=== PATIENT | female | born 1940 | race Caucasian/White ===

== ENCOUNTER 2020-02-20 08:35 | Outpatient (REF) | payer MEDICARE, SELFPAY ==
[2020-02-20 10:07] LABS: MANUAL DIFF FLAG NO
[2020-02-20 10:17] LABS: Basophils Absolute Auto 0.1 X10*3/uL (0.0-0.2); Basophils Percent Auto 0.7 % (0-2); Eosinophils Absolute Auto 0.1 X10*3/uL (0.0-0.4); Eosinophils Percent Auto 1.1 % (0-4); Hematocrit 40.5 % (37-47); Hemoglobin 13.1 g/dl (12.0-16.0); Imm Gran Abs Auto 0.02 X10*3/uL (0.00-0.03); Imm Gran Pct Auto 0.3 % (0.0-0.4); Mean Corpuscular HGB Conc 32.3 g/dl (31.0-35.0); Mean Corpuscular Hemoglobin 30.5 pg (27.0-33.0); Mean Corpuscular Volume 94.2 fL (80-98); Monocytes Absolute Auto 0.5 X10*3/uL (0.1-1.2); Monocytes Percent Auto 7.3 % (2-11); Neutrophils Absolute Auto 4.6 X10*3/uL (2.0-8.3); Neutrophils Percent Auto 63.6 % (45-73); Platelet Count 241 X10*3/uL (160-400); Red Cell Distribution Width 13.2 % (11.0-16.0); White Blood Count 7.2 X10*3/uL (4.8-10.8)
[2020-02-20 10:52] LABS: Alanine Aminotransferase 12 U/L (0-31); Alkaline Phosphatase 77 U/L (39-117); Anion Gap 13 (12-20); Aspartate Amino Transferase 17 U/L (5-31); Bilirubin Total 0.7 mg/dL (0.0-1.0); Blood Urea Nitrogen 19 mg/dL (9-16); Calcium 8.9 mg/dL (8.4-10.2); Carbon Dioxide 24 mmol/L (22-29); Chloride 112 mmol/L (96-108); Cholesterol 163 mg/dL; Estimated Glomerular Filt Rate 46; Glucose Fasting 81 mg/dL (60-99); HDL Cholesterol 33 mg/dL; LDL Cholesterol Calculated 104 mg/dl; Potassium 4.5 mmol/l (3.3-5.1); Sodium 144 mmol/L (135-145); Total Protein 6.4 g/dL (6.5-8.0); Triglycerides 130 mg/dL
[2020-02-20 11:01] LABS: Free T4 (Free Thyroxine) 1.26 ng/dL (0.71-1.85); Thyroid Stimulating Hormone 1.64 mIU/mL (0.32-4.0)
[2020-02-20 11:34] LABS: Vitamin B12 173 pg/mL (200-900)
== END 2020-02-20 08:36 | disposition home or self-care (01) ==
LOC: HO.LAB 08:35
PROVIDERS: PCP Internal Medicine; Visit Provider Internal Medicine
DX: E03.9 Hypothyroidism, unspecified (principal); E55.9 Vitamin D deficiency, unspecified; I12.9 Hypertensive chronic kidney disease with stage 1 through stage 4 chronic kidney disease, or unspecified chronic kidney disease; N18.9 Chronic kidney disease, unspecified; E53.8 Deficiency of other specified B group vitamins
CPT/HCPCS: 36415; 80053; 80061; 82306; 82607; 84439; 84443; 85025

== ENCOUNTER 2020-04-14 09:22 | Outpatient (REF) | payer MEDICARE, SELFPAY ==
[2020-04-14 10:57] LABS: Anion Gap 14 (12-20); Blood Urea Nitrogen 27 mg/dL (9-16); Calcium 8.7 mg/dL (8.4-10.2); Carbon Dioxide 20 mmol/L (22-29); Chloride 110 mmol/L (96-108); Estimated Glomerular Filt Rate 44; Sodium 140 mmol/L (135-145)
[2020-04-14 12:42] LABS: Renal w Reflex Lab Use Only Order verified
== END 2020-04-14 09:23 | disposition home or self-care (01) ==
LOC: HO.10HDL 09:22
PROVIDERS: PCP Internal Medicine; Visit Provider Internal Medicine Nephrology
DX: I12.9 Hypertensive chronic kidney disease with stage 1 through stage 4 chronic kidney disease, or unspecified chronic kidney disease (principal); N18.30 Chronic kidney disease, stage 3 unspecified
CPT/HCPCS: 80051; 82310; 82565; 84520

== ENCOUNTER → 2020-05-20 11:10 | Outpatient (BNVA) | payer MEDICARE, SELFPAY | PROVIDERS: PCP Internal Medicine; Visit Provider Internal Medicine | DX: R09.89 Other specified symptoms and signs involving the circulatory and respiratory systems (principal); R55 Syncope and collapse; I35.0 Nonrheumatic aortic (valve) stenosis; E78.5 Hyperlipidemia, unspecified; I65.23 Occlusion and stenosis of bilateral carotid arteries; I10 Essential (primary) hypertension | CPT/HCPCS: 93005; 99212 ==

== ENCOUNTER 2020-06-05 09:33 | Outpatient (REF) | payer MEDICARE, SELFPAY ==
[2020-06-05 10:09] LABS: MANUAL DIFF FLAG NO
[2020-06-05 10:13] LABS: Basophils Absolute Auto 0.1 X10*3/uL (0.0-0.2); Basophils Percent Auto 0.7 % (0-2); Eosinophils Absolute Auto 0.2 X10*3/uL (0.0-0.4); Eosinophils Percent Auto 2.3 % (0-4); Hematocrit 39.9 % (37-47); Hemoglobin 12.9 g/dl (12.0-16.0); Imm Gran Abs Auto 0.02 X10*3/uL (0.00-0.03); Imm Gran Pct Auto 0.3 % (0.0-0.4); Lymphocytes Absolute Auto 1.7 X10*3/uL (1.2-4.9); Lymphocytes Percent Auto 23.3 % (20-40); Mean Corpuscular HGB Conc 32.3 g/dl (31.0-35.0); Mean Corpuscular Hemoglobin 30.4 pg (27.0-33.0); Mean Corpuscular Volume 94.1 fL (80-98); Mean Platelet Volume 9.7 fL (9.4-12.3); Monocytes Absolute Auto 0.5 X10*3/uL (0.1-1.2); Monocytes Percent Auto 7.3 % (2-11); Neutrophils Absolute Auto 4.7 X10*3/uL (2.0-8.3); Neutrophils Percent Auto 66.1 % (45-73); Platelet Count 244 X10*3/uL (160-400); Red Blood Count 4.24 X10*6/uL (4.20-5.50); Red Cell Distribution Width 12.9 % (11.0-16.0); White Blood Count 7.1 X10*3/uL (4.8-10.8)
[2020-06-05 10:57] LABS: Alanine Aminotransferase 12 U/L (0-31); Alkaline Phosphatase 77 U/L (39-117); Anion Gap 13 (12-20); Aspartate Amino Transferase 18 U/L (5-31); Bilirubin Total 0.7 mg/dL (0.0-1.0); Blood Urea Nitrogen 22 mg/dL (9-16); Calcium 8.8 mg/dL (8.4-10.2); Carbon Dioxide 22 mmol/L (22-29); Chloride 112 mmol/L (96-108); Cholesterol 162 mg/dL; Estimated Glomerular Filt Rate 42; Glucose Fasting 83 mg/dL (60-99); HDL Cholesterol 29 mg/dL; LDL Cholesterol Calculated 106 mg/dl; Potassium 4.5 mmol/l (3.3-5.1); Sodium 142 mmol/L (135-145); Total Protein 6.3 g/dL (6.5-8.0); Triglycerides 139 mg/dL
[2020-06-05 11:04] LABS: Free T4 (Free Thyroxine) 1.15 ng/dL (0.71-1.85); Thyroid Stimulating Hormone 1.43 uIU/mL (0.32-4.0)
== END 2020-06-05 09:34 | disposition home or self-care (01) ==
LOC: HO.10HDL 09:33
PROVIDERS: Visit Provider Internal Medicine
DX: I12.9 Hypertensive chronic kidney disease with stage 1 through stage 4 chronic kidney disease, or unspecified chronic kidney disease (principal); N18.9 Chronic kidney disease, unspecified; E03.9 Hypothyroidism, unspecified
CPT/HCPCS: 36415; 80053; 80061; 84439; 84443; 85025

== ENCOUNTER 2020-07-23 09:54 | Outpatient (REF) | payer MEDICARE, SELFPAY ==
[2020-07-23 11:05] LABS: Anion Gap 12 (12-20); Blood Urea Nitrogen 25 mg/dL (9-16); Calcium 9.1 mg/dL (8.4-10.2); Carbon Dioxide 23 mmol/L (22-29); Chloride 110 mmol/L (96-108); Estimated Glomerular Filt Rate 43; Potassium 4.5 mmol/L (3.3-5.1); Sodium 140 mmol/L (135-145)
[2020-07-23 13:19] LABS: Phosphorus 3.8 mg/dL (2.7-4.5)
[2020-07-23 13:37] LABS: Renal w Reflex Lab Use Only Order verified
== END 2020-07-23 09:55 | disposition home or self-care (01) ==
LOC: HO.10HDL 09:54
PROVIDERS: Visit Provider Internal Medicine Nephrology
DX: I12.9 Hypertensive chronic kidney disease with stage 1 through stage 4 chronic kidney disease, or unspecified chronic kidney disease (principal); N18.30 Chronic kidney disease, stage 3 unspecified
CPT/HCPCS: 36415; 80051; 82310; 82565; 84100; 84520

== ENCOUNTER 2020-09-23 08:58 | Outpatient (REF) | payer MEDICARE, SELFPAY ==
[2020-09-23 10:44] LABS: Alanine Aminotransferase 12 U/L (0-31); Alkaline Phosphatase 77 U/L (39-117); Anion Gap 13 (12-20); Aspartate Amino Transferase 17 U/L (5-31); Bilirubin Total 0.6 mg/dL (0.0-1.0); Blood Urea Nitrogen 25 mg/dL (9-16); Carbon Dioxide 23 mmol/L (22-29); Chloride 112 mmol/L (96-108); Estimated Glomerular Filt Rate 42; Glucose Random 87 mg/dL (60-115); Potassium 4.9 mmol/L (3.3-5.1); Sodium 143 mmol/L (135-145); Total Protein 6.3 g/dL (6.5-8.0)
[2020-09-23 11:06] LABS: Free T4 (Free Thyroxine) 0.93 ng/dL (0.71-1.85); Thyroid Stimulating Hormone 3.55 uIU/mL (0.32-4.0)
== END 2020-09-23 08:59 | disposition home or self-care (01) ==
LOC: HO.10HDL 08:58
PROVIDERS: Visit Provider Internal Medicine
DX: I12.9 Hypertensive chronic kidney disease with stage 1 through stage 4 chronic kidney disease, or unspecified chronic kidney disease (principal); N18.9 Chronic kidney disease, unspecified; E03.9 Hypothyroidism, unspecified
CPT/HCPCS: 36415; 80053; 84439; 84443

== ENCOUNTER 2020-10-20 14:38 | Outpatient (REF) | payer MEDICARE, SELFPAY ==
--- NOTE | ~2020-10-20 | US_ITS ---
EXAMINATION: US VENOUS ULTRASOUND WITH DOPPLER LOWER EXTREMITY, RIGHT CLINICAL INFORMATION: Status post right hip fracture. Right leg edema. COMPARISON: None TECHNIQUE: Ultrasound of the deep veins is performed from the hip to the calf with compression sonography and color and pulse Doppler assessment. Spectral analysis with color-flow imaging is performed. FINDINGS: There is normal venous compression and respiratory variation and augmented flow. The visualized common femoral vein, superficial femoral vein, profunda femoral vein, popliteal vein, and the trifurcation region shows no evidence of deep venous thrombosis. The peroneal veins in the calf are not visualized due to edema. Vascular flow is demonstrated in the posterior tibial vein. There is no significant popliteal fossa cyst. If the patient's symptoms persist, followup ultrasound in 5 days 7 days might be of value to exclude proximal propagation from a non-visualized calf vein. US/US venous duplex LE RT IMPRESSION: No DVT demonstrated in the right lower extremity.
== END 2020-10-20 14:39 | disposition home or self-care (01) ==
LOC: HO.US 14:38
PROVIDERS: PCP Internal Medicine; Visit Provider Internal Medicine
DX: R60.0 Localized edema (principal)
CPT/HCPCS: 93971

== ENCOUNTER 2020-11-03 08:59 | Outpatient (REF) | payer MEDICARE, SELFPAY ==
--- NOTE | ~2020-11-03 | US_ITS ---
EXAMINATION: US ABDOMEN COMPLETE CLINICAL INFORMATION: Abdominal pain. COMPARISON: CT abdomen pelvis 09/25/2018. Ultrasound abdomen 11/05/2015. TECHNIQUE: Real-time imaging of the abdominal viscera. FINDINGS: PANCREAS: Not well visualized due to bowel gas ABDOMINAL AORTA: The proximal, mid, and distal segments are normal in caliber. INFERIOR VENA CAVA: Visualized portions are normal. LIVER: Normal. The liver is normal in size. The liver contour is normal. Parenchymal echogenicity is normal. No focal hepatic lesion. There is no intrahepatic biliary duct dilatation seen. GALLBLADDER: The gallbladder is physiologically distended. Multiple mobile gallstones are present. No evidence of gallbladder wall thickening or pericholecystic fluid. COMMON BILE DUCT: Normal in caliber measuring 0.4 cm in diameter. RIGHT KIDNEY: There is a 3 x 4 mm echogenic density with twinkle artifact in the upper pole questionable for a stone. No hydronephrosis or focal parenchymal lesions. The kidney measures 9.0 cm in maximum dimension. LEFT KIDNEY: There is fullness of the left renal pelvis versus peripelvic cyst. No hydronephrosis. No renal calculi or focal parenchymal lesions. The kidney measures 9.7 cm in maximum dimension. SPLEEN: Normal. The spleen measures 10.1 cm in maximum dimension. FREE FLUID: None. US/US abdomen complete IMPRESSION: Gallstones. Question small right renal stone and fullness of the left renal pelvis versus peripelvic cyst. Limited visualization of the pancreas.
== END 2020-11-03 09:00 | disposition home or self-care (01) ==
LOC: HO.US 08:59
PROVIDERS: PCP Internal Medicine; Visit Provider Internal Medicine
DX: R10.9 Unspecified abdominal pain (principal)
CPT/HCPCS: 76700

== ENCOUNTER → 2020-11-19 10:42 | Outpatient (BNVA) | payer MEDICARE, SELFPAY | PROVIDERS: PCP Internal Medicine; Referring Provider Internal Medicine; Visit Provider Internal Medicine | DX: Z01.810 Encounter for preprocedural cardiovascular examination (principal); I35.0 Nonrheumatic aortic (valve) stenosis; I65.23 Occlusion and stenosis of bilateral carotid arteries; R09.89 Other specified symptoms and signs involving the circulatory and respiratory systems; E78.5 Hyperlipidemia, unspecified; Z78.9 Other specified health status | CPT/HCPCS: 93005; 99212 ==

== ENCOUNTER 2020-12-16 08:19 | Outpatient (REF) | payer MEDICARE, SELFPAY ==
[2020-12-16 10:46] LABS: Anion Gap 11 (12-20); Blood Urea Nitrogen 33 mg/dL (9-16); Calcium 9.2 mg/dL (8.4-10.2); Carbon Dioxide 21 mmol/L (22-29); Chloride 114 mmol/L (96-108); Estimated Glomerular Filt Rate 46; Potassium 4.9 mmol/L (3.3-5.1); Sodium 141 mmol/L (135-145)
== END 2020-12-16 08:20 | disposition home or self-care (01) ==
LOC: HO.10HDL 08:19
PROVIDERS: Visit Provider Internal Medicine Nephrology
DX: N18.31 Chronic kidney disease, stage 3a (principal)
CPT/HCPCS: 36415; 80051; 82310; 82565; 84520

== ENCOUNTER 2021-01-07 11:39 | Outpatient (REF) | payer MEDICARE, SELFPAY ==
[2021-01-07 14:06] LABS: MANUAL DIFF FLAG NO
[2021-01-07 14:11] LABS: Basophils Absolute Auto 0.1 X10*3/uL (0.0-0.2); Basophils Percent Auto 0.7 % (0-2); Eosinophils Absolute Auto 0.1 X10*3/uL (0.0-0.4); Eosinophils Percent Auto 1.5 % (0-4); Hematocrit 36.3 % (37-47); Hemoglobin 11.4 g/dl (12.0-16.0); Imm Gran Abs Auto 0.02 X10*3/uL (0.00-0.03); Imm Gran Pct Auto 0.2 % (0.0-0.4); Lymphocytes Absolute Auto 1.7 X10*3/uL (1.2-4.9); Lymphocytes Percent Auto 20.4 % (20-40); Mean Corpuscular HGB Conc 31.4 g/dl (31.0-35.0); Mean Corpuscular Hemoglobin 29.4 pg (27.0-33.0); Mean Corpuscular Volume 93.6 fL (80-98); Mean Platelet Volume 10.3 fL (9.4-12.3); Monocytes Absolute Auto 0.6 X10*3/uL (0.1-1.2); Monocytes Percent Auto 7.3 % (2-11); Neutrophils Absolute Auto 5.8 X10*3/uL (2.0-8.3); Neutrophils Percent Auto 69.9 % (45-73); Platelet Count 265 X10*3/uL (160-400); Red Blood Count 3.88 X10*6/uL (4.20-5.50); Red Cell Distribution Width 12.8 % (11.0-16.0); White Blood Count 8.3 X10*3/uL (4.8-10.8)
[2021-01-07 14:19] LABS: Anion Gap 12 (12-20); Blood Urea Nitrogen 28 mg/dL (9-16); Calcium 9.2 mg/dL (8.4-10.2); Carbon Dioxide 20 mmol/L (22-29); Chloride 114 mmol/L (96-108); Estimated Glomerular Filt Rate 51; Glucose Random 65 mg/dL (60-115); Potassium 4.5 mmol/L (3.3-5.1); Sodium 141 mmol/L (135-145)
== END 2021-01-07 11:40 | disposition home or self-care (01) ==
LOC: HO.10HDL 11:39
PROVIDERS: Visit Provider Internal Medicine
DX: I12.9 Hypertensive chronic kidney disease with stage 1 through stage 4 chronic kidney disease, or unspecified chronic kidney disease (principal); I25.10 Atherosclerotic heart disease of native coronary artery without angina pectoris; N18.9 Chronic kidney disease, unspecified
CPT/HCPCS: 36415; 80048; 85025

== ENCOUNTER 2021-01-15 11:20 | Outpatient (REF) | payer MEDICARE, SELFPAY ==
--- NOTE | ~2021-01-15 | US_ITS ---
EXAMINATION: US EXTRACRANIAL CAROTID DUPLEX, BILATERAL CLINICAL INFORMATION: This is a 80-year-old female with coronary artery disease. History of carotid endarterectomy. COMPARISON: Comparison is made to a previous study dated 12/31/2019 which demonstrated bilateral 50-79% internal carotid artery stenoses. TECHNIQUE: Real-time ultrasound and Doppler techniques (integrating B-mode 2-D vascular images, Doppler spectral analysis and color-flow Doppler imaging) were utilized to interrogate the extracranial carotid arteries, the vertebral arteries and proximal subclavian arteries bilaterally. The degree of stenosis is determined by criteria similar to NASCET. FINDINGS: Right Side: 1. There is moderate atherosclerotic plaque seen in the bifurcation/proximal ICA region. 2. The common carotid artery PSV proximally is 96 cm/s and distally 88 cm/s. 3. The proximal internal carotid artery velocities are 203 cm/s systolic and 37 cm/s diastolic. 4. The proximal external carotid artery PSV is 141 cm/s. 5. The vertebral artery shows antegrade flow. 6. The subclavian artery waveforms are normal. Left Side: 1. There is moderate atherosclerotic plaque seen in the bifurcation/proximal ICA region. 2. The common carotid artery PSV proximally is 113 cm/s and distally 112 cm/s. 3. The proximal internal carotid artery velocities are 299 cm/s systolic and 62 cm/s diastolic. 4. The proximal external carotid artery PSV is 120 cm/s. 5. The vertebral artery shows antegrade flow. 6. The subclavian artery waveforms are normal. US/US carotid duplex BI IMPRESSION: 1. RIGHT: Moderate, hemodynamically significant stenosis of the proximal right internal carotid artery corresponding to a 50-79% stenosis by velocity criteria. 2. LEFT: Moderate, hemodynamically significant stenosis of the proximal left internal carotid artery corresponding to a 50-79% stenosis by velocity criteria. 3. There is no change in the category severity of disease when compared to the previous study dated 12/31/2019.
== END 2021-01-15 11:21 | disposition home or self-care (01) ==
LOC: HO.US 11:20
PROVIDERS: Visit Provider Surgery Vascular Surgery
DX: I63.233 Cerebral infarction due to unspecified occlusion or stenosis of bilateral carotid arteries (principal)
CPT/HCPCS: 93880

== ENCOUNTER → 2021-02-19 13:03 | Outpatient (BNVA) | payer MEDICARE, SELFPAY | PROVIDERS: PCP Internal Medicine; Visit Provider Surgery Vascular Surgery | DX: I65.23 Occlusion and stenosis of bilateral carotid arteries (principal); I10 Essential (primary) hypertension; I35.0 Nonrheumatic aortic (valve) stenosis; E78.5 Hyperlipidemia, unspecified; K81.9 Cholecystitis, unspecified; Z88.2 Allergy status to sulfonamides; Z88.8 Allergy status to other drugs, medicaments and biological substances | CPT/HCPCS: 99212 ==

== ENCOUNTER 2021-04-23 10:57 | Outpatient (REF) | payer MEDICARE, SELFPAY ==
[2021-04-23 13:51] LABS: MANUAL DIFF FLAG NO
[2021-04-23 14:00] LABS: Basophils Absolute Auto 0.1 X10*3/uL (0.0-0.2); Eosinophils Absolute Auto 0.2 X10*3/uL (0.0-0.4); Eosinophils Percent Auto 2.6 % (0-4); Hematocrit 37.6 % (37.0-47.0); Hemoglobin 11.9 g/dl (12.0-16.0); Imm Gran Abs Auto 0.02 X10*3/uL (0.00-0.03); Imm Gran Pct Auto 0.3 % (0.0-0.4); Lymphocytes Absolute Auto 1.5 X10*3/uL (1.2-4.9); Lymphocytes Percent Auto 24.4 % (20-40); Mean Corpuscular HGB Conc 31.6 g/dl (31.0-35.0); Mean Corpuscular Hemoglobin 30.1 pg (27.0-33.0); Mean Corpuscular Volume 94.9 fL (80.0-98.0); Mean Platelet Volume 10.7 fL (9.4-12.3); Monocytes Absolute Auto 0.3 X10*3/uL (0.1-1.2); Monocytes Percent Auto 5.4 % (2-11); Neutrophils Absolute Auto 4.1 x10*3/uL (2.0-8.3); Neutrophils Percent Auto 66.3 % (45-73); Platelet Count 226 X10*3/uL (160-400); Red Blood Count 3.96 X10*6/uL (4.20-5.50); Red Cell Distribution Width 13.6 % (11.0-16.0); White Blood Count 6.2 X10*3/uL (4.8-10.8)
[2021-04-23 14:13] LABS: Anion Gap 14 (12-20); Blood Urea Nitrogen 26 mg/dL (9-16); Calcium 9.3 mg/dL (8.4-10.2); Carbon Dioxide 20 mmol/L (22-29); Chloride 114 mmol/L (96-108); Estimated Glomerular Filt Rate 46; Potassium 4.5 mmol/L (3.3-5.1); Sodium 143 mmol/L (135-145)
[2021-04-24 16:31] LABS: Calcium (PTHI) 9.6 mg/dL (8.6-10.4); PTHI 50 pg/mL (14-64)
== END 2021-04-23 10:58 | disposition home or self-care (01) ==
LOC: HO.10HDL 10:57
PROVIDERS: Visit Provider Internal Medicine Nephrology
DX: I12.9 Hypertensive chronic kidney disease with stage 1 through stage 4 chronic kidney disease, or unspecified chronic kidney disease (principal); N18.31 Chronic kidney disease, stage 3a
CPT/HCPCS: 36415; 80051; 82040; 82310; 82565; 83970; 84520; 85025

== ENCOUNTER 2021-05-06 09:42 | Outpatient (REF) | payer MEDICARE, SELFPAY | END 2021-05-06 09:43 | disposition home or self-care (01) | LOC: HO.LNP 09:42 | PROVIDERS: Visit Provider Internal Medicine | DX: R19.7 Diarrhea, unspecified (principal) | CPT/HCPCS: 87045; 87046 ==

== ENCOUNTER 2021-05-21 10:14 | Outpatient (REF) | payer MEDICARE, SELFPAY ==
[2021-05-21 14:16] LABS: MANUAL DIFF FLAG NO
[2021-05-21 14:21] LABS: Basophils Absolute Auto 0.1 X10*3/uL (0.0-0.2); Basophils Percent Auto 0.8 % (0-2); Eosinophils Absolute Auto 0.1 X10*3/uL (0.0-0.4); Hematocrit 39.3 % (37.0-47.0); Hemoglobin 12.4 g/dl (12.0-16.0); Imm Gran Abs Auto 0.03 X10*3/uL (0.00-0.03); Imm Gran Pct Auto 0.5 % (0.0-0.4); Lymphocytes Absolute Auto 1.8 X10*3/uL (1.2-4.9); Lymphocytes Percent Auto 26.4 % (20-40); Mean Corpuscular HGB Conc 31.6 g/dl (31.0-35.0); Mean Corpuscular Volume 95.2 fL (80.0-98.0); Mean Platelet Volume 10.5 fL (9.4-12.3); Monocytes Absolute Auto 0.4 X10*3/uL (0.1-1.2); Neutrophils Absolute Auto 4.3 x10*3/uL (2.0-8.3); Neutrophils Percent Auto 64.3 % (45-73); Platelet Count 242 X10*3/uL (160-400); Red Blood Count 4.13 X10*6/uL (4.20-5.50); Red Cell Distribution Width 13.6 % (11.0-16.0); White Blood Count 6.6 X10*3/uL (4.8-10.8)
[2021-05-21 14:55] LABS: Alanine Aminotransferase 15 U/L (0-31); Albumin Level 3.9 g/dL (3.5-5.0); Alkaline Phosphatase 84 U/L (39-117); Anion Gap 11 (12-20); Aspartate Amino Transferase 18 U/L (5-31); Bilirubin Total 0.4 mg/dL (0.0-1.0); Blood Urea Nitrogen 28 mg/dL (9-16); Calcium 9.2 mg/dL (8.4-10.2); Carbon Dioxide 21 mmol/L (22-29); Chloride 114 mmol/L (96-108); Estimated Glomerular Filt Rate 45; Glucose Random 107 mg/dL (60-115); Potassium 4.8 mmol/L (3.3-5.1); Sodium 141 mmol/L (135-145); Total Protein 6.4 g/dL (6.5-8.0)
== END 2021-05-21 10:15 | disposition home or self-care (01) ==
LOC: HO.10HDL 10:14
PROVIDERS: Visit Provider Internal Medicine
DX: I12.9 Hypertensive chronic kidney disease with stage 1 through stage 4 chronic kidney disease, or unspecified chronic kidney disease (principal); N18.9 Chronic kidney disease, unspecified; D64.9 Anemia, unspecified
CPT/HCPCS: 36415; 80053; 85025

== ENCOUNTER → 2021-05-27 10:25 | Outpatient (BNVA) | payer MEDICARE, SELFPAY | PROVIDERS: PCP Internal Medicine; Referring Provider Internal Medicine; Visit Provider Internal Medicine | DX: R09.89 Other specified symptoms and signs involving the circulatory and respiratory systems (principal); I35.0 Nonrheumatic aortic (valve) stenosis; E78.5 Hyperlipidemia, unspecified; I65.23 Occlusion and stenosis of bilateral carotid arteries; Z78.9 Other specified health status | CPT/HCPCS: 99212 ==

== ENCOUNTER 2021-06-18 07:28 | Outpatient (REF) | payer MEDICARE, SELFPAY ==
[2021-06-18 10:48] LABS: Cholesterol 198 mg/dL; HDL Cholesterol 30 mg/dL; LDL Cholesterol Calculated 145 mg/dl; Triglycerides 118 mg/dL
== END 2021-06-18 07:29 | disposition home or self-care (01) ==
LOC: HO.10HDL 07:28
PROVIDERS: Visit Provider Internal Medicine
DX: I65.23 Occlusion and stenosis of bilateral carotid arteries (principal); E78.5 Hyperlipidemia, unspecified
CPT/HCPCS: 36415; 80061

== ENCOUNTER → 2021-06-26 09:58 | Outpatient (BNVA) | payer MEDICARE, SELFPAY | PROVIDERS: PCP Internal Medicine; Referring Provider Internal Medicine; Visit Provider Internal Medicine | DX: Z13.89 Encounter for screening for other disorder (principal) ==

== ENCOUNTER 2021-07-13 09:46 | Outpatient (REF) | payer MEDICARE, SELFPAY ==
[2021-07-13 10:54] LABS: Anion Gap 11 (12-20); Blood Urea Nitrogen 35 mg/dL (9-16); Calcium 9.3 mg/dL (8.4-10.2); Carbon Dioxide 22 mmol/L (22-29); Chloride 112 mmol/L (96-108); Estimated Glomerular Filt Rate 38; Potassium 4.7 mmol/L (3.3-5.1); Sodium 140 mmol/L (135-145)
== END 2021-07-13 09:47 | disposition home or self-care (01) ==
LOC: HO.10HDL 09:46
PROVIDERS: Visit Provider Internal Medicine Nephrology
DX: I12.9 Hypertensive chronic kidney disease with stage 1 through stage 4 chronic kidney disease, or unspecified chronic kidney disease (principal); N18.31 Chronic kidney disease, stage 3a; R42 Dizziness and giddiness
CPT/HCPCS: 36415; 80051; 82310; 82565; 84520

== ENCOUNTER 2021-08-18 14:56 | Outpatient (REF) | payer MEDICARE, SELFPAY ==
[2021-08-18 15:18] LABS: MANUAL DIFF FLAG NO
[2021-08-18 15:26] LABS: Basophils Absolute Auto 0.1 X10*3/uL (0.0-0.2); Basophils Percent Auto 0.6 % (0-2); Eosinophils Absolute Auto 0.1 X10*3/uL (0.0-0.4); Hematocrit 39.3 % (37.0-47.0); Hemoglobin 12.9 g/dl (12.0-16.0); Imm Gran Abs Auto 0.03 X10*3/uL (0.00-0.03); Imm Gran Pct Auto 0.3 % (0.0-0.4); Lymphocytes Absolute Auto 2.3 X10*3/uL (1.2-4.9); Lymphocytes Percent Auto 25.9 % (20-40); Mean Corpuscular HGB Conc 32.8 g/dl (31.0-35.0); Mean Corpuscular Hemoglobin 30.7 pg (27.0-33.0); Mean Corpuscular Volume 93.6 fL (80.0-98.0); Mean Platelet Volume 9.5 fL (9.4-12.3); Monocytes Absolute Auto 0.6 X10*3/uL (0.1-1.2); Neutrophils Absolute Auto 5.8 x10*3/uL (2.0-8.3); Neutrophils Percent Auto 65.2 % (45-73); Platelet Count 254 X10*3/uL (160-400); Red Cell Distribution Width 13.1 % (11.0-16.0); White Blood Count 8.8 X10*3/uL (4.8-10.8)
[2021-08-18 15:47] LABS: Alanine Aminotransferase 11 U/L (0-31); Alkaline Phosphatase 84 U/L (39-117); Anion Gap 15 (12-20); Aspartate Amino Transferase 18 U/L (5-31); Bilirubin Total 0.3 mg/dL (0.0-1.0); Blood Urea Nitrogen 29 mg/dL (9-16); Calcium 9.2 mg/dL (8.4-10.2); Carbon Dioxide 19 mmol/L (22-29); Chloride 111 mmol/L (96-108); Estimated Glomerular Filt Rate 31; Glucose Random 101 mg/dL (60-115); Potassium 4.6 mmol/L (3.3-5.1); Sodium 140 mmol/L (135-145); Total Protein 6.6 g/dL (6.5-8.0)
[2021-08-18 16:11] LABS: Vitamin B12 153 pg/mL (200-900)
== END 2021-08-18 14:57 | disposition home or self-care (01) ==
LOC: HO.LAB 14:56
PROVIDERS: PCP Internal Medicine; Visit Provider Internal Medicine
DX: I12.9 Hypertensive chronic kidney disease with stage 1 through stage 4 chronic kidney disease, or unspecified chronic kidney disease (principal); E53.8 Deficiency of other specified B group vitamins
CPT/HCPCS: 36415; 80053; 82607; 85025

== ENCOUNTER 2021-08-24 09:28 | Outpatient (REF) | payer MEDICARE, SELFPAY ==
[2021-08-24 10:41] LABS: Cholesterol 109 mg/dL; HDL Cholesterol 37 mg/dL; LDL Cholesterol Calculated 56 mg/dl; Triglycerides 80 mg/dL
== END 2021-08-24 09:29 | disposition home or self-care (01) ==
LOC: HO.LAB 09:28
PROVIDERS: PCP Internal Medicine; Referring Provider Internal Medicine; Visit Provider Nurse Practitioner Family
DX: E78.5 Hyperlipidemia, unspecified (principal)
CPT/HCPCS: 36415; 80061

== ENCOUNTER 2021-10-26 09:41 | Outpatient (REF) | payer MEDICARE, SELFPAY ==
[2021-10-26 11:03] LABS: Anion Gap 13 (12-20); Blood Urea Nitrogen 32 mg/dL (9-16); Carbon Dioxide 20 mmol/L (22-29); Chloride 114 mmol/L (96-108); Estimated Glomerular Filt Rate 35; Potassium 4.6 mmol/L (3.3-5.1); Sodium 142 mmol/L (135-145)
== END 2021-10-26 09:42 | disposition home or self-care (01) ==
LOC: HO.10HDL 09:41
PROVIDERS: Visit Provider Internal Medicine Nephrology
DX: I12.9 Hypertensive chronic kidney disease with stage 1 through stage 4 chronic kidney disease, or unspecified chronic kidney disease (principal); N18.31 Chronic kidney disease, stage 3a
CPT/HCPCS: 36415; 80051; 82310; 82565; 84520

== ENCOUNTER 2021-11-25 09:10 | Outpatient (REF) | payer MEDICARE, SELFPAY ==
[2021-11-25 11:12] LABS: T4 Thyroxine 6.8 ug/dL (4.5-12.0); Thyroid Stimulating Hormone 2.84 uIU/mL (0.32-4.0)
[2021-11-25 11:53] LABS: Vitamin B12 161 pg/mL (200-900)
== END 2021-11-25 09:11 | disposition home or self-care (01) ==
LOC: HO.10HDL 09:10
PROVIDERS: Visit Provider Internal Medicine
DX: I12.9 Hypertensive chronic kidney disease with stage 1 through stage 4 chronic kidney disease, or unspecified chronic kidney disease (principal); N18.9 Chronic kidney disease, unspecified; E03.9 Hypothyroidism, unspecified
CPT/HCPCS: 36415; 82607; 84436; 84443

== ENCOUNTER → 2021-11-30 12:25 | Outpatient (BNVA) | payer MEDICARE, SELFPAY | PROVIDERS: PCP Internal Medicine; Referring Provider Internal Medicine; Visit Provider Internal Medicine | DX: I35.0 Nonrheumatic aortic (valve) stenosis (principal); R09.89 Other specified symptoms and signs involving the circulatory and respiratory systems; E78.5 Hyperlipidemia, unspecified; I65.23 Occlusion and stenosis of bilateral carotid arteries; Z79.82 Long term (current) use of aspirin; Z79.899 Other long term (current) drug therapy; Z78.9 Other specified health status | CPT/HCPCS: 93005; 99212 ==

== ENCOUNTER 2022-01-25 12:13 | Outpatient (REF) | payer MEDICARE, SELFPAY ==
[2022-01-25 14:09] LABS: Anion Gap 16 (12-20); Blood Urea Nitrogen 25 mg/dL (9-16); Calcium 9.5 mg/dL (8.4-10.2); Carbon Dioxide 20 mmol/L (22-29); Chloride 110 mmol/L (96-108); Estimated Glomerular Filt Rate 42; Sodium 141 mmol/L (135-145)
== END 2022-01-25 12:14 | disposition home or self-care (01) ==
LOC: HO.10HDL 12:13
PROVIDERS: Visit Provider Internal Medicine Nephrology
DX: I12.9 Hypertensive chronic kidney disease with stage 1 through stage 4 chronic kidney disease, or unspecified chronic kidney disease (principal); N18.31 Chronic kidney disease, stage 3a
CPT/HCPCS: 36415; 80051; 82310; 82565; 84520

== ENCOUNTER 2022-02-16 12:40 | Outpatient (REF) | payer MEDICARE, SELFPAY ==
[2022-02-16 13:49] LABS: MANUAL DIFF FLAG NO
[2022-02-16 13:56] LABS: Basophils Absolute Auto 0.1 X10*3/uL (0.0-0.2); Basophils Percent Auto 0.8 % (0-2); Eosinophils Absolute Auto 0.1 X10*3/uL (0.0-0.4); Eosinophils Percent Auto 1.1 % (0-4); Hematocrit 38.5 % (37.0-47.0); Hemoglobin 12.3 g/dl (12.0-16.0); Imm Gran Abs Auto 0.02 X10*3/uL (0.00-0.03); Imm Gran Pct Auto 0.2 % (0.0-0.4); Lymphocytes Absolute Auto 2.2 X10*3/uL (1.2-4.9); Lymphocytes Percent Auto 25.6 % (20-40); Mean Corpuscular HGB Conc 31.9 g/dl (31.0-35.0); Mean Corpuscular Hemoglobin 30.1 pg (27.0-33.0); Mean Corpuscular Volume 94.4 fL (80.0-98.0); Monocytes Absolute Auto 0.6 X10*3/uL (0.1-1.2); Monocytes Percent Auto 6.7 % (2-11); Neutrophils Absolute Auto 5.6 x10*3/uL (2.0-8.3); Neutrophils Percent Auto 65.6 % (45-73); Platelet Count 255 X10*3/uL (160-400); Red Blood Count 4.08 X10*6/uL (4.20-5.50); Red Cell Distribution Width 12.9 % (11.0-16.0); White Blood Count 8.5 X10*3/uL (4.8-10.8)
[2022-02-16 14:25] LABS: Alanine Aminotransferase 15 U/L (0-31); Albumin Level 4.1 g/dL (3.5-5.0); Alkaline Phosphatase 76 U/L (39-117); Anion Gap 16 (12-20); Aspartate Amino Transferase 22 U/L (5-31); Bilirubin Total 0.5 mg/dL (0.0-1.0); Blood Urea Nitrogen 32 mg/dL (9-16); Calcium 9.6 mg/dL (8.4-10.2); Carbon Dioxide 20 mmol/L (22-29); Chloride 111 mmol/L (96-108); Estimated Glomerular Filt Rate 40; Glucose Random 69 mg/dL (60-115); Potassium 4.9 mmol/L (3.3-5.1); Sodium 142 mmol/L (135-145); Total Protein 6.4 g/dL (6.5-8.0)
[2022-02-16 14:56] LABS: Free T4 (Free Thyroxine) 1.07 ng/dL (0.71-1.85)
== END 2022-02-16 12:41 | disposition home or self-care (01) ==
LOC: HO.10HDL 12:40
PROVIDERS: Visit Provider Internal Medicine
DX: I12.9 Hypertensive chronic kidney disease with stage 1 through stage 4 chronic kidney disease, or unspecified chronic kidney disease (principal); N18.9 Chronic kidney disease, unspecified; K21.9 Gastro-esophageal reflux disease without esophagitis; E03.9 Hypothyroidism, unspecified
CPT/HCPCS: 36415; 80053; 84439; 85025

== ENCOUNTER 2022-03-01 14:10 | Outpatient (REF) | payer MEDICARE, SELFPAY ==
--- NOTE | ~2022-03-01 | US_ITS ---
EXAMINATION: US EXTRACRANIAL CAROTID DUPLEX, BILATERAL CLINICAL INFORMATION: Carotid stenosis COMPARISON: Carotid duplex on 01/15/2021 TECHNIQUE: Real-time ultrasound and Doppler techniques (integrating B-mode 2-D vascular images, Doppler spectral analysis and color-flow Doppler imaging) were utilized to interrogate the extracranial carotid arteries, the vertebral arteries and proximal subclavian arteries bilaterally. The degree of stenosis is determined by criteria similar to NASCET. FINDINGS: Right Side: 1. There is moderate atherosclerotic plaque seen in the bifurcation/proximal ICA region. 2. The common carotid artery PSV proximally is 83 cm/s and distally 71 cm/s. 3. The proximal internal carotid artery velocities are 178 cm/s systolic and 47 cm/s diastolic. 4. The proximal external carotid artery PSV is 94 cm/s. 5. The vertebral artery shows antegrade flow. 6. The subclavian artery waveforms are normal. Left Side: 1. There is moderate atherosclerotic plaque seen in the bifurcation/proximal ICA region. 2. The common carotid artery PSV proximally is 85 cm/s and distally 87 cm/s. 3. The proximal internal carotid artery velocities are 160 cm/s systolic and 20 cm/s diastolic. 4. The proximal external carotid artery PSV is 139 cm/s. 5. The vertebral artery shows antegrade flow. 6. The subclavian artery waveforms are normal. US/US carotid duplex BI IMPRESSION: 1. RIGHT: Moderate, hemodynamically significant stenosis of the proximal right internal carotid artery corresponding to a 50-79% stenosis by velocity criteria. 2. LEFT: Moderate, hemodynamically significant stenosis of the proximal left internal carotid artery corresponding to a 50-79% stenosis by velocity criteria. 3. There is no change in the category severity of disease when compared to the previous study dated 01/15/2021.
== END 2022-03-01 14:11 | disposition home or self-care (01) ==
LOC: HO.US 14:10
PROVIDERS: Visit Provider Surgery Vascular Surgery
DX: I65.23 Occlusion and stenosis of bilateral carotid arteries (principal)
CPT/HCPCS: 93880

== ENCOUNTER → 2022-04-13 12:54 | Outpatient (BNVA) | payer MEDICARE, SELFPAY | PROVIDERS: PCP Internal Medicine; Visit Provider Surgery Vascular Surgery | DX: I65.23 Occlusion and stenosis of bilateral carotid arteries (principal) | CPT/HCPCS: 99212 ==

== ENCOUNTER → 2022-05-11 10:22 | Outpatient (REF) | payer MEDICARE, SELFPAY ==
--- NOTE | 2022-05-11 10:24 | CA_ITS ---
Transthoracic Echocardiogram Patient (Last, First, Middle): Yuni Delatorre, Gender: Female Date of : 1940 Age: 82 Procedure Date: 05/11/2022 Procedure Type: Transthoracic Echocardiogram Location: OP Height: 157.48 cm Weight: 58.97 kg BSA: 1.59 m2 Heart Rate: bpm BP: 140 / 80 mmHg Geography Head: TO Referring MD: Kalen Muñoz MD Symptoms: I35.0 - Nonrheumatic aortic (valve) stenosis Study Quality: Fair Conclusions: - The left ventricular systolic function is normal. The calculated ejection fraction is 58% by biplane method. - There is mild aortic valve stenosis. - There is mild mitral annular calcification. Findings Left Ventricle Normal left ventricular cavity size. The left ventricular systolic function is normal. The calculated ejection fraction is 58% by biplane method. There is no evidence of regional wall motion abnormalities. Evidence suggests grade I (mild) diastolic dysfunction. There is mild septal asymmetric hypertrophy. Right Ventricle Normal right ventricular cavity size and systolic function. Atria Both atria are normal in size. Aortic Valve There is moderate calcification of the aortic valve. There is mild aortic valve stenosis. The mean gradient is 7 mmHg. The aortic valve area is 1.75 cm2. There is no aortic valve regurgitation. Mitral Valve There is mild mitral annular calcification. There is trace mitral valve regurgitation. There is no mitral valve stenosis. Pulmonic Valve The pulmonic valve is likely normal. Tricuspid Valve Normal tricuspid valve structure. There is trace tricuspid valve regurgitation. There is no evidence of pulmonary hypertension. Great Vessels The asc aorta is normal in size. Venous The inferior vena cava is normal in size and collapses greater than 50% with inspiration. Pericardium/Pleural There is no evidence of pericardial effusion. Prior Study Comparison No significant change compared to prior study dated: 11/06/2019. Measurements 2D Linear Measurements IVSd: 1.18 0.6-0.9/0.6-1.0 cm LVIDd: 4.79 3.9-5.3/4.2-5.9 cm LVIDd Index: 3.01 2.4-3.2/2.2-3.1 cm/m2 LVIDs: 2.48 2.0-3.6 cm LVPWd: 0.93 0.7-1.1 cm LA Diam: 3.60 2.7-3.8/3.0-4.0 cm LAIDs Index: 2.26 1.5-2.3 cm/m2 LV Mass: 226.91 67-162/88-224 g LV Mass Index: 142.71 43-95/49-115 g/m2 LVOT Diam: 2.00 3.0+(-)1.3 cm 2D Systolic Function EF 4C: 55.40 >55% EF 2C: 60.60 >55% EF BiP: 57.60 >55% Mitral Valve MV Pk E: 0.86 MV PK A: 0.96 MV Decel Time: 267.00 E/A: 0.90 E'Lateral: 7.18 E'Medial: 5.77 E/E' Med: 14.90 E/E' Lat: 11.90 PHT: 78.00 MVA PHT: 2.82 Decel Dunn: 3.21 Aortic Valve AoV Pk Erik: 1.89 AoV Mn Erik: 1.28 AoV VTI: 0.49 AoV Pk Grad: 14.00 Aov Mn Grad: 7.00 JOSE Cont.VTI: 1.75 LVOT LVOT Pk Erik: 1.00 LVOT Mn Erik: 0.68 LVOT VTI: 0.27 LVOT Pk Grad: 4.00 LVOT Mn Grad: 2.00 LVOT Diam: 2.00 LVOT Area: 3.14 Diastolic Function MV Pk E: 0.86 MV Pk A: 0.96 E/A: 0.90 E'Medial: 5.77 E/E' Med: 14.90 E' Laterial: 7.18 E/E' Lat: 11.90 Right Ventricle TAPSE (mm): 25.20 TVS' Erik: 10.30 Tricuspid Valve TR Pk Erik: 2.16 TR Pk Grad: 19.00 RA Press: 3.00 RVSP: 22.00 Great Vessels Aorta Sinus of Valsalva: 3.03 2.0-3.[address] Ridge: 2.09 1.7-3.4 cm Ao Asc: 2.90 2.1-3.4 cm Updated in Other Vendor System with Status of Final Kalen Muñoz MD electronically signed on 05/12/2022 12:34:25 PM with status of Final
== END ==
LOC: HO.CARD 10:22
PROVIDERS: Visit Provider Internal Medicine
DX: I35.0 Nonrheumatic aortic (valve) stenosis (principal)
CPT/HCPCS: 93306

== ENCOUNTER 2022-05-27 11:56 | Outpatient (REF) | payer MEDICARE, SELFPAY ==
[2022-05-27 13:57] LABS: MANUAL DIFF FLAG NO
[2022-05-27 14:00] LABS: Basophils Absolute Auto 0.1 X10*3/uL (0.0-0.2); Basophils Percent Auto 0.9 % (0-2); Eosinophils Absolute Auto 0.1 X10*3/uL (0.0-0.4); Eosinophils Percent Auto 1.1 % (0-4); Hematocrit 37.8 % (37.0-47.0); Hemoglobin 12.1 g/dl (12.0-16.0); Imm Gran Abs Auto 0.03 X10*3/uL (0.00-0.03); Imm Gran Pct Auto 0.3 % (0.0-0.4); Lymphocytes Absolute Auto 1.9 X10*3/uL (1.2-4.9); Lymphocytes Percent Auto 21.2 % (20-40); Mean Corpuscular Hemoglobin 30.4 pg (27.0-33.0); Mean Platelet Volume 10.1 fL (9.4-12.3); Monocytes Absolute Auto 0.5 X10*3/uL (0.1-1.2); Monocytes Percent Auto 5.8 % (2-11); Neutrophils Absolute Auto 6.3 x10*3/uL (2.0-8.3); Neutrophils Percent Auto 70.7 % (45-73); Platelet Count 288 X10*3/uL (160-400); Red Blood Count 3.98 X10*6/uL (4.20-5.50); Red Cell Distribution Width 13.2 % (11.0-16.0); White Blood Count 8.9 X10*3/uL (4.8-10.8)
[2022-05-27 14:31] LABS: Alanine Aminotransferase 13 U/L (0-31); Albumin Level 3.8 g/dL (3.5-5.0); Alkaline Phosphatase 84 U/L (39-117); Anion Gap 13 (12-20); Aspartate Amino Transferase 21 U/L (5-31); Bilirubin Total 0.5 mg/dL (0.0-1.0); Blood Urea Nitrogen 32 mg/dL (9-16); Calcium 8.9 mg/dL (8.4-10.2); Carbon Dioxide 19 mmol/L (22-29); Chloride 114 mmol/L (96-108); Estimated Glomerular Filt Rate 40; Glucose Random 76 mg/dL (60-115); Potassium 5.1 mmol/L (3.3-5.1); Sodium 141 mmol/L (135-145); Total Protein 6.1 g/dL (6.5-8.0)
[2022-05-27 14:45] LABS: Free T4 (Free Thyroxine) 1.07 ng/dL (0.71-1.85); Thyroid Stimulating Hormone 2.83 uIU/mL (0.32-4.0)
== END 2022-05-27 11:57 | disposition home or self-care (01) ==
LOC: HO.10HDL 11:56
PROVIDERS: Visit Provider Internal Medicine
DX: I12.9 Hypertensive chronic kidney disease with stage 1 through stage 4 chronic kidney disease, or unspecified chronic kidney disease (principal); N18.9 Chronic kidney disease, unspecified; E03.9 Hypothyroidism, unspecified
CPT/HCPCS: 36415; 80053; 84439; 84443; 85025

== ENCOUNTER → 2022-06-02 14:07 | Outpatient (BNVA) | payer MEDICARE, SELFPAY | PROVIDERS: PCP Internal Medicine; Referring Provider Internal Medicine; Visit Provider Internal Medicine | DX: I35.0 Nonrheumatic aortic (valve) stenosis (principal); R09.89 Other specified symptoms and signs involving the circulatory and respiratory systems; I65.23 Occlusion and stenosis of bilateral carotid arteries; E78.5 Hyperlipidemia, unspecified; Z78.9 Other specified health status | CPT/HCPCS: 99212 ==

== ENCOUNTER 2022-07-07 09:29 | Emergency (ER) | payer MEDICARE, SELFPAY ==
--- NOTE | ~2022-07-07 | XR_ITS ---
EXAMINATION: XR SHOULDER, RIGHT CLINICAL INFORMATION: Right shoulder pain status post fall. COMPARISON: None TECHNIQUE: AP external rotation, Grashey, scapular Y, and axillary views of the right shoulder. FINDINGS: There is an acute, mildly displaced comminuted fracture of the right humeral surgical neck and head. Widening and mild malalignment of the right glenohumeral joint is seen. The right acromioclavicular joint is intact. The visualized right ribs are intact. There is mild soft tissue swelling. XR/XR shoulder RT min 2V IMPRESSION: Acute, mildly displaced comminuted fracture of the right humeral head and surgical neck with mild malalignment of the glenohumeral joint consistent with laxity/injury.
[2022-07-07 09:38] VITALS: BP 142/76; PULSE 80; O2SAT 98
[2022-07-07 09:44] VITALS: BP 140/65; PULSE 63; RESP 18; TEMP 36.3; O2SAT 99; BMI 24.5
[2022-07-07] MEDS: Acetaminophen 325 MG TABLET 650 MG PO (09:54)
--- NOTE | 2022-07-07 12:29 | PC.NURSE ---
pt a&o x4 sts that she had fallen while taking out her trash this am. re-evaluated pt pain after APAP 650 pt sts 4/10 with movement, otherwise no pain at rest. call moore within reach, pt awaiting imaging results at this time
--- NOTE | 2022-07-07 12:44 | ED.EXTPRO ---
HPI - Extremity Problem General Chief complaint: Extremity Injury, Upper Stated complaint: Fall on ice, R shoulder pain per EMS Time Seen by Provider: 07/07/22 10:58 Source: patient Mode of arrival: ambulatory Limitations: no limitations History of Present Illness HPI Narrative: 82-year-old female [id number] who presents to the ER with right shoulder pain after a slip and fall which occurred while taking out her trash today. no head strike or loss of consciousness. No anticoagulation use. No weakness, numbness, tingling of the extremity Related Data Home Medications Medication Instructions Recorded Confirmed amlodipine 5 mg tablet 5 mg PO BID 05/20/20 06/02/22 aspirin 81 mg tablet,delayed 81 mg PO DAILY 05/20/20 06/02/22 release brimonidine 0.2 %-timolol 0.5 % 1 drp ophthalmic (eye) BID 05/20/20 06/02/22 eye drops levothyroxine 100 mcg tablet 100 mcg PO DAILY 05/20/20 06/02/22 nebivolol 20 mg tablet 20 mg PO BID 05/20/20 06/02/22 hydralazine 50 mg tablet See Rx Instructions PO TID 11/19/20 06/02/22 docusate sodium 100 mg capsule 100 mg PO BID PRN constipation 02/19/21 06/02/22 tramadol 50 mg tablet 50 mg PO Q4H PRN pain 02/19/21 06/02/22 losartan 50 mg tablet See Rx Instructions PO BID 05/27/21 06/02/22 fenofibrate 54 mg tablet 54 mg PO DAILY 07/13/21 06/02/22 Previous Rx's Medication Instructions Recorded evolocumab 140 mg/mL subcutaneous 140 mg subcut Q2W #2 mL 06/24/22 pen injector (Anjali Chow) tramadol 50 mg tablet 50 mg PO Q8H PRN pain #15 tabs 07/07/22 Allergies Allergy/AdvReac Type Severity Reaction Status Date / Time cimetidine [From TAGAMET] Allergy Unknown GI UPSET Verified 04/13/22 13:06 ciprofloxacin [From CIPRO] Allergy Unknown GI UPSET Verified 04/13/22 13:06 diltiazem [From CARDIZEM] Allergy Unknown HIVES Verified 04/13/22 13:06 lisinopril [From ZESTRIL] Allergy Unknown LIGHTHESDEDNESS Verified 04/13/22 13:06 GI UPSET Sulfa (Sulfonamide Allergy Unknown HIVES Verified 04/13/22 13:06 Antibiotics) [SULFA (SULFONAMIDE ANTIBIOTICS)] timolol [From ISTALOL] Allergy Unknown STINGING Verified 04/13/22 13:06 does not handle GENERIC meds Allergy Unknown unk Uncoded 04/13/22 13:06 w Review of Systems Review of Systems: Yes all other systems are reviewed and are negative Constitutional: Constitutional: Reports no additional constitutional complaints, Denies body ache(s), Denies chills, Denies fever(s), Denies headache(s) and Denies weakness Eyes: Eyes: Reports no additional eye complaints and Denies change in vision ENT: Reports system reviewed and no additional complaints, except as documented, Denies dizziness, Denies headache(s), Denies nasal congestion, Denies nasal discharge and Denies neck pain Cardiovascular: Cardiovascular: Reports no additional cardiovascular complaints, Denies chest pain, Denies leg edema and Denies dyspnea Respiratory: Respiratory: Reports no additional respiratory complaints, Denies cough and Denies dyspnea Gastrointestinal: Gastrointestinal: Reports no additional gastrointestinal complaints, Denies abdominal pain, Denies diarrhea, Denies nausea and Denies vomiting Genitourinary: Genitourinary: Reports no additional female genitourinary complaints and Denies urinary incontinence Musculoskeletal: Musculoskeletal: Reports no additional musculoskeletal complaints, Denies back pain, Reports arthralgias, Denies joint swelling, Reports limited range of motion, Denies neck pain, Denies numbness and Denies tingling Integumentary/Breasts: Skin/Breast: Reports system reviewed and no additional complaints, except as docu and Denies rash Neurologic: Reports system reviewed and no additional complaints, except as documented, Denies Abnormal speech present, Denies dizziness, Denies headache(s), Denies numbness, Denies tingling and Denies weakness [facility] Past Medical History Attestation statement: The following information was validated with the patient. Source: old records reviewed and nursing notes reviewed Medical History Carotid stenosis, bilateral Labile hypertension Non-rheumatic aortic stenosis Other and unspecified hyperlipidemia Statin intolerance Surgical History History of appendectomy History of cholecystectomy (~01/28/21) Family History Family History Father No problems noted. Mother No problems noted. Social History Social History Patient Tobacco Use Status: Never used Tobacco Physical Exam Vital Signs: Vital Signs: Last Vital Signs Temp 97.4 F 07/07/22 09:44 Pulse 63 07/07/22 09:44 Resp 18 07/07/22 09:44 BP 140/65 H 07/07/22 09:44 Pulse Ox 99 07/07/22 09:44 O2 Del Method 07/07/22 09:44 BMI result Body Mass Index 24.5 Const: General: cooperative, healthy appearing, comfortable and no acute distress Orientation/consciousness: patient oriented x3 Limitations: no limitations HEENT: Head: Yes normal to inspection Ears: hearing grossly normal bilaterally General nose exam: Normal external nose present Face and sinus: Yes normal facial exam Mouth: Normal oral and palatal mucosa present Throat: Yes posterior oropharynx normal Eyes: General: appearance normal, both eyes and all related structures Pupils: Equal, round and reactive pupils present Neck: Neck: Yes normal visual inspection Chest: Chest palpation & inspection: normal inspection of the chest Resp: Effort & Inspection: normal respiratory effort Auscultation: clear to auscultation bilaterally Cardio: Rate: regular rate Rhythm: regular rhythm Peripheral pulses: Peripheral pulses 2+ throughout GI: Inspection: Yes normal to inspection Palpation (GI): Soft to palpation and nontender Auscultation: normal bowel sounds Back/Spine/Pelvis: Thoracic/Lumbar Spine: thoracic and lumbar spine normal to inspection Skin: General skin exam: no rashes or lesions noted Neuro: General: patient oriented x3, no focal motor deficits and normal sensation to monofilament Cranial nerves: Yes Equal, round and reactive pupils present Cognition (Neuro): normal cognition Speech: No Abnormal speech present Gait exam (Neuro): Normal gait present Motor exam (neuro): 5/5 motor strength present throughout Extrem: Other: there is swelling, ecchymosis over the right shoulder with limited range of motion due to pain. Distal radial and ulnar pulses are palpated. No pain on palpation over the elbow, forearm, hand, wrist. Sensation intact distally General: Yes normal to inspection Course Course Course Narrative: patient placed in sling. Reviewed rice. Patient is right-hand dominant lives alone but is here with her daughter who reports that she can care for patient. Patient reports Tylenol should help with her pain. She does have tramadol p.r.n. that she takes at home and is asking for a refill as she is running low. I will give her a brief supply of this. Reviewed worrisome signs and symptoms when to return to the emergency room. Comfortable plan for discharge home. Medications Administered Discontinued Medications Generic Name Dose Route Start Last Admin Trade Name Freq PRN Reason Stop Dose Admin Acetaminophen 650 mg 07/07/22 09:51 07/07/22 09:54 Acetaminophen 325 Mg Tablet PO 07/07/22 09:52 650 mg ONCE ONE Administration Medical Decision Making Medical Decision Making MDM Narrative: 82 year female [id number] here with right shoulder pain after slip and fall landing on the right shoulder. No head strike or loss of conscious. No anticoagulation use. On exam patient with significant swelling, ecchymosis, limited range of motion due to pain. Likely fracture. Will check x-ray. 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 they recommended placing the patient in a sling and having her follow up tomorrow morning in the office Independent Interpretation I performed an independent interpretation of an: Plain X-Ray Interpretation: I independently reviewed the x-ray and agree with radiologist's report Radiology Impression Discussion of test interpretation with radiology: I have reviewed the radiologist's reading. Radiologist Impression: [address] [address] XRay Report Signed Patient: Yuni Delatorre MR#: [id number] : 1940 Acct:[id number] Age/Sex: 82 / F ADM Date: 07/07/22 Loc: HO.ED Attending Dr: Ordering Physician: Generic ED Physician Date of Service: 07/07/22 Procedure(s): XR shoulder RT min 2V Accession Number(s): [id number] cc: Generic ED Physician~ EXAMINATION: XR SHOULDER, RIGHT CLINICAL INFORMATION: Right shoulder pain status post fall.? COMPARISON: None? TECHNIQUE: AP external rotation, Grashey, scapular Y, and axillary views of the right shoulder. FINDINGS: There is an acute, mildly displaced comminuted fracture of the right humeral surgical neck and head. Widening and mild malalignment of the right glenohumeral joint is seen. The right acromioclavicular joint is intact. The visualized right ribs are intact. There is mild soft tissue swelling.? XR/XR shoulder RT min 2V IMPRESSION: Acute, mildly displaced comminuted fracture of the right humeral head and surgical neck with mild malalignment of the glenohumeral joint consistent with laxity/injury. ? Discharge Plan Discharge Clinical Impression: Fracture of humerus Patient Disposition: Home, Self-Care Instructions: Arm Fracture in Adults (ED) Additional Instructions: Use sling for comfort Call Orthopedics for follow-up Continue Tylenol Apply ice to the affected area Prescriptions: New tramadol 50 mg tablet 50 mg PO Q8H PRN (Reason: pain) Qty: 15 0RF No Action Repatha SureClick 140 mg/mL pen injector 140 mg subcut Q2W Qty: 2 5RF fenofibrate 54 mg tablet 54 mg PO DAILY losartan 50 mg tablet See Rx Instructions PO BID Rx Instructions: 1 tablet in the morning, 1/2 tablet in the evening PO 2 times a day; levothyroxine 100 mcg tablet 100 mcg PO DAILY Bystolic 20 mg tablet 20 mg PO BID amlodipine 5 mg tablet 5 mg PO BID Combigan 0.2-0.5 % drops 1 drp ophthalmic (eye) BID aspirin 81 mg tablet,delayed release (DR/EC) 81 mg PO DAILY hydralazine 50 mg tablet See Rx Instructions PO TID Rx Instructions: 1.5 tablets in the morning, 1 tablet at noon, 1.5 tablets at night PO 3 times a day; tramadol 50 mg tablet 50 mg PO Q4H PRN (Reason: pain) docusate sodium 100 mg capsule 100 mg PO BID PRN (Reason: constipation) [place]: [facility] [place] Group] - 3 days Interventions: ED Discharge Assessment Last Done: 07/07/22 13:26 Discharge Date/Time: 07/07/22 13:27
== END 2022-07-07 13:27 | disposition home or self-care (01) ==
PROVIDERS: Emergency Provider Emergency Medicine; PCP Internal Medicine
DX: S42.221A 2-part displaced fracture of surgical neck of right humerus, initial encounter for closed fracture (principal); W00.0XXA Fall on same level due to ice and snow, initial encounter; Z79.82 Long term (current) use of aspirin; Z79.899 Other long term (current) drug therapy; Y93.E9 Activity, other interior property and clothing maintenance; Y92.017 Garden or yard in single-family (private) house as the place of occurrence of the external cause; Y99.9 Unspecified external cause status
CPT/HCPCS: 73030; 99283

== ENCOUNTER → 2022-07-08 11:06 | Outpatient (BNVA) | payer MEDICARE, SELFPAY | PROVIDERS: PCP Internal Medicine; Visit Provider Physician Assistant | DX: S42.201A Unspecified fracture of upper end of right humerus, initial encounter for closed fracture (principal) | CPT/HCPCS: 99202 ==

== ENCOUNTER 2022-08-05 14:34 | Outpatient (REF) | payer MEDICARE, SELFPAY ==
--- NOTE | ~2022-08-05 | XR_ITS ---
EXAMINATION: XR SHOULDER, RIGHT CLINICAL INFORMATION: Fracture COMPARISON: Previous x-ray 07/07/2022 TECHNIQUE: Two views of the right shoulder. FINDINGS: There is increasing displacement and impaction of the right proximal humerus fracture. Fracture line is still seen. There is minimal bony callus formation. The humeral head appears slightly low with respect to the glenoid. This may be due to joint effusion. There is arthritis at the acromioclavicular joint. There is increasing osteopenia. XR/XR shoulder RT min 2V IMPRESSION: Increasing impaction and displacement of the right proximal humerus fracture.
== END 2022-08-05 14:35 | disposition home or self-care (01) ==
LOC: HO.HOSX 14:34
PROVIDERS: Visit Provider Physician Assistant
DX: S42.201A Unspecified fracture of upper end of right humerus, initial encounter for closed fracture (principal)
CPT/HCPCS: 73030; 99212

== ENCOUNTER 2022-08-11 11:04 | Outpatient (REF) | payer MEDICARE, SELFPAY ==
[2022-08-11 13:47] LABS: Anion Gap 11 (12-20); Blood Urea Nitrogen 31 mg/dL (9-16); Carbon Dioxide 21 mmol/L (22-29); Chloride 114 mmol/L (96-108); Estimated Glomerular Filt Rate 48; Potassium 4.4 mmol/L (3.3-5.1); Sodium 142 mmol/L (135-145)
== END 2022-08-11 11:05 | disposition home or self-care (01) ==
LOC: HO.10HDL 11:04
PROVIDERS: Visit Provider Internal Medicine Nephrology
DX: I12.9 Hypertensive chronic kidney disease with stage 1 through stage 4 chronic kidney disease, or unspecified chronic kidney disease (principal); N18.31 Chronic kidney disease, stage 3a
CPT/HCPCS: 36415; 80051; 82310; 82565; 84520

== ENCOUNTER 2022-09-16 09:37 | Outpatient (REF) | payer MEDICARE, SELFPAY ==
--- NOTE | ~2022-09-16 | XR_ITS ---
EXAMINATION: XR SHOULDER, RIGHT CLINICAL INFORMATION: Shoulder pain COMPARISON: 08/05/2022 and 07/07/2022 TECHNIQUE: Three views of the right shoulder. FINDINGS: Again noted is an impacted fracture of the right humeral neck. Position of fracture fragments has not changed since the prior study minimal callus formation is seen. Again seen is a humeral head that is positioned slightly low with respect to the glenoid, unchanged from prior. No new fractures. XR/XR shoulder RT min 2V IMPRESSION: Impacted right humeral neck fracture with minimal callus formation. No change in position of fracture fragments.
== END 2022-09-16 09:38 | disposition home or self-care (01) ==
LOC: HO.HOSX 09:37
PROVIDERS: Visit Provider Physician Assistant
DX: S42.201A Unspecified fracture of upper end of right humerus, initial encounter for closed fracture (principal)
CPT/HCPCS: 73030; 99212

== ENCOUNTER 2022-10-08 14:00 | Outpatient (RCR) | payer MEDICARE, SELFPAY ==
--- NOTE | 2022-08-19 08:19 | MHC.PT.EP ---
[facility] [place] Office [place] Office [place] Office [address] Sina Watkins [address] [phone] F: [phone] F: [phone] F: [phone] F: [phone] Physical Therapy Plan of Care Date of Evaluation: Date of Surgery: N/A Diagnosis: Fracture of proximal end of right humerus (RC) Assessment: pt is a 82 y/o male presenting to physical therapy w/ referring diagnosis of Fracture of proximal end of right humerus. pt presents w/ increasing impaction and dislocation on her most recent xray (08/05/22) compared to original imaging on 07/07/22. Given the severity of the dislocation I do not anticipate she is going to make any significant gains in physical therapy. She seems to be more of a reverse TSA candidate. She tries to push herself and required significant education on working within a certain pain tolerance to avoid progression of dislocation. Impairments include pain, decreased range of motion, decreased strength, impaired functional mobility, impaired postural awareness, and altered ambulation mechanics. pt is a good candidate for skilled PT due to age, potential remediation of impairments, typical disease/condition progression and prognosis, comorbidities, and motivation. pt would benefit from skilled PT intervention to provide a tailored strengthening and stretching exercise program, functional training, gait training, postural re-training, neuromuscular re-education, modalities as needed for pain, equipment safety demonstration. Frequency and Duration: The patient will be seen 2x/wk for 10 wks Short Term Goals: pt will be I w/ HEP to promote self-management of condition. pt will improve L shoulder flexion AAROM to 60* to promote ease in reaching for objects on her countertop. pt will recall fracture precautions as assessed by teachback to reduce risk of progression of dislocation and improve bony healing. Half-Way Goals: pt will report a statistically significant improvement in self-reported outcome measure, SPADI, to promote return to PLOF. pt will improve L shoulder strength to at least 4-/5 to promote ease in upper body ADLs. pt will demo proper two handed lifting techniques w/o verbal cueing to promote ease in meal prep. Treatment Plan: Modalities to reduce pain, spasms and effusion. Manual therapy to restore motion and function. Therapeutic exercise to improve strength and flexibility. Neuromuscular re-education for posture and balance. Therapeutic activities to return to functional activities of daily living. Electronically signed by: Donna Lockhart PT, DPT Please sign and return to therapist. Thank you for your referral.
--- NOTE | 2022-08-19 09:51 | MHC.PT.OD ---
[facility] [place] Office [place] Office [place] Office [address] Sina Watkins [address] [phone] F: [phone] F: [phone] F: [phone] F: [phone] Physical Therapy Daily Note Diagnosis: Fracture of proximal end of right humerus (RC) Date of Surgery: N/A Date of Evaluation: 08/18/22 Date of Treatment: 08/18/22 Treatments to Date: 1 Cancellations to Date: 0 No Shows to Date: 0 Authorized Visits: Insurance End Date: Precautions/ Contraindications:moderate-severe dislocated proximal humeral fx - DOI 07/07/22 osteopenia Subjective: Please refer to eval. Pain Score and Location: 5 R shoulder Objective Flowsheet: Tests & Measures Please refer to eval. Exercises supine w/ 3 pillows under head, one folded pillow under elbow (to prevent ext past neutral): -L cane shoulder AAROM ER within 40* -L cane chest press 25%-50% range -seated scapular retractions -flex/ext, hor ABD/ADD pendulums *HEP issued, handout provided Modalities Assessment: *NEEDS TO DO SPADI* pt seems very motivated for physical therapy; however, required extensive education regarding severity of displacement and risk of failure to migrate which could impact range of motion/function. She also tends to over exert herself and push beyond her pain tolerance. pt educated in 2 point pain rule (no exercise should increase pain more than 2 points on 0-10 NPRS). We discussed following a protocol to respect both bony and soft tissue healing time frames. She was encouraged to avoid sleeping on R side (admits she tried a couple times this week), carrying things on the R side (was holding purse in R hand), and forcing excessive ROM. pt was told she could D/C the sling if the pain was well-managed. She should wear it when she is out in the community as well as perhaps still at night to avoid rolling onto R side. pt verbalized understanding. pt is a 82 y/o male presenting to physical therapy w/ referring diagnosis of Fracture of proximal end of right humerus. pt presents w/ increasing impaction and dislocation on her most recent xray (08/05/22) compared to original imaging on 07/07/22. Given the severity of the dislocation I do not anticipate she is going to make any significant gains in physical therapy. She seems to be more of a reverse TSA candidate. She tries to push herself and required significant education on working within a certain pain tolerance to avoid progression of dislocation. Impairments include pain, decreased range of motion, decreased strength, impaired functional mobility, impaired postural awareness, and altered ambulation mechanics. pt is a fair-poo candidate for skilled PT due to age, potential remediation of impairments, typical disease/condition progression and prognosis, comorbidities, and motivation. pt would benefit from skilled PT intervention to provide a tailored strengthening and stretching exercise program, functional training, gait training, postural re-training, neuromuscular re-education, modalities as needed for pain, equipment safety demonstration. PT Plan: Non-operative unstable shoulder dislocation protocol in chart. (unstable exercises on final page) Nonoperative Treatment of Proximal Humerus Fracture by [facility] - German Gonzalez MD Short Term Goals: pt will be I w/ HEP to promote self-management of condition. pt will improve L shoulder flexion AAROM to 60* to promote ease in reaching for objects on her countertop. pt will recall fracture precautions as assessed by teachback to reduce risk of progression of dislocation and improve bony healing. Residential Goals: pt will report a statistically significant improvement in self-reported outcome measure, SPADI, to promote return to PLOF. pt will improve L shoulder strength to at least 4-/5 to promote ease in upper body ADLs. pt will demo proper two handed lifting techniques w/o verbal cueing to promote ease in meal prep. Electronically signed by: Donna Lockhart PT, DPT
--- NOTE | 2022-08-19 10:11 | MHC.PT.OE ---
[facility] [place] Office [place] Office [place] Office [address] Sina Watkins [address] [phone] F: [phone] F: [phone] F: [phone] F: [phone] Physical Therapy Evaluation Evaluation Date: 08/18/22 Current Condition Diagnosis: Fracture of proximal end of right humerus (RC) Onset Date: 07/07/22 Date of Surgery: N/A Chief Complaint/ Current Level of Function: pt stated back on 07/07/22 she slipped and fell on ice and the arm went limp. pt presented to [facility] where imaging was (+) for proimal humeral fracture. pt stated she was told she has hairline fracture the fracture is dislocated but did not understand what that meant. Overall, she has been experiencing moderate pain localized diffusely throughout the glenohumeral joint as well as the axillary region. pt stated at best her pain is 5/10 and worst if 8/10. She describes the pain as smarts. pt did admit to some radiating symptoms down the biceps. She has been trying to keep the shoulder moving as best as she can. She demo'd swinging her arm in flexion/extension and trying to finger ladder to the top of her head. pt was told no driving and no lifting any heavier than a gallon of milk until at least she attends physical therapy. 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 07/07/22: IMPRESSION: Acute, mildly displaced comminuted fracture of the right humeral head and surgical neck with mild malalignment of the glenohumeral joint consistent with laxity/injury. Patient Goals and Expectations: drive, reach back of head Past Medical History: PMHx: Carotid stenosis, bilateral Labile hypertension Non-rheumatic aortic stenosis Other and unspecified hyperlipidemia Statin intolerance PSHx: History of appendectomy History of cholecystectomy (~01/28/21) Medications: tylenol, tramadol, repatha, losartan, levothyroxine, carvedilol, hydralazine, amlodipine, fenofibrate, aspirin, combigan, travatan Precautions/ Contraindications: moderate-severe dislocated proximal humeral fx - DOI 07/07/22 osteopenia Outcome Measure: SPADI Pain Pain Score: 5 Pain Scale Used: Numeric (0 - 10) Pain Location/ Description: diffusely GH joint, axillary region smarts Aggravating Factors: forward and lateral elevation, reaching to top of head (trying to curl hair), lifting, carrying Alleviating Factors: rest, tramadol & tylenol Objective Findings Posture: Forward Head Rounded Shoulders Skin & Soft Tissue/ Palpation: Gait/ Functional Mobility: AROM (PROM) Strength Cervical Spine Flexion: Extension: Lateral Flexion: Rotation: Cervical Comments: Flexion: Extension: Lateral Flexion: Rotation: Other: Shoulder Flexion: L 28 Extension: L 0 Abduction: L 30 ER: L 20 IR: L 50 Apley ER: Apley IR: Comments: pt assessed in supine w/ pillow under arm to prevent extension beyond neutral, PROM only this date Flexion: Extension: Abduction: Adduction: ER: IR: Other: L WFL, R deferred d/t fx precautions Elbow Flexion: B WFL Extension: B WFL Pronation: R limited, L WFL Supination: R limited, L WFL Comments: hx of metal plate in R wrist Flexion: R 4/5, L 4+/5 Extension: R 4/5, L 4+/5 Pronation: B 4+/5 Supination: B 4+/5 Wrist Flexion: Wrist Extension: Other: Lumbar Spine Flexion: Extension: Lateral Flexion: Rotation: Comments: Transverse abdominus: Extensors: Other: Hip Flexion: Extension: Abduction: Adduction: ER: IR: Comment: Flexion: Extension: Abduction: Adduction: ER: IR: Other: Knee Flexion: Extension: Comments: Patella Mobility: Flexion: Extension: Other: Ankle Dorsiflexion: Plantarflexion: Inversion: Eversion: Comments: Dorsiflexion: Plantarflexion: Inversion: Eversion: Comments: [place] Assessment: Sacroiliac Assessment: Muscle Length: Special Tests: Vitals: BP: HR: O2SAT: RR: Other: Balance: Neurological Screen: Biceps DTR: Brachioradialis DTR: Triceps DTR: Patella DTR: Achilles DTR: Other: Dermatomes: Sensation: Myotomes: Patient Education Primary Language Palestinian [employer] Required No Who was Educated Patient Readiness for Learning Accepting Current Knowledge Minimal, needs reinforcement Education Needs ADL's Disease Information Equipment Use Exercise Pain Safety Teaching Method Verbal Demonstration Handouts How did Patient Demonstrate Learning Patient demonstrates Patient verbalizes Needs reinforcement Barriers to Learning None Assessment Assessment: pt is a 82 y/o male presenting to physical therapy w/ referring diagnosis of Fracture of proximal end of right humerus. pt presents w/ increasing impaction and dislocation on her most recent xray (08/05/22) compared to original imaging on 07/07/22. Given the severity of the dislocation I do not anticipate she is going to make any significant gains in physical therapy. She seems to be more of a reverse TSA candidate. She tries to push herself and required significant education on working within a certain pain tolerance to avoid progression of dislocation. Impairments include pain, decreased range of motion, decreased strength, impaired functional mobility, impaired postural awareness, and altered ambulation mechanics. pt is a good candidate for skilled PT due to age, potential remediation of impairments, typical disease/condition progression and prognosis, comorbidities, and motivation. pt would benefit from skilled PT intervention to provide a tailored strengthening and stretching exercise program, functional training, gait training, postural re-training, neuromuscular re-education, modalities as needed for pain, equipment safety demonstration. Rehabilitation Potential: Fair Plan of Care Frequency and Duration 2x/wk for 10 wks Short Term Goals pt will be I w/ HEP to promote self-management of condition. pt will improve L shoulder flexion AAROM to 60* to promote ease in reaching for objects on her countertop. pt will recall fracture precautions as assessed by teachback to reduce risk of progression of dislocation and improve bony healing. 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 pt will improve L shoulder strength to at least 4-/5 to promote ease in upper body ADLs. pt will demo proper two handed lifting techniques w/o verbal cueing to promote ease in meal prep. Treatment Plan Therapeutic Exercise Dynamic Therapeutic Activities Neuromuscular Re-ed Manual Therapies Joint Mobilization Taping Gait Home Exercise Program Patient Education Hot or Cold Pack Reviewed/ Agreed with Student Documentation: Therapist: Electronically signed by: Donna Lockhart PT, DPT Please sign and return to therapist. Thank you for your referral.
== END 2023-04-26 11:19 | disposition home or self-care (01) ==
LOC: HO.PTWFD 14:00
PROVIDERS: Visit Provider Physician Assistant
DX: S42.201D Unspecified fracture of upper end of right humerus, subsequent encounter for fracture with routine healing (principal)
CPT/HCPCS: 97110; 97150; 97162; 97530; 97535

== ENCOUNTER 2022-10-18 12:27 | Emergency (ER) | payer MEDICARE, SELFPAY ==
--- NOTE | 2022-10-18 13:08 | ED_ITS ---
HPI - General Adult General Chief complaint: General Medical Stated complaint: Lightheadedness/Low BP Time Seen by Provider: 10/18/22 14:44 Source: patient Mode of arrival: wheelchair Limitations: no limitations History of Present Illness HPI narrative: Patient is an 82 year old female with a past medical history of bilateral 50% carotid stenosis, HTN, and HLD presenting today with lightheadedness that started this afternoon around 1200. She reports having an aura prior to the episode, lasting for about 2-5 minutes; she reports symptoms such as feeling diaphoretic, pale and experiencing severe headache prior to the syncopal episode. She reports having a similar episode in 2019. She denies nausea, vomiting, SOB or chest pain. She reports no other acute concerns at this time. Onset (ago): hour(s) (this afternoon) Severity: mild Relieving factors: none Exacerbating factors: none Associated symptoms: denies other symptoms Treatments prior to arrival: none Related Data Home Medications Medication Instructions Recorded Confirmed amlodipine 5 mg tablet 5 mg PO BID 05/20/20 06/02/22 aspirin 81 mg tablet,delayed 81 mg PO DAILY 05/20/20 06/02/22 release brimonidine 0.2 %-timolol 0.5 % 1 drp ophthalmic (eye) BID 05/20/20 06/02/22 eye drops levothyroxine 100 mcg tablet 100 mcg PO DAILY 05/20/20 06/02/22 nebivolol 20 mg tablet 20 mg PO BID 05/20/20 06/02/22 hydralazine 50 mg tablet See Rx Instructions PO TID 11/19/20 06/02/22 docusate sodium 100 mg capsule 100 mg PO BID PRN constipation 02/19/21 06/02/22 tramadol 50 mg tablet 50 mg PO Q4H PRN pain 02/19/21 06/02/22 losartan 50 mg tablet See Rx Instructions PO BID 05/27/21 06/02/22 fenofibrate 54 mg tablet 54 mg PO DAILY 07/13/21 06/02/22 Previous Rx's Medication Instructions Recorded evolocumab 140 mg/mL subcutaneous 140 mg subcut Q2W #2 mL 06/24/22 pen injector (Anjali Chow) tramadol 50 mg tablet 50 mg PO Q8H PRN pain #15 tabs 07/07/22 Allergies Allergy/AdvReac Type Severity Reaction Status Date / Time cimetidine [From TAGAMET] Allergy Unknown GI UPSET Verified 10/18/22 13:08 ciprofloxacin [From CIPRO] Allergy Unknown GI UPSET Verified 10/18/22 13:08 diltiazem [From CARDIZEM] Allergy Unknown HIVES Verified 10/18/22 13:08 lisinopril [From ZESTRIL] Allergy Unknown LIGHTHESDEDNESS Verified 10/18/22 13:08 GI UPSET Sulfa (Sulfonamide Allergy Unknown HIVES Verified 10/18/22 13:08 Antibiotics) [SULFA (SULFONAMIDE ANTIBIOTICS)] timolol [From ISTALOL] Allergy Unknown STINGING Verified 10/18/22 13:08 does not handle GENERIC meds Allergy Unknown unk Uncoded 10/18/22 13:08 w Review of Systems Constitutional: Constitutional: Reports no additional constitutional complaints, Denies chills, Denies fever(s) and Denies night sweats Eyes: Eyes: Reports no additional eye complaints ENT: Reports dizziness (now resolved) Cardiovascular: Cardiovascular: Reports no additional cardiovascular complaints, Denies chest pain, Reports lightheadedness, Denies Loss of Consciousness and Denies dyspnea Respiratory: Respiratory: Reports no additional respiratory complaints and Denies dyspnea Gastrointestinal: Gastrointestinal: Reports no additional gastrointestinal complaints and Denies abdominal pain Genitourinary: Genitourinary: Denies hematuria, Denies urinary frequency, Denies dysuria, Denies urinary incontinence, Denies urinary hesitancy and Denies urinary urgency Musculoskeletal: Musculoskeletal: Reports no additional musculoskeletal complaints, Denies numbness and Denies tingling Neurologic: Reports dizziness (now resolved), Denies numbness and Denies tingling Psychiatric: Psychiatric: Reports no additional psychiatric complaints Endocrine: Endocrine: Reports no additional endocrine complaints Hematologic/Lymphatic: Hematologic/Lymphatic: Reports no additional hematologic/lymphatic complaints Allergic/Immunologic: Allergic/Immunologic: Reports no additional allergic/immunologic complaints PMFSH Past Medical History Attestation statement: The following information was validated with the patient. Source: old records reviewed and nursing notes reviewed Medical History Carotid stenosis, bilateral Labile hypertension Non-rheumatic aortic stenosis Other and unspecified hyperlipidemia Statin intolerance Surgical History History of appendectomy History of cholecystectomy (~01/28/21) Family History Family History Father No problems noted. Mother No problems noted. 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 Physical Exam ED Vital Signs: Vital Signs - 24 hr 10/18/22 13:09 10/18/22 14:12 10/18/22 14:13 Temperature 97 F Pulse Rate 60 60 60 Respiratory Rate 19 Blood Pressure 170/70 H 160/68 H 156/70 H Pulse Oximetry 98 Oxygen Delivery Method Room Air 10/18/22 14:13 10/18/22 14:00 Temperature Pulse Rate 59 60 Respiratory Rate 16 Blood Pressure 160/68 H 160/68 H Pulse Oximetry 97 Oxygen Delivery Method Room Air BMI result Body Mass Index 23.8 Const General: cooperative, no acute distress, alert and awake Nutritional Appearance: well nourished Orientation/consciousness: patient oriented x3 Limitations: no limitations HENMT Head: Yes normal to inspection and Yes atraumatic Ears: hearing grossly normal bilaterally and external ears normal General nose exam: Normal external nose present, no nasal discharge noted and no epistaxis Face and sinus: Yes normal facial exam, No abrasion and No laceration Mouth: Normal oral and palatal mucosa present, no drooling and no muffled voice Eyes General: appearance normal, both eyes and all related structures Periorbital: periorbital findings normal Eyelids: Yes eyelids normal Conjunctivae: conjunctivae normal Pupils: Equal, round and reactive pupils present EOM: EOMs intact bilaterally Neck Neck: Yes normal visual inspection, Yes full ROM and Yes no lymphadenopathy Chest Chest palpation & inspection: normal inspection of the chest Resp Effort & Inspection: normal respiratory effort and able to speak in complete sentences Auscultation: clear to auscultation bilaterally Cardio Rate: regular rate Rhythm: regular rhythm Heart sounds: S1 normal heart sound present and S2 normal heart sound present GI Inspection: Yes normal to inspection Palpation (GI): Soft to palpation, not firm, nontender and no guarding Skin General skin exam: no rashes or lesions noted Neuro General: patient oriented x3 and moves all extremities Cranial nerves: Yes Equal, round and reactive pupils present Cognition (Neuro): normal cognition Motor exam (neuro): 5/5 motor strength present throughout Sensory Exam: Normal double simultaneous stimulation for sensation Coordination: [id number] test normal Extrem General: Yes normal to inspection, Yes full ROM and Yes capillary refill normal Psych Appearance: grossly normal Mental Status: mental status grossly normal Affect: normal affect Attitude: cooperative Thought process: Normal thought process present Thought content: Normal thought content present Insight: Good insight present (Psych) Course Course Course Narrative: RME: 82yo F w/PMHx hypertension, HLD, carotid stenosis, c/o lightheadedness while [place] [facility] [place], with pre-syncope, pale and diaphoresis. denies syncope, [place], CP, SOB. Reports mild tinnitus at present. Reports feels improved at present. States this has happened in the past 170/70 BP in triage EKG, labs, UA, orthoststics ordered Full HPI, ROS and PE to be performed by primary ED provider. Medical Decision Making Medical Decision Making [facility] Narrative: Patient is a 82 year old assigned female at with a history of bilateral 50% carotid stenosis, HTN, and HLD presenting to the emergency department today after a brief episode of near syncope. Patient's physical exam was unremarkable. Patient's blood work was unremarkable. Patient's urine showed no acute process. Patient's EKG was unremarkable. I explained my physical exam findings as well as all test results to the patient. I answered all questions asked by the patient. I stressed the importance of the patient taking her medication as prescribed. I stressed the importance of the patient following up with her primary care provider. I stressed the importance of the patient returning to the emergency department immediately if her symptoms were to worsen or if she were to develop any dizziness, shortness of breath, difficulty breathing, chest pain, blurry vision, loss of vision, nausea, vomiting, abdominal pain, fever, chills, back pain, or any other complaints. Patient verbalized agreement and understanding with this treatment plan and discharge. Differential Diagnosis Differential Diagnoses: The differential diagnosis associated with the presentation includes near syncope, vasovagal episode Admission/Observation Consideration of admission/observation: Escalation of care including admission/observation considered Patient would have been admitted to the hospital had her work up had any findings where hospital admission was appropriate. Lab Data [facility] Lab Attestation statement: I reviewed the patient's lab results. My interpretation of these studies and their corresponding values is that they are grossly normal. 10/18/22 14:23 10/18/22 14:23 Labs: Lab Results 10/18/22 10/18/22 10/18/22 Range/Units 14:23 14:23 15:14 WBC 8.5 (4.8-10.8) X10*3/uL RBC 3.76 L (4.20-5.50) X10*6/uL Hgb 11.4 L (12.0-16.0) g/dl Hct 35.9 L (37.0-47.0) % MCV 95.5 (80.0-98.0) fL MCH 30.3 (27.0-33.0) pg MCHC 31.8 (31.0-35.0) g/dl RDW 13.1 (11.0-16.0) % Plt Count 223 (160-400) X10*3/uL MPV 10.0 (9.4-12.3) fL Immature Gran % (Auto) 0.4 (0.0-0.4) % Neut % (Auto) 69.1 (45-73) % Lymph % (Auto) 21.9 (20-40) % [place] % (Auto) 6.8 (2-11) % Eos % (Auto) 1.3 (0-4) % Baso % (Auto) 0.5 (0-2) % Lymph # (Auto) 1.9 (1.2-4.9) X10*3/uL [place] # (Auto) 0.6 (0.1-1.2) X10*3/uL Eos # (Auto) 0.1 (0.0-0.4) X10*3/uL Baso # (Auto) 0.0 (0.0-0.2) X10*3/uL Abs Immat Gran (auto) 0.03 (0.00-0.03) X10*3/uL Absolute Neuts (auto) 5.9 (2.0-8.3) x10*3/uL Absolute Nucleated RBC 0.000 (0.0-0.012) X10*3/uL Nucleated RBC % (auto) 0.0 (0.0-0.2) /100WBC Sodium 141 (135-145) mmol/L Potassium 5.1 (3.3-5.1) mmol/L Chloride 115 H (96-108) mmol/L Carbon Dioxide 18 L (22-29) mmol/L Anion Gap 13 (12-20) BUN 35 H (9-16) mg/dL Creatinine 1.11 (0.5-1.4) mg/dL Estim Creat Clear Calc 31.4 Estimated GFR 47 Random Glucose 104 (60-115) mg/dL Calcium 9.4 (8.4-10.2) mg/dL Magnesium 2.0 (1.6-2.6) mg/dL Total Bilirubin 0.5 (0.0-1.0) mg/dL Direct Bilirubin 0.2 (0.0-0.5) mg/dL AST 19 (5-31) U/L ALT 14 (0-31) U/L Alkaline Phosphatase 90 (39-117) U/L Troponin I High Sens < 2.7 (<3.5-17.0) ng/L Total Protein 6.2 L (6.5-8.0) g/dL Albumin 3.9 (3.5-5.0) g/dL Urine Color Urine Appearance Urine pH (5.0-9.0) Ur Specific [place] (1.005-1.025) Urine Protein (Neg-Trace) mg/dL Urine Glucose (UA) (Negative) mg/dL Urine Ketones (Negative) mg/dL Urine Blood (Negative) Urine Nitrite (Negative) Ur Leukocyte Esterase (Negative) Urine RBC (0-2) /HPF Urine WBC (0-5) /HPF Ur Squamous Epith Cells (0-2) /HPF Urine Bacteria (None Seen) Hyaline Casts (0-2) /LPF 10/18/22 Range/Units 15:58 WBC (4.8-10.8) X10*3/uL RBC (4.20-5.50) X10*6/uL Hgb (12.0-16.0) g/dl Hct (37.0-47.0) % MCV (80.0-98.0) fL MCH (27.0-33.0) pg MCHC (31.0-35.0) g/dl RDW (11.0-16.0) % Plt Count (160-400) X10*3/uL MPV (9.4-12.3) fL Immature Gran % (Auto) (0.0-0.4) % Neut % (Auto) (45-73) % Lymph % (Auto) (20-40) % [place] % (Auto) (2-11) % Eos % (Auto) (0-4) % Baso % (Auto) (0-2) % Lymph # (Auto) (1.2-4.9) X10*3/uL [place] # (Auto) (0.1-1.2) X10*3/uL Eos # (Auto) (0.0-0.4) X10*3/uL Baso # (Auto) (0.0-0.2) X10*3/uL Abs Immat Gran (auto) (0.00-0.03) X10*3/uL Absolute Neuts (auto) (2.0-8.3) x10*3/uL Absolute Nucleated RBC (0.0-0.012) X10*3/uL Nucleated RBC % (auto) (0.0-0.2) /100WBC Sodium (135-145) mmol/L Potassium (3.3-5.1) mmol/L Chloride (96-108) mmol/L Carbon Dioxide (22-29) mmol/L Anion Gap (12-20) BUN (9-16) mg/dL Creatinine (0.5-1.4) mg/dL Estim Creat Clear Calc Estimated GFR Random Glucose (60-115) mg/dL Calcium (8.4-10.2) mg/dL Magnesium (1.6-2.6) mg/dL Total Bilirubin (0.0-1.0) mg/dL Direct Bilirubin (0.0-0.5) mg/dL AST (5-31) U/L ALT (0-31) U/L Alkaline Phosphatase (39-117) U/L Troponin I High Sens (<3.5-17.0) ng/L Total Protein (6.5-8.0) g/dL Albumin (3.5-5.0) g/dL Urine Color Yellow Urine Appearance Cloudy Urine pH 5.5 (5.0-9.0) Ur Specific [place] 1.015 (1.005-1.025) Urine Protein Negative (Neg-Trace) mg/dL Urine Glucose (UA) Negative (Negative) mg/dL Urine Ketones Negative (Negative) mg/dL Urine Blood Negative (Negative) Urine Nitrite Negative (Negative) Ur Leukocyte Esterase Moderate (2+) H (Negative) Urine RBC 0-2 (0-2) /HPF Urine WBC 6-10 H (0-5) /HPF Ur Squamous Epith Cells 0-2 (0-2) /HPF Urine Bacteria 4+ (None Seen) Hyaline Casts 0-2 (0-2) /LPF Independent Interpretation I performed an independent interpretation of an: EKG Interpretation: Vent. Rate: 057 BPM ? ? Atrial Rate: 057 BPM P-R Int: 202 ms? QRS Dur: 086 ms QT Int: 422 ms ? ? ? P-R-T Axes: 047 -28 025 degrees QTc Int: 410 ms ? Sinus bradycardia Possible Anterior infarct (cited on or before 25-SEP-2018) Abnormal ECG When compared with ECG of 22-MAY-2019 12:47, No significant change was found ? Electronically Signed By:MICHELE BHATTI MD Dictated By: Michele Bhatti MD Signed By: Electronically signed by Michele Bhatti MD 10/18/22 [id number] Discharge Plan Discharge Clinical Impression: Vasovagal episode Patient Disposition: Home, Self-Care Instructions: Near Syncope (ED) Additional Instructions: Follow up with your primary care provider. Return to the emergency department immediately if your symptoms worsen or if you develop any dizziness, shortness of breath, difficulty breathing, chest pain, blurry vision, loss of vision, nausea, vomiting, abdominal pain, fever, chills, back pain, or any other complaints. Prescriptions: No Action Repatha SureClick 140 mg/mL pen injector 140 mg subcut Q2W Qty: 2 5RF tramadol 50 mg tablet 50 mg PO Q8H PRN (Reason: pain) Qty: 15 0RF fenofibrate 54 mg tablet 54 mg PO DAILY losartan 50 mg tablet See Rx Instructions PO BID Rx Instructions: 1 tablet in the morning, 1/2 tablet in the evening PO 2 times a day; levothyroxine 100 mcg tablet 100 mcg PO DAILY Bystolic 20 mg tablet 20 mg PO BID amlodipine 5 mg tablet 5 mg PO BID Combigan 0.2-0.5 % drops 1 drp ophthalmic (eye) BID aspirin 81 mg tablet,delayed release (DR/EC) 81 mg PO DAILY hydralazine 50 mg tablet See Rx Instructions PO TID Rx Instructions: 1.5 tablets in the morning, 1 tablet at noon, 1.5 tablets at night PO 3 times a day; tramadol 50 mg tablet 50 mg PO Q4H PRN (Reason: pain) docusate sodium 100 mg capsule 100 mg PO BID PRN (Reason: constipation) Referrals: Manuel Herrera MD [Primary Care Provider] - Interventions: ED Discharge Assessment Last Done: 10/18/22 16:34 Discharge Date/Time: 10/18/22 16:35 Print Language: Yi
[2022-10-18 13:09] VITALS: BP 170/70; PULSE 60; RESP 19; TEMP 36.1; O2SAT 98; BMI 23.8
--- NOTE | 2022-10-18 13:11 | ECG_ITS ---
Test Reason : dizziness Blood Pressure : / mmHG Vent. Rate : 057 BPM Atrial Rate : 057 BPM P-R Int : 202 ms QRS Dur : 086 ms QT Int : 422 ms P-R-T Axes : 047 -28 025 degrees QTc Int : 410 ms Sinus bradycardia Possible Anterior infarct (cited on or before 25-SEP-2018) Abnormal ECG When compared with ECG of 22-MAY-2019 12:47, No significant change was found Referred By: Dora Skelton Electronically Signed By:SONIDO BHATTI MD
--- NOTE | 2022-10-18 13:32 | MHC.EDTECH ---
EKG comleted and signed by
--- NOTE | 2022-10-18 13:32 | MHC.EDTECH ---
Unable to obtain labs. Difficult draw, tried 2x. RN aware
[2022-10-18 14:00] VITALS: BP 160/68; PULSE 60; RESP 16; O2SAT 97
[2022-10-18 14:12] VITALS: BP 160/68; PULSE 60
[2022-10-18 14:13] VITALS: BP 156/70; BP 160/68; PULSE 59; PULSE 60
[2022-10-18 14:29] LABS: MANUAL DIFF FLAG NO
[2022-10-18 14:30] LABS: Basophils Percent Auto 0.5 % (0-2); Eosinophils Absolute Auto 0.1 X10*3/uL (0.0-0.4); Eosinophils Percent Auto 1.3 % (0-4); Hematocrit 35.9 % (37.0-47.0); Hemoglobin 11.4 g/dl (12.0-16.0); Imm Gran Abs Auto 0.03 X10*3/uL (0.00-0.03); Imm Gran Pct Auto 0.4 % (0.0-0.4); Lymphocytes Absolute Auto 1.9 X10*3/uL (1.2-4.9); Lymphocytes Percent Auto 21.9 % (20-40); Mean Corpuscular HGB Conc 31.8 g/dl (31.0-35.0); Mean Corpuscular Hemoglobin 30.3 pg (27.0-33.0); Mean Corpuscular Volume 95.5 fL (80.0-98.0); Monocytes Absolute Auto 0.6 X10*3/uL (0.1-1.2); Monocytes Percent Auto 6.8 % (2-11); Neutrophils Absolute Auto 5.9 x10*3/uL (2.0-8.3); Neutrophils Percent Auto 69.1 % (45-73); Platelet Count 223 X10*3/uL (160-400); Red Blood Count 3.76 X10*6/uL (4.20-5.50); Red Cell Distribution Width 13.1 % (11.0-16.0); White Blood Count 8.5 X10*3/uL (4.8-10.8)
[2022-10-18 14:53] LABS: Troponin-I High Sensitivity < 2.7 ng/L (<3.5-17.0)
[2022-10-18 15:35] LABS: Anion Gap 13 (12-20)
[2022-10-18 15:40] LABS: Alanine Aminotransferase 14 U/L (0-31); Albumin Level 3.9 g/dL (3.5-5.0); Alkaline Phosphatase 90 U/L (39-117); Aspartate Amino Transferase 19 U/L (5-31); Bilirubin Direct 0.2 mg/dL (0.0-0.5); Bilirubin Total 0.5 mg/dL (0.0-1.0); Blood Urea Nitrogen 35 mg/dL (9-16); Calcium 9.4 mg/dL (8.4-10.2); Carbon Dioxide 18 mmol/L (22-29); Chloride 115 mmol/L (96-108); Creatinine Clr Calc Pharmacy 31.4; Estimated Glomerular Filt Rate 47; Glucose Random 104 mg/dL (60-115); Potassium 5.1 mmol/L (3.3-5.1); Sodium 141 mmol/L (135-145); Total Protein 6.2 g/dL (6.5-8.0)
[2022-10-18 16:07] LABS: Appearance Urine Cloudy; Color Urine Yellow; Glucose Urine UA Negative (Negative); Leukocyte Esterase Urine Moderate (2+) (Negative); Nitrite Urine Negative (Negative); PH 5.5 (5.0-9.0); Specific Gravity - Urine 1.015 (1.005-1.025); UMIC TRIGGER UACC YES; Urine Blood Negative (Negative); Urine Ketones Negative (Negative); Urine Protein Negative (Neg-Trace)
[2022-10-18 16:09] LABS: Bacteria Urine 4+ (None Seen); Hyaline Casts Urine 0-2 /LPF (0-2); RBC Urine 0-2 /HPF (0-2); Squamous Epithelial Cell Urine 0-2 /HPF (0-2); UACC Culture Trigger YES
== END 2022-10-18 16:35 | disposition home or self-care (01) ==
PROVIDERS: Physician Assistant; Emergency Provider Emergency Medicine; PCP Internal Medicine
DX: R55 Syncope and collapse (principal); R42 Dizziness and giddiness; I10 Essential (primary) hypertension; E78.5 Hyperlipidemia, unspecified; R61 Generalized hyperhidrosis
CPT/HCPCS: 36415; 80048; 80076; 81001; 83735; 84484; 85025; 87086; 87088; 87186; 93005; 99283; 99284

== ENCOUNTER 2022-12-28 08:59 | Outpatient (REF) | payer MEDICARE, SELFPAY ==
[2022-12-28 10:44] LABS: MANUAL DIFF FLAG NO
[2022-12-28 10:51] LABS: Basophils Absolute Auto 0.1 X10*3/uL (0.0-0.2); Basophils Percent Auto 0.7 % (0-2); Eosinophils Absolute Auto 0.1 X10*3/uL (0.0-0.4); Eosinophils Percent Auto 1.4 % (0-4); Hematocrit 36.5 % (37.0-47.0); Hemoglobin 11.7 g/dl (12.0-16.0); Imm Gran Abs Auto 0.02 X10*3/uL (0.00-0.03); Imm Gran Pct Auto 0.2 % (0.0-0.4); Lymphocytes Absolute Auto 1.7 X10*3/uL (1.2-4.9); Lymphocytes Percent Auto 20.6 % (20-40); Mean Corpuscular HGB Conc 32.1 g/dl (31.0-35.0); Mean Corpuscular Hemoglobin 30.5 pg (27.0-33.0); Mean Corpuscular Volume 95.3 fL (80.0-98.0); Mean Platelet Volume 10.1 fL (9.4-12.3); Monocytes Absolute Auto 0.5 X10*3/uL (0.1-1.2); Monocytes Percent Auto 6.3 % (2-11); Neutrophils Absolute Auto 5.7 x10*3/uL (2.0-8.3); Neutrophils Percent Auto 70.8 % (45-73); Platelet Count 229 X10*3/uL (160-400); Red Blood Count 3.83 X10*6/uL (4.20-5.50); Red Cell Distribution Width 12.9 % (11.0-16.0); White Blood Count 8.1 X10*3/uL (4.8-10.8)
[2022-12-28 11:13] LABS: Alanine Aminotransferase 14 U/L (0-31); Albumin Level 3.7 g/dL (3.5-5.0); Alkaline Phosphatase 72 U/L (39-117); Anion Gap 12 (12-20); Aspartate Amino Transferase 19 U/L (5-31); Bilirubin Total 0.3 mg/dL (0.0-1.0); Blood Urea Nitrogen 28 mg/dL (9-16); Calcium 9.3 mg/dL (8.4-10.2); Carbon Dioxide 18 mmol/L (22-29); Chloride 118 mmol/L (96-108); Cholesterol 77 mg/dL (<200); Estimated Glomerular Filt Rate 53; Glucose Fasting 106 mg/dL (60-99); HDL Cholesterol 27 mg/dL (>40); LDL Cholesterol Calculated 36 mg/dL (<100); Potassium 4.6 mmol/L (3.3-5.1); Sodium 143 mmol/L (135-145); Total Protein 6.3 g/dL (6.5-8.0); Triglycerides 74 mg/dL (<150)
[2022-12-28 11:19] LABS: Free T4 (Free Thyroxine) 1.05 ng/dL (0.71-1.85); Thyroid Stimulating Hormone 1.72 uIU/mL (0.32-4.0)
== END 2022-12-28 09:00 | disposition home or self-care (01) ==
LOC: HO.10HDL 08:59
PROVIDERS: Visit Provider Internal Medicine
DX: I12.9 Hypertensive chronic kidney disease with stage 1 through stage 4 chronic kidney disease, or unspecified chronic kidney disease (principal); N18.9 Chronic kidney disease, unspecified; E78.00 Pure hypercholesterolemia, unspecified; E03.9 Hypothyroidism, unspecified
CPT/HCPCS: 36415; 80053; 80061; 82306; 84439; 84443; 85025

== ENCOUNTER 2023-03-23 08:07 | Outpatient (REF) | payer MEDICARE, SELFPAY ==
[2023-03-23 10:29] LABS: MANUAL DIFF FLAG NO
[2023-03-23 10:38] LABS: Basophils Absolute Auto 0.1 X10*3/uL (0.0-0.2); Eosinophils Absolute Auto 0.1 X10*3/uL (0.0-0.4); Eosinophils Percent Auto 1.4 % (0-4); Hemoglobin 12.1 g/dl (12.0-16.0); Imm Gran Abs Auto 0.02 X10*3/uL (0.00-0.03); Imm Gran Pct Auto 0.3 % (0.0-0.4); Lymphocytes Absolute Auto 1.5 X10*3/uL (1.2-4.9); Lymphocytes Percent Auto 24.2 % (20-40); Mean Corpuscular HGB Conc 31.8 g/dl (31.0-35.0); Mean Corpuscular Hemoglobin 30.5 pg (27.0-33.0); Mean Corpuscular Volume 95.7 fL (80.0-98.0); Mean Platelet Volume 10.2 fL (9.4-12.3); Monocytes Absolute Auto 0.4 X10*3/uL (0.1-1.2); Monocytes Percent Auto 6.1 % (2-11); Neutrophils Absolute Auto 4.2 x10*3/uL (2.0-8.3); Platelet Count 203 X10*3/uL (160-400); Red Blood Count 3.97 X10*6/uL (4.20-5.50); White Blood Count 6.2 X10*3/uL (4.8-10.8)
[2023-03-23 10:54] LABS: Alanine Aminotransferase 11 U/L (0-31); Albumin Level 3.8 g/dL (3.5-5.0); Alkaline Phosphatase 91 U/L (39-117); Anion Gap 8 (12-20); Aspartate Amino Transferase 20 U/L (5-31); Bilirubin Total 0.5 mg/dL (0.0-1.0); Blood Urea Nitrogen 23 mg/dL (9-16); Calcium 9.3 mg/dL (8.4-10.2); Carbon Dioxide 24 mmol/L (22-29); Chloride 114 mmol/L (96-108); Estimated Glomerular Filt Rate 50; Glucose Random 113 mg/dL (60-115); Potassium 4.1 mmol/L (3.3-5.1); Sodium 142 mmol/L (135-145); Total Protein 6.4 g/dL (6.5-8.0)
== END 2023-03-23 08:08 | disposition home or self-care (01) ==
LOC: HO.10HDL 08:07
PROVIDERS: Referring Provider Internal Medicine Nephrology; Visit Provider Internal Medicine
DX: K21.9 Gastro-esophageal reflux disease without esophagitis (principal); E03.9 Hypothyroidism, unspecified; I12.9 Hypertensive chronic kidney disease with stage 1 through stage 4 chronic kidney disease, or unspecified chronic kidney disease; N18.9 Chronic kidney disease, unspecified
CPT/HCPCS: 36415; 80053; 85025

== ENCOUNTER 2023-03-25 11:01 | Outpatient (AMB) | payer MEDICARE, SELFPAY ==
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
[2023-03-25 11:18] VITALS: BP 150/70; PULSE 62; BMI 25.3
== END 2023-03-25 12:15 | disposition home or self-care (01) ==
PROVIDERS: PCP Internal Medicine; Visit Provider Internal Medicine Nephrology
DX: I12.9 Hypertensive chronic kidney disease with stage 1 through stage 4 chronic kidney disease, or unspecified chronic kidney disease (principal); N18.31 Chronic kidney disease, stage 3a
CPT/HCPCS: 99213

== ENCOUNTER → 2023-03-25 11:01 | Outpatient (BNVA) | payer MEDICARE, SELFPAY | PROVIDERS: PCP Internal Medicine; Visit Provider Internal Medicine Nephrology | DX: I11.0 Hypertensive heart disease with heart failure (principal); N18.31 Chronic kidney disease, stage 3a | CPT/HCPCS: 99212 ==

== ENCOUNTER 2023-04-04 14:18 | Emergency (ER) | payer MEDICARE, SELFPAY ==
[2023-04-04 14:22] VITALS: BP 113/74; BP 130/58; PULSE 65; PULSE 68; RESP 18; TEMP 36.5; O2SAT 95; O2SAT 98; BMI 21.0
--- NOTE | 2023-04-04 14:54 | ED.DIZZY ---
HPI - Dizziness General Chief Complaint: Syncope Stated Complaint: DIZZY, LOW BP(90/62) PER EMS Time Seen by Provider: 04/04/23 14:24 Source: patient Mode of arrival: ambulatory Limitations: no limitations History of Present Illness HPI Narrative: Patient comes to the emergency room complaining of lightheadedness. Patient states that earlier today, she was well-appearing in the medical office. Patient had a bowel movement, started walking, shortly after, patient started feeling lightheaded. Patient was able to sit down, patient did not pass out. Blood pressure was checked, it was 130 systolic. Shortly after, patient's blood pressure dropped to 90 systolic. Patient states that she has had multiple episodes of near syncope in the past related to a drop in her blood pressure. Shortly after, patient has recovered. Patient states she never had any chest pain or shortness of breath. At this time, patient states that she feels nearly back to normal, has a slight headache. Patient denies hitting her head Related Data Home Medications Medication Instructions Recorded Confirmed amlodipine 5 mg tablet 5 mg PO BID 05/20/20 06/02/22 aspirin 81 mg tablet,delayed 81 mg PO DAILY 05/20/20 06/02/22 release brimonidine 0.2 %-timolol 0.5 % 1 drp ophthalmic (eye) BID 05/20/20 06/02/22 eye drops levothyroxine 100 mcg tablet 100 mcg PO DAILY 05/20/20 06/02/22 nebivolol 20 mg tablet 20 mg PO BID 05/20/20 06/02/22 hydralazine 50 mg tablet See Rx Instructions PO TID 11/19/20 06/02/22 docusate sodium 100 mg capsule 100 mg PO BID PRN constipation 02/19/21 06/02/22 tramadol 50 mg tablet 50 mg PO Q4H PRN pain 02/19/21 06/02/22 losartan 50 mg tablet See Rx Instructions PO BID 05/27/21 06/02/22 fenofibrate 54 mg tablet 54 mg PO DAILY 07/13/21 06/02/22 Previous Rx's Medication Instructions Recorded tramadol 50 mg tablet 50 mg PO Q8H PRN pain #15 tabs 07/07/22 cephalexin 500 mg capsule 500 mg PO Q6H 7 days #28 caps 10/22/22 cephalexin 500 mg tablet 500 mg PO Q6H 7 days #28 tabs 10/22/22 evolocumab 140 mg/mL subcutaneous 140 mg subcut Q2W #2 mL 11/16/22 pen injector (Anjali Chow) hydralazine 50 mg tablet 50 mg PO TID #120 tabs 03/25/23 Allergies Allergy/AdvReac Type Severity Reaction Status Date / Time cimetidine [From TAGAMET] Allergy Unknown GI UPSET Verified 03/25/23 11:22 ciprofloxacin [From CIPRO] Allergy Unknown GI UPSET Verified 03/25/23 11:22 diltiazem [From CARDIZEM] Allergy Unknown HIVES Verified 03/25/23 11:22 lisinopril [From ZESTRIL] Allergy Unknown LIGHTHESDEDNESS Verified 03/25/23 11:22 GI UPSET Sulfa (Sulfonamide Allergy Unknown HIVES Verified 03/25/23 11:22 Antibiotics) [SULFA (SULFONAMIDE ANTIBIOTICS)] timolol [From ISTALOL] Allergy Unknown STINGING Verified 03/25/23 11:22 does not handle GENERIC meds Allergy Unknown unk Uncoded 10/18/22 13:08 w Review of Systems Review of Systems: Constitutional : No Weight loss, No Fever, No Chills, No Night Sweats, No Fatigue, No Malaise ENT/Mouth : No Hearing loss, No Ear Pain, No Nasal Congestion, No Sinus Pain, No Hoarseness, No sore throat, No Rhinorrhea, No Swallowing Difficulty Eyes: No Eye Pain, No Swelling, No Redness, No Foreign Body, No Discharge, No Vision Changes Cardiovascular : No Chest Pain, No SOB, No Dyspnea on Exertion, No Orthopnea, No Edema, No Palpitations, patient complaining of near-syncope episode after a bowel moved standing up fast Respiratory : No Cough, No Sputum, No Wheezing, No Smoke Exposure, No Dyspnea Gastrointestinal : No Nausea, No Vomiting, No Diarrhea, No Constipation, No abdominal Pain, No Hematochezia, No Melena Genitourinary : no irregular bleeding, No Dysuria, No Urinary Frequency, No Hematuria, No Urinary Incontinence, No Urgency, No Flank Pain, No Urinary Flow Changes, No Hesitancy Musculoskeletal : No joint pain, No Myalgias, No Joint Swelling Skin : No Skin Lesions, No rash Neuro : No Weakness, No Numbness, No Paresthesias, No Loss of Consciousness, No Dizziness, No Headache Psych : No Anxiety/Panic, No Depression, No SI/HI/AH/VH, No Social Issues, Heme/Lymph: No Bruising, No Bleeding,No Lymphadenopathy Endocrine : No Polyuria, No Polydipsia, No Temperature Intolerance [facility] Past Medical History Medical History Carotid stenosis, bilateral Statin intolerance Other and unspecified hyperlipidemia Non-rheumatic aortic stenosis Labile hypertension Surgical History History of cholecystectomy (~01/28/21) History of appendectomy Family History Family History Father No problems noted. Mother No problems noted. 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 Oriented X3. No acute distress. Eyes: Pupils equal, round and reactive to light. ENT: Pharynx normal. Neck: Normal inspection. Neck supple. No lymph nodes noted. No crepitus CVS: Normal heart rate and rhythm. Pulses normal. Normal S1 and S2 Respiratory: No respiratory distress. Breath sounds normal. No Wheezing. No rales Abdomen: Soft and nontender. No rigidity. No distention. Skin: Skin warm and dry. Normal skin color. Normal skin turgor. Extremities: No lower extremity edema. No Lacerations. No Rash Neuro: Oriented X 3. No motor deficit. No sensory deficit. Moving all extremities. No slurred speech. CN 2 through 12 grossly intact Psych: calm, cooperative, normal affect Course Course Course Narrative: - symptoms patient had a near syncopal episode /vasovagal hypotension. - At this time, patient has no lightheadedness, no chest pain or shortness of breath, complaining of a slight headache. - All patient's labs pending Medications Administered Discontinued Medications Generic Name Dose Route Start Last Admin Trade Name Helen PRN Reason Stop Dose Admin Acetaminophen 975 mg 04/04/23 14:56 04/04/23 15:18 Acetaminophen 325 Mg Tablet PO 04/04/23 14:57 975 mg ONCE ONE Administration Medical Decision Making Medical Decision Making [facility] Narrative: - my interpretation of EKG: Normal sinus rhythm, heart rate 71, no ST segment depression or elevations, no T-wave inversions, QTC 458 - my interpretation of labs, white blood cell count 11.3, likely reactive leukocytosis, urinalysis positive for UTI. - I reviewed patient's microbiology reports, patient is sensitive to cephalosporins. Patient was given the 1st dose in the emergency room. - Orthostatic vitals were negative. However, it is still possible the patient may have had a near syncopal episode after having a bowel movement, vasovagal near-syncope - patient ambulated by herself and supervised to the bathroom using her cane, patient was completely asymptomatic and did not need any help. - Patient's vital stable, continues being asymptomatic. Differential Diagnosis Differential Diagnoses: The differential diagnosis associated with the presentation includes ( Near syncope, orthostatic hypotension, vasovagal near-syncope) Admission/Observation Consideration of admission/observation: Escalation of care including admission/observation considered ( given patient's age, presentation and symptoms, admission was considered on arrival.) Lab Data 04/04/23 16:27 04/04/23 16:27 Labs: Lab Results 04/04/23 Range/Units 16:27 WBC 11.3 H (4.8-10.8) X10*3/uL RBC 3.99 L (4.20-5.50) X10*6/uL Hgb 12.1 (12.0-16.0) g/dl Hct 37.9 (37.0-47.0) % MCV 95.0 (80.0-98.0) fL MCH 30.3 (27.0-33.0) pg MCHC 31.9 (31.0-35.0) g/dl RDW 13.2 (11.0-16.0) % Plt Count 229 (160-400) X10*3/uL MPV 9.6 (9.4-12.3) fL Immature Gran % (Auto) 0.5 H (0.0-0.4) % Neut % (Auto) 79.2 H (45-73) % Lymph % (Auto) 15.3 L (20-40) % Placer % (Auto) 4.1 (2-11) % Eos % (Auto) 0.5 (0-4) % Baso % (Auto) 0.4 (0-2) % Lymph # (Auto) 1.7 (1.2-4.9) X10*3/uL Placer # (Auto) 0.5 (0.1-1.2) X10*3/uL Eos # (Auto) 0.1 (0.0-0.4) X10*3/uL Baso # (Auto) 0.1 (0.0-0.2) X10*3/uL Abs Immat Gran (auto) 0.06 H (0.00-0.03) X10*3/uL Absolute Neuts (auto) 9.0 H (2.0-8.3) x10*3/uL Absolute Nucleated RBC 0.000 (0.0-0.012) X10*3/uL Nucleated RBC % (auto) 0.0 (0.0-0.2) /100WBC Sodium 144 (135-145) mmol/L Potassium 4.5 (3.3-5.1) mmol/L Chloride 115 H (96-108) mmol/L Carbon Dioxide 21 L (22-29) mmol/L Anion Gap 13 (12-20) BUN 37 H (9-16) mg/dL Creatinine 1.26 (0.5-1.4) mg/dL Estim Creat Clear Calc 32.0 Estimated GFR 41 Random Glucose 116 H (60-115) mg/dL Calcium 8.9 (8.4-10.2) mg/dL Total Bilirubin 0.4 (0.0-1.0) mg/dL Direct Bilirubin 0.2 (0.0-0.5) mg/dL AST 20 (5-31) U/L ALT 14 (0-31) U/L Alkaline Phosphatase 79 (39-117) U/L Troponin I High Sens < 2.7 (<3.5-17.0) ng/L Total Protein 6.4 L (6.5-8.0) g/dL Albumin 3.7 (3.5-5.0) g/dL Urine Color Yellow Urine Appearance Clear Urine pH 5.0 (5.0-9.0) Ur Specific [place] 1.015 (1.005-1.025) Urine Protein Negative (Neg-Trace) mg/dL Urine Glucose (UA) Negative (Negative) mg/dL Urine Ketones Trace (Negative) mg/dL Urine Blood Negative (Negative) Urine Nitrite Negative (Negative) Ur Leukocyte Esterase Moderate (2+) H (Negative) Urine RBC 0-2 (0-2) /HPF Urine WBC 21-50 H (0-5) /HPF Ur Squamous Epith Cells 3-5 (0-2) /HPF Urine Bacteria 1+ (None Seen) Hyaline Casts 0-2 (0-2) /LPF Independent Interpretation I performed an independent interpretation of an: EKG ( As above) Critical Care Time Critical Care Time Critical Care Time: Yes Total Critical Care Time: 45 Attestation: I have personally provided critical care time. Time includes review of lab data, radiology results, discussion with consultants, and monitoring for potential decompensation. Intervention performed as documented. Discharge Plan Discharge Clinical Impression: Hypotension Patient Disposition: Home, Self-Care Instructions: Hypotension (ED), Near Syncope (ED) Additional Instructions: Please follow-up with your primary care physician tomorrow. If you have any worsening or new symptoms, please return to the emergency room or call 911 Prescriptions: No Action Repatha SureClick 140 mg/mL pen injector 140 mg subcut Q2W Qty: 2 5RF hydralazine 50 mg tablet 50 mg PO TID Qty: 120 5RF Rx Instructions: 1.5 tablets in the morning, 1 tablet at noon, 1.5 tablets at night PO 3 times a day tramadol 50 mg tablet 50 mg PO Q8H PRN (Reason: pain) Qty: 15 0RF cephalexin 500 mg tablet 500 mg PO Q6H 7 Days Qty: 28 0RF cephalexin 500 mg capsule 500 mg PO Q6H 7 Days Qty: 28 0RF fenofibrate 54 mg tablet 54 mg PO DAILY losartan 50 mg tablet See Rx Instructions PO BID Rx Instructions: 1 tablet in the morning, 1/2 tablet in the evening PO 2 times a day; levothyroxine 100 mcg tablet 100 mcg PO DAILY Bystolic 20 mg tablet 20 mg PO BID amlodipine 5 mg tablet 5 mg PO BID Combigan 0.2-0.5 % drops 1 drp ophthalmic (eye) BID aspirin 81 mg tablet,delayed release (DR/EC) 81 mg PO DAILY hydralazine 50 mg tablet See Rx Instructions PO TID Rx Instructions: 1.5 tablets in the morning, 1 tablet at noon, 1.5 tablets at night PO 3 times a day; tramadol 50 mg tablet 50 mg PO Q4H PRN (Reason: pain) docusate sodium 100 mg capsule 100 mg PO BID PRN (Reason: constipation)
[2023-04-04 15:18] VITALS: PULSE 65; RESP 14; O2SAT 98
[2023-04-04] MEDS: Acetaminophen 325 MG TABLET 975 MG PO (15:18)
--- NOTE | 2023-04-04 15:35 | PC.NURSE ---
this RN resumed care of pt at this time. a&ox3, vss and up to date at this time. pt has no complaints aside from 11/15 headache - medicated per provider order. denies blurry vision/lightheadedness/dizziness. no sob/wob noted. respirations even and unlabored. tech bedside obtaining orthostatic vital signs.
[2023-04-04 15:38] VITALS: BP 160/80; PULSE 64
[2023-04-04 15:39] VITALS: BP 155/75; BP 160/74; PULSE 65; PULSE 68
--- NOTE | 2023-04-04 16:06 | ECG_ITS ---
Test Reason : DIZZINESS Blood Pressure : / mmHG Vent. Rate : 071 BPM Atrial Rate : 063 BPM P-R Int : 192 ms QRS Dur : 090 ms QT Int : 422 ms P-R-T Axes : 000 -24 025 degrees QTc Int : 458 ms Sinus rhythm with Premature atrial complexes RSR' or QR pattern in V1 suggests right ventricular conduction delay Abnormal ECG When compared with ECG of 18-OCT-2022 13:13, Premature atrial complexes are now Present Referred By: Paula Mancuso Electronically Signed By:RAPHAEL BALL MD
--- NOTE | 2023-04-04 16:22 | PC.NURSE ---
pt ambulates to bathroom w/ steady gait/with cane used for assistive device. urine obtained/sent to lab. labs obtained/sent to lab as well. tech performed ekg. pt resting comfortably in no apparent distress. respirations remain even and unlabored. family bedside. call moore placed within reach.
[2023-04-04 16:32] LABS: MANUAL DIFF FLAG NO
[2023-04-04 16:34] LABS: Appearance Urine Clear; Color Urine Yellow; Glucose Urine UA Negative (Negative); Leukocyte Esterase Urine Moderate (2+) (Negative); Nitrite Urine Negative (Negative); Specific Gravity - Urine 1.015 (1.005-1.025); UMIC TRIGGER UACC YES; Urine Blood Negative (Negative); Urine Ketones Trace mg/dL (Negative); Urine Protein Negative (Neg-Trace)
[2023-04-04 16:42] LABS: Basophils Absolute Auto 0.1 X10*3/uL (0.0-0.2); Basophils Percent Auto 0.4 % (0-2); Eosinophils Absolute Auto 0.1 X10*3/uL (0.0-0.4); Eosinophils Percent Auto 0.5 % (0-4); Hematocrit 37.9 % (37.0-47.0); Hemoglobin 12.1 g/dl (12.0-16.0); Imm Gran Abs Auto 0.06 X10*3/uL (0.00-0.03); Imm Gran Pct Auto 0.5 % (0.0-0.4); Lymphocytes Absolute Auto 1.7 X10*3/uL (1.2-4.9); Lymphocytes Percent Auto 15.3 % (20-40); Mean Corpuscular HGB Conc 31.9 g/dl (31.0-35.0); Mean Corpuscular Hemoglobin 30.3 pg (27.0-33.0); Mean Platelet Volume 9.6 fL (9.4-12.3); Monocytes Absolute Auto 0.5 X10*3/uL (0.1-1.2); Monocytes Percent Auto 4.1 % (2-11); Neutrophils Percent Auto 79.2 % (45-73); Platelet Count 229 X10*3/uL (160-400); Red Blood Count 3.99 X10*6/uL (4.20-5.50); Red Cell Distribution Width 13.2 % (11.0-16.0); White Blood Count 11.3 X10*3/uL (4.8-10.8)
[2023-04-04 16:50] LABS: Alanine Aminotransferase 14 U/L (0-31); Albumin Level 3.7 g/dL (3.5-5.0); Alkaline Phosphatase 79 U/L (39-117); Anion Gap 13 (12-20); Aspartate Amino Transferase 20 U/L (5-31); Bacteria Urine 1+ (None Seen); Bilirubin Direct 0.2 mg/dL (0.0-0.5); Bilirubin Total 0.4 mg/dL (0.0-1.0); Blood Urea Nitrogen 37 mg/dL (9-16); Calcium 8.9 mg/dL (8.4-10.2); Carbon Dioxide 21 mmol/L (22-29); Chloride 115 mmol/L (96-108); Estimated Glomerular Filt Rate 41; Glucose Random 116 mg/dL (60-115); Hyaline Casts Urine 0-2 /LPF (0-2); Potassium 4.5 mmol/L (3.3-5.1); RBC Urine 0-2 /HPF (0-2); Sodium 144 mmol/L (135-145); Total Protein 6.4 g/dL (6.5-8.0); UACC Culture Trigger YES; WBC Urine 21-50 /HPF (0-5)
[2023-04-04 17:00] LABS: Troponin-I High Sensitivity < 2.7 ng/L (<3.5-17.0)
[2023-04-04] MEDS: cefuroxime axetiL 500 MG TABLET PO (17:37)
== END 2023-04-04 17:54 | disposition home or self-care (01) ==
PROVIDERS: Emergency Provider Emergency Medicine; PCP Internal Medicine
DX: I95.9 Hypotension, unspecified (principal); R42 Dizziness and giddiness; Z79.82 Long term (current) use of aspirin; Z79.899 Other long term (current) drug therapy
CPT/HCPCS: 36415; 80048; 80076; 81001; 84484; 85025; 87086; 93005; 99283; 99285

== ENCOUNTER 2023-04-12 09:51 | Outpatient (REF) | payer MEDICARE, SELFPAY ==
--- NOTE | ~2023-04-12 | US_ITS ---
EXAMINATION: US EXTRACRANIAL CAROTID DUPLEX, BILATERAL CLINICAL INFORMATION: Carotid stenosis. COMPARISON: Carotid ultrasound 03/01/2022 TECHNIQUE: Real-time ultrasound and Doppler techniques (integrating B-mode 2-D vascular images, Doppler spectral analysis and color-flow Doppler imaging) were utilized to interrogate the extracranial carotid arteries, the vertebral arteries and proximal subclavian arteries bilaterally. The degree of stenosis is determined by criteria similar to NASCET. FINDINGS: Right Side: 1. There is moderate atherosclerotic plaque seen in the bifurcation/proximal ICA region. 2. The common carotid artery PSV proximally is 139 cm/s and distally 75 cm/s. 3. The proximal internal carotid artery velocities are 150 cm/s systolic and 40 cm/s diastolic. 4. The proximal external carotid artery PSV is 152 cm/s. 5. The vertebral artery shows antegrade flow. 6. The subclavian artery waveforms are normal. Left Side: 1. There is moderate atherosclerotic plaque seen in the bifurcation/proximal ICA region. 2. The common carotid artery PSV proximally is 104 cm/s and distally 93 cm/s. 3. The proximal internal carotid artery velocities are 151 cm/s systolic and 35 cm/s diastolic. 4. The proximal external carotid artery PSV is 100 cm/s. 5. The vertebral artery shows antegrade flow. 6. The subclavian artery waveforms are normal. US/US carotid duplex BI IMPRESSION: 1. RIGHT: Moderate, hemodynamically significant stenosis of the proximal right internal carotid artery corresponding to a 50-79% stenosis by velocity criteria. 2. LEFT: Moderate, hemodynamically significant stenosis of the proximal left internal carotid artery corresponding to a 50-79% stenosis by velocity criteria. 3. There is no change in the category severity of disease when compared to the previous study dated 03/01/2022.
== END 2023-04-12 09:52 | disposition home or self-care (01) ==
LOC: HO.US 09:51
PROVIDERS: PCP Internal Medicine; Visit Provider Surgery Vascular Surgery
DX: I65.23 Occlusion and stenosis of bilateral carotid arteries (principal)
CPT/HCPCS: 93880

== ENCOUNTER 2023-05-03 09:12 | Outpatient (AMB) | payer MEDICARE, SELFPAY ==
[2023-05-03 09:11] VITALS: BP 148/70; PULSE 68; O2SAT 96; BMI 23.8
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
== END 2023-05-03 09:40 | disposition home or self-care (01) ==
PROVIDERS: PCP Internal Medicine; Visit Provider Surgery Vascular Surgery
DX: I65.23 Occlusion and stenosis of bilateral carotid arteries (principal)
CPT/HCPCS: 99213

== ENCOUNTER → 2023-05-03 09:12 | Outpatient (BNVA) | payer MEDICARE, SELFPAY | PROVIDERS: PCP Internal Medicine; Visit Provider Surgery Vascular Surgery | DX: I65.23 Occlusion and stenosis of bilateral carotid arteries (principal) | CPT/HCPCS: 99212 ==

== ENCOUNTER 2023-06-06 14:13 | Outpatient (AMB) | payer MEDICARE, SELFPAY ==
--- NOTE | 2023-06-06 14:25 | A.OFFVIS_ITS ---
Intake Vital Signs 06/06/23 14:29 Height 5 ft 2 in Weight 138 lb 14.259 oz BMI 25.4 BP 186/60 H Blood Pressure Location Lt brachial Position Sitting Pulse 63 Intake Visit Reasons: 1 year follow-up with ekg Intake Note: 1 year follow up Quality System Manager Required: No Accompanied by: Self / Same As Patient Allergies cimetidine [From TAGAMET] Allergy (Unknown, Verified 06/06/23 14:30) GI UPSET ciprofloxacin [From CIPRO] Allergy (Unknown, Verified 06/06/23 14:30) GI UPSET diltiazem [From CARDIZEM] Allergy (Unknown, Verified 06/06/23 14:30) HIVES lisinopril [From ZESTRIL] Allergy (Unknown, Verified 06/06/23 14:30) LIGHTHESDEDNESS GI UPSET Sulfa (Sulfonamide Antibiotics) [SULFA (SULFONAMIDE ANTIBIOTICS)] Allergy (Unknown, Verified 06/06/23 14:30) HIVES timolol [From ISTALOL] Allergy (Unknown, Verified 06/06/23 14:30) STINGING does not handle GENERIC meds w Allergy (Unknown, Uncoded 06/06/23 14:30) unk Medication List - Last Reconciled 06/06/23 by Kalen Muñoz MD amlodipine 5 mg PO BID carvedilol 25 mg PO BID evolocumab (Repatha SureClick) 140 mg subcut Q2W fenofibrate 54 mg PO DAILY hydralazine 1.5 tablets in the morning, 1 tablet at noon, 1.5 tablets at night PO 3 times a day; hydralazine 25 mg PO BID levothyroxine 100 mcg PO DAILY losartan 25 mg PO QPM losartan 1 tablet in the morning, 1/2 tablet in the evening PO 90 days HPI HPI Comments History of Present Illness Details Yuni returns for follow-up. To recall, she has labile hypertension. In the past, several episodes a high as well as low blood pressures. She also gets syncope during times of low blood pressure. Many medication changes over time. Several blood pressures recently seem to be on the higher side but she states that she still had some low blood pressure episodes leading to ER visits. Otherwise, she feels as though her head is full but she states that is due to sinus issues. [facility] Medical History Carotid stenosis, bilateral Statin intolerance Other and unspecified hyperlipidemia Non-rheumatic aortic stenosis Labile hypertension Surgical History History of cholecystectomy (~01/28/21) History of appendectomy Family History Father No problems noted. Mother No problems noted. 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 Review of Systems Const Denies weakness ENT Denies dizziness Card Denies chest pain, Denies chest pain with activity, Denies syncope, Denies rapid heart rate, Denies pedal edema, Denies edema, Denies leg edema, Denies lightheadedness, Denies palpitations, Denies dyspnea, Denies dyspnea on exertion and Denies orthopnea Resp Denies cough, Denies dyspnea and Denies dyspnea on exertion GI Denies hematochezia and Denies change in stool character Musc Denies abnormal gait, Denies muscle cramps, Denies muscle weakness, Denies numbness, Denies radiating pain into limb and Denies tingling Neuro Denies abnormal gait, Denies dizziness, Denies syncope, Denies numbness, Denies tingling and Denies weakness Endo Denies palpitations Physical Exam Vital Signs: Last Vital Signs Pulse 63 06/06/23 14:29 BP 186/60 H 06/06/23 14:29 BMI result Body Mass Index 25.4 Const General: comfortable and no acute distress Orientation/consciousness: patient oriented x3 HEENT Other: Unremarkable Head: Yes normal to inspection Neck Neck: Yes normal visual inspection Chest Chest palpation & inspection: normal inspection of the chest Resp Auscultation: clear to auscultation bilaterally Cardio Palpation: normal PMI Heart sounds: S1 normal heart sound present, S2 normal heart sound present, no gallops, no murmurs and no rubs GI Palpation (GI): Soft to palpation Back/Spine/Pelvis Other: unremarkable Skin General skin exam: no rashes or lesions noted Neuro General: patient oriented x3 Extrem General: Yes normal to inspection Psych Mental Status: mental status grossly normal Assessment & Plan Assessment & Plan (1) Labile hypertension: Code(s): R09.89 - Other specified symptoms and signs involving the circulatory and respiratory systems Plan: Current regimen includes carvedilol 20 mg b.i.d., amlodipine 5 mg b.i.d., hydralazine 75 mg b.i.d. and another 50 mg in the afternoon; losartan 50 mg a.m. and 25 mg p.m.. As the pressure seems to be fairly high, I suggested that we can go up on the hydralazine to 75 mg t.i.d.. We will also discuss with Nephrology. Of note, whenever blood pressure goes to relatively normal range, she actually feels symptoms of hypoperfusion. Hence we will need to keep her pressures at higher than ideal range. No clear evidence of any renal artery stenosis in previous studies. (2) Non-rheumatic aortic stenosis: Code(s): I35.0 - Nonrheumatic aortic (valve) stenosis Plan: Moderate aortic valve calcification and mild stenosis. Mean gradient is 7 mm Hg with calculated valve area of 1.75 sq cm. No specific management. (3) Other and unspecified hyperlipidemia: Code(s): E78.5 - Hyperlipidemia, unspecified Plan: Intolerant of statins. Currently on Repatha. Well-controlled lipids. (4) Statin intolerance: Code(s): Z78.9 - Other specified health status Plan: As above, on Repatha. (5) Carotid stenosis, bilateral: Code(s): I65.23 - Occlusion and stenosis of bilateral carotid arteries Plan: Most recent carotid ultrasound shows moderate stenosis bilaterally. She is also being concurrently followed by vascular surgery. Coding Level of Care Code Est Pt Level 4 (05519) Diagnoses Labile hypertension R09.89 Non-rheumatic aortic stenosis I35.0 Other and unspecified hyperlipidemia E78.5 Statin intolerance Z78.9 Carotid stenosis, bilateral I65.23
[2023-06-06 14:29] VITALS: BP 186/60; PULSE 63; BMI 25.4
== END 2023-06-06 14:53 | disposition home or self-care (01) ==
PROVIDERS: Visit Provider Internal Medicine
DX: R09.89 Other specified symptoms and signs involving the circulatory and respiratory systems (principal); I35.0 Nonrheumatic aortic (valve) stenosis; E78.5 Hyperlipidemia, unspecified; Z78.9 Other specified health status; I65.23 Occlusion and stenosis of bilateral carotid arteries
CPT/HCPCS: 99214

== ENCOUNTER → 2023-06-06 14:13 | Outpatient (BNVA) | payer MEDICARE, SELFPAY | PROVIDERS: Visit Provider Internal Medicine | DX: I35.0 Nonrheumatic aortic (valve) stenosis (principal); R09.89 Other specified symptoms and signs involving the circulatory and respiratory systems; E78.5 Hyperlipidemia, unspecified; I65.23 Occlusion and stenosis of bilateral carotid arteries; Z78.9 Other specified health status | CPT/HCPCS: 99212 ==

== ENCOUNTER 2023-06-15 09:06 | Outpatient (REF) | payer MEDICARE, SELFPAY ==
[2023-06-15 10:26] LABS: Alanine Aminotransferase 13 U/L (0-31); Albumin Level 3.9 g/dL (3.5-5.0); Alkaline Phosphatase 85 U/L (39-117); Anion Gap 10 (12-20); Aspartate Amino Transferase 18 U/L (5-31); Bilirubin Total 0.5 mg/dL (0.0-1.0); Blood Urea Nitrogen 33 mg/dL (9-16); Calcium 9.1 mg/dL (8.4-10.2); Carbon Dioxide 22 mmol/L (22-29); Chloride 117 mmol/L (96-108); Estimated Glomerular Filt Rate 52; Glucose Random 86 mg/dL (60-115); Potassium 5.2 mmol/L (3.3-5.1); Sodium 144 mmol/L (135-145); Total Protein 6.6 g/dL (6.5-8.0)
[2023-06-15 10:47] LABS: Free T4 (Free Thyroxine) 0.98 ng/dL (0.71-1.85); Thyroid Stimulating Hormone 1.86 uIU/mL (0.32-4.0)
== END 2023-06-15 09:07 | disposition home or self-care (01) ==
LOC: HO.LAB 09:06
PROVIDERS: PCP Internal Medicine; Referring Provider Internal Medicine; Visit Provider Internal Medicine Nephrology
DX: I12.9 Hypertensive chronic kidney disease with stage 1 through stage 4 chronic kidney disease, or unspecified chronic kidney disease (principal); N18.9 Chronic kidney disease, unspecified; K21.9 Gastro-esophageal reflux disease without esophagitis; E03.9 Hypothyroidism, unspecified
CPT/HCPCS: 36415; 80053; 84439; 84443

== ENCOUNTER 2023-06-24 11:57 | Outpatient (AMB) | payer MEDICARE, SELFPAY ==
[2023-06-24 12:00] VITALS: BP 130/70; PULSE 62; O2SAT 98; BMI 25.5
--- NOTE | 2023-06-24 12:00 | HO.NEPHOV_ITS ---
HPI HPI Comments History of Present Illness Details I had the delight of seeing Kera in the office in follow-up of her CKD and hypertension. Her blood pressure has been at goal. She denies any active GI issues. She follows up with Dr. Darby and Dr. Muñoz. She does not have any chest pain, shortness of breath, proximal nocturnal dyspnea, orthopnea, nausea, vomiting, diarrhea, fever, urinary symptoms or pedal edema. She has no orthostatic symptoms. Her serum creatinine remins at baseline [facility] Medical History Carotid stenosis, bilateral Statin intolerance Other and unspecified hyperlipidemia Non-rheumatic aortic stenosis Labile hypertension Surgical History History of cholecystectomy (~01/28/21) History of appendectomy Family History Father No problems noted. Mother No problems noted. 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 Vital Signs 06/24/23 12:00 Height 5 ft 2 in Weight 139 lb 6 oz BMI 25.5 BP 130/70 Blood Pressure Location Rt brachial Position Sitting Pulse 62 Pulse Source Pulse Oximeter Pulse Oximetry (%) 98 Oxygen Delivery Method Room Air Physical Exam Vital Signs: Last Vital Signs Pulse 62 06/24/23 12:00 BP 130/70 06/24/23 12:00 Pulse Ox 98 06/24/23 12:00 Oxygen Delivery Method Room Air 06/24/23 12:00 BMI result Body Mass Index 25.5 Const General: comfortable and no acute distress Orientation/consciousness: patient oriented x3 HEENT Head: Yes normocephalic Mouth: Normal oral and palatal mucosa present Eyes EOM: EOMs intact bilaterally Neck Neck: Yes supple Resp Auscultation: clear to auscultation bilaterally Cardio Jugular venous distension: no JVD Rate: regular rate GI Palpation (GI): Soft to palpation Auscultation: normal bowel sounds General: Yes no CVA tenderness Back/Spine/Pelvis Back: no CVA tenderness Skin General skin exam: no rashes or lesions noted Neuro General: patient oriented x3 and moves all extremities Extrem General: Yes no pedal edema Assessment & Plan Assessment & Plan (1) CKD (chronic kidney disease) stage 3, GFR 30-59 ml/min: Code(s): N18.30 - Chronic kidney disease, stage 3 unspecified Qualifiers: Chronic kidney disease stage 3 subtype: stage 3a (GFR 45-59) Qualified Code(s): N18.31 - Chronic kidney disease, stage 3a (2) Hypertension: Code(s): I10 - Essential (primary) hypertension Qualifiers: Hypertension type: primary hypertension Qualified Code(s): I10 - Essential (primary) hypertension Plan Kera has stage III CKD with hypertension. Her blood pressure is at goal. She has no orthostatic symptoms. She is tolerating her current antihypertensive medication regimen. She has vascular disease & follows Dr. Darby. She tries to keep herself well hydrated and stay away from nonsteroidal anti-inflammatory medications. I did not make any medication changes today. Her blood pressure goes up or serum creatinine rises, I will have a low threshold in doing Doppler of her renal arteries. Follow-up blood work was ordered. Answered all questions. Orders: Orders Urine Culture 1 Week R30.0 - Dysuria Creatinine 3 Months N18.30 - Chronic kidney disease, stage 3 unspecified, I10 - Essential (primary) hypertension Blood Urea Nitrogen 3 Months N18.30 - Chronic kidney disease, stage 3 unspecified, I10 - Essential (primary) hypertension Electrolytes 3 Months N18.30 - Chronic kidney disease, stage 3 unspecified, I10 - Essential (primary) hypertension Coding Level of Care Code Est Pt Level 3 (25307) Diagnoses Stage 3a chronic kidney disease N18.31 Chronic kidney disease stage 3 subtype: stage 3a (GFR 45-59) Primary hypertension I10 Hypertension type: primary hypertension Results Reviewed Nephrology Results: Hgb 12.1 g/dl (12.0-16.0) 04/04/23 WBC 11.3 X10*3/uL (4.8-10.8) H 04/04/23 Plt Count 229 X10*3/uL (160-400) 04/04/23 Sodium 144 mmol/L (135-145) 06/15/23 Potassium 5.2 mmol/L (3.3-5.1) H 06/15/23 Chloride 117 mmol/L (96-108) H 06/15/23 Carbon Dioxide 22 mmol/L (22-29) 06/15/23 BUN 33 mg/dL (9-16) H 06/15/23 Creatinine 1.02 mg/dL (0.5-1.4) 06/15/23 Calcium 9.1 mg/dL (8.4-10.2) 06/15/23 Urine Protein Negative mg/dL (Neg-Trace) 04/04/23
== END 2023-06-24 12:32 | disposition home or self-care (01) ==
PROVIDERS: PCP Internal Medicine; Visit Provider Internal Medicine Nephrology
DX: N18.31 Chronic kidney disease, stage 3a (principal); I10 Essential (primary) hypertension
CPT/HCPCS: 99213

== ENCOUNTER → 2023-06-24 11:57 | Outpatient (BNVA) | payer MEDICARE, SELFPAY | PROVIDERS: PCP Internal Medicine; Visit Provider Internal Medicine Nephrology | DX: I12.9 Hypertensive chronic kidney disease with stage 1 through stage 4 chronic kidney disease, or unspecified chronic kidney disease (principal); N18.31 Chronic kidney disease, stage 3a | CPT/HCPCS: 99212 ==

== ENCOUNTER 2023-07-05 13:51 | Outpatient (REF) | payer MEDICARE, SELFPAY ==
--- NOTE | ~2023-07-05 | CT_ITS ---
EXAMINATION: CT SINUS WITHOUT CONTRAST CLINICAL INFORMATION: Nasal congestion and dizziness. Change in hearing. COMPARISON: None available. TECHNIQUE: Continuous helical imaging obtained through the facial sinuses without IV contrast. Reconstructed images performed in the coronal and sagittal planes. This CT examination was performed using dose optimization techniques as appropriate, variously including the following: *Automated exposure control *Adjustment of mA and/or kV according to patient size (this includes techniques or standardized protocols for targeted exams where dose is matched to indication/reason for exam; i.e. extremities or head) *Use of iterative reconstruction technique DLP: 96 mGy-cm FINDINGS: Right maxillary sinus mucosal disease is seen. Large polypoid density in the left maxillary antrum possibly polyp versus retention cyst. Frontal, ethmoid and sphenoid sinuses are clear. Partial right mastoid opacification. Asymmetry of the temporal bones appears to be positional. Nasal turbinate thickening. Leftward nasal spur. Right temporomandibular calcifications. Carotid and vertebral calcifications. Lens extractions have been performed. Visualized intracranial structures are unremarkable. No pathologic lymphadenopathy. CT/CT sinus wo IV con IMPRESSION: Sinus and right mastoid disease as described. Vascular calcifications. Right temporomandibular calcifications. In the setting of change in hearing, consider dedicated temporal bone CT versus MRI.
== END 2023-07-05 13:52 | disposition home or self-care (01) ==
LOC: HO.CT 13:51
PROVIDERS: PCP Internal Medicine; Visit Provider Internal Medicine
DX: R09.81 Nasal congestion (principal); H91.90 Unspecified hearing loss, unspecified ear; R42 Dizziness and giddiness
CPT/HCPCS: 70486

== ENCOUNTER 2023-08-23 09:07 | Outpatient (REF) | payer MEDICARE, SELFPAY ==
[2023-08-23 11:28] LABS: MANUAL DIFF FLAG NO
[2023-08-23 11:55] LABS: Basophils Absolute Auto 0.1 X10*3/uL (0.0-0.2); Eosinophils Absolute Auto 0.1 X10*3/uL (0.0-0.4); Eosinophils Percent Auto 1.7 % (0-4); Hematocrit 39.7 % (37.0-47.0); Hemoglobin 12.8 g/dl (12.0-16.0); Imm Gran Abs Auto 0.03 X10*3/uL (0.00-0.03); Imm Gran Pct Auto 0.4 % (0.0-0.4); Lymphocytes Absolute Auto 1.9 X10*3/uL (1.2-4.9); Lymphocytes Percent Auto 22.5 % (20-40); Mean Corpuscular HGB Conc 32.2 g/dl (31.0-35.0); Mean Corpuscular Hemoglobin 30.9 pg (27.0-33.0); Mean Corpuscular Volume 95.9 fL (80.0-98.0); Mean Platelet Volume 10.1 fL (9.4-12.3); Monocytes Absolute Auto 0.5 X10*3/uL (0.1-1.2); Monocytes Percent Auto 6.5 % (2-11); Neutrophils Absolute Auto 5.6 x10*3/uL (2.0-8.3); Neutrophils Percent Auto 67.9 % (45-73); Platelet Count 257 X10*3/uL (160-400); Red Blood Count 4.14 X10*6/uL (4.20-5.50); Red Cell Distribution Width 13.3 % (11.0-16.0); White Blood Count 8.3 X10*3/uL (4.8-10.8)
[2023-08-23 13:57] LABS: Anion Gap 12 (12-20); Blood Urea Nitrogen 32 mg/dL (9-16); Calcium 9.1 mg/dL (8.4-10.2); Carbon Dioxide 22 mmol/L (22-29); Chloride 114 mmol/L (96-108); Estimated Glomerular Filt Rate 46; Potassium 4.6 mmol/L (3.3-5.1); Sodium 143 mmol/L (135-145)
== END 2023-08-23 09:08 | disposition home or self-care (01) ==
LOC: HO.WFDLDS 09:07
PROVIDERS: Internal Medicine; Visit Provider Internal Medicine Nephrology
DX: I12.9 Hypertensive chronic kidney disease with stage 1 through stage 4 chronic kidney disease, or unspecified chronic kidney disease (principal); N18.30 Chronic kidney disease, stage 3 unspecified; R30.0 Dysuria; K21.9 Gastro-esophageal reflux disease without esophagitis; E03.9 Hypothyroidism, unspecified
CPT/HCPCS: 36415; 80051; 82310; 82565; 84520; 85025; 87086

== ENCOUNTER 2023-09-21 10:37 | Outpatient (REF) | payer MEDICARE, SELFPAY ==
[2023-09-21 14:46] LABS: Anion Gap 14 (12-20); Blood Urea Nitrogen 36 mg/dL (9-16); Carbon Dioxide 18 mmol/L (22-29); Chloride 116 mmol/L (96-108); Estimated Glomerular Filt Rate 41; Potassium 4.6 mmol/L (3.3-5.1); Sodium 143 mmol/L (135-145)
== END 2023-09-21 10:38 | disposition home or self-care (01) ==
LOC: HO.WFDLDS 10:37
PROVIDERS: Visit Provider Internal Medicine Nephrology
DX: I12.9 Hypertensive chronic kidney disease with stage 1 through stage 4 chronic kidney disease, or unspecified chronic kidney disease (principal); N18.30 Chronic kidney disease, stage 3 unspecified
CPT/HCPCS: 36415; 80051; 82565; 84520

== ENCOUNTER 2023-09-23 10:28 | Outpatient (AMB) | payer MEDICARE, SELFPAY ==
[2023-09-23 10:30] VITALS: BP 128/70; PULSE 65; O2SAT 95; BMI 25.6
--- NOTE | 2023-09-23 10:30 | HO.NEPHOV ---
Vital Signs 09/23/23 10:30 Height 5 ft 2 in Weight 140 lb BMI 25.6 BP 128/70 Blood Pressure Location Rt brachial Position Sitting Pulse 65 Pulse Source Pulse Oximeter Pulse Oximetry (%) 95 Oxygen Delivery Method Room Air Intake Visit Reasons: 3 Months/LVM Snack Steward Required: No Accompanied by: Self / Same As Patient Allergies cimetidine [From TAGAMET] Allergy (Unknown, Verified 09/23/23 10:36) GI UPSET ciprofloxacin [From CIPRO] Allergy (Unknown, Verified 09/23/23 10:36) GI UPSET diltiazem [From CARDIZEM] Allergy (Unknown, Verified 09/23/23 10:36) HIVES lisinopril [From ZESTRIL] Allergy (Unknown, Verified 09/23/23 10:36) LIGHTHESDEDNESS GI UPSET Sulfa (Sulfonamide Antibiotics) [SULFA (SULFONAMIDE ANTIBIOTICS)] Allergy (Unknown, Verified 09/23/23 10:36) HIVES timolol [From ISTALOL] Allergy (Unknown, Verified 09/23/23 10:36) STINGING does not handle GENERIC meds w Allergy (Unknown, Uncoded 06/06/23 14:30) unk HPI Comments Details: I had the delight of seeing Kera in the office in follow-up of her CKD and hypertension. Her blood pressure has been at goal. She denies any active GI issues. She follows up with Dr. Darby and Dr. Muñoz. She does not have any chest pain, shortness of breath, proximal nocturnal dyspnea, orthopnea, nausea, vomiting, diarrhea, fever, urinary symptoms or pedal edema. She has no orthostatic symptoms. Her serum creatinine remins at baseline [facility] Medical History Carotid stenosis, bilateral Statin intolerance Other and unspecified hyperlipidemia Non-rheumatic aortic stenosis Labile hypertension Surgical History History of cholecystectomy (~01/28/21) History of appendectomy Family History Father No problems noted. Mother No problems noted. 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 Physical Exam Vital Signs: Last Vital Signs Pulse 65 09/23/23 10:30 BP 180/58 H 09/23/23 10:30 Pulse Ox 95 09/23/23 10:30 Oxygen Delivery Method Room Air 09/23/23 10:30 BMI result Body Mass Index 25.6 Const General: comfortable and no acute distress Orientation/consciousness: patient oriented x3 HEENT Head: Yes normocephalic Mouth: Normal oral and palatal mucosa present Eyes EOM: EOMs intact bilaterally Neck Neck: Yes supple Resp Auscultation: clear to auscultation bilaterally Cardio Jugular venous distension: no JVD Rate: regular rate GI Palpation (GI): Soft to palpation Auscultation: normal bowel sounds General: Yes no CVA tenderness Back/Spine/Pelvis Back: no CVA tenderness Skin General skin exam: no rashes or lesions noted Neuro General: patient oriented x3 and moves all extremities Extrem General: Yes no pedal edema Results Reviewed Nephrology Results: Hgb 12.8 g/dl (12.0-16.0) 08/23/23 WBC 8.3 X10*3/uL (4.8-10.8) 08/23/23 Plt Count 257 X10*3/uL (160-400) 08/23/23 Sodium 143 mmol/L (135-145) 09/21/23 Potassium 4.6 mmol/L (3.3-5.1) 09/21/23 Chloride 116 mmol/L (96-108) H 09/21/23 Carbon Dioxide 18 mmol/L (22-29) L 09/21/23 BUN 36 mg/dL (9-16) H 09/21/23 Creatinine 1.25 mg/dL (0.5-1.4) 09/21/23 Calcium 9.1 mg/dL (8.4-10.2) 08/23/23 Urine Protein Negative mg/dL (Neg-Trace) 04/04/23 Assessment & Plan Assessment & Plan (1) CKD (chronic kidney disease) stage 3, GFR 30-59 ml/min: Code(s): N18.30 - Chronic kidney disease, stage 3 unspecified Category: Medical Qualifiers: Chronic kidney disease stage 3 subtype: stage 3a (GFR 45-59) Qualified Code(s): N18.31 - Chronic kidney disease, stage 3a (2) Hypertension: Code(s): I10 - Essential (primary) hypertension Category: Medical Qualifiers: Hypertension type: primary hypertension Qualified Code(s): I10 - Essential (primary) hypertension Plan Kera has stage III CKD with hypertension. Her blood pressure is at goal. She has no orthostatic symptoms. She is tolerating her current antihypertensive medication regimen. She has vascular disease & follows Dr. Darby. She tries to keep herself well hydrated and stay away from nonsteroidal anti-inflammatory medications. I did not make any medication changes today. Her blood pressure goes up or serum creatinine rises, I will have a low threshold in doing Doppler of her renal arteries. Follow-up blood work was ordered. Answered all questions Orders: Orders Electrolytes Today I10 - Essential (primary) hypertension, N18.31 - Chronic kidney disease, stage 3a Creatinine Today I10 - Essential (primary) hypertension, N18.31 - Chronic kidney disease, stage 3a Blood Urea Nitrogen Today I10 - Essential (primary) hypertension, N18.31 - Chronic kidney disease, stage 3a Coding Level of Care Code Est Pt Level 4 (73427) Diagnoses Stage 3a chronic kidney disease N18.31 Chronic kidney disease stage 3 subtype: stage 3a (GFR 45-59) Primary hypertension I10 Hypertension type: primary hypertension
== END 2023-09-23 11:10 | disposition home or self-care (01) ==
PROVIDERS: PCP Internal Medicine; Visit Provider Internal Medicine Nephrology
DX: N18.31 Chronic kidney disease, stage 3a (principal); I10 Essential (primary) hypertension
CPT/HCPCS: 99214

== ENCOUNTER → 2023-09-23 10:28 | Outpatient (BNVA) | payer MEDICARE, SELFPAY | PROVIDERS: PCP Internal Medicine; Visit Provider Internal Medicine Nephrology | DX: I12.9 Hypertensive chronic kidney disease with stage 1 through stage 4 chronic kidney disease, or unspecified chronic kidney disease (principal); N18.31 Chronic kidney disease, stage 3a | CPT/HCPCS: 99212 ==

== ENCOUNTER 2023-11-18 09:19 | Outpatient (REF) | payer MEDICARE, SELFPAY ==
[2023-11-18 11:32] LABS: MANUAL DIFF FLAG NO
[2023-11-18 11:39] LABS: Basophils Absolute Auto 0.1 X10*3/uL (0.0-0.2); Basophils Percent Auto 0.6 % (0-2); Eosinophils Absolute Auto 0.1 X10*3/uL (0.0-0.4); Eosinophils Percent Auto 0.9 % (0-4); Hematocrit 35.1 % (37.0-47.0); Hemoglobin 11.4 g/dl (12.0-16.0); Imm Gran Abs Auto 0.02 X10*3/uL (0.00-0.03); Imm Gran Pct Auto 0.3 % (0.0-0.4); Lymphocytes Absolute Auto 1.7 X10*3/uL (1.2-4.9); Mean Corpuscular HGB Conc 32.5 g/dl (31.0-35.0); Mean Corpuscular Hemoglobin 31.3 pg (27.0-33.0); Mean Corpuscular Volume 96.4 fL (80.0-98.0); Monocytes Absolute Auto 0.4 X10*3/uL (0.1-1.2); Monocytes Percent Auto 4.6 % (2-11); Neutrophils Absolute Auto 5.8 x10*3/uL (2.0-8.3); Neutrophils Percent Auto 72.6 % (45-73); Platelet Count 236 X10*3/uL (160-400); Red Blood Count 3.64 X10*6/uL (4.20-5.50); Red Cell Distribution Width 13.2 % (11.0-16.0)
[2023-11-18 12:28] LABS: Alanine Aminotransferase 13 U/L (0-31); Albumin Level 3.7 g/dL (3.5-5.0); Alkaline Phosphatase 75 U/L (39-117); Anion Gap 10 (12-20); Aspartate Amino Transferase 20 U/L (5-31); Bilirubin Total 0.4 mg/dL (0.0-1.0); Blood Urea Nitrogen 29 mg/dL (9-16); Calcium 8.9 mg/dL (8.4-10.2); Carbon Dioxide 19 mmol/L (22-29); Chloride 118 mmol/L (96-108); Estimated Glomerular Filt Rate 50; Glucose Random 96 mg/dL (60-115); Potassium 4.5 mmol/L (3.3-5.1); Sodium 142 mmol/L (135-145)
[2023-11-18 12:45] LABS: Free T4 (Free Thyroxine) 0.94 ng/dL (0.71-1.85); Thyroid Stimulating Hormone 2.85 uIU/mL (0.32-4.0)
== END 2023-11-18 09:20 | disposition home or self-care (01) ==
LOC: HO.WFDLDS 09:19
PROVIDERS: Visit Provider Internal Medicine
DX: I12.9 Hypertensive chronic kidney disease with stage 1 through stage 4 chronic kidney disease, or unspecified chronic kidney disease (principal); N18.9 Chronic kidney disease, unspecified; E03.9 Hypothyroidism, unspecified; K21.9 Gastro-esophageal reflux disease without esophagitis
CPT/HCPCS: 36415; 80053; 82306; 84439; 84443; 85025

== ENCOUNTER 2023-12-06 12:51 | Outpatient (AMB) | payer MEDICARE, SELFPAY ==
[2023-12-06 12:52] VITALS: BP 140/80; PULSE 89; BMI 25.8
--- NOTE | 2023-12-06 12:52 | A.OFFVIS_ITS ---
Vital Signs 12/06/23 12:52 Height 5 ft 2 in Weight 141 lb 1.533 oz BMI 25.8 BP 140/80 H Blood Pressure Location Lt brachial Position Sitting Pulse 89 Pulse Source Pulse Oximeter Intake Visit Reasons: 6 mth f/up Allergies cimetidine [From TAGAMET] Allergy (Unknown, Verified 09/23/23 10:36) GI UPSET ciprofloxacin [From CIPRO] Allergy (Unknown, Verified 09/23/23 10:36) GI UPSET diltiazem [From CARDIZEM] Allergy (Unknown, Verified 09/23/23 10:36) HIVES lisinopril [From ZESTRIL] Allergy (Unknown, Verified 09/23/23 10:36) LIGHTHESDEDNESS GI UPSET Sulfa (Sulfonamide Antibiotics) [SULFA (SULFONAMIDE ANTIBIOTICS)] Allergy (Unknown, Verified 09/23/23 10:36) HIVES timolol [From ISTALOL] Allergy (Unknown, Verified 09/23/23 10:36) STINGING does not handle GENERIC meds w Allergy (Unknown, Uncoded 06/06/23 14:30) unk Medication List - Last Reconciled 12/06/23 by Kalen Muñoz MD amlodipine 5 mg PO BID budesonide 32 mcg/actuation 2 sprays intranasal DAILY carvedilol 25 mg PO BID evolocumab (Anjali Chow) 140 mg subcut Q2W fenofibrate 54 mg PO DAILY hydralazine 50 mg PO TID 90 days hydralazine 25 mg PO TID 90 days levothyroxine 100 mcg PO DAILY losartan 25 mg PO QPM losartan 1 tablet in the morning, 1/2 tablet in the evening PO 90 days HPI Comments Details: Yuni returns for follow-up. To recall, she has labile hypertension. In the past, several episodes a high as well as low blood pressures. She also gets syncope during times of low blood pressure. Many medication changes over time. Most recently, hydralazine dose was increased. She states she has been stable over the last few months. No recent blood pressure issues or other cardiac symptoms. [facility] Medical History Carotid stenosis, bilateral Statin intolerance Other and unspecified hyperlipidemia Non-rheumatic aortic stenosis Labile hypertension Surgical History History of cholecystectomy (~01/28/21) History of appendectomy Family History Father No problems noted. Mother No problems noted. 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 Review of Systems Const Denies weakness ENT Denies dizziness Card Denies chest pain, Denies chest pain with activity, Denies syncope, Denies rapid heart rate, Denies pedal edema, Denies edema, Denies leg edema, Denies lightheadedness, Denies palpitations, Denies dyspnea, Denies dyspnea on exertion and Denies orthopnea Resp Denies cough, Denies dyspnea and Denies dyspnea on exertion GI Denies hematochezia and Denies change in stool character Musc Denies abnormal gait, Denies muscle cramps, Denies muscle weakness, Denies numbness, Denies radiating pain into limb and Denies tingling Neuro Denies abnormal gait, Denies dizziness, Denies syncope, Denies numbness, Denies tingling and Denies weakness Endo Denies palpitations Physical Exam Vital Signs: Last Vital Signs Pulse 89 12/06/23 12:52 BP 140/80 H 12/06/23 12:52 BMI result Body Mass Index 25.8 Const General: comfortable and no acute distress Orientation/consciousness: patient oriented x3 HEENT Other: Unremarkable Head: Yes normal to inspection Neck Neck: Yes normal visual inspection Chest Chest palpation & inspection: normal inspection of the chest Resp Auscultation: clear to auscultation bilaterally Cardio Palpation: normal PMI Heart sounds: S1 normal heart sound present, S2 normal heart sound present, no gallops, Murmur heart sound present systolic II/ and at the right sternal border and no rubs GI Palpation (GI): Soft to palpation Back/Spine/Pelvis Other: unremarkable Skin General skin exam: no rashes or lesions noted Neuro General: patient oriented x3 Extrem General: Yes normal to inspection Psych Mental Status: mental status grossly normal Assessment & Plan Assessment & Plan (1) Labile hypertension: Code(s): R09.89 - Other specified symptoms and signs involving the circulatory and respir atory systems Category: Medical Plan: Currently on a combination of carvedilol, amlodipine, hydralazine, losartan. Seems stable. No further changes at this time. Of note, whenever blood pressure goes to relatively normal range, she actually feels symptoms of hypoperfusion. Hence we will need to keep her pressures at higher than ideal range. No clear evidence of any renal artery stenosis in previous studies. (2) Non-rheumatic aortic stenosis: Code(s): I35.0 - Nonrheumatic aortic (valve) stenosis Category: Medical Plan: Moderate aortic valve calcification and mild stenosis. Mean gradient is 7 mm Hg with calculated valve area of 1.75 sq cm. We can recheck before next appointment. (3) Other and unspecified hyperlipidemia: Code(s): E78.5 - Hyperlipidemia, unspecified Category: Medical Plan: Intolerant of statins. Currently on Repatha. Well-controlled lipids. (4) Statin intolerance: Code(s): Z78.9 - Other specified health status Category: Medical Plan: As above, on Repatha. (5) Carotid stenosis, bilateral: Code(s): I65.23 - Occlusion and stenosis of bilateral carotid arteries Category: Medical Plan: Most recent carotid ultrasound shows moderate stenosis bilaterally. She is also being concurrently followed by vascular surgery. Advised to take baby aspirin. Orders: Orders CA echo transthoracic complete 6 Months I35.0 - Nonrheumatic aortic (valve) stenosis Coding Level of Care Code Est Pt Level 4 (06884) Diagnoses Labile hypertension R09.89 Non-rheumatic aortic stenosis I35.0 Other and unspecified hyperlipidemia E78.5 Statin intolerance Z78.9 Carotid stenosis, bilateral I65.23
== END 2023-12-06 13:10 | disposition home or self-care (01) ==
PROVIDERS: PCP Internal Medicine; Visit Provider Internal Medicine
DX: R09.89 Other specified symptoms and signs involving the circulatory and respiratory systems (principal); I35.0 Nonrheumatic aortic (valve) stenosis; E78.5 Hyperlipidemia, unspecified; Z78.9 Other specified health status; I65.23 Occlusion and stenosis of bilateral carotid arteries
CPT/HCPCS: 99214

== ENCOUNTER → 2023-12-06 12:51 | Outpatient (BNVA) | payer MEDICARE, SELFPAY | PROVIDERS: PCP Internal Medicine; Visit Provider Internal Medicine | DX: I35.0 Nonrheumatic aortic (valve) stenosis (principal); I65.23 Occlusion and stenosis of bilateral carotid arteries; R09.89 Other specified symptoms and signs involving the circulatory and respiratory systems; E78.5 Hyperlipidemia, unspecified; Z78.9 Other specified health status | CPT/HCPCS: 99212 ==

== ENCOUNTER 2024-01-05 09:43 | Outpatient (AMB) | payer MEDICARE, SELFPAY ==
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
[2024-01-05 09:53] VITALS: BMI 25.8
== END 2024-01-05 10:38 | disposition home or self-care (01) ==
PROVIDERS: PCP Internal Medicine; Visit Provider Physical Medicine & Rehabilitation
DX: M53.3 Sacrococcygeal disorders, not elsewhere classified (principal)
CPT/HCPCS: 99204; G2211

== ENCOUNTER → 2024-01-05 09:43 | Outpatient (BNVA) | payer MEDICARE, SELFPAY | PROVIDERS: PCP Internal Medicine; Visit Provider Physical Medicine & Rehabilitation | DX: M53.3 Sacrococcygeal disorders, not elsewhere classified (principal) | CPT/HCPCS: 99202 ==

== ENCOUNTER 2024-02-02 12:01 | Outpatient (REF) | payer MEDICARE, SELFPAY ==
[2024-02-02 14:38] LABS: Anion Gap 11 (12-20); Blood Urea Nitrogen 25 mg/dL (9-16); Carbon Dioxide 21 mmol/L (22-29); Chloride 114 mmol/L (96-108); Estimated Glomerular Filt Rate 48; Potassium 4.6 mmol/L (3.3-5.1); Sodium 141 mmol/L (135-145)
== END 2024-02-02 12:02 | disposition home or self-care (01) ==
LOC: HO.WFDLDS 12:01
PROVIDERS: Visit Provider Internal Medicine Nephrology
DX: N18.31 Chronic kidney disease, stage 3a (principal); I10 Essential (primary) hypertension
CPT/HCPCS: 36415; 80051; 82565; 84520

== ENCOUNTER 2024-02-06 14:08 | Outpatient (AMB) | payer MEDICARE, SELFPAY ==
--- NOTE | 2024-02-06 14:18 | HO.NEPHOV_ITS ---
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: No Accompanied by: Self / Same As Patient Allergies cimetidine [From TAGAMET] Allergy (Unknown, Verified 02/06/24 14:23) GI UPSET ciprofloxacin [From CIPRO] Allergy (Unknown, Verified 02/06/24 14:23) GI UPSET diltiazem [From CARDIZEM] Allergy (Unknown, Verified 02/06/24 14:23) HIVES lisinopril [From ZESTRIL] Allergy (Unknown, Verified 02/06/24 14:23) LIGHTHESDEDNESS GI UPSET Sulfa (Sulfonamide Antibiotics) [SULFA (SULFONAMIDE ANTIBIOTICS)] Allergy (Unknown, Verified 02/06/24 14:23) HIVES timolol [From ISTALOL] Allergy (Unknown, Verified 02/06/24 14:23) STINGING does not handle GENERIC meds w Allergy (Unknown, Uncoded 01/05/24 09:53) unk HPI Comments Details: I had the delight of seeing Kera in the office in follow-up of her CKD and hypertension. Her blood pressure has been at goal at home. She denies any active GI issues. She follows up with Dr. Darby and Dr. Muñoz. She does not have any chest pain, shortness of breath, proximal nocturnal dyspnea, orthopnea, nausea, vomiting, diarrhea, fever, urinary symptoms or pedal edema. She has no orthostatic symptoms. Her serum creatinine remains at baseline [facility] Medical History Carotid stenosis, bilateral Statin intolerance Other and unspecified hyperlipidemia Non-rheumatic aortic stenosis Labile hypertension Surgical History History of cholecystectomy (~01/28/21) History of appendectomy Family History Father No problems noted. Mother No problems noted. 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 Review of Systems Const All systems reviewed & are unremarkable except as noted in HPI and below Physical Exam Vital Signs: Last Vital Signs Pulse 65 02/06/24 14:19 BP 152/60 H 02/06/24 14:19 Pulse Ox 95 02/06/24 14:19 Oxygen Delivery Method Room Air 02/06/24 14:19 BMI result Body Mass Index 25.7 Const General: comfortable and no acute distress Orientation/consciousness: patient oriented x3 HEENT Head: Yes normocephalic Mouth: Normal oral and palatal mucosa present Eyes EOM: EOMs intact bilaterally Neck Neck: Yes supple Resp Auscultation: clear to auscultation bilaterally Cardio Jugular venous distension: no JVD Rate: regular rate GI Palpation (GI): Soft to palpation Auscultation: normal bowel sounds General: Yes no CVA tenderness Back/Spine/Pelvis Back: no CVA tenderness Skin General skin exam: no rashes or lesions noted Neuro General: patient oriented x3 and moves all extremities Extrem General: Yes no pedal edema Results Reviewed Nephrology Results: Hgb 11.4 g/dl (12.0-16.0) L 11/18/23 WBC 8.0 X10*3/uL (4.8-10.8) 11/18/23 Plt Count 236 X10*3/uL (160-400) 11/18/23 Sodium 141 mmol/L (135-145) 02/02/24 Potassium 4.6 mmol/L (3.3-5.1) 02/02/24 Chloride 114 mmol/L (96-108) H 02/02/24 Carbon Dioxide 21 mmol/L (22-29) L 02/02/24 BUN 25 mg/dL (9-16) H 02/02/24 Creatinine 1.10 mg/dL (0.5-1.4) 02/02/24 Calcium 8.9 mg/dL (8.4-10.2) 11/18/23 Assessment & Plan Assessment & Plan (1) CKD (chronic kidney disease) stage 3, GFR 30-59 ml/min: Code(s): N18.30 - Chronic kidney disease, stage 3 unspecified Category: Medical Qualifiers: Chronic kidney disease stage 3 subtype: stage 3a (GFR 45-59) Qualified Code(s): N18.31 - Chronic kidney disease, stage 3a (2) Hypertension: Code(s): I10 - Essential (primary) hypertension Category: Medical Qualifiers: Hypertension type: primary hypertension Qualified Code(s): I10 - Essential (primary) hypertension Noemi Cote has stage III CKD with hypertension. Her blood pressure is at goal. She has no orthostatic symptoms. She is tolerating her current antihypertensive medication regimen. She has vascular disease & follows Dr. Darby. She tries to keep herself well hydrated and stay away from nonsteroidal anti-inflammatory medications. I did not make any medication changes today. Her blood pressure goes up or serum creatinine rises, I will have a low threshold in doing Doppler of her renal arteries. Follow-up blood work was ordered. Answered all questions Orders: Orders Creatinine Today I10 - Essential (primary) hypertension, N18.31 - Chronic kidney disease, stage 3a Blood Urea Nitrogen Today I10 - Essential (primary) hypertension, N18.31 - Chronic kidney disease, stage 3a Electrolytes Today I10 - Essential (primary) hypertension, N18.31 - Chronic kidney disease, stage 3a Calcium Today I10 - Essential (primary) hypertension, N18.31 - Chronic kidney disease, stage 3a Coding Level of Care Code Est Pt Level 4 (94805) Diagnoses Stage 3a chronic kidney disease N18.31 Chronic kidney disease stage 3 subtype: stage 3a (GFR 45-59) Primary hypertension I10 Hypertension type: primary hypertension
[2024-02-06 14:19] VITALS: BP 120/60; PULSE 65; O2SAT 95; BMI 25.7
== END 2024-02-06 14:58 | disposition home or self-care (01) ==
PROVIDERS: PCP Internal Medicine; Visit Provider Internal Medicine Nephrology
DX: I12.9 Hypertensive chronic kidney disease with stage 1 through stage 4 chronic kidney disease, or unspecified chronic kidney disease (principal); N18.31 Chronic kidney disease, stage 3a
CPT/HCPCS: 99214

== ENCOUNTER → 2024-02-06 14:08 | Outpatient (BNVA) | payer MEDICARE, SELFPAY | PROVIDERS: PCP Internal Medicine; Visit Provider Internal Medicine Nephrology | DX: I12.9 Hypertensive chronic kidney disease with stage 1 through stage 4 chronic kidney disease, or unspecified chronic kidney disease (principal); N18.31 Chronic kidney disease, stage 3a | CPT/HCPCS: 99212 ==

== ENCOUNTER 2024-02-28 08:23 | Outpatient (REF) | payer MEDICARE, SELFPAY ==
[2024-02-28 11:19] LABS: MANUAL DIFF FLAG NO
[2024-02-28 11:35] LABS: Basophils Absolute Auto 0.1 X10*3/uL (0.0-0.2); Basophils Percent Auto 0.8 % (0-2); Eosinophils Absolute Auto 0.1 X10*3/uL (0.0-0.4); Eosinophils Percent Auto 1.7 % (0-4); Hematocrit 36.4 % (37.0-47.0); Hemoglobin 11.6 g/dl (12.0-16.0); Imm Gran Abs Auto 0.03 X10*3/uL (0.00-0.03); Imm Gran Pct Auto 0.4 % (0.0-0.4); Lymphocytes Absolute Auto 1.6 X10*3/uL (1.2-4.9); Lymphocytes Percent Auto 21.3 % (20-40); Mean Corpuscular HGB Conc 31.9 g/dl (31.0-35.0); Mean Corpuscular Volume 97.3 fL (80.0-98.0); Mean Platelet Volume 9.9 fL (9.4-12.3); Monocytes Absolute Auto 0.5 X10*3/uL (0.1-1.2); Monocytes Percent Auto 6.3 % (2-11); Neutrophils Absolute Auto 5.3 x10*3/uL (2.0-8.3); Neutrophils Percent Auto 69.5 % (45-73); Platelet Count 219 X10*3/uL (160-400); Red Blood Count 3.74 X10*6/uL (4.20-5.50); Red Cell Distribution Width 13.3 % (11.0-16.0); White Blood Count 7.7 X10*3/uL (4.8-10.8)
[2024-02-28 12:11] LABS: Alanine Aminotransferase 13 U/L (0-31); Albumin Level 3.8 g/dL (3.5-5.0); Alkaline Phosphatase 84 U/L (39-117); Anion Gap 11 (12-20); Aspartate Amino Transferase 25 U/L (5-31); Blood Urea Nitrogen 33 mg/dL (9-16); Calcium 9.1 mg/dL (8.4-10.2); Carbon Dioxide 22 mmol/L (22-29); Chloride 115 mmol/L (96-108); Cholesterol 89 mg/dL (<200); Estimated Glomerular Filt Rate 47; Glucose Fasting 99 mg/dL (60-99); HDL Cholesterol 34 mg/dL (>40); LDL Cholesterol Calculated 40 mg/dL (<100); Potassium 4.7 mmol/L (3.3-5.1); Sodium 143 mmol/L (135-145); Total Protein 6.1 g/dL (6.5-8.0); Triglycerides 78 mg/dL (<150)
[2024-02-28 12:31] LABS: Bilirubin Total 0.4 mg/dL (0.0-1.0)
== END 2024-02-28 08:24 | disposition home or self-care (01) ==
LOC: HO.WFDLDS 08:23
PROVIDERS: Visit Provider Internal Medicine
DX: I12.9 Hypertensive chronic kidney disease with stage 1 through stage 4 chronic kidney disease, or unspecified chronic kidney disease (principal); N18.9 Chronic kidney disease, unspecified; E78.00 Pure hypercholesterolemia, unspecified
CPT/HCPCS: 36415; 80053; 80061; 85025

== ENCOUNTER 2024-03-08 09:59 | Outpatient (AMB) | payer MEDICARE, SELFPAY ==
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
[2024-03-08 10:13] VITALS: BMI 24.7
== END 2024-03-08 10:48 | disposition home or self-care (01) ==
LOC: HO.HOS 10:00
PROVIDERS: PCP Internal Medicine; Visit Provider Physical Medicine & Rehabilitation
DX: M53.3 Sacrococcygeal disorders, not elsewhere classified (principal); M54.50 Low back pain, unspecified; G89.29 Other chronic pain
CPT/HCPCS: 99213

== ENCOUNTER 2024-03-08 09:59 | Outpatient (REF) | payer MEDICARE, SELFPAY ==
--- NOTE | ~2024-03-08 | XR_ITS ---
EXAMINATION: XR LUMBOSACRAL SPINE CLINICAL INFORMATION: M54.9 - Dorsalgia, unspecified. COMPARISON: None available. TECHNIQUE: Three views of the lumbosacral spine. FINDINGS: Dextroscoliosis of the lumbar spine. Diffuse demineralization. Surgical clips right upper quadrant. Advanced multilevel facet arthritis. Atherosclerotic aortic calcifications. Degenerative changes with sclerosis in the bilateral sacroiliac joints. Moderate compression deformity of L1 vertebral body of indeterminate age. Multilevel lumbar spondylosis. Grade 1 anterolisthesis of L4 on L5 with moderate loss of disc space height. XR/XR lumbar spine 2-3V IMPRESSION: 1. Moderate compression deformity of L1 vertebral body of indeterminate age. 2. Multilevel lumbar spondylosis. 3. Advanced multilevel facet arthritis. Electronically signed by: Connie Wilder MD 03/27/2024 09:57 AM ROLANDO NATARAJAN
== END 2024-03-08 10:00 | disposition home or self-care (01) ==
LOC: HO.HOSX 09:59
PROVIDERS: PCP Internal Medicine; Visit Provider Physical Medicine & Rehabilitation
DX: M54.50 Low back pain, unspecified (principal); G89.29 Other chronic pain; M53.3 Sacrococcygeal disorders, not elsewhere classified
CPT/HCPCS: 72100; 99212

== ENCOUNTER 2024-03-20 12:21 | Outpatient (REF) | payer MEDICARE, SELFPAY ==
[2024-03-20 13:35] LABS: MANUAL DIFF FLAG NO
[2024-03-20 13:40] LABS: Basophils Absolute Auto 0.1 X10*3/uL (0.0-0.2); Basophils Percent Auto 0.6 % (0-2); Eosinophils Absolute Auto 0.1 X10*3/uL (0.0-0.4); Eosinophils Percent Auto 1.4 % (0-4); Hematocrit 37.6 % (37.0-47.0); Imm Gran Abs Auto 0.03 X10*3/uL (0.00-0.03); Imm Gran Pct Auto 0.3 % (0.0-0.4); Lymphocytes Absolute Auto 1.6 X10*3/uL (1.2-4.9); Lymphocytes Percent Auto 18.2 % (20-40); Mean Corpuscular HGB Conc 31.9 g/dl (31.0-35.0); Mean Corpuscular Hemoglobin 30.8 pg (27.0-33.0); Mean Corpuscular Volume 96.4 fL (80.0-98.0); Mean Platelet Volume 9.9 fL (9.4-12.3); Monocytes Absolute Auto 0.5 X10*3/uL (0.1-1.2); Monocytes Percent Auto 5.1 % (2-11); Neutrophils Absolute Auto 6.6 x10*3/uL (2.0-8.3); Neutrophils Percent Auto 74.4 % (45-73); Platelet Count 221 X10*3/uL (160-400); Red Cell Distribution Width 13.4 % (11.0-16.0); White Blood Count 8.8 X10*3/uL (4.8-10.8)
[2024-03-20 14:25] LABS: Anion Gap 11 (12-20); Blood Urea Nitrogen 38 mg/dL (9-16); C Reactive Protein < 0.10 mg/dL (< or = 0.50); Calcium 9.6 mg/dL (8.4-10.2); Carbon Dioxide 20 mmol/L (22-29); Chloride 114 mmol/L (96-108); Estimated Glomerular Filt Rate 39; Glucose Random 105 mg/dL (60-115); Potassium 4.7 mmol/L (3.3-5.1); Sodium 140 mmol/L (135-145)
== END 2024-03-20 12:22 | disposition home or self-care (01) ==
LOC: HO.10HDL 12:21
PROVIDERS: Visit Provider Internal Medicine
DX: I12.9 Hypertensive chronic kidney disease with stage 1 through stage 4 chronic kidney disease, or unspecified chronic kidney disease (principal); N18.9 Chronic kidney disease, unspecified; K58.9 Irritable bowel syndrome, unspecified; R55 Syncope and collapse
CPT/HCPCS: 36415; 80048; 85025; 86140

== ENCOUNTER → 2024-03-23 10:00 | Outpatient (BNVA) | payer MEDICARE, SELFPAY | PROVIDERS: PCP Internal Medicine; Visit Provider Physical Medicine & Rehabilitation ==

== ENCOUNTER 2024-03-27 10:05 | Outpatient (RCR) | payer MEDICARE, SELFPAY ==
[2024-02-02 10:59] VITALS: BP 122/70; O2SAT 98
--- NOTE | 2024-02-09 09:22 | MHC.PT.EP ---
[facility] [place] Office [place] Office [place] Office [address] Sina Watkins [address] [phone] F: [phone] F: [phone] F: [phone] F: [phone] Physical Therapy Plan of Care Date of Evaluation: 02/02/24 Date of Surgery: Diagnosis: M53.3. Sacrooccygeal disorders, not elsewhere classified, PLS realign SI joint and strengthen hip flexors patient prefers to go to [place] signed by Beverley Mckeon MD 01/06/24 Assessment: Pt is a RHD 83 y/o female, referred to PT from M53.3. Sacrooccygeal disorders, not elsewhere classified, PLS realign SI joint and strengthen hip flexors patient prefers to go to [place] signed by Beverley Mckeon MD 01/06/24. Pt expressing central lower back pain which is across her beltline/SI region worse in recent months no specific injury. Pt expressing intolerance for walking prolonged distances history of using std cane has an upcoming trip to [facility] in March, states her daughter has proposed use of rollator to improve endurance/distance. Pt expresses history of R ORIF with hardware placement in her R hip. Pt expresses she has been told she has a leg length difference by her chiropractor. Today pt presents with shorter R LE>L LE. Pt may benefit from formal workup to assess length and if true vs apparent may benefit from customized/footwear to account for deficit in leg length on her R LE. We discussed and she was encouraged to obtain a standard light-weight rollator to aide in her upcoming travel trip. Pt will benefit from strengthening of hip abductors R>L, core stabilizers, and hip extensors with education re: HEP. Pt states she is being fitted for hearing aides later today. Pt is very motivated for PT and has high expectations of improving her walking distance. She previously had PT following her R shoulder fracture in this office last year and did very well (was previously given/reviewed exercises to aide in her balance/stability at that time. She has since stopped attending chair yoga but has been encouraged to integrate back into this activity as it provides both physical and social benefits. Frequency and Duration: The patient will be seen 1-x/week x 4 week Short Term Goals: 1. Pt will demonstrate sit<>stand on first attempt with min reliance on UE support, (IR:Increased reliance on UE support ). 2. Pt will demonstrate eccentric control during functional mobility. ( IR: inconsistent sometimes quick to sit down). 3. Strength with hip extension 4+/5 (IR: pain with bridge IR: hip ext 4/5) Usp Goals: 1. I HEP for lumbar/hip stab. 2. Use rollator with good understanding safety/joint protection measures. 3. Strength hip ext 5/5 B. 4. Community ambulation with rollator >500ftw with good dynamic balance. Treatment Plan: Modalities to reduce pain, spasms and effusion. Manual therapy to restore motion and function. Therapeutic exercise to improve strength and flexibility. Neuromuscular re-education for posture and balance. Therapeutic activities to return to functional activities of daily living. Electronically signed by: Oneida Nolasco, PT, DPT Please sign and return to therapist. Thank you for your referral.
== END 2024-06-05 08:26 | disposition home or self-care (01) ==
LOC: HO.PTWFD 10:05
PROVIDERS: PCP Internal Medicine; Visit Provider Physical Medicine & Rehabilitation
DX: M53.3 Sacrococcygeal disorders, not elsewhere classified (principal)
CPT/HCPCS: 95992; 97110; 97112; 97116; 97140; 97162; 97530

== ENCOUNTER 2024-03-29 10:01 | Outpatient (AMB) | payer MEDICARE, SELFPAY ==
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
== END 2024-03-29 10:46 | disposition home or self-care (01) ==
PROVIDERS: PCP Internal Medicine; Visit Provider Physical Medicine & Rehabilitation
DX: M53.3 Sacrococcygeal disorders, not elsewhere classified (principal); M54.50 Low back pain, unspecified; G89.29 Other chronic pain
CPT/HCPCS: 99213

== ENCOUNTER → 2024-03-29 10:01 | Outpatient (BNVA) | payer MEDICARE, SELFPAY | PROVIDERS: PCP Internal Medicine; Visit Provider Physical Medicine & Rehabilitation | DX: M53.3 Sacrococcygeal disorders, not elsewhere classified (principal); M54.50 Low back pain, unspecified; G89.29 Other chronic pain | CPT/HCPCS: 99212 ==

== ENCOUNTER 2024-04-18 10:07 | Outpatient (AMB) | payer MEDICARE, SELFPAY ==
[2024-04-18 10:28] VITALS: BP 120/60; PULSE 78; O2SAT 98; BMI 25.3
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
--- OUTSIDE RECORDS SUMMARY | 2024-04-19 00:08 | XMS_ITS | Clinical Summary ---
Author Organization Unknown Care Team Providers Care Continuous Improvement Manager Name Role Phone LIZZY STEPHENSON, RIKKI Unavailable Unavailable PROSPER PT, BRYCE Unavailable Unavailable CYNTHIA RN, LORENA Unavailable Unavailable Payers Payer Name Policy Type Policy Number Effective Date Expira tion Date MEDICARE.NGS.PDGM [id number] Problems Condition Name Condition Details Condition Category Status Onset Date Resolution Date Last Treatment Date Treating Clinician Comments DISPL INTERTROCH FX R FEMUR, SUBS FOR CLOS FX W ROUTN HEAL Active 09-29 00:00: 00 UNSPECIFIED OSTEOARTHRIT IS, UNSPECIFIED SITE Active 05-09 00:00: 00 HYPERTENSIVE CHRONIC KIDNEY DISEASE W STG 1-4/UNSP CHR KDNY Active 05-09 00:00: 00 CHRONIC KIDNEY DISEASE, UNSPECIFIED Active 09-29 00:00: 00 FALL SAME LEV FROM SLIP/TRIP W/O STRIKE AGAINST OBJECT, SUBS Active 09-28 00:00: 00 Allergies, Adverse Reactions, Alerts Allergy Name Allergy Type Status Severity Reaction(s) Onset Date Inactive Date Treating Clinician Comments CARDIZEM Propensity to adverse reactions Active 10-16 22:13: 00 CIMETIDINE Propensity to adverse reactions Active 10-16 22:13: 28 CIPRO....... ..... Propensity to adverse reactions Active 10-16 22:13: 54 CLINDAMYCIN Propensity to adverse reactions Active 10-16 22:14: 09 DILTIAZEM Propensity to adverse reactions Active 10-16 22:15: 17 LISINOPRIL Propensity to adverse reactions Active 10-16 22:15: 29 OXYCODONE Propensity to adverse reactions Active 10-16 22:15: 43 SULFA SULFONAMIDE Propensity to adverse reactions Active 10-16 22:16: 52 TAGAMET Propensity to adverse reactions Active 10-16 22:17: 04 TIMOLOL Propensity to adverse reactions Active 10-16 22:17: 19 ZESTRIL Propensity to adverse reactions Active 10-16 22:17: 31 Medications Ordered Medication Name Filled Medication Name Start Date Stop Date Current Medication? Ordering Clinician Indication Dosage Frequency Signature (SIG) Comments Components Combigan 0.2 %-0.5 % eye drops 08-27 00:00: 00 Yes [id number] GLAUCOMA 1 drops TWICE A DAY 1 drops TWICE A DAY (route: ophthalmic (eye)) Med Classific ation: Ophthalmi c Agents Bystolic 20 mg tablet 09-26 00:00: 00 Yes [id number] BLOOD PRESSURE 1 tablet 2 TIMES DAILY 1 tablet 2 TIMES DAILY (route: oral) Med Classific ation: Cardiovas cular Therapy Agents hydralazine 25 mg tablet 09-23 00:00: 00 Yes [id number] BLOOD PRESSURE 3 tablet 2 TIMES DAILY 3 tablet 2 TIMES DAILY (route: oral) Med Classific ation: Cardiovas cular Therapy Agents hydralazine 50 mg tablet 08-28 00:00: 00 10-16 00:00 :00 No [id number] Per instruc tions THREE TIMES A DAY Per instructio ns THREE TIMES A DAY (route: oral) Med Classific ation: Cardiovas cular Therapy Agents hydralazine 25 mg tablet 08-19 00:00: 00 Yes [id number] BLOOD PRESSURE 2 tablet DAILY 2 tablet DAILY (route: oral) Med Classific ation: Cardiovas cular Therapy Agents losartan 25 mg tablet 3-25 00:00: 00 12-19 23:59 :00 No [id number] HEART 1 tablet DAILY 1 tablet DAILY (route: oral) Med Classific ation: Cardiovas cular Therapy Agents levothyroxi ne 100 mcg tablet 09-22 00:00: 00 Yes [id number] THYROID 1 tablet ONCE A DAY 1 tablet ONCE A DAY (route: oral) Med Classific ation: Endocrine amlodipine 5 mg tablet 09-26 00:00: 00 Yes [id number] BLOOD PRESSURE 1 tablet 2 TIMES DAILY 1 tablet 2 TIMES DAILY (route: oral) Med Classific ation: Cardiovas cular Therapy Agents fenofibrate 54 mg tablet 5- 00:00: 00 10-16 00:00 :00 No [id number] Per instruc tions Per instructio ns (route: oral) Med Classific ation: Cardiovas cular Therapy Agents Aspirin Childrens 81 mg chewable tablet 10-16 00:00: 00 Yes [id number] ANTICOAGULA NT 1 tablet DAILY 1 tablet DAILY (route: oral) Med Classific ation: Hematolog ical Agents Pepcid 20 mg tablet 10-16 00:00: 00 Yes [id number] ACID REFLUX 1 tablet DAILY 1 tablet DAILY (route: oral) Med Classific ation: Gastroint estinal Therapy Agents Tylenol 325 mg capsule 10-16 00:00: 00 Yes [id number] PAIN 2 capsule EVERY 4 HOURS 2 capsule EVERY 4 HOURS (route: oral) Med Classific ation: Analgesic , Anti-infl ammatory or Antipyret ic losartan 50 mg tablet 8-13 00:00: 00 12-31 23:59 :00 No [id number] HYPERTENSIO N Per instruc tions 2 TIMES DAILY Per instructio ns 2 TIMES DAILY (route: oral) Med Classific ation: Cardiovas cular Therapy Agents losartan 50 mg tablet 12-31 00:00: 00 Yes [id number] HTN 1 tablet 2 TIMES DAILY 1 tablet 2 TIMES DAILY (route: oral) Med Classific ation: Cardiovas cular Therapy Agents tramadol 50 mg tablet 01-28 00:00: 00 Yes [id number] PAIN 1 tablet EVERY 4 HOURS 1 tablet EVERY 4 HOURS (route: oral) Med Classific ation: Analgesic , Anti-infl ammatory or Antipyret ic Immunizations Ordered Immunization Name Filled Immunization Name Date Status Comments Refusal Reason DOSE #2, COVID-19 VACCINE 2020-06-27 00:00:00 DOSE #1, COVID-19 VACCINE 2020-06-04 00:00:00 INFLUENZA, TIV (INACTIVATED) 2020-02-20 00:00:00 PNEUMOCOCCAL (PPV), PPV 2017-02-23 00:00:00 Vital Signs Vital Name Observation Time Observation Value Commen ts Temperature 2021-02-09 12:18:00.000 97.8 [degF] Temperature 2021-02-03 15:44:00.000 98.2 [degF] Temperature 2021-01-29 13:14:00.000 97.6 [degF] Temperature 2021-01-21 16:24:00.000 97.1 [degF] Temperature 2021-01-13 14:25:00.000 97.3 [degF] Temperature 2021-01-09 09:24:00.000 97.6 [degF] Temperature 2020-12-30 11:19:00.000 97.3 [degF] Temperature 2020-12-23 14:54:00.000 97.3 [degF] Temperature 2020-12-16 14:37:00.000 98.2 [degF] Pulse 2021-02-09 12:18:00.000 72 /min Pulse 2021-02-03 15:44:00.000 70 /min Pulse 2021-01-29 13:14:00.000 72 /min Pulse 2021-01-21 16:24:00.000 65 /min Pulse 2021-01-13 14:25:00.000 62 /min Pulse 2021-01-09 09:24:00.000 60 /min Pulse 2020-12-30 11:19:00.000 60 /min Pulse 2020-12-23 14:54:00.000 70 /min Pulse 2020-12-16 14:37:00.000 60 /min O2 Saturation (%) 2021-02-09 12:18:00.000 98 % O2 Saturation (%) 2021-01-29 13:17:00.000 93 % O2 Saturation (%) 2021-01-09 09:24:00.000 98 % O2 Saturation (%) 2020-12-30 11:19:00.000 96 % Respirations 2021-02-09 12:18:00.000 16 /min Respirations 2021-02-03 15:44:00.000 16 /min Respirations 2021-01-29 13:14:00.000 16 /min Respirations 2021-01-21 16:24:00.000 16 /min Respirations 2021-01-13 14:25:00.000 16 /min Respirations 2021-01-09 09:24:00.000 16 /min Respirations 2020-12-30 11:19:00.000 18 /min Respirations 2020-12-23 14:54:00.000 18 /min Respirations 2020-12-16 14:37:00.000 16 /min Systolic Blood Pressure 2021-02-09 12:18:00.000 140 mm [Hg] Systolic Blood Pressure 2021-02-03 15:44:00.000 138 mm [Hg] Systolic Blood Pressure 2021-01-29 13:14:00.000 160 mm [Hg] Systolic Blood Pressure 2021-01-21 16:24:00.000 141 mm [Hg] Systolic Blood Pressure 2021-01-13 14:25:00.000 145 mm [Hg] Systolic Blood Pressure 2021-01-09 09:24:00.000 140 mm [Hg] Systolic Blood Pressure 2020-12-30 11:19:00.000 158 mm [Hg] Systolic Blood Pressure 2020-12-23 14:54:00.000 130 mm [Hg] Systolic Blood Pressure 2020-12-16 14:37:00.000 141 mm [Hg] Diastolic Blood Pressure 2021-02-09 12:18:00.000 80 mm [Hg] Diastolic Blood Pressure 2021-02-03 15:44:00.000 80 mm [Hg] Diastolic Blood Pressure 2021-01-29 13:14:00.000 70 mm [Hg] Diastolic Blood Pressure 2021-01-21 16:24:00.000 70 mm [Hg] Diastolic Blood Pressure 2021-01-13 14:25:00.000 72 mm [Hg] Diastolic Blood Pressure 2021-01-09 09:24:00.000 60 mm [Hg] Diastolic Blood Pressure 2020-12-30 11:19:00.000 80 mm [Hg] Diastolic Blood Pressure 2020-12-23 14:54:00.000 60 mm [Hg] Diastolic Blood Pressure 2020-12-16 14:37:00.000 78 mm [Hg] Plan of Treatment Planned Activity Planned Date Details Comments Future Scheduled Test PHYSICAL T HERAPY TO EVALUATE/ASSESS AND DEVELOP A PHYSICAL THERAPY PLAN OF CARE TO BE SIGNED BY THE PHYSICIAN. [code = PHYSICAL THERAPY TO EVALUATE/ASSESS AND DEVELOP A PHYSICAL THERAPY PLAN OF CARE TO BE SIGNED BY THE PHYSICIAN. ] Future Scheduled Test AGENCY MAY PERFORM A RESUMPTION OF CARE VISIT FOLLOWING ANY HOSPITAL ADMISSION. PHYSICAL THERAPY TO EVALUATE, ASSESS AND MONITOR, PROVIDE SKILLED THERAPEUTIC INTERVENTION, ACTIVITY, EDUCATION, AND TRAINING TO ADDRESS: [code = AGENCY MAY PERFORM A RESUMPTION OF CARE VISIT FOLLOWING ANY HOSPITAL ADMISSION. PHYSICAL THERAPY TO EVALUATE, ASSESS AND MONITOR, PROVIDE SKILLED THERAPEUTIC INTERVENTION, ACTIVITY, EDUCATION, AND TRAINING TO ADDRESS:] Future Scheduled Test GAIT TRAIN ING (PT) [code = GAIT TRAINING (PT)] Future Scheduled Test NEUROMUSCU LAR RE-EDUCATION / BALANCE RETRAINING (PT) [code = NEUROMUSCULAR RE-EDUCATION / BALANCE RETRAINING (PT)] Future Scheduled Test THERAPEUTI C EXERCISES (PT) [code = THERAPEUTIC EXERCISES (PT)] Future Scheduled Test ENERGY CON SERVATION (PT) [code = ENERGY CONSERVATION (PT)] Future Scheduled Test ORTHOPEDIC SURGICAL AFTERCARE (PT) MAY TEACH PATIENT APPLICATION OF CRYOTHERAPY FOR PAIN AND/OR SWELLING UP TO 20 MIN AT A TIME OVER INCISION/JOINT [code = ORTHOPEDIC SURGICAL AFTERCARE (PT) MAY TEACH PATIENT APPLICATION OF CRYOTHERAPY FOR PAIN AND/OR SWELLING UP TO 20 MIN AT A TIME OVER INCISION/JOINT] Future Scheduled Test FEMUR FRAC TURE/ORIF SELF-MANAGEMENT (PT) [code = FEMUR FRACTURE/ORIF SELF-MANAGEMENT (PT)] Future Scheduled Test IDENTIFY F ALL RISK FACTORS AND ESTABLISH HOME EXERCISE PROGRAM TO MINIMIZE FALL RISK (PT) [code = IDENTIFY FALL RISK FACTORS AND ESTABLISH HOME EXERCISE PROGRAM TO MINIMIZE FALL RISK (PT)] Future Scheduled Test PAIN MANAG EMENT (PT) [code = PAIN MANAGEMENT (PT)] Goal 2020-12-11 Patient Goal - D RIVE, STAND LONG ENOUGH TO COOK Goal 2021-02-09 Patient Goal - D RIVE AND WALK WITHOUT ASSISTANCE IN COMMUNITY Goal Provider Goal - A PHYSICAL THERAPY PLAN OF CARE WILL BE ORDERED BY PHYSICIAN AND PROVIDED BY PHYSICAL THERAPY. ALL GOALS TO BE MET BY END OF CURRENTLY APPROVED PLAN OF CARE. Goal Provider Goal - PT STG: PATIENT WILL DEMONSTRATE IMPROVED CAR TRANSFERS FROM. SUPERVISION TO INDEPENDENT WITHIN 5 WEEKS PT LTG: PATIENT WILL DEMONSTRATE IMPROVED AMBULATION FROM SBA TO INDEPENDENT WITH CANE WITHIN 9 WEEKS. PT LTG: PATIENT WILL DEMONSTRATE IMPROVED SAFETY NEGOTIATING STAIRS FROM SUPERVISION TO INDEPENDENT WITHIN 9 WEEKS. PT STG: PATIENT WILL DEMONSTRATE INDEPENDENCE IN HOME EXERCISE PROGRAM OF STRENGTHENING EXERCISES BALANCE EXERCISES AND PROGRESSIVE AMBULATION PROGRAM TO ALLOW PATIENT TO CARRY OVER GAINS MADE DURING SKILLED HOME PHYSICAL THERAPY WITHIN 5 WEEKS. PT LTG: PATIENT WILL DEMONSTRATE INCREASED STRENGTH OF RLE LES FROM 4- /5 TO 4/5 WITHIN 9 WEEKS. IN ORDER TO RETURN TO INDEPENDENT COMMUNITY MOBILITY SKILLS. PT LTG: PATIENT / CAREGIVER WILL DEMONSTRATE UNDERSTANDING OF ENERGY CONSERVATION MEASURES, EVIDENCED BY INCREASED ACTIVITY TOLERANCE INCREASING FROM ASSISTED HOME MOBILITY TO INDEPENDENT COMMUNITY MOBILITY SKILLS WITHIN 9 WEEKS PT LTG: PATIENT WILL DEMONSTRATE REDUCED FALL RISK EVIDENCED BY TUG TEST (CUT SCORE >11 SECONDS INDICATES INCREASED FALL RISK) IMPROVING FROM 13 TO 11 WITHIN 9 WEEKS. Goal Provider Goal - PATIENT WILL DEMONSTRATE NORMAL HEALING FOLLOWING SURGERY WITH NO COMPLICATIONS BY DISCHARGE. Goal Provider Goal - PT GOAL: PATIENT WILL DEMONSTRATE OPTIMAL OUTCOMES INCLUDING INCREASED STRENGTH AND MOBILITY WITH NO COMPLICATIONS FOLLOWING FEMUR FRACTURE/ORIF BY DISCHARGE. Goal Provider Goal - PATIENT/CAREGIVER WILL DEMONSTRATE ADHERENCE TO FALL REDUCTION SELF MANAGEMENT TO MINIMIZE FALL RISK BY DISCHARGE. Goal Provider Goal - PT GOAL: PATIENT/CAREGIVER WILL VERBALIZE UNDERSTANDING OF PAIN MANAGEMENT BY DISCHARGE. Reason for Visit INDEPENDENT IN THE COMMUNITY Encounters Start Date/Time End Date/Time Encounter Type Admission Type Attending [facility] Care Department Encounter ID Discharge Date Discharge Status Discharge Condition Discharge Reason Percent Goals Met 2020-10-16 00:00:00 2021-02-09 00:00:00 Outpatient RECERTBRYCE BUENO [facility] [id number] 2021-02-09 00:00:00 DISCHARGE TO HOME OR SELF CARE INDEPENDEN T IN THE COMMUNITY HH OR PAL- GOALS MET 100.00
== END 2024-04-18 10:56 | disposition home or self-care (01) ==
PROVIDERS: PCP Internal Medicine; Visit Provider Anesthesiology
DX: M47.816 Spondylosis without myelopathy or radiculopathy, lumbar region (principal); M53.3 Sacrococcygeal disorders, not elsewhere classified; M46.1 Sacroiliitis, not elsewhere classified; G89.4 Chronic pain syndrome
CPT/HCPCS: 99203

== ENCOUNTER → 2024-04-18 10:07 | Outpatient (BNVA) | payer MEDICARE, SELFPAY | PROVIDERS: PCP Internal Medicine; Visit Provider Anesthesiology | DX: M47.816 Spondylosis without myelopathy or radiculopathy, lumbar region (principal); M53.3 Sacrococcygeal disorders, not elsewhere classified; M46.1 Sacroiliitis, not elsewhere classified; G89.4 Chronic pain syndrome | CPT/HCPCS: 99202 ==

== ENCOUNTER 2024-04-23 12:34 | Outpatient (REF) | payer MEDICARE, SELFPAY ==
--- NOTE | ~2024-04-23 | US_ITS ---
EXAMINATION: US EXTRACRANIAL CAROTID DUPLEX, BILATERAL CLINICAL INFORMATION: Carotid stenosis COMPARISON: 04/12/2023 TECHNIQUE: Real-time ultrasound and Doppler techniques (integrating B-mode 2-D vascular images, Doppler spectral analysis and color-flow Doppler imaging) were utilized to interrogate the extracranial carotid arteries, the vertebral arteries and proximal subclavian arteries bilaterally. The degree of stenosis is determined by criteria similar to NASCET. FINDINGS: Right Side: 1. There is mild to moderate atherosclerotic plaque seen in the bifurcation/proximal ICA region. 2. The common carotid artery PSV proximally is 186 cm/s and distally 80 cm/s. 3. The proximal internal carotid artery velocities are 155 cm/s systolic and 44 cm/s diastolic. 4. The proximal external carotid artery PSV is 149 cm/s. 5. The vertebral artery shows antegrade flow. 6. The subclavian artery waveforms are normal. Left Side: 1. There is moderate atherosclerotic plaque seen in the bifurcation/proximal ICA region. 2. The common carotid artery PSV proximally is 120 cm/s and distally 94 cm/s. 3. The proximal internal carotid artery velocities are 140 cm/s systolic and 30 cm/s diastolic. 4. The proximal external carotid artery PSV is 151 cm/s. 5. The vertebral artery shows antegrade flow. 6. The subclavian artery waveforms are normal. US/US carotid duplex BI IMPRESSION: 1. RIGHT: Moderate, hemodynamically significant stenosis of the proximal right internal carotid artery corresponding to a 50-79% stenosis by velocity criteria. 2. LEFT: Moderate, hemodynamically significant stenosis of the proximal left internal carotid artery corresponding to a 50-79% stenosis by velocity criteria. 3. There is no change in the category severity of disease when compared to the previous study dated 04/12/2023. Electronically signed by: Pete Roberson MD 04/25/2024 05:06 PM [facility]
--- OUTSIDE RECORDS SUMMARY | 2024-04-23 12:38 | XMS_ITS | Clinical Summary ---
Author Organization Unknown Care Team Providers Care Steel Chipper Name Role Phone LIZZY STEPHENSON, RIKKI Unavailable Unavailable PROSPER PT, BRYCE Unavailable Unavailable CYNTHIA RN, LORENA Unavailable Unavailable Payers Payer Name Policy Type Policy Number Effective Date Expira tion Date MEDICARE.NGS.PDGM [id number] Problems Condition Name Condition Details Condition Category [...] % eye drops 08-27 00:00: 00 Yes [id number] GLAUCOMA 1 drops TWICE A DAY 1 drops TWICE A DAY (route: ophthalmic (eye)) Med Classific ation: Ophthalmi c Agents Bystolic 20 mg tablet 09-26 00:00: 00 Yes [id number] BLOOD PRESSURE 1 tablet 2 TIMES DAILY 1 tablet 2 TIMES DAILY (route: oral) Med Classific ation: Cardiovas cular Therapy Agents hydralazine 25 mg tablet 09-23 00:00: 00 Yes [id number] BLOOD PRESSURE 3 tablet 2 TIMES DAILY 3 tablet 2 TIMES DAILY (route: oral) Med Classific ation: Cardiovas cular Therapy Agents hydralazine 50 mg tablet 08-28 00:00: 00 10-16 00:00 :00 No [id number] Per instruc tions THREE TIMES A DAY Per instructio ns THREE TIMES A DAY (route: oral) Med Classific ation: Cardiovas cular Therapy Agents hydralazine 25 mg tablet 08-19 00:00: 00 Yes [id number] BLOOD PRESSURE 2 tablet DAILY 2 tablet DAILY (route: oral) Med Classific ation: Cardiovas cular Therapy Agents losartan 25 mg tablet 3-25 00:00: 00 12-19 23:59 :00 No [id number] HEART 1 tablet DAILY 1 tablet DAILY (route: oral) Med Classific ation: Cardiovas cular Therapy Agents levothyroxi ne 100 mcg tablet 09-22 00:00: 00 Yes [id number] THYROID 1 tablet ONCE A DAY 1 tablet ONCE A DAY (route: oral) Med Classific ation: Endocrine amlodipine 5 mg tablet 09-26 00:00: 00 Yes [id number] BLOOD PRESSURE 1 tablet 2 TIMES DAILY 1 tablet 2 TIMES DAILY (route: oral) Med Classific ation: Cardiovas cular Therapy Agents fenofibrate 54 mg tablet 5- 00:00: 00 10-16 00:00 :00 No [id number] Per instruc tions Per instructio ns (route: oral) Med Classific ation: Cardiovas cular Therapy Agents Aspirin Childrens 81 mg chewable tablet 10-16 00:00: 00 Yes [id number] ANTICOAGULA NT 1 tablet DAILY 1 tablet DAILY (route: oral) Med Classific ation: Hematolog ical Agents Pepcid 20 mg tablet 10-16 00:00: 00 Yes [id number] ACID REFLUX 1 tablet DAILY 1 tablet DAILY (route: oral) Med Classific ation: Gastroint estinal Therapy Agents Tylenol 325 mg capsule 10-16 00:00: 00 Yes [id number] PAIN 2 capsule EVERY 4 HOURS 2 capsule EVERY 4 HOURS (route: oral) Med Classific ation: Analgesic , Anti-infl ammatory or Antipyret ic losartan 50 mg tablet 8-13 00:00: 00 12-31 23:59 :00 No [id number] HYPERTENSIO N Per instruc tions 2 TIMES DAILY Per instructio ns 2 TIMES DAILY (route: oral) Med Classific ation: Cardiovas cular Therapy Agents losartan 50 mg tablet 12-31 00:00: 00 Yes [id number] HTN 1 tablet 2 TIMES DAILY 1 tablet 2 TIMES DAILY (route: oral) Med Classific ation: Cardiovas cular Therapy Agents tramadol 50 mg tablet 01-28 00:00: 00 Yes [id number] PAIN 1 tablet EVERY 4 HOURS 1 [...] End Date/Time Encounter Type Admission Type Attending [facility] Care Department Encounter ID Discharge Date Discharge Status Discharge Condition Discharge Reason Percent Goals Met 2020-10-16 00:00:00 2021-02-09 00:00:00 Outpatient RECERTBRYCE BUENO [facility] [id number] 2021-02-09 00:00:00 DISCHARGE TO HOME OR SELF CARE INDEPENDEN T IN THE COMMUNITY HH OR PAL- GOALS MET 100.00
== END 2024-04-23 12:35 | disposition home or self-care (01) ==
LOC: HO.US 12:34
PROVIDERS: PCP Internal Medicine; Visit Provider Surgery Vascular Surgery
DX: I65.23 Occlusion and stenosis of bilateral carotid arteries (principal)
CPT/HCPCS: 93880

== ENCOUNTER 2024-05-15 10:01 | Outpatient (AMB) | payer MEDICARE, SELFPAY ==
[2024-05-15 10:06] VITALS: BP 132/68; BMI 25.2
--- NOTE | 2024-05-15 10:06 | MHC.OFFVIS ---
Vital Signs 05/15/24 10:06 05/15/24 10:15 Height 5 ft 2 in Weight 138 lb BMI 25.2 BP 132/68 124/60 Blood Pressure Location Lt brachial Rt brachial Position Sitting Sitting Intake Visit Reasons: 1 yr follow up s/p Carotid US 04/23/24 Intake Note: 1 yr follow up carotid US 04/23/24, pt states no changes Accompanied by: Self / Same As Patient Allergies cimetidine [From TAGAMET] Allergy (Unknown, Verified 05/15/24 10:12) GI UPSET ciprofloxacin [From CIPRO] Allergy (Unknown, Verified 05/15/24 10:12) GI UPSET diltiazem [From CARDIZEM] Allergy (Unknown, Verified 05/15/24 10:12) HIVES lisinopril [From ZESTRIL] Allergy (Unknown, Verified 05/15/24 10:12) LIGHTHESDEDNESS GI UPSET Sulfa (Sulfonamide Antibiotics) [SULFA (SULFONAMIDE ANTIBIOTICS)] Allergy (Unknown, Verified 05/15/24 10:12) HIVES timolol [From ISTALOL] Allergy (Unknown, Verified 05/15/24 10:12) STINGING does not handle GENERIC meds w Allergy (Unknown, Uncoded 03/29/24 10:17) unk HPI HPI 1 yr follow up s/p Carotid US 04/23/24: Details: Very pleasant 84-year-old female presents for routine surveillance regarding her carotids. 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 She reports that she recently went on a trip with her children to [place]. She did have a syncopal episode but relates it more to food and a GI issue that she had during her stay there. Other than that has had no other interval issues she remains quite active. She now presents for routine follow-up. [facility] Medical History Carotid stenosis, bilateral Statin intolerance Other and unspecified hyperlipidemia Non-rheumatic aortic stenosis Labile hypertension Surgical History History of cholecystectomy (~01/28/21) History of appendectomy Family History Father No problems noted. Mother No problems noted. 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 Review of Systems Const All systems reviewed & are unremarkable except as noted in HPI and below Reports no additional complaints ENT Reports Normal hearing present Card Denies chest pain, Denies chest pain at rest, Denies chest pain with activity and Denies pedal edema Resp Denies cough GI Denies abdominal pain Musc Denies abnormal gait, Denies muscle cramps and Denies radiating pain into limb Skin/Breast Denies skin ulcer and Denies wounds Neuro Reports Normal hearing present and Denies abnormal gait Psych Reports no additional complaints Physical Exam Vital Signs: Last Vital Signs BP 124/60 05/15/24 10:15 BMI result Body Mass Index 25.2 Const General: cooperative, healthy appearing and comfortable Orientation/consciousness: oriented to person, oriented to place and oriented to time HEENT Head: Yes normal to inspection Neck Neck: Yes normal visual inspection Carotids: no bruits Chest Chest palpation & inspection: normal inspection of the chest Resp Effort & Inspection: normal respiratory effort and able to speak in complete sentences Auscultation: clear to auscultation bilaterally, no crackles, no rales, no rhonchi and no wheezes Cardio Rate: regular rate Rhythm: regular rhythm Heart sounds: S1 normal heart sound present and S2 normal heart sound present Bruits: no carotid bruits Peripheral pulses: Peripheral pulses 2+ throughout GI Inspection: Yes normal to inspection Skin Wounds: no wounds Hair: normal Neuro General: oriented to person, oriented to place and oriented to time Cranial nerves: Yes CN's II-XII intact bilaterally and Yes Normal hearing present Cognition (Neuro): normal cognition Motor exam (neuro): 5/5 motor strength present throughout Extrem Other: venous exam: No significant superficial varicosities or spider telangiectasias, minimal edema General: No clubbing, No cyanosis and No edema Psych Appearance: grossly normal Mental Status: mental status grossly normal Speech and movement: Normal speech and movement present Results Reviewed Results Reviewed: Noninvasive carotid testing dated 04/23/2024 demonstrates bilateral 50-79% stenosis with a peak systolic of 155 on the right and a peak systolic of 140 on the left Assessment & Plan Assessment & Plan (1) Carotid stenosis, bilateral: Code(s): I65.23 - Occlusion and stenosis of bilateral carotid arteries Category: Medical Plan: In short patient has asymptomatic carotid disease. We have reviewed signs and symptoms of a stroke. We also discussed risk factor modification inclusive a healthy diet low in cholesterol. The patient will follow up with us with surveillance ultrasound of the carotids 1 year. Should there be any changes or signs or symptoms of a stroke we will be happy to see them back sooner. Thank you for allowing us to participate in this patient's care. If there are any questions or concerns please do not hesitate to contact us. Orders: Orders US carotid duplex BI 1 Year I65.23 - Occlusion and stenosis of bilateral carotid arteries Coding Level of Care Code Est Pt Level 4 (15140) Complex EM visit Add On G2211 Diagnoses Carotid stenosis, bilateral I65.23
[2024-05-15 10:15] VITALS: BP 124/60
--- OUTSIDE RECORDS SUMMARY | 2024-05-15 10:27 | XMS_ITS | Clinical Summary ---
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 Name Role Phone LIZZY STEPHENSON, RIKKI Unavailable Unavailable PROSPER PT, BRYCE Unavailable Unavailable CYNTHIA RN, LORENA Unavailable Unavailable Payers Payer Name Policy Type Policy Number Effective Date Expira tion Date MEDICARE.NGS.PDGM [id number] Problems Condition Name Condition Details Condition Category [...] % eye drops 08-27 00:00: 00 Yes [id number] GLAUCOMA 1 drops TWICE A DAY 1 drops TWICE A DAY (route: ophthalmic (eye)) Med Classific ation: Ophthalmi c Agents Bystolic 20 mg tablet 09-26 00:00: 00 Yes [id number] BLOOD PRESSURE 1 tablet 2 TIMES DAILY 1 tablet 2 TIMES DAILY (route: oral) Med Classific ation: Cardiovas cular Therapy Agents hydralazine 25 mg tablet 09-23 00:00: 00 Yes [id number] BLOOD PRESSURE 3 tablet 2 TIMES DAILY 3 tablet 2 TIMES DAILY (route: oral) Med Classific ation: Cardiovas cular Therapy Agents hydralazine 50 mg tablet 08-28 00:00: 00 10-16 00:00 :00 No [id number] Per instruc tions THREE TIMES A DAY Per instructio ns THREE TIMES A DAY (route: oral) Med Classific ation: Cardiovas cular Therapy Agents hydralazine 25 mg tablet 08-19 00:00: 00 Yes [id number] BLOOD PRESSURE 2 tablet DAILY 2 tablet DAILY (route: oral) Med Classific ation: Cardiovas cular Therapy Agents losartan 25 mg tablet 3-25 00:00: 00 12-19 23:59 :00 No [id number] HEART 1 tablet DAILY 1 tablet DAILY (route: oral) Med Classific ation: Cardiovas cular Therapy Agents levothyroxi ne 100 mcg tablet 09-22 00:00: 00 Yes [id number] THYROID 1 tablet ONCE A DAY 1 tablet ONCE A DAY (route: oral) Med Classific ation: Endocrine amlodipine 5 mg tablet 09-26 00:00: 00 Yes [id number] BLOOD PRESSURE 1 tablet 2 TIMES DAILY 1 tablet 2 TIMES DAILY (route: oral) Med Classific ation: Cardiovas cular Therapy Agents fenofibrate 54 mg tablet 5- 00:00: 00 10-16 00:00 :00 No [id number] Per instruc tions Per instructio ns (route: oral) Med Classific ation: Cardiovas cular Therapy Agents Aspirin Childrens 81 mg chewable tablet 10-16 00:00: 00 Yes [id number] ANTICOAGULA NT 1 tablet DAILY 1 tablet DAILY (route: oral) Med Classific ation: Hematolog ical Agents Pepcid 20 mg tablet 10-16 00:00: 00 Yes [id number] ACID REFLUX 1 tablet DAILY 1 tablet DAILY (route: oral) Med Classific ation: Gastroint estinal Therapy Agents Tylenol 325 mg capsule 10-16 00:00: 00 Yes [id number] PAIN 2 capsule EVERY 4 HOURS 2 capsule EVERY 4 HOURS (route: oral) Med Classific ation: Analgesic , Anti-infl ammatory or Antipyret ic losartan 50 mg tablet 8-13 00:00: 00 12-31 23:59 :00 No [id number] HYPERTENSIO N Per instruc tions 2 TIMES DAILY Per instructio ns 2 TIMES DAILY (route: oral) Med Classific ation: Cardiovas cular Therapy Agents losartan 50 mg tablet 12-31 00:00: 00 Yes [id number] HTN 1 tablet 2 TIMES DAILY 1 tablet 2 TIMES DAILY (route: oral) Med Classific ation: Cardiovas cular Therapy Agents tramadol 50 mg tablet 01-28 00:00: 00 Yes [id number] PAIN 1 tablet EVERY 4 HOURS 1 [...] End Date/Time Encounter Type Admission Type Attending [facility] Care Department Encounter ID Discharge Date Discharge Status Discharge Condition Discharge Reason Percent Goals Met 2020-10-16 00:00:00 2021-02-09 00:00:00 Outpatient RECERTBRYCE BUENO [facility] [id number] 2021-02-09 00:00:00 DISCHARGE TO HOME OR SELF CARE INDEPENDEN T IN THE [facility] OR [facility]- GOALS MET 100.00
== END 2024-05-15 10:49 | disposition home or self-care (01) ==
PROVIDERS: PCP Internal Medicine; Visit Provider Surgery Vascular Surgery
DX: I65.23 Occlusion and stenosis of bilateral carotid arteries (principal)
CPT/HCPCS: 99214; G2211

== ENCOUNTER → 2024-05-15 10:01 | Outpatient (BNVA) | payer MEDICARE, SELFPAY | PROVIDERS: PCP Internal Medicine; Visit Provider Surgery Vascular Surgery | DX: I65.23 Occlusion and stenosis of bilateral carotid arteries (principal) | CPT/HCPCS: 99212 ==

== ENCOUNTER → 2024-05-21 13:43 | Outpatient (REF) | payer MEDICARE, SELFPAY ==
--- NOTE | 2024-05-21 13:46 | CA_ITS ---
Transthoracic Echocardiogram Patient (Last, First, Middle): Yuni Delatorre, Gender: Female Date of : 1940 Age: 84 Procedure Date: 05/21/2024 Procedure Type: Transthoracic Echocardiogram Location: OP Height: 157.48 cm Weight: 62.6 kg BSA: 1.63 m2 Heart Rate: 62 bpm BP: 124 / 60 mmHg Vice President And Portfolio Manager: SB Referring MD: Kalen Muñoz MD Symptoms: I35.0 - Nonrheumatic aortic (valve) stenosis Study Quality: Adequate ECG Rhythm: Sinus Conclusions: - The left ventricular systolic function is normal. The calculated ejection fraction is 67% by biplane method. - There is mild aortic valve stenosis. Findings Left Ventricle Normal left ventricular cavity size. There is normal left ventricular wall thickness. The left ventricular systolic function is normal. The calculated ejection fraction is 67% by biplane method. There is no evidence of regional wall motion abnormalities. Possible grade 2 diastolic dysfunction. Right Ventricle Normal right ventricular cavity size and systolic function. Atria Both atria are normal in size. Aortic Valve There is moderate calcification of the aortic valve. There is mild aortic valve stenosis. There is no aortic valve regurgitation. Mitral Valve There is mild mitral annular calcification. There is no mitral valve regurgitation. There is no mitral valve stenosis. Pulmonic Valve The pulmonic valve is likely normal. Tricuspid Valve Normal tricuspid valve structure. There is trace tricuspid valve regurgitation. Great Vessels The asc aorta is normal in size. Venous The inferior vena cava is normal in size and collapses greater than 50% with inspiration. Pericardium/Pleural There is no evidence of pericardial effusion. Prior Study Comparison No significant change compared to prior study dated: 05/11/2022. Measurements 2D Linear Measurements IVSd: 1.00 0.6-0.9/0.6-1.0 cm LVIDd: 5.16 3.9-5.3/4.2-5.9 cm LVIDd Index: 3.17 2.4-3.2/2.2-3.1 cm/m2 LVIDs: 2.84 2.0-3.6 cm LVPWd: 0.59 0.7-1.1 cm LA Diam: 4.00 2.7-3.8/3.0-4.0 cm LAIDs Index: 2.45 1.5-2.3 cm/m2 LV Mass: 176.25 67-162/88-224 g LV Mass Index: 108.13 43-95/49-115 g/m2 LVOT Diam: 2.00 3.0+(-)1.3 cm 2D Systolic Function EF 4C: 72.90 >55% EF 2C: 58.70 >55% EF BiP: 67.20 >55% Mitral Valve MV Pk E: 1.16 MV PK A: 0.89 MV Decel Time: 219.00 E/A: 1.30 E'Lateral: 6.09 E'Medial: 6.42 E/E' Med: 18.10 E/E' Lat: 19.00 PHT: 64.00 MVA PHT: 3.44 Decel Nance: 5.32 Aortic Valve AoV Pk Erik: 2.07 AoV Mn Erik: 1.43 AoV VTI: 0.52 AoV Pk Grad: 17.00 Aov Mn Grad: 9.00 JOSE Cont.VTI: 1.59 LVOT LVOT Pk Erik: 1.08 LVOT Mn Erik: 0.72 LVOT VTI: 0.27 LVOT Pk Grad: 5.00 LVOT Mn Grad: 3.00 LVOT Diam: 2.00 LVOT Area: 3.14 Diastolic Function MV Pk E: 1.16 MV Pk A: 0.89 E/A: 1.30 E'Medial: 6.42 E/E' Med: 18.10 E' Laterial: 6.09 E/E' Lat: 19.00 Right Ventricle TAPSE (mm): 27.70 TVS' Erik: 14.70 Tricuspid Valve RA Press: 3.00 Great Vessels Aorta Sinus of Valsalva: 2.80 2.0-3.5 cm Ao Asc: 2.90 2.1-3.4 cm Pulmonary Valve PV Pk Erik: 1.06 Peak PV Grad: 4.00 Updated in Other Vendor System with Status of Final Kalen Muñoz MD electronically signed on 05/22/2024 9:43:48 AM with status of Final
== END ==
LOC: HO.CARD 13:43
PROVIDERS: PCP Internal Medicine; Visit Provider Internal Medicine
DX: I35.0 Nonrheumatic aortic (valve) stenosis (principal)
CPT/HCPCS: 93306

== ENCOUNTER → 2024-05-21 13:46 | Outpatient (BNV) | payer MEDICARE, SELFPAY | PROVIDERS: PCP Internal Medicine; Visit Provider Internal Medicine | DX: I35.0 Nonrheumatic aortic (valve) stenosis (principal); I35.8 Other nonrheumatic aortic valve disorders; I34.81 Nonrheumatic mitral (valve) annulus calcification | CPT/HCPCS: 93306 ==

== ENCOUNTER 2024-06-06 12:50 | Outpatient (AMB) | payer MEDICARE, SELFPAY ==
--- NOTE | 2024-06-06 12:53 | MHC.OFFVIS ---
Vital Signs 06/06/24 12:54 Height 5 ft 2 in Weight 136 lb 10.986 oz BMI 25.0 BP 128/68 Blood Pressure Location Lt brachial Position Sitting Pulse 64 Pulse Source Monitor Intake Visit Reasons: 6 mth f/up Allergies cimetidine [From TAGAMET] Allergy (Unknown, Verified 05/15/24 10:12) GI UPSET ciprofloxacin [From CIPRO] Allergy (Unknown, Verified 05/15/24 10:12) GI UPSET diltiazem [From CARDIZEM] Allergy (Unknown, Verified 05/15/24 10:12) HIVES lisinopril [From ZESTRIL] Allergy (Unknown, Verified 05/15/24 10:12) LIGHTHESDEDNESS GI UPSET Sulfa (Sulfonamide Antibiotics) [SULFA (SULFONAMIDE ANTIBIOTICS)] Allergy (Unknown, Verified 05/15/24 10:12) HIVES timolol [From ISTALOL] Allergy (Unknown, Verified 05/15/24 10:12) STINGING does not handle GENERIC meds w Allergy (Unknown, Uncoded 03/29/24 10:17) unk Medication List - Last Reconciled 06/06/24 by Kalen Muñoz MD amlodipine 5 mg PO BID brimonidine-timolol 0.2-0.5 % drps ophthalmic (eye) budesonide 32 mcg/actuation 2 sprays intranasal DAILY carvedilol 25 mg PO BID evolocumab (Repathgabbie SureMauick) 140 mg subcut Q2W fenofibrate 54 mg PO DAILY hydralazine 50 mg PO TID 90 days hydralazine 25 mg PO TID 90 days levothyroxine 100 mcg PO DAILY losartan 1 tablet in the morning, 1/2 tablet in the evening PO 90 days tobramycin 0.3% drps ophthalmic (eye) tramadol 50 mg PO BID PRN HPI Comments Details: Yuni returns for follow-up. To recall, she has labile hypertension. In the past, several episodes a high as well as low blood pressures. She also gets syncope during times of low blood pressure. Many medication changes over time. Over the last year or so, she states she is doing good. No new concerns. Blood pressure has been actually quite stable. She does get some shortness of breath with activity. Not clear if it is from deconditioning. However, no angina. [facility] Medical History Carotid stenosis, bilateral Statin intolerance Other and unspecified hyperlipidemia Non-rheumatic aortic stenosis Labile hypertension Surgical History History of cholecystectomy (~01/28/21) History of appendectomy Family History Father No problems noted. Mother No problems noted. 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 Review of Systems Const Denies weakness ENT Denies dizziness Card Denies chest pain, Denies chest pain with activity, Denies syncope, Denies rapid heart rate, Denies pedal edema, Denies edema, Denies leg edema, Denies lightheadedness, Denies palpitations, Denies dyspnea, Denies dyspnea on exertion and Denies orthopnea Resp Denies cough, Denies dyspnea and Denies dyspnea on exertion GI Denies hematochezia and Denies change in stool character Musc Denies abnormal gait, Denies muscle cramps, Denies muscle weakness, Denies numbness, Denies radiating pain into limb and Denies tingling Neuro Denies abnormal gait, Denies dizziness, Denies syncope, Denies numbness, Denies tingling and Denies weakness Endo Denies palpitations Physical Exam Vital Signs: Last Vital Signs Pulse 64 06/06/24 12:54 BP 128/68 06/06/24 12:54 BMI result Body Mass Index 25.0 Const General: comfortable and no acute distress Orientation/consciousness: patient oriented x3 HEENT Other: Unremarkable Head: Yes normal to inspection Neck Neck: Yes normal visual inspection Chest Chest palpation & inspection: normal inspection of the chest Resp Auscultation: clear to auscultation bilaterally Cardio Palpation: normal PMI Heart sounds: S1 normal heart sound present, S2 normal heart sound present, no gallops, no murmurs and no rubs GI Palpation (GI): Soft to palpation Back/Spine/Pelvis Other: unremarkable Skin General skin exam: no rashes or lesions noted Neuro General: patient oriented x3 Extrem General: Yes normal to inspection Psych Mental Status: mental status grossly normal Office Procedures EKG Details: EKG with underlying sinus rhythm at 64/Min; no significant ST-T changes and otherwise unremarkable. [place]. [id number], Complete Assessment & Plan Assessment & Plan (1) Labile hypertension: Code(s): R09.89 - Other specified symptoms and signs involving the circulatory and respiratory systems Category: Medical Plan: On combination regimen including carvedilol, amlodipine, hydralazine, losartan. Of note, whenever blood pressure goes to relatively normal range, she actually feels symptoms of hypoperfusion. Hence we will need to keep her pressures at higher than ideal range. No clear evidence of any renal artery stenosis in previous studies. (2) Non-rheumatic aortic stenosis: Code(s): I35.0 - Nonrheumatic aortic (valve) stenosis Category: Medical Plan: Moderate aortic valve calcification and mild stenosis. We can continue to monitor periodically. (3) Other and unspecified hyperlipidemia: Code(s): E78.5 - Hyperlipidemia, unspecified Category: Medical Plan: Intolerant of statins. Currently on Repatha. Well-controlled lipids. (4) Statin intolerance: Code(s): Z78.9 - Other specified health status Category: Medical Plan: As above, on Repatha. (5) Carotid stenosis, bilateral: Code(s): I65.23 - Occlusion and stenosis of bilateral carotid arteries Category: Medical Plan: In the most recent carotid ultrasound, moderate stenosis 50-79% bilaterally. Concurrently being followed up by vascular surgery. Coding Level of Care Code Est Pt Level 4 (62172) Diagnoses Labile hypertension R09.89 Non-rheumatic aortic stenosis I35.0 Other and unspecified hyperlipidemia E78.5 Statin intolerance Z78.9 Carotid stenosis, bilateral I65.23 CPT Codes EKG - CPT: [id number], Complete ([id number])
[2024-06-06 12:54] VITALS: BP 128/68; PULSE 64; BMI 25.0
--- OUTSIDE RECORDS SUMMARY | 2024-06-06 14:56 | XMS_ITS | Data Portability ---
Author Organization DUSTIN Arriaga s, _[address] Address [address] [place] [address] Care Team Providers Care Motorcycle Sales Associate Name Role Phone [facility] PRO[facility] Primary Care Provider Assessment No assessment recorded. Plan of Treatment Reminders Order Date Submit Date Provider Last Modified By Organization Details Last Modified Time Details Appointments None recorded. Lab urinalysis, dipstick 2022 023 [facility], [address] [place], [address], 17:59:00 Referral None recorded. Procedures None recorded. Surgeries None recorded. Imaging None recorded. Medication Orders lidocaine 5 % topical patch 2022 023 [facility], [address] [place], [address], 3 17:59:01 Flonase Allergy Relief 50 mcg/actuati on nasal spray,suspe nsion 2022 023 [facility], [address] [place], [address], 3 17:58:59 loratadine 10 mg tablet 2022 023 [facility], [address] [place], [address], 17:58:59 Patient TargetsNo targets recorded. Patient Instructions Encounter Date Encounter Id Patient Instructions Last Modified By Organization Details Last Modified Time 01/29/2023 [id number] getting back to normal after low back pain: care instructions Not available 01/29/2023 17:58:57 Acute Sinusitis: Care Instructions Not available 01/29/2023 17:58:57 Sinusitis is an infection of the lining of the sinus cavities in your head. Sinusitis often follows a cold. It causes pain and pressure in your head and face. In most cases, sinusitis gets better on its own in 1 to 2 weeks. But some mild symptoms may last for several weeks. Sometimes antibiotics are needed. if you are having problems. It's also a good idea to know your test results and keep a list of the medicines you take. How can you care for yourself at home? Take an ljsw-ngf-uorsezb pain medicine. Avoid Ibuprofen, Aleve and Aspirin if . If the doctor prescribed antibiotics, take them as directed. Do not stop taking them just because you feel better. You need to take the full course of antibiotics. Be careful when taking izfe-efd-rjrcurm cold or influenza (flu) medicines and Tylenol at the same time. Many of these medicines have acetaminophen, which is Tylenol. Read the labels to make sure that you are not taking more than the recommended dose. Too much acetaminophen (Tylenol) can be harmful. Breathe warm, moist air from a steamy shower, a hot bath, or a sink filled with hot water. Avoid cold, dry air. Using a humidifier in your home may help. Follow the directions for cleaning the machine. Use saline (saltwater) nasal washes. This can help keep your nasal passages open and wash out mucus and bacteria. You can buy saline nose drops at a grocery store or drugstore. Or you can make your own at home by adding 1 teaspoon (5 millilitres) of salt and 1 teaspoon (5 millilitres) of baking soda to 2 cups (500 mL) of distilled water. If you make your own, fill a bulb syringe with the solution, insert the tip into your nostril, and squeeze gently. Blow your nose. Put a hot, wet towel or a warm gel pack on your face 3 or 4 times a day for 5 to 10 minutes each time. Try a decongestant nasal spray like oxymetazoline (Drixoral). Do not use it for more than 3 days in a row. Using it for more than 3 days can make your congestion worse. Not available 01/29/2023 17:58:07 Drink lots of fluids. Take medications as prescribed. Do not do any activities that exacerbate your pain. Take walks and change positions frequently. Do not lie in bed all day. Light movement is helpful for recovery of the back. Use a heating pad or warm compress on the painful area of the back. A lidocaine patch can be used for topical relief. This is available over the counter. Once pain is improved, do back exercises to stretch and strengthen the back. If you develop severe pain, fevers/chills, weakness of limbs, loss of sensation in groin, or loss of control of bowel or bladder functions call 911 or go to the Emergency Department. [email or web address] Not available 01/29/2023 17:57:56 Reason for Referral None Reported. Results Created Date Observation Date Name Description Value Unit Range Abnormal Flag Note LastModifiedBy Organization Detail LastModifiedTime 01/30/2001/29/2023 urina lysis , dipst ick Unknown Analyte Normal = light yellow Not Available [facility] [address] [place] [address], [phone], 01/29/2023 17:24:05 01/30/2001/29/2023 urina lysis , dipst ick Unknown Analyte Yellow Not Available [facility] [address] [place] [address], [phone], 01/29/2023 17:24:05 01/30/2001/29/2023 urina lysis , dipst ick Unknown Analyte Normal = clear Not Available [facility] [address] [place] [address], [phone], 01/29/2023 17:24:05 01/30/2001/29/2023 urina lysis , dipst ick Unknown Analyte Clear Not Available [facility] [address] [place] [address], [phone], 01/29/2023 17:24:05 01/30/2001/29/2023 urina lysis , dipst ick Unknown Analyte Normal = negati ve Not Available [facility] [address] [place] [address], [phone], 01/29/2023 17:24:05 01/30/20 23 01/29/2023 urina lysis , dipst ick Unknown Analyte Negati ve Not Available [facility] [address] [place] [address], [phone], 01/29/2023 17:24:05 01/30/2001/29/2023 urina lysis , dipst ick Unknown Analyte Normal = Negati ve Not Available [facility] [address] [place] [address], [phone], 01/29/2023 17:24:05 01/30/2001/29/2023 urina lysis , dipst ick Unknown Analyte Negati ve Not Available [facility] [address] [place] [address], [phone], 01/29/2023 17:24:05 01/30/2001/29/2023 urina lysis , dipst ick Unknown Analyte Normal = Negati ve Not Available [facility] [address] [place] [address], [phone], 01/29/2023 17:24:05 01/30/2001/29/2023 urina lysis , dipst ick Unknown Analyte Negati ve Not Available [facility] [address] [place] [address], [phone], 01/29/2023 17:24:05 01/30/2001/29/2023 urina lysis , dipst ick Unknown Analyte Normal = 1.010, 1.015, 1.[address] [facility] [address] [place] [address], [phone], 01/29/2023 17:24:05 01/30/20 23 01/29/2023 urina lysis , dipst ick Unknown Analyte 1.020 Not Available [facility] [address] [place] [address], [phone], 01/29/2023 17:24:05 01/30/20 23 01/29/2023 urina lysis , dipst ick Unknown Analyte Normal = Negati ve Not Available [facility] [address] [place] [address], [phone], 01/29/2023 17:24:05 01/30/2001/29/2023 urina lysis , dipst ick Unknown Analyte Negati ve Not Available [facility] [address] [place] [address], [phone], 01/29/2023 17:24:05 01/30/20 23 01/29/2023 urina lysis , dipst ick Unknown Analyte Normal = 6.5, 7.0, 7.5, 8.[address] [facility] [address] [place] [address], [phone], 01/29/2023 17:24:05 01/30/20 23 01/29/2023 urina lysis , dipst ick Unknown Analyte 5.[address] [facility] [address] [place] [address], [phone], 01/29/2023 17:24:05 01/30/20 23 01/29/2023 urina lysis , dipst ick Unknown Analyte Normal = Negati ve Not Available [facility] [address] [place] [address], [phone], 01/29/2023 17:24:05 01/30/20 23 01/29/2023 urina lysis , dipst ick Unknown Analyte Negati ve Not Available [facility] [address] [place] [address], [phone], 01/29/2023 17:24:05 01/30/2001/29/2023 urina lysis , dipst ick Unknown Analyte Normal = 0.2, 1.[address] [facility] [address] [place] [address], [phone], 01/29/2023 17:24:05 01/30/2001/29/2023 urina lysis , dipst ick Unknown Analyte 1.0 E.U./d L Not Available [facility] [address] [place] [address], [phone], 01/29/2023 17:24:05 01/30/2001/29/2023 urina lysis , dipst ick Unknown Analyte Normal = Negati ve Not Available [facility] [address] [place] [address], [phone], 01/29/2023 17:24:05 01/30/2001/29/2023 urina lysis , dipst ick Unknown Analyte Negati ve Not Available [facility] [address] [place] [address], [phone], 01/29/2023 17:24:05 01/30/2001/29/2023 urina lysis , dipst ick Unknown Analyte Normal = Negati ve Not Available [facility] [address] [place] [address], [phone], 01/29/2023 17:24:05 01/30/2001/29/2023 urina lysis , dipst ick Unknown Analyte Negati ve Not Available [facility] [address] [place] [address], [phone], 01/29/2023 17:24:05 Result Notes None recorded. 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 Procedures Surgical History Date Name Laterality Status Provider Name and Address Organization Details Recorded Time procedure on hip completed GEORGIA ZARAGOZA-BOSTON PA - [facility] 01/29/2023 17:18:32 procedure on wrist completed GEORGIA ZARAGOZA-BOSTON PA - [facility] 01/29/2023 17:18:42 Imaging Results None recorded. Procedure Notes None recorded. Medical Equipment None Reported. Allergies Allergen ID Allergen Name Allergen Category Reaction Reaction Severity Criticality Documentation Date Start Date Code Code System Note Provider Name and Address Organization Details Recorded Time 040359 Cipro medicatio n Not available Not available Not available 01/29/202377874 3 RxNorm GEORGIA ZARAGOZA-RIVE RA null, [place] - [facility] 17:11:52 507226 Substance with sulfonami de structure and antibacte rial mechanism of action (substanc e) medicatio n Not available Not available Not available 01/29/2023 69432 8003 SNOMED GEORGIA ZARAGOZA-RIVE RA null, PA - [facility] 3 17:12:02 083287 Zestril medicatio n Not available Not available Not available 01/29/202319637 2 RxNorm GEORGIA ZARAGOZA-RIVE RA null, [place] - [facility] 3 17:12:38 101730 Cardizem medicatio n Not available Not available Not available 01/29/202346802 4 RxNorm GEORGIA ZARAGOZA-RIVE RA null, [place] - [facility] 3 17:12:48 886558 Tagamet medicatio n Not available Not available Not available 01/29/2023 15288 2 RxNorm DUSTIN Bell RA [facility] 3 17:13:01 558975 Istalol medicatio n Not available Not available Not available 01/29/2023 33175 9 RxNorm DUSTIN Bell RA - [facility] 17:13:28 Medications Name Sig Start Date Stop Date Status Note LastModified by Organization Details LastModified Time lidocaine 5 % topical patch APPLY 1 PATCH BY TOPICAL ROUTE ONCE DAILY (MAY WEAR UP TO 12 HOURS.) 2022 active Not Available Not Available Not Avai lable loratadine 10 mg tablet Take 1 tablet every day by oral route in the morning for 30 days. 2022 active Not Available Not Available Not Avai lable aspirin active Not Available Not Avail able Not Available levothyroxin e active Not Available Not Available Not Available carvedilol active Not Available Not Av ailable Not Available hydralazine active Not Available Not A vailable Not Available amlodipine active Not Available Not Av ailable Not Available losartan active Not Available Not Avai lable Not Available fenofibrate active Not Available Not A vailable Not Available Travatan Z 0.004 % eye drops INSTILL 1 DROP INTO AFFECTED EYE(S) BY OPHTHALMIC ROUTE ONCE DAILY INTHE EVENING active Not Available Not Available No t Available Combigan 0.2 %-0.5 % eye drops INSTILL 1 DROP INTO AFFECTED EYE(S) BY OPHTHALMIC ROUTE EVERY 12 HOURS active Not Available Not Available No t Available Flonase Allergy Relief 50 mcg/actuatio n nasal spray,suspen enrique [place] 1 spray every day by intranasal route as directed for 30 days. 2022 active Not Available Not Available Not Avai lable Repatha Syringe active Not Available Not Available Not Available Vitals Date Recorded Body height Provider Name an d Address Organization Details Last Updated DateTime 01/29/2023 157.48 cm GEORGIA CHAN - [facility] 01/29/2023 17:10:52 Date Recorded Body mass index (BMI) Body weight Provider Name and Address Organization Details Last Updated DateTime 01/29/2023 23.8 kg/m2 37907.01 g GEORGIA ANDERSON PA - [facility] 01/29/2023 17:10:56 Date Recorded Pain severity - 0-10 verbal numeric rating [Score] - Reported Provider Name and Address Organization Details Last Updated DateTime 01/29/2023 8 GEORGIA ANDERSON PA - [facility] 01/29/2023 17:11:08 Date Recorded Respiratory rate Provider Name a nd Address Organization Details Last Updated DateTime 01/29/2023 17 /min GEORGIA ANDERSON PA - [facility] 01/29/2023 17:11:10 Date Recorded Oxygen saturation Oxygen saturation in Arterial blood by Pulse oximetry Provider Name and Address Organization Details Last Updated DateTime 01/29/2023 95 % 95 % GEORGIA ANDERSON PA - [facility] 01/29/2023 17:23:17 Date Recorded Heart rate Provider Name an d Address Organization Details Last Updated DateTime 01/29/2023 103 /min GEORGIA ANDERSON PA - [facility] 01/29/2023 17:23:23 Date Recorded Body temperature Provider Name a nd Address Organization Details Last Updated DateTime 01/29/2023 98.5 [degF] GEORGIA ANDERSON PA - [facility] 01/29/2023 17:23:55 Date Recorded Systolic blood pressure Diastolic blood pressure Provider Name and Address Organization Details Last Updated DateTime 01/29/2023 150 mm[Hg] 60 mm[Hg] GEORGIA ANDERSON PA - [facility] 01/29/2023 17:23:13 Social History Question Answer Notes LastModified by Organizat ion Details LastModified Time Tobacco Smoking Status Never Smoker GEORGIA ANDERSON dante, [place] - [facility] 01/29/2023 17:18:19 What Is Your Level Of Alcohol Consumption? Occasional Information not available 01/29/2023 Have You Had A Flu Shot This Season? No Information not available 01/29/2023 If No, Would You Like A Flu Shot Today? No Information not available 01/29/2023 Do You Use Any Illicit Or Recreational Drugs? No Information not available 01/29/2023 Have You Recently Traveled Abroad? No Information not available 01/29/2023 Do You Or Have You Ever Used Any Other Forms Of Tobacco Or Nicotine? No Information not available 01/29/2023 Sex: Unknown Functional Status None recorded. Mental Status None recorded. Family History Relationship Description Onset Age of this Age Resolved Age Notes LastModified by Organization Details LastModified Time Mother Hypertensive disorder Not available 17:17:03 Mother Kidney disease Not available 17:17:22 Father Myocardial infarction Not available 17:17:15 Medical History No medical history recorded. Gynecological History Statement/Question Response LMP N/A Obstetrics History GPAL:G 0 P 0 0 0 0 Past Encounters Encounter ID Performer Location Encounter Start Date Encounter Closed Date Diagnosis/Indication Diagnosis SNOMED-CT Code Diagnosis ICD10 Code Diagnosis Note [id number] [place] [address] [address] [address] [address] 01/29/2023 17:01:41 01/29/2023 17:59:55 Acute sinusitis 82757419 J01.90 Low back pain 561780088 M54.50 Health Concerns Section Related Observation LastModified by Organization Detai ls LastModified Time None Recorded Concern Status LastModified by Organization Details LastModified Time None Recorded Advance Directives Directive None Recorded Payers Encounter Date Sequence Insurance Name Policy Number Policy Arvizu Covered Member ID Arvizu Member ID Guarantor Name 01/29/2023 1 MEDICARE [place]: [employer] Yuni Delatorre [id number] Yuni Delatorre Notes Date Note Type Note Provider Name and Address Organization Details Recorded Time 01/29/2023 text/html Sinus Complaints UCReported bypatient.Location:sin us pain;facial pain;sinus pressure Associated Symptoms:no fever; no nausea or vomiting; no sore throat; no ear fullness; no nasal itching; no eye itching; no dizziness;difficulty breathing;Post nasal drip;nasal passage blockage;cough Onset/Timing:worse in am; worse in pm Quality:minimal discomfort;worsening; clear Duration:frequent Severity:moderate Context:no recent upper respiratory infection; no recent sick contacts; not worse with seasonal allergen exposure;worse with environmental exposure Risk Factors:no current smoking or tobacco use; no history of nasal trauma Alleviating factors:oral steroids Aggravating factors:worse during an upper respiratory infection (a cold); worse with excess fatigue Prior Treatmentoral decongestantLower BackReported bypatient.Location:lef t; posterior Quality:aching; burning; frequent; worsening Severity:moderate Duration:7 days Timing:acute; morning; daytime; nighttime Context:fall; lifting Alleviating Factors:rest; NSAIDs Aggravating Factors:walking; lifting; carrying; bending/squatting; pushing/pulling Associated Symptoms:no weakness; no numbness; no swelling; no redness; no warmth; no ecchymosis; no catching/locking; no popping/clicking; no buckling; no grinding; no instability; no radiation down leg; no drainage; no fever; no chills; no weight loss; no change in bowel/bladder habits;tingling Previous Surgery:none Prior Imaging:none Previous Injections:none Previous PT:none Work Related:no Working:no Tristian Sanchez NP [address] [place], [address], [place] - [facility] 01/29/2023 17:59:19 OBGyn Episode No OBEpisode recorded.
--- OUTSIDE RECORDS SUMMARY | 2024-06-06 14:56 | XMS_ITS | Clinical Summary ---
Author Organization [facility] Address [address] [place] [address] Phone Care Team Providers Care Telecommunications Support Name Role Phone Manuel Herrera MD Primary Care Provider [phone] Allergies Active Allergy Reactions Criticality Noted Date Comments Cimetidine GI intolerance 01/27/2022 Other reaction(s): upset stomach Ciprofloxacin Other (see comments) 07/25/2020 Clindamycin 01/27/2022 Other reaction(s): unknown Diltiazem Other (see comments) 07/25/2020 Enalapril Other (see comments) 07/25/2020 Lisinopril Other (see comments) 07/25/2020 Oxycodone 01/27/2022 Other reaction(s): loopy altered per family oxycodone makes the pt loopy and altered Sulfa Antibiotics Other (see comments) 07/26/19 Timolol 01/27/2022 Other reaction(s): sting eyes stinging eyes Medications amLODIPine (NORVASC) 5 MG tablet Take 1 tablet by mouth 2 (two) times a day Active aspirin (ST HARSH) 81 MG EC tablet Take 1 tablet by mouth 1 (one) time each day Active fenofibrate (TRICOR) 54 MG tablet Take 1 tablet by mouth 1 (one) time each day Active fluticasone (Flonase Sensimist) 27.5 MCG/SPRAY nasal spray Active levothyroxine (SYNTHROID, LEVOTHROID) 100 MCG tablet Take 1 tablet by mouth 1 (one) time each day Active rosuvastatin (CRESTOR) 5 MG tablet Take 1 tablet by mouth 1 (one) time each day Active traMADol (ULTRAM) 50 MG tablet Take 1 tablet by mouth 2 (two) times a day if needed 10/23/2020 Active Repatha 140 MG/ML solution prefilled syringe 07/13/2021 Active hydrALAZINE 50 MG tablet Take 1 tablet (50 mg total) by mouth in the morning and 1 tablet (50 mg total) in the evening and 1 tablet (50 mg total) before bedtime. 270 tablet 3 03/25/2022 Active carvedilol (Coreg) 25 MG tablet Take 1 tablet (25 mg total) by mouth in the morning and 1 tablet (25 mg total) in the evening. Take with meals. 60 tablet 5 02/03/2023 Active losartan (COZAAR) 25 MG tabletIndicatio ns:Stage 3a chronic kidney disease (HCC),Hypertens ion Take 1 tablet (25 mg total) by mouth 1 (one) time each day 30 tablet 5 05/27/2023 Active Active Problems Problem Noted Date Diagnosed Date Fracture of bone of hip region 01/27/2022 Injury of kidney 01/27/2022 Osteoarthritis 01/27/2022 Vertigo 04/24/2021 Hypertension 12/17/2020 Stage 3a chronic kidney disease 07/25/2020 Essential hypertension 07/25/2020 Immunizations Name Administration Dates Next Due Influenza Split High Dose Preservative Free IM 0 01/19/2017 Pneumococcal Polysaccharide 08/07/2009 Family History Medical History Relation Comments Heart disease Father Dementia Mother Diabetes Mother Hypertension Mother Kidney disease Mother Stroke Mother Hypertension Sibling 1 Heart disease Sibling 2 Relation Status Comments Father Mother Sibling 1 Sibling 2 Social History Tobacco Use Types Packs/Day Years Used Date Smoking Tobacco: Never Smokeless Tobacco: Never Tobacco Cessation:Counseling Given: Not Answered Alcohol Use Standard Drinks/Week Comments Yes 0 (1 standard drink = 0.6 oz pure alcohol) Alcoholic Drinks/day: Occasional social drink Comments Unknown Sex and Gender Information Value Date Recorded Sex Assigned at Not on file Legal Sex Female 5:03 PM EST Gender Identity Not on file Sexual Orientation Not on file Last Filed Vital Signs Vital Sign Reading Time Taken Comments Blood Pressure 130/60 08/11/2022 1:12 PM EDT Pulse 62 08/11/2022 1:12 PM EDT Temperature - - Respiratory Rate - - Oxygen Saturation 98% 04/24/2021 2:37 PM EST Inhaled Oxygen Concentration - - Weight 63.3 kg (139 lb 9.6 oz) 08/11/2022 1:12 P M EDT Height 160 cm (5' 3 ) 04/16/2020 12:00 PM EST Body Mass Index 24.73 04/16/2020 12:00 PM EST Plan of Treatment Health Maintenance Due Date Last Done Comments Pneumococcal Vaccine: 65+ Ye ars (2 of 2 - PCV) 08/07/2010 08/07/2009 Influenza Vaccine (#1) 2024 01/19/2017 Hepatitis B Vaccine Aged Out No longe r eligible based on patient's age to complete this topic Insurance [facility] MEDICARE [facility] MEDICARE Care Teams Telecommunications Support Relationship Specialty Start Date End Date Manuel Herrera MD [id number] [place] PCP - General 05/19/20
== END 2024-06-06 13:19 | disposition home or self-care (01) ==
PROVIDERS: PCP Internal Medicine; Visit Provider Internal Medicine
DX: R09.89 Other specified symptoms and signs involving the circulatory and respiratory systems (principal); I35.0 Nonrheumatic aortic (valve) stenosis; E78.5 Hyperlipidemia, unspecified; Z78.9 Other specified health status; I65.23 Occlusion and stenosis of bilateral carotid arteries
CPT/HCPCS: 93010; 99214

== ENCOUNTER → 2024-06-06 12:50 | Outpatient (BNVA) | payer MEDICARE, SELFPAY | PROVIDERS: PCP Internal Medicine; Visit Provider Internal Medicine | DX: I10 Essential (primary) hypertension (principal); R09.89 Other specified symptoms and signs involving the circulatory and respiratory systems; I35.0 Nonrheumatic aortic (valve) stenosis; E78.5 Hyperlipidemia, unspecified; I65.23 Occlusion and stenosis of bilateral carotid arteries; Z78.9 Other specified health status | CPT/HCPCS: 93005; 99212 ==

== ENCOUNTER 2024-07-03 06:40 | Outpatient (REF) | payer MEDICARE, SELFPAY ==
--- NOTE | ~2024-07-03 | FL_ITS ---
EXAMINATION: FL GUIDANCE ONLY HISTORY: M46.1 - Sacroiliitis, not elsewhere classified COMPARISON: None available. TECHNIQUE: Fluoroscopy time: 0.3 minutes. Cumulative Dose: 3.53 mGy. DAP: 0.0613 mGym2 Images: 2. FINDINGS: Images demonstrate needles and contrast material in the regions of the bilateral sacroiliac joints. FL/FL guidance in treatment room IMPRESSION: Fluoroscopy during procedure. Please see procedure report for additional information. Electronically signed by: Nikhil Ocampo MD 07/04/2024 07:34 AM ROLANDO NATARAJAN
== END 2024-07-03 06:41 | disposition home or self-care (01) ==
LOC: CF 06:40
PROVIDERS: Visit Provider Anesthesiology
DX: M46.1 Sacroiliitis, not elsewhere classified (principal)
CPT/HCPCS: 27096; J2003; J2795; Q9967

== ENCOUNTER 2024-07-03 13:56 | Outpatient (AMB) | payer MEDICARE, SELFPAY ==
[2024-07-03 14:07] VITALS: BP 148/76; PULSE 63; O2SAT 97
--- NOTE | 2024-07-03 14:07 | MHC.OFFVIS ---
Vital Signs 07/03/24 14:07 07/03/24 14:30 BP 148/76 H 142/80 H Blood Pressure Location Lt brachial Lt brachial Position Sitting Sitting Pulse 63 86 Pulse Source Pulse Oximeter Pulse Oximeter Pulse Oximetry (%) 97 96 Oxygen Delivery Method Room Air Room Air Comment Pre-Op Post-Op Intake Visit Reasons: BILATERAL DIAGNOSTIC SIJ INJECTIONS Allergies cimetidine [From TAGAMET] Allergy (Unknown, Verified 05/15/24 10:12) GI UPSET ciprofloxacin [From CIPRO] Allergy (Unknown, Verified 05/15/24 10:12) GI UPSET diltiazem [From CARDIZEM] Allergy (Unknown, Verified 05/15/24 10:12) HIVES lisinopril [From ZESTRIL] Allergy (Unknown, Verified 05/15/24 10:12) LIGHTHESDEDNESS GI UPSET Sulfa (Sulfonamide Antibiotics) [SULFA (SULFONAMIDE ANTIBIOTICS)] Allergy (Unknown, Verified 05/15/24 10:12) HIVES timolol [From ISTALOL] Allergy (Unknown, Verified 05/15/24 10:12) STINGING does not handle GENERIC meds w Allergy (Unknown, Uncoded 03/29/24 10:17) k [facility] Medical History Carotid stenosis, bilateral Statin intolerance Other and unspecified hyperlipidemia Non-rheumatic aortic stenosis Labile hypertension Surgical History History of cholecystectomy (~01/28/21) History of appendectomy Family History Father No problems noted. Mother No problems noted. 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 Physical Exam Vital Signs: Last Vital Signs Pulse 86 07/03/24 14:30 BP 142/80 H 07/03/24 14:30 Pulse Ox 96 07/03/24 14:30 Oxygen Delivery Method Room Air 07/03/24 14:30 Assessment & Plan Assessment & Plan (1) Spondylosis of lumbar region without myelopathy or radiculopathy: Code(s): M47.816 - Spondylosis without myelopathy or radiculopathy, lumbar region Category: Medical (2) Sacroiliac joint dysfunction of both sides: Code(s): M53.3 - Sacrococcygeal disorders, not elsewhere classified Category: Medical (3) Sacroiliitis: Code(s): M46.1 - Sacroiliitis, not elsewhere classified Category: Medical (4) Chronic pain syndrome: Code(s): G89.4 - Chronic pain syndrome Category: Medical Plan Diagnostic bilateral sacroiliac joint injection. Informed consent was thoroughly explained to the patient before the procedure.? The patient came to the operating room.? She was positioned prone on operating table with a pillow under her abdomen.? Time-out was performed delineating correct site and side of the procedure, nature of the injection, name and date of of the patient. The lower back and upper buttocks of the patient was prepped with ChloraPrep and draped with sterile utility towels.? C-arm was brought over the operating field the image of the sacroiliac joint was demonstrated on the screen. Significant sacroiliac joint diastasis was noted on the screen. Sacroiliac joint instability most likely is the cause of this patient's pain. Tilting machine contralateral to the left the anterior portion of sacroiliac joint was superimposed of the posterior portion of the sacroiliac joint. After that projection of the sacroiliac joint to the skin was injected with mixture of lidocaine 2 % and ropivacaine 0.5% to form a skin wheal. After that 22 gauge 3-1/2 inch needle was inserted through the skin wheal and advanced to the sacroiliac joint. After that injection of the contrast was performed delineating intrathecal spread of the contrast. After that injection of the ropivacaine 0.5% 5 cc was performed into the joint. The needle was removed sterile Band-Aid was applied. Patient tolerated the procedure well. Orders: Orders FL guidance in treatment room Today M46.1 - Sacroiliitis, not elsewhere classified Coding Level of Care Code Procedure Only Diagnoses Spondylosis of lumbar region without myelopathy or radiculopathy M47.816 Sacroiliac joint dysfunction of both sides M53.3 Sacroiliitis M46.1 Chronic pain syndrome G89.4
[2024-07-03 14:30] VITALS: BP 142/80; PULSE 86; O2SAT 96
--- OUTSIDE RECORDS SUMMARY | 2024-07-03 17:26 | XMS_ITS | Data Portability ---
Author Organization DUSTIN Arriaga s, [address] Address [address] [place] [address] Care Team Providers Care Tech Ed Teacher Name Role Phone [facility] [employer] Primary Care Provider Assessment No assessment recorded. Plan of Treatment Reminders Order Date Submit Date Provider Last Modified By Organization Details Last Modified Time Details Appointments None recorded. Lab urinalysis, dipstick 2022 023 [facility], [address] [place], [address], 17:59:00 Referral None recorded. Procedures None recorded. Surgeries None recorded. Imaging None recorded. Medication Orders lidocaine 5 % topical patch 2022 023 [facility], [address] [place], [address], 3 17:59:01 Flonase Allergy Relief 50 mcg/actuati on nasal spray,suspe nsion 2022 023 [facility], [address] [place], [address], 3 17:58:59 loratadine 10 mg tablet 2022 023 [facility], [address] [place], [address], 17:58:59 Patient TargetsNo targets recorded. Patient Instructions Encounter Date Encounter Id Patient Instructions Last Modified By Organization Details Last Modified Time 01/29/2023 [id number] getting back to normal after low back [...] care for yourself at home? Take an webw-hqr-qsdsida pain medicine. Avoid Ibuprofen, Aleve and Aspirin if . If the doctor prescribed antibiotics, take them as directed. Do not stop taking them just because you feel better. You need to take the full course of antibiotics. Be careful when taking tjjx-jov-yaobqdr cold or influenza (flu) medicines and Tylenol [...] = light yellow Not Available [facility] [address] [place] [address], [phone], 01/29/2023 17:24:05 01/30/2001/29/2023 urina lysis , dipst ick Unknown Analyte Yellow Not Available [facility] [address] [place] [address], [phone], 01/29/2023 17:24:05 01/30/2001/29/2023 urina lysis , dipst ick Unknown Analyte Normal = clear Not Available [facility] [address] [place] [address], [phone], 01/29/2023 17:24:05 01/30/2001/29/2023 urina lysis , dipst ick Unknown Analyte Clear Not Available [facility] [address] [place] [address], [phone], 01/29/2023 17:24:05 01/30/2001/29/2023 urina lysis , dipst ick Unknown Analyte Normal = negati ve Not Available [facility] [address] [place] [address], [phone], 01/29/2023 17:24:05 01/30/20 23 01/29/2023 urina lysis , dipst ick Unknown Analyte Negati ve Not Available [facility] [address] [place] [address], [phone], 01/29/2023 17:24:05 01/30/2001/29/2023 urina lysis , dipst ick Unknown Analyte Normal = Negati ve Not Available [facility] [address] [place] [address], [phone], 01/29/2023 17:24:05 01/30/2001/29/2023 urina lysis , dipst ick Unknown Analyte Negati ve Not Available [facility] [address] [place] [address], [phone], 01/29/2023 17:24:05 01/30/2001/29/2023 urina lysis , dipst ick Unknown Analyte Normal = Negati ve Not Available [facility] [address] [place] [address], [phone], 01/29/2023 17:24:05 01/30/2001/29/2023 urina lysis , dipst ick Unknown Analyte Negati ve Not Available [facility] [address] [place] [address], [phone], 01/29/2023 17:24:05 01/30/2001/29/2023 urina lysis , dipst ick Unknown Analyte Normal = 1.010, 1.015, 1.020 Not Available [facility] [address] [place] [address], [phone], 01/29/2023 17:24:05 01/30/20 23 01/29/2023 urina lysis , dipst ick Unknown Analyte 1.020 Not Available [facility] [address] [place] [address], [phone], 01/29/2023 17:24:05 01/30/20 23 01/29/2023 urina lysis , dipst ick Unknown Analyte Normal = Negati ve Not Available [facility] [address] [place] [address], [phone], 01/29/2023 17:24:05 01/30/2001/29/2023 urina lysis , dipst ick Unknown Analyte Negati ve Not Available [facility] [address] [place] [address], [phone], 01/29/2023 17:24:05 01/30/20 23 01/29/2023 urina lysis , dipst ick Unknown Analyte Normal = 6.5, 7.0, 7.5, 8.0 Not Available [facility] [address] [place] [address], [phone], 01/29/2023 17:24:05 01/30/20 23 01/29/2023 urina lysis , dipst ick Unknown Analyte 5.0 Not Available [facility] [address] [place] [address], [phone], 01/29/2023 17:24:05 01/30/20 23 01/29/2023 urina lysis , dipst ick Unknown Analyte Normal = Negati ve Not Available [facility] [address] [place] [address], [phone], 01/29/2023 17:24:05 01/30/20 23 01/29/2023 urina lysis , dipst ick Unknown Analyte Negati ve Not Available [facility] [address] [place] [address], [phone], 01/29/2023 17:24:05 01/30/2001/29/2023 urina lysis , dipst ick Unknown Analyte Normal = 0.2, 1.0 Not Available [facility] [address] [place] [address], [phone], 01/29/2023 17:24:05 01/30/2001/29/2023 urina lysis , dipst ick Unknown Analyte 1.0 E.U./d L Not Available [facility] [address] [place] [address], [phone], 01/29/2023 17:24:05 01/30/2001/29/2023 urina lysis , dipst ick Unknown Analyte Normal = Negati ve Not Available [facility] [address] [place] [address], [phone], 01/29/2023 17:24:05 01/30/2001/29/2023 urina lysis , dipst ick Unknown Analyte Negati ve Not Available [facility] [address] [place] [address], [phone], 01/29/2023 17:24:05 01/30/2001/29/2023 urina lysis , dipst ick Unknown Analyte Normal = Negati ve Not Available [facility] [address] [place] [address], [phone], 01/29/2023 17:24:05 01/30/2001/29/2023 urina lysis , dipst ick Unknown Analyte Negati ve Not Available [facility] [address] [place] [address], [phone], 01/29/2023 17:24:05 Result Notes None recorded. Problems Name Problem SNOMED Code Status Onset Date Resolution Date Notes Provider Name and Address Organization Details Recorded Time Hypertensive disorder 02912903 Active GEORGIA ZARAGOZA-RIVE RA null, [place] - [facility] 3 17:16:04 Disorder of thyroid gland 24822279 Active GEORGIA ZARAGOZA-RIVE RA null, [place] - [facility] 3 17:16:16 Hypercholestero lemia 64464226 Active GEORGIA ZARAGOZA-RIVE RA null, [place] - [facility] 3 17:16:30 Glaucoma 57953020 Active GEORGIA ZARAGOZA-RIVE RA null, PA - [...] Name and Address Organization Details Recorded Time 129676 Cipro medicatio n Not available Not available Not available 01/29/202335569 3 RxNorm GEORGIA ZARAGOZA-RIVE RA null, [place] - [facility] 17:11:52 828906 Substance with sulfonami de structure and antibacte rial mechanism of action (substanc e) medicatio n Not available Not available Not available 01/29/2023 75588 8003 SNOMED GEORGIA ZARAGOZA-RIVE RA null, [place] - [facility] 3 17:12:02 932388 Zestril medicatio n Not available Not available Not available 01/29/202319637 2 RxNorm GEORGIA ZARAGOZA-RIVE RA null, [place] - [facility] 3 17:12:38 123168 Cardizem medicatio n Not available Not available Not available 01/29/202305665 4 RxNorm GEORGIA ZARAGOZA-RIVE RA null, [place] - [facility] 3 17:12:48 841156 Tagamet medicatio n Not available Not available Not available 01/29/2023 24624 2 RxNorm GEORGIADUSTIN Govea RA [facility] 3 17:13:01 328784 Istalol medicatio n Not available Not available Not available 01/29/2023 44078 9 RxNorm DUSTIN Bell RA - [facility] 3 17:13:28 Medications Name Sig Start Date Stop [...] Relief 50 mcg/actuatio n nasal spray,suspen enrique Latham 1 spray every day by intranasal route as directed for 30 days. 2022 active Not Available Not Available Not Avai lable Repatha Syringe active Not Available Not Available Not Available Vitals Date Recorded Body height Body mass index (BMI) Body weight Pain severity - 0-10 verbal numeric rating [Score] - Reported Respiratory rate Oxygen saturation Oxygen saturation in Arterial blood by Pulse oximetry Heart rate Body temperature Systolic blood pressure Diastolic blood pressure Provider Name and Address Organization Details Last Updated DateTime 3 157.48 cm 23.8 kg/m2 83196.0 1 g 8 17 /min 95 % 95 % 103 /min 98.5 [degF] 150 mm[Hg] 60 mm[Hg] GEORGIA CHAN - [facility] 17:23:13 Social History Question Answer Notes LastModified by Organizat ion Details LastModified Time Tobacco Smoking Status Never Smoker DUSTIN Murillo [facility] 01/29/2023 17:18:19 What Is Your [...] SNOMED-CT Code Diagnosis ICD10 Code Diagnosis Note [id number] [place] [address] [phone] 01/29/2023 17:01:41 01/29/2023 17:59:55 Acute sinusitis 96695309 J01.90 Low back pain 895742382 M54.50 Health Concerns Section Related Observation LastModified by Organization Detai ls LastModified Time None Recorded Concern Status LastModified by Organization Details LastModified Time None Recorded Advance Directives Directive None Recorded Payers Encounter Date Sequence Insurance Name Policy Number Policy Arvizu Covered Member ID Arvizu Member ID Guarantor Name 01/29/2023 1 [place]ARE [place] [employer] Yuni Delatorre [id number] Yuni Delatorre Notes Date Note Type [...] Injections:none Previous PT:none Work Related:no Working:no Tristian MIKE Sanchez [address] [place], [address], [place] - [facility] 01/29/2023 17:59:19 OBGyn Episode No OBEpisode recorded.
--- OUTSIDE RECORDS SUMMARY | 2024-07-03 17:26 | XMS_ITS | Clinical Summary ---
Author Organization [facility] Address [address] [place] [address] Phone Care Team Providers Care Retail Shift Manager Name Role Phone Manuel Herrera MD Primary Care Provider [phone] Allergies Active Allergy Reactions Criticality Noted Date [...] patient's age to complete this topic Insurance [facility] Care Teams Retail Shift Manager Relationship Specialty Start Date End Date Maneul Herrera MD [address] [place] PCP - General 05/19/20
--- OUTSIDE RECORDS SUMMARY | 2024-07-03 17:27 | XMS_ITS | Data Portability ---
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 03/22/2024. Increased to #4 adaptation for clarity. Hearing so much better. Loves new hearing aids - was able to download serenity. Reviewed daily care and maintenance. 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 F/u 2 weeks. NAVJOT MARTINEZ, AUD 100 [facility],[address] [address], [place], [address], [facility] - [facility] 04/26/2024 10:16:26 OBGyn Episode No OBEpisode recorded.
== END 2024-07-03 14:27 | disposition home or self-care (01) ==
LOC: HO.PMCPRC 13:56
PROVIDERS: PCP Internal Medicine; Visit Provider Anesthesiology
DX: M53.3 Sacrococcygeal disorders, not elsewhere classified (principal); M46.1 Sacroiliitis, not elsewhere classified; G89.4 Chronic pain syndrome
CPT/HCPCS: 27096

== ENCOUNTER 2024-07-09 09:39 | Outpatient (AMB) | payer MEDICARE, SELFPAY ==
[2024-07-09 09:41] VITALS: BP 147/62; PULSE 63; O2SAT 95; BMI 24.9
--- NOTE | 2024-07-09 09:41 | MHC.OFFVIS ---
Vital Signs 07/09/24 09:41 Height 5 ft 2 in Weight 136 lb 4 oz BMI 24.9 BP 147/62 H Blood Pressure Location Lt brachial Position Sitting Pulse 63 Pulse Source Doppler Pulse Oximetry (%) 95 Oxygen Delivery Method Room Air Intake Visit Reasons: BILATERAL DIAGNOSTIC SIJ INJECTIONS Allergies cimetidine [From TAGAMET] Allergy (Unknown, Verified 07/09/24 09:47) GI UPSET ciprofloxacin [From CIPRO] Allergy (Unknown, Verified 07/09/24 09:47) GI UPSET diltiazem [From CARDIZEM] Allergy (Unknown, Verified 07/09/24 09:47) HIVES lisinopril [From ZESTRIL] Allergy (Unknown, Verified 07/09/24 09:47) LIGHTHESDEDNESS GI UPSET Sulfa (Sulfonamide Antibiotics) [SULFA (SULFONAMIDE ANTIBIOTICS)] Allergy (Unknown, Verified 07/09/24 09:47) HIVES timolol [From ISTALOL] Allergy (Unknown, Verified 07/09/24 09:47) STINGING does not handle GENERIC meds w Allergy (Unknown, Uncoded 03/29/24 10:17) unk HPI Comments Details: Yuni Rivsa) is back in my office after diagnostic bilateral sacroiliac joint injection. She reports complete absence of pain for the 1st 6 hours after the procedure. She reports excellent mobility excellent activities of daily living and good social interactions after the injection. I explained to the patient that now we know her spinal cord stimulator. Her pain is starting to come back now and I will schedule her for therapeutic sacroiliac joint injection. I will minimize steroids for her since she is 84 years old. Prior:C/o on pain in lower back. She reported that this pain started many years ago. For a while she was handling this pain with oral medications and chiropractic manipulations. However now the pain became severe and she went to Dr. Hammond consult. Diagnosis of sacrococcygeal disorder was introduced. Patient was sent here for discussion of the further treatment. [facility] Medical History Carotid stenosis, bilateral Statin intolerance Other and unspecified hyperlipidemia Non-rheumatic aortic stenosis Labile hypertension Surgical History History of cholecystectomy (~01/28/21) History of appendectomy Family History Father No problems noted. Mother No problems noted. 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 Review of Systems Const All systems reviewed & are unremarkable except as noted in HPI and below ENT Reports Normal hearing present Neuro Reports Normal hearing present, Denies Abnormal speech present, Denies confusion and Denies Sensory deficit (Neuro) Psych Denies confusion Physical Exam Vital Signs: Last Vital Signs Pulse 63 07/09/24 09:41 BP 147/62 H 07/09/24 09:41 Pulse Ox 95 07/09/24 09:41 Oxygen Delivery Method Room Air 07/09/24 09:41 BMI result Body Mass Index 24.9 Const General: no acute distress; No confusion Orientation/consciousness: patient oriented x3 and No confusion Eyes General: appearance normal, both eyes and all related structures Pupils: Equal, round and reactive pupils present EOM: EOMs intact bilaterally Neck Neck: Yes full ROM Chest Chest palpation & inspection: normal inspection of the chest Resp Effort & Inspection: normal respiratory effort, able to speak in complete sentences, normal respiratory pattern, no audible wheezes and no cough Cardio Jugular venous distension: no JVD GI Inspection: Yes normal to inspection Back/Spine/Pelvis Other: Able to stand on bilateral tiptoes with vigor. Able to stand on bilateral heels with small difficulty . Able to flex herself forward and backwards with great degree, she reports pain aggravation with flexing forward equal to pain aggravation with flexing backwards. SLR is negative bilaterally. Jefe test is positive bilaterally. Pelvic compression test is positive bilaterally. Pelvic distraction test is positive bilaterally. Loading test is positive bilaterally. Neuro General: patient oriented x3, gait normal and No confusion Cranial nerves: Yes CN's II-XII intact bilaterally, Yes Equal, round and reactive pupils present, Yes Normal hearing present and Yes Ability to bilaterally elevate shoulders present Speech: No Abnormal speech present Gait exam (Neuro): Normal gait present Motor exam (neuro): 5/5 motor strength present throughout Sensory Exam: No Sensory deficit (Neuro) Extrem General: No pedal edema Psych Speech and movement: Normal speech and movement present Affect: normal affect Attitude: cooperative Thought process: Normal thought process present Thought content: Normal thought content present Insight: Good insight present (Psych) Judgement: Good judgement present (Psych) Assessment & Plan Assessment & Plan (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 Now pain starting to come back. I will schedule her for therapeutic sacroiliac joint injection. Depending of the longevity of the therapeutic steroid sacroiliac joint injection we will decide whether or not this patient will be a good candidate for PNS or continuation of steroid injections. Patient Instructions: I here by testify that I spent 30 minutes in conversation with this patient as well as planning her care and organizing this note. Coding Level of Care Code Est Pt Level 4 (79774) Diagnoses Spondylosis of lumbar region without myelopathy or radiculopathy M47.816 Sacroiliac joint dysfunction of both sides M53.3 Sacroiliitis M46.1 Chronic pain syndrome G89.4
--- OUTSIDE RECORDS SUMMARY | 2024-07-09 10:44 | XMS_ITS | Clinical Summary ---
Author Organization [facility] Address [address] [place] [address] Phone Care Team Providers Care Digital Media Representative Name Role Phone Manuel Herrera MD Primary Care Provider Allergies Active Allergy Reactions Criticality Noted Date [...] patient's age to complete this topic Insurance [facility] MEDICARE [facility] MEDICARE Care Teams Digital Media Representative Relationship Specialty Start Date End Date Manuel Herrera MD [address] [place] PCP - General 05/19/20
--- OUTSIDE RECORDS SUMMARY | 2024-07-09 10:44 | XMS_ITS | Data Portability ---
Author Organization [facility], [address] Address [address] [place] [address] Care Team Providers Care Therapist'S Assistant Name Role Phone [facility] Primary Care Provider Assessment No assessment recorded. Plan of Treatment Reminders Order Date Submit Date Provider Last Modified By Organization Details Last Modified Time Details Appointments None recorded. Lab urinalysis, dipstick 2022 023 [facility], [address] [place], [address], 17:59:00 Referral None recorded. Procedures None recorded. Surgeries None recorded. Imaging None recorded. Medication Orders lidocaine 5 % topical patch 2022 023 [facility], [address] [place], [address], 17:59:01 Flonase Allergy Relief 50 mcg/actuati on nasal spray,suspe nsion 2022 023 [facility], [address] [place], [address], 17:58:59 loratadine 10 mg tablet 2022 023 [facility], [address] [place], [address], 17:58:59 Patient TargetsNo targets recorded. Patient Instructions Encounter Date Encounter Id Patient Instructions Last Modified By Organization Details Last Modified Time 01/29/2023 [id number] getting back to normal after low back [...] care for yourself at home? Take an irui-ikl-mauyzpg pain medicine. Avoid Ibuprofen, Aleve and Aspirin if . If the doctor prescribed antibiotics, take them as directed. Do not stop taking them just because you feel better. You need to take the full course of antibiotics. Be careful when taking emqn-xfn-qfrxrbu cold or influenza (flu) medicines and Tylenol [...] = light yellow Not Available [facility] [address] [place] [address], [phone], 01/29/2023 17:24:05 01/30/2001/29/2023 urina lysis , dipst ick Unknown Analyte Yellow Not Available [facility] [address] [place] [address], [phone], 01/29/2023 17:24:05 01/30/2001/29/2023 urina lysis , dipst ick Unknown Analyte Normal = clear Not Available [facility] [address] [place] [address], [phone], 01/29/2023 17:24:05 01/30/2001/29/2023 urina lysis , dipst ick Unknown Analyte Clear Not Available [facility] [address] [place] [address], [phone], 01/29/2023 17:24:05 01/30/2001/29/2023 urina lysis , dipst ick Unknown Analyte Normal = negati ve Not Available [facility] [address] [place] [address], [phone], 01/29/2023 17:24:05 01/30/20 23 01/29/2023 urina lysis , dipst ick Unknown Analyte Negati ve Not Available [facility] [address] [place] [address], [phone], 01/29/2023 17:24:05 01/30/2001/29/2023 urina lysis , dipst ick Unknown Analyte Normal = Negati ve Not Available [facility] [address] [place] [address], [phone], 01/29/2023 17:24:05 01/30/2001/29/2023 urina lysis , dipst ick Unknown Analyte Negati ve Not Available [facility] [address] [place] [address], [phone], 01/29/2023 17:24:05 01/30/2001/29/2023 urina lysis , dipst ick Unknown Analyte Normal = Negati ve Not Available [facility] [address] [place] [address], [phone], 01/29/2023 17:24:05 01/30/2001/29/2023 urina lysis , dipst ick Unknown Analyte Negati ve Not Available [facility] [address] [place] [address], [phone], 01/29/2023 17:24:05 01/30/2001/29/2023 urina lysis , dipst ick Unknown Analyte Normal = 1.010, 1.015, 1.020 Not Available [facility] [address] [place] [address], [phone], 01/29/2023 17:24:05 01/30/20 23 01/29/2023 urina lysis , dipst ick Unknown Analyte 1.020 Not Available [facility] [address] [place] [address], [phone], 01/29/2023 17:24:05 01/30/20 23 01/29/2023 urina lysis , dipst ick Unknown Analyte Normal = Negati ve Not Available [facility] [address] [place] [address], [phone], 01/29/2023 17:24:05 01/30/2001/29/2023 urina lysis , dipst ick Unknown Analyte Negati ve Not Available [facility] [address] [place] [address], [phone], 01/29/2023 17:24:05 01/30/20 23 01/29/2023 urina lysis , dipst ick Unknown Analyte Normal = 6.5, 7.0, 7.5, 8.0 Not Available [facility] [address] [place] [address], [phone], 01/29/2023 17:24:05 01/30/20 23 01/29/2023 urina lysis , dipst ick Unknown Analyte 5.0 Not Available [facility] [address] [place] [address], [phone], 01/29/2023 17:24:05 01/30/20 23 01/29/2023 urina lysis , dipst ick Unknown Analyte Normal = Negati ve Not Available [facility] [address] [place] [address], [phone], 01/29/2023 17:24:05 01/30/20 23 01/29/2023 urina lysis , dipst ick Unknown Analyte Negati ve Not Available [facility] [address] [place] [address], [phone], 01/29/2023 17:24:05 01/30/2001/29/2023 urina lysis , dipst ick Unknown Analyte Normal = 0.2, 1.0 Not Available [facility] [address] [place] [address], [phone], 01/29/2023 17:24:05 01/30/2001/29/2023 urina lysis , dipst ick Unknown Analyte 1.0 E.U./d L Not Available [facility] [address] [place] [address], [phone], 01/29/2023 17:24:05 01/30/2001/29/2023 urina lysis , dipst ick Unknown Analyte Normal = Negati ve Not Available [facility] [address] [place] [address], [address], 01/29/2023 17:24:05 01/30/2001/29/2023 urina lysis , dipst ick Unknown Analyte Negati ve Not Available [facility] [address] [place] [address], [phone], 01/29/2023 17:24:05 01/30/2001/29/2023 urina lysis , dipst ick Unknown Analyte Normal = Negati ve Not Available [facility] [address] [place] [address], [address], 01/29/2023 17:24:05 01/30/2001/29/2023 urina lysis , dipst ick Unknown Analyte Negati ve Not Available [facility] [address] [place] [address], [phone], 01/29/2023 17:24:05 Result Notes None recorded. Problems Name Problem SNOMED Code Status Onset Date Resolution Date Notes Provider Name and Address Organization Details Recorded Time Hypertensive disorder 63018778 Active GEORGIA ZARAGOZA-RIVE RA null, [place] - [facility] 3 17:16:04 Disorder of thyroid gland 22863951 Active GEORGIA ZARAGOZA-RIVE RA null, [place] - [facility] 3 17:16:16 Hypercholestero lemia 82662157 Active GEORGIA ZARAGOZA-RIVE RA null, [place] - [facility] 3 17:16:30 Glaucoma 37002998 Active GEORGIA ZARAGOZA-RIVE RA null, PA - [...] Name and Address Organization Details Recorded Time 948392 Cipro medicatio n Not available Not available Not available 01/29/202302505 3 RxNorm GEORGIA ZARAGOZA-RIVE RA null, [place] - [facility] 17:11:52 916579 Substance with sulfonami de structure and antibacte rial mechanism of action (substanc e) medicatio n Not available Not available Not available 01/29/2023 36010 8003 SNOMED GEORGIA ZARAGOZA-RIVE RA null, [place] - [facility] 3 17:12:02 911938 Zestril medicatio n Not available Not available Not available 01/29/202319637 2 RxNorm GEORGIA ZARAGOZA-RIVE RA null, [place] - [facility] 3 17:12:38 550914 Cardizem medicatio n Not available Not available Not available 01/29/202302343 4 RxNorm GEORGIA ZARAGOZA-RIVE RA null, [place] - [facility] 3 17:12:48 304839 Tagamet medicatio n Not available Not available Not available 01/29/2023 37672 2 RxNorm GEORGIADUSTIN Govea RA [facility] 3 17:13:01 231892 Istalol medicatio n Not available Not available Not available 01/29/2023 77695 9 RxNorm DUSTIN Bell RA - [facility] [...] Relief 50 mcg/actuatio n nasal spray,suspen enrique Euless 1 spray every day by intranasal route [...] Updated DateTime 3 157.48 cm 23.8 kg/m2 53868.0 1 g 8 17 /min 95 % [...] SNOMED-CT Code Diagnosis ICD10 Code Diagnosis Note [id number] [place] [address] [phone] 01/29/2023 17:01:41 01/29/2023 17:59:55 Acute sinusitis 03954358 J01.90 Low back pain 659804000 M54.50 Health Concerns Section Related Observation LastModified by Organization Detai ls LastModified Time None Recorded Concern Status LastModified by Organization Details LastModified Time None Recorded Advance Directives Directive None Recorded Payers Encounter Date Sequence Insurance Name Policy Number Policy Arvizu Covered Member ID Arvizu Member ID Guarantor Name 01/29/2023 1 [place]ARE [place]: Viadeo Yuni Delatorre [id number] Yuni Delatorre Notes Date Note Type [...] Tristian MIKE Sanchez [address] [place], [address], [place] - [facility] 01/29/2023 17:59:19 OBGyn Episode No OBEpisode recorded.
== END 2024-07-09 10:12 | disposition home or self-care (01) ==
PROVIDERS: PCP Internal Medicine; Visit Provider Anesthesiology
DX: M47.816 Spondylosis without myelopathy or radiculopathy, lumbar region (principal); M53.3 Sacrococcygeal disorders, not elsewhere classified; M46.1 Sacroiliitis, not elsewhere classified; G89.4 Chronic pain syndrome
CPT/HCPCS: 99214

== ENCOUNTER → 2024-07-09 09:39 | Outpatient (BNVA) | payer MEDICARE, SELFPAY | PROVIDERS: PCP Internal Medicine; Visit Provider Anesthesiology | DX: M47.816 Spondylosis without myelopathy or radiculopathy, lumbar region (principal); M53.3 Sacrococcygeal disorders, not elsewhere classified; M46.1 Sacroiliitis, not elsewhere classified; G89.4 Chronic pain syndrome | CPT/HCPCS: 99212 ==

== ENCOUNTER 2024-07-24 06:04 | Outpatient (REF) | payer MEDICARE, SELFPAY ==
--- NOTE | ~2024-07-24 | FL_ITS ---
EXAMINATION: FL GUIDANCE ONLY HISTORY: M46.1 - Sacroiliitis, not elsewhere classified COMPARISON: None available. TECHNIQUE: Fluoroscopy time: 0.2 minutes. Cumulative Dose: 3.06 mGy. DAP: 0.0372 mGym2 Images: 2. FINDINGS: Images demonstrate needles and contrast material in the regions of the bilateral sacroiliac joints. FL/FL guidance in treatment room IMPRESSION: Fluoroscopy during procedure. Please see procedure report for additional information. Electronically signed by: Nikhil Ocampo MD 07/24/2024 09:00 AM EDT
== END 2024-07-24 06:05 | disposition home or self-care (01) ==
LOC: CF 06:04
PROVIDERS: Visit Provider Anesthesiology
DX: M46.1 Sacroiliitis, not elsewhere classified (principal); M53.3 Sacrococcygeal disorders, not elsewhere classified; G89.4 Chronic pain syndrome
CPT/HCPCS: 27096; J2003; J2795; J3301; Q9967

== ENCOUNTER 2024-07-24 07:29 | Outpatient (AMB) | payer MEDICARE, SELFPAY ==
--- OUTSIDE RECORDS SUMMARY | 2024-07-24 07:31 | XMS_ITS | Clinical Summary ---
Author Organization [facility] Address [address] [place] [address] Phone Care Team Providers Care Plate Mill Hand Name Role Phone Manuel Herrera MD Primary Care Provider [phone] Allergies Active Allergy Reactions Criticality Noted Date [...] patient's age to complete this topic Insurance [facility] MEDICARE [facility] MEDICARE Care Teams Plate Mill Hand Relationship Specialty Start Date End Date Manuel Herrera MD [address] [place] PCP - General 05/19/20
[2024-07-24 07:37] VITALS: BP 142/70; PULSE 61; RESP 16; O2SAT 97
--- NOTE | 2024-07-24 07:37 | A.OFFVIS_ITS ---
Vital Signs 07/24/24 07:37 07/24/24 08:24 BP 142/70 H 144/64 H Blood Pressure Location Lt brachial Lt brachial Position Sitting Sitting Respiration 16 16 Pulse 61 67 Pulse Source Pulse Oximeter Pulse Oximeter Pulse Oximetry (%) 97 98 Oxygen Delivery Method Room Air Room Air Intake Visit Reasons: BILATERAL THERAPEUTIC SIJ INJECTION Behavioral Health Care Coordinator Required: No Allergies cimetidine [From TAGAMET] Allergy (Unknown, Verified 07/24/24 07:38) GI UPSET ciprofloxacin [From CIPRO] Allergy (Unknown, Verified 07/24/24 07:38) GI UPSET diltiazem [From CARDIZEM] Allergy (Unknown, Verified 07/24/24 07:38) HIVES lisinopril [From ZESTRIL] Allergy (Unknown, Verified 07/24/24 07:38) LIGHTHESDEDNESS GI UPSET Sulfa (Sulfonamide Antibiotics) [SULFA (SULFONAMIDE ANTIBIOTICS)] Allergy (Unknown, Verified 07/24/24 07:38) HIVES timolol [From ISTALOL] Allergy (Unknown, Verified 07/24/24 07:38) STINGING does not handle GENERIC meds w Allergy (Unknown, Uncoded 07/24/24 07:38) unk Medication List - Last Reconciled 07/24/24 by Bita Elliott LPN amlodipine 5 mg PO BID brimonidine-timolol 0.2-0.5 % drps ophthalmic (eye) budesonide 32 mcg/actuation 2 sprays intranasal DAILY carvedilol 25 mg PO BID evolocumab (Anjali Chow) 140 mg subcut Q2W fenofibrate 54 mg PO DAILY hydralazine 50 mg PO TID 90 days hydralazine 25 mg PO TID levothyroxine 100 mcg PO DAILY losartan 1 tablet in the morning, 1/2 tablet in the evening PO 90 days tobramycin 0.3% drps ophthalmic (eye) [facility] Medical History Carotid stenosis, bilateral Statin intolerance Other and unspecified hyperlipidemia Non-rheumatic aortic stenosis Labile hypertension Surgical History History of cholecystectomy (~01/28/21) History of appendectomy Family History Father No problems noted. Mother No problems noted. 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 Physical Exam Vital Signs: Last Vital Signs Pulse 67 07/24/24 08:24 Resp 16 07/24/24 08:24 BP 144/64 H 07/24/24 08:24 Pulse Ox 98 07/24/24 08:24 Oxygen Delivery Method Room Air 07/24/24 08:24 Assessment & Plan Assessment & Plan (1) Spondylosis of lumbar region without myelopathy or radiculopathy: Code(s): M47.816 - Spondylosis without myelopathy or radiculopathy, lumbar region Category: Medical (2) Sacroiliac joint dysfunction of both sides: Code(s): M53.3 - Sacrococcygeal disorders, not elsewhere classified Category: Medical (3) Sacroiliitis: Code(s): M46.1 - Sacroiliitis, not elsewhere classified Category: Medical (4) Chronic pain syndrome: Code(s): G89.4 - Chronic pain syndrome Category: Medical Plan Therapeutic bilateral sacroiliac joint injection. Informed consent was thoroughly explained to the patient before the procedure.? The patient came to the operating room.? She was positioned prone on operating table with a pillow under her abdomen.? Time-out was performed delineating correct site and side of the procedure, nature of the injection, name and date of of the patient. The lower back and upper buttocks of the patient was prepped with ChloraPrep and draped with sterile utility towels.? C-arm was brought over the operating field the image of the right sacroiliac joint was demonstrated on the screen. Tilting machine contralateral to the left the anterior portion of sacroiliac joint was superimposed of the posterior portion of the sacroiliac joint. After that projection of the sacroiliac joint to the skin was injected with mixture of lidocaine 2 % and ropivacaine 0.5% to form a skin wheal. After that 22 gauge 3- 1/2 inch needle was inserted through the skin wheal and advanced to the sacroiliac joint. After that injection of the contrast was performed delineating intraarticular spread of the contrast. After that injection of the ropivacaine 0.5% 4 cc mixed with 1 cc of Kenalog 40 mg was performed into the joint. The needle was removed and after that the procedure was repeated on the left side in mirroring fashion. Upon completion of the injection sterile Band- Aids were applied. Patient tolerated the procedure well. Orders: Orders FL guidance in treatment room Today M46.1 - Sacroiliitis, not elsewhere classified, M53.3 - Sacrococcygeal disorders, not elsewhere classified Coding Level of Care Code Procedure Only Diagnoses Spondylosis of lumbar region without myelopathy or radiculopathy M47.816 Sacroiliac joint dysfunction of both sides M53.3 Sacroiliitis M46.1 Chronic pain syndrome G89.4
[2024-07-24 08:24] VITALS: BP 144/64; PULSE 67; RESP 16; O2SAT 98
== END 2024-07-24 08:47 | disposition home or self-care (01) ==
LOC: HO.PMCPRC 07:29
PROVIDERS: PCP Internal Medicine; Visit Provider Anesthesiology
DX: M53.3 Sacrococcygeal disorders, not elsewhere classified (principal); M46.1 Sacroiliitis, not elsewhere classified; G89.4 Chronic pain syndrome
CPT/HCPCS: 27096

== ENCOUNTER 2024-07-27 09:08 | Outpatient (REF) | payer MEDICARE, SELFPAY ==
[2024-07-27 11:17] LABS: MANUAL DIFF FLAG NO
[2024-07-27 11:29] LABS: Basophils Percent Auto 0.4 % (0-2); Eosinophils Absolute Auto 0.1 X10*3/uL (0.0-0.4); Eosinophils Percent Auto 0.6 % (0-4); Hematocrit 33.3 % (37.0-47.0); Hemoglobin 10.9 g/dl (12.0-16.0); Imm Gran Abs Auto 0.05 X10*3/uL (0.00-0.03); Imm Gran Pct Auto 0.6 % (0.0-0.4); Lymphocytes Absolute Auto 1.6 X10*3/uL (1.2-4.9); Lymphocytes Percent Auto 19.1 % (20-40); Mean Corpuscular HGB Conc 32.7 g/dl (31.0-35.0); Mean Corpuscular Hemoglobin 31.8 pg (27.0-33.0); Mean Corpuscular Volume 97.1 fL (80.0-98.0); Mean Platelet Volume 9.9 fL (9.4-12.3); Monocytes Absolute Auto 0.6 X10*3/uL (0.1-1.2); Monocytes Percent Auto 6.6 % (2-11); Neutrophils Absolute Auto 6.1 x10*3/uL (2.0-8.3); Neutrophils Percent Auto 72.7 % (45-73); Platelet Count 204 X10*3/uL (160-400); Red Blood Count 3.43 X10*6/uL (4.20-5.50); Red Cell Distribution Width 12.8 % (11.0-16.0); White Blood Count 8.4 X10*3/uL (4.8-10.8)
[2024-07-27 11:30] LABS: Anion Gap 11 (12-20); Blood Urea Nitrogen 39 mg/dL (9-16); Calcium 8.7 mg/dL (8.4-10.2); Carbon Dioxide 21 mmol/L (22-29); Chloride 117 mmol/L (96-108); Estimated Glomerular Filt Rate 41; Potassium 4.9 mmol/L (3.3-5.1); Sodium 144 mmol/L (135-145)
[2024-07-27 11:53] LABS: Alanine Aminotransferase 21 U/L (0-31); Albumin Level 3.8 g/dL (3.5-5.0); Alkaline Phosphatase 74 U/L (39-117); Anion Gap 10 (12-20); Aspartate Amino Transferase 27 U/L (5-31); Bilirubin Total 0.5 mg/dL (0.0-1.0); Blood Urea Nitrogen 38 mg/dL (9-16); Calcium 8.7 mg/dL (8.4-10.2); Carbon Dioxide 21 mmol/L (22-29); Chloride 117 mmol/L (96-108); Cholesterol 74 mg/dL (<200); Estimated Glomerular Filt Rate 44; Glucose Fasting 90 mg/dL (60-99); HDL Cholesterol 35 mg/dL (>40); LDL Cholesterol Calculated 26 mg/dL (<100); Potassium 4.9 mmol/L (3.3-5.1); Sodium 143 mmol/L (135-145); Total Protein 6.4 g/dL (6.5-8.0); Triglycerides 66 mg/dL (<150)
[2024-07-27 12:04] LABS: Thyroid Stimulating Hormone 1.01 uIU/mL (0.32-4.0)
[2024-07-27 13:36] LABS: T4 Thyroxine 5.8 ug/dL (4.5-12.0)
[2024-07-27 18:02] LABS: Appearance Urine Clear; Color Urine Yellow; Glucose Urine UA Negative (Negative); Leukocyte Esterase Urine Large (3+) (Negative); Nitrite Urine Negative (Negative); PH 5.5 (5.0-9.0); Specific Gravity - Urine 1.015 (1.005-1.025); UMIC TRIGGER UA YES; Urine Blood Negative (Negative); Urine Ketones Negative (Negative); Urine Protein Negative (Neg-Trace)
[2024-07-27 18:05] LABS: Bacteria Urine 4+ (None Seen); Hyaline Casts Urine 0-2 /LPF (0-2); RBC Urine 0-2 /HPF (0-2); Squamous Epithelial Cell Urine 0-2 /HPF (0-2)
== END 2024-07-27 09:09 | disposition home or self-care (01) ==
LOC: HO.WFDLDS 09:08
PROVIDERS: Internal Medicine; Visit Provider Internal Medicine Nephrology
DX: Z00.00 Encounter for general adult medical examination without abnormal findings (principal); N18.31 Chronic kidney disease, stage 3a; I10 Essential (primary) hypertension; E03.9 Hypothyroidism, unspecified
CPT/HCPCS: 36415; 80051; 80053; 80061; 81001; 82310; 82565; 84436; 84443; 84520; 85025

== ENCOUNTER 2024-08-01 10:59 | Outpatient (AMB) | payer MEDICARE, SELFPAY ==
--- NOTE | 2024-08-01 11:03 | HO.NEPHOV ---
Vital Signs 08/01/24 11:05 Height 5 ft 2 in Weight 141 lb 6 oz BMI 25.9 BP 130/60 Blood Pressure Location Lt brachial Position Sitting Pulse 67 Pulse Source Pulse Oximeter Pulse Oximetry (%) 97 Oxygen Delivery Method Room Air Intake Visit Reasons: labs/FU 6 M-Conf w/daughter Neurology Technician Required: No Accompanied by: Self / Same As Patient Allergies cimetidine [From TAGAMET] Allergy (Unknown, Verified 08/01/24 11:05) GI UPSET ciprofloxacin [From CIPRO] Allergy (Unknown, Verified 08/01/24 11:05) GI UPSET diltiazem [From CARDIZEM] Allergy (Unknown, Verified 08/01/24 11:05) HIVES lisinopril [From ZESTRIL] Allergy (Unknown, Verified 08/01/24 11:05) LIGHTHESDEDNESS GI UPSET Sulfa (Sulfonamide Antibiotics) [SULFA (SULFONAMIDE ANTIBIOTICS)] Allergy (Unknown, Verified 08/01/24 11:05) HIVES timolol [From ISTALOL] Allergy (Unknown, Verified 08/01/24 11:05) STINGING does not handle GENERIC meds w Allergy (Unknown, Uncoded 07/24/24 07:38) unk HPI Comments Details: I had the delight of seeing Kera in the office in follow-up of her CKD and hypertension. Her blood pressure has been at goal at home. She denies any active GI issues. She follows up with Dr. Darby and Dr. Muñoz. She does not have any chest pain, shortness of breath, proximal nocturnal dyspnea, orthopnea, nausea, vomiting, diarrhea, fever, urinary symptoms or pedal edema. She has no orthostatic symptoms. Her serum creatinine remains at baseline [facility] Medical History Carotid stenosis, bilateral Statin intolerance Other and unspecified hyperlipidemia Non-rheumatic aortic stenosis Labile hypertension Surgical History History of cholecystectomy (~01/28/21) History of appendectomy Family History Father No problems noted. Mother No problems noted. 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 Review of Systems Const All systems reviewed & are unremarkable except as noted in HPI and below Physical Exam Vital Signs: Last Vital Signs Pulse 67 08/01/24 11:05 BP 160/60 H 08/01/24 11:05 Pulse Ox 97 08/01/24 11:05 Oxygen Delivery Method Room Air 08/01/24 11:05 BMI result Body Mass Index 25.9 Const General: comfortable and no acute distress Orientation/consciousness: patient oriented x3 HEENT Head: Yes normocephalic Mouth: Normal oral and palatal mucosa present Eyes EOM: EOMs intact bilaterally Neck Neck: Yes supple Resp Auscultation: clear to auscultation bilaterally Cardio Jugular venous distension: no JVD Rate: regular rate GI Palpation (GI): Soft to palpation Auscultation: normal bowel sounds General: Yes no CVA tenderness Back/Spine/Pelvis Back: no CVA tenderness Skin General skin exam: no rashes or lesions noted Neuro General: patient oriented x3 and moves all extremities Extrem General: Yes no pedal edema Results Reviewed Nephrology Results: Hgb 10.9 g/dl (12.0-16.0) L 07/27/24 WBC 8.4 X10*3/uL (4.8-10.8) 07/27/24 Plt Count 204 X10*3/uL (160-400) 07/27/24 Sodium 143 mmol/L (135-145) 07/27/24 Potassium 4.9 mmol/L (3.3-5.1) 07/27/24 Chloride 117 mmol/L (96-108) H 07/27/24 Carbon Dioxide 21 mmol/L (22-29) L 07/27/24 BUN 38 mg/dL (9-16) H 07/27/24 Creatinine 1.18 mg/dL (0.5-1.4) 07/27/24 Calcium 8.7 mg/dL (8.4-10.2) 07/27/24 Urine Protein Negative mg/dL (Neg-Trace) 07/27/24 Assessment & Plan Assessment & Plan (1) CKD (chronic kidney disease) stage 3, GFR 30-59 ml/min: Code(s): N18.30 - Chronic kidney disease, stage 3 unspecified Category: Medical Qualifiers: Chronic kidney disease stage 3 subtype: stage 3a (GFR 45-59) Qualified Code(s): N18.31 - Chronic kidney disease, stage 3a (2) Hypertension: Code(s): I10 - Essential (primary) hypertension Category: Medical Qualifiers: Hypertension type: primary hypertension Qualified Code(s): I10 - Essential (primary) hypertension Noemi Cote has stage III CKD with hypertension. Her blood pressure is at goal at home . She has no orthostatic symptoms. She is tolerating her current antihypertensive medication regimen. She has vascular disease & follows Dr. Darby. She tries to keep herself well hydrated and stay away from nonsteroidal anti-inflammatory medications. I did not make any medication changes today. Her blood pressure goes up or serum creatinine rises, I will have a low threshold in doing Doppler of her renal arteries. Follow-up blood work was ordered. Answered all questions Orders: Orders Electrolytes 6 Months I10 - Essential (primary) hypertension, N18.31 - Chronic kidney disease, stage 3a Creatinine 6 Months I10 - Essential (primary) hypertension, N18.31 - Chronic kidney disease, stage 3a Blood Urea Nitrogen 6 Months I10 - Essential (primary) hypertension, N18.31 - Chronic kidney disease, stage 3a Coding Level of Care Code Est Pt Level 4 (04507) Diagnoses Stage 3a chronic kidney disease N18.31 Chronic kidney disease stage 3 subtype: stage 3a (GFR 45-59) Primary hypertension I10 Hypertension type: primary hypertension
[2024-08-01 11:05] VITALS: BP 130/60; PULSE 67; O2SAT 97; BMI 25.9
--- OUTSIDE RECORDS SUMMARY | 2024-08-01 13:10 | XMS_ITS | Clinical Summary ---
Author Organization [facility] Address [address] [place] [address] Phone Care Team Providers Care Classification And Treatment Director Name Role Phone Manuel Herrera MD Primary Care Provider [phone] Allergies Active Allergy Reactions Criticality Noted Date [...] patient's age to complete this topic Insurance [facility] MEDICARE [facility] MEDICARE Care Teams Classification And Treatment Director Relationship Specialty Start Date End Date Manuel Herrera MD [id number] [place] PCP - General 05/19/20
--- OUTSIDE RECORDS SUMMARY | 2024-08-01 13:10 | XMS_ITS | Data Portability ---
Author Organization DUSTIN Arriaga s, [address] Address [address] [place] [address] Care Team Providers Care Hairspring Ii Inspector Name Role Phone [facility] WEIGH T MANAGEMENT PROGRAM Primary Care Provider Assessment No assessment recorded. Plan of Treatment Reminders Order Date Submit Date Provider Last Modified By Organization Details Last Modified Time Details Appointments None recorded. Lab urinalysis, dipstick 2022 023 [facility], [address] [place], [address], 17:59:00 Referral None recorded. Procedures None recorded. Surgeries None recorded. Imaging None recorded. Medication Orders lidocaine 5 % topical patch 2022 023 [facility], [address] [place], [address], 3 17:59:01 Flonase Allergy Relief 50 mcg/actuati on nasal spray,suspe nsion 2022 023 [facility], [address] [place], [address], 3 17:58:59 loratadine 10 mg tablet 2022 023 [facility], [address] [place], [address], 17:58:59 Patient TargetsNo targets recorded. Patient Instructions Encounter Date Encounter Id Patient Instructions Last Modified By Organization Details Last Modified Time 01/29/2023 [id number] getting back to normal after low back [...] care for yourself at home? Take an rbgc-lio-hwvkvxm pain medicine. Avoid Ibuprofen, Aleve and Aspirin if . If the doctor prescribed antibiotics, take them as directed. Do not stop taking them just because you feel better. You need to take the full course of antibiotics. Be careful when taking fjpg-sld-gorracr cold or influenza (flu) medicines and Tylenol [...] = light yellow Not Available [facility] [address] [place] [address], [address], 01/29/2023 17:24:05 01/30/2001/29/2023 urina lysis , dipst ick Unknown Analyte Yellow Not Available [facility] [address] [place] [address], [address], 01/29/2023 17:24:05 01/30/2001/29/2023 urina lysis , dipst ick Unknown Analyte Normal = clear Not Available [facility] [address] [place] [address], [address], 01/29/2023 17:24:05 01/30/2001/29/2023 urina lysis , dipst ick Unknown Analyte Clear Not Available [facility] [address] [place] [address], [address], 01/29/2023 17:24:05 01/30/2001/29/2023 urina lysis , dipst ick Unknown Analyte Normal = negati ve Not Available [facility] [address] [place] [address], [phone], 01/29/2023 17:24:05 01/30/20 23 01/29/2023 urina lysis , dipst ick Unknown Analyte Negati ve Not Available [facility] [address] [place] [address], [address], 01/29/2023 17:24:05 01/30/2001/29/2023 urina lysis , dipst ick Unknown Analyte Normal = Negati ve Not Available [facility] [address] [place] [address], [address], 01/29/2023 17:24:05 01/30/2001/29/2023 urina lysis , dipst ick Unknown Analyte Negati ve Not Available [facility] [address] [place] [address], [address], 01/29/2023 17:24:05 01/30/2001/29/2023 urina lysis , dipst ick Unknown Analyte Normal = Negati ve Not Available [facility] [address] [place] [address], [address], 01/29/2023 17:24:05 01/30/2001/29/2023 urina lysis , dipst ick Unknown Analyte Negati ve Not Available [facility] [address] [place] [address], [address], 01/29/2023 17:24:05 01/30/2001/29/2023 urina lysis , dipst ick Unknown Analyte Normal = 1.010, 1.015, 1.020 Not Available [facility] [address] [place] [address], [address], 01/29/2023 17:24:05 01/30/20 23 01/29/2023 urina lysis , dipst ick Unknown Analyte 1.[address] [facility] [address] [place] [address], [address], 01/29/2023 17:24:05 01/30/20 23 01/29/2023 urina lysis , dipst ick Unknown Analyte Normal = Negati ve Not Available [facility] [address] [place] [address], [address], 01/29/2023 17:24:05 01/30/2001/29/2023 urina lysis , dipst ick Unknown Analyte Negati ve Not Available [facility] [address] [place] [address], [address], 01/29/2023 17:24:05 01/30/20 23 01/29/2023 urina lysis , dipst ick Unknown Analyte Normal = 6.5, 7.0, 7.5, 8.0 Not Available [facility] [address] [place] [address], [address], 01/29/2023 17:24:05 01/30/20 23 01/29/2023 urina lysis , dipst ick Unknown Analyte 5.0 Not Available [facility] [address] [place] [address], [address], 01/29/2023 17:24:05 01/30/20 23 01/29/2023 urina lysis , dipst ick Unknown Analyte Normal = Negati ve Not Available [facility] [address] [place] [address], [phone], 01/29/2023 17:24:05 01/30/20 23 01/29/2023 urina lysis , dipst ick Unknown Analyte Negati ve Not Available [facility] [address] [place] [address], [address], 01/29/2023 17:24:05 01/30/2001/29/2023 urina lysis , dipst ick Unknown Analyte Normal = 0.2, 1.0 Not Available [facility] [address] [place] [address], [address], 01/29/2023 17:24:05 01/30/2001/29/2023 urina lysis , dipst ick Unknown Analyte 1.0 E.U./d L Not Available [facility] [address] [place] [address], [address], 01/29/2023 17:24:05 01/30/2001/29/2023 urina lysis , dipst ick Unknown Analyte Normal = Negati ve Not Available [facility] [address] [place] [address], [address], 01/29/2023 17:24:05 01/30/2001/29/2023 urina lysis , dipst ick Unknown Analyte Negati ve Not Available [facility] [address] [place] [address], [address], 01/29/2023 17:24:05 01/30/2001/29/2023 urina lysis , dipst ick Unknown Analyte Normal = Negati ve Not Available [facility] [address] [place] [address], [address], 01/29/2023 17:24:05 01/30/2001/29/2023 urina lysis , dipst ick Unknown Analyte Negati ve Not Available [facility] [address] [place] [address], [address], 01/29/2023 17:24:05 Result Notes None recorded. 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 Active GEORGIA ZARAGOZA-RIVE RA null, [place] - [facility] 3 17:16:16 Hypercholestero lemia 92360416 Active GEORGIA ZARAGOZA-RIVE RA null, [place] - [facility] 3 17:16:30 Glaucoma 86217933 Active GEORGIA ZARAGOZA-RIVE RA null, PA - [...] Name and Address Organization Details Recorded Time 944938 Cipro medicatio n Not available Not available Not available 01/29/202313005 3 RxNorm GEORGIA ZARAGOZA-RIVE RA null, [place] - [facility] 17:11:52 243224 Substance with sulfonami de structure and antibacte rial mechanism of action (substanc e) medicatio n Not available Not available Not available 01/29/2023 23230 8003 SNOMED GEORGIA ZARAGOZA-RIVE RA null, [place] - [facility] 3 17:12:02 348243 Zestril medicatio n Not available Not available Not available 01/29/202319637 2 RxNorm GEORGIA ZARAGOZA-RIVE RA null, [place] - [facility] 3 17:12:38 436799 Cardizem medicatio n Not available Not available Not available 01/29/202359027 4 RxNorm GEORGIA ZARAGOZA-RIVE RA null, [place] - [facility] 3 17:12:48 200134 Tagamet medicatio n Not available Not available Not available 01/29/2023 26629 2 RxNorm GEORGIADUSTIN Govea RA [facility] 3 17:13:01 968039 Istalol medicatio n Not available Not available Not available 01/29/2023 44062 9 RxNorm DUSTIN Bell RA - [facility] [...] Relief 50 mcg/actuatio n nasal spray,suspen enrique [place] 1 spray every day by intranasal route [...] Updated DateTime 3 157.48 cm 23.8 kg/m2 34861.0 1 g 8 17 /min 95 % [...] SNOMED-CT Code Diagnosis ICD10 Code Diagnosis Note [id number] [place] [address] [address] 01/29/2023 17:01:41 01/29/2023 17:59:55 Acute sinusitis 36775258 J01.90 Low back pain 565125704 M54.50 Health Concerns Section Related Observation LastModified by Organization Detai ls LastModified Time None Recorded Concern Status LastModified by Organization Details LastModified Time None Recorded Advance Directives Directive None Recorded Payers Encounter Date Sequence Insurance Name Policy Number Policy Arvizu Covered Member ID Arvizu Member ID Guarantor Name 01/29/2023 1 MEDICARE B-DE: listedplaces Yuni Delatorre [id number] Yuni Delatorre Notes Date Note Type [...] Tristian MIKE Sanchez [address] [place], [address], [place] - [facility] 01/29/2023 17:59:19 OBGyn Episode No OBEpisode recorded.
--- OUTSIDE RECORDS SUMMARY | 2024-08-01 13:10 | XMS_ITS | Data Portability ---
Author Organization [place] - [facility], Allergy Address [address] [place] [address] Care Team Providers Care Optical Instrument Repairer Name Role Phone RIKKI BALL Primary Care Provider [phone] Assessment Encounter Date Assessment Date Assessment LastModified [...] She is medically cleared for amplification bilaterally. [email or web address] Not available 01/03/2024 14:36:14 02/02/2024 02/02/2024 Discussed [...] trip. Will move up if cancellation occurs. [email or web address] Not available 02/02/2024 15:59:55 03/22/2024 03/22/2024 Excellent fit to real ear. Reduced to #2 adaptation for comfort. Reviewed daily care and maintenance. Downloaded serenity. Patient has android phone that may not be compatible w/ serenity. Gave daughter tech support number at [employer] to problem solve why serenity not showing up on phone display. F/U 2 weeks. [email or web address] Not available 03/22/2024 10:58:09 04/12/2024 04/12/2024 Increased to #4 adaptation for clarity. Hearing so much better. Loves new hearing aids - was able to download serenity. Reviewed daily care and maintenance. 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 F/u 2 weeks. [email or web address] Not available 04/12/2024 10:24:03 04/26/2024 04/26/2024 doing very well - finds a little sharp reduced HF gain 2 steps sounds better. 6 month appt made Not available 04/26/2024 10:16:05 Plan of Treatment [...] audio gram No observ ation record ed. 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 - [facility] 4 13:50:21 Tinnitus of left ear 94978506699 06 Active 2023 Tinnitus , left ear; Note: Date Diagnose d: 4 2:36 PM (H93.12) Not Available [facility] 4 02:19:51 Bilatera l disorder of Eustachi an tubes 19278632170 36512 Active 2023 Other specifie d disorder s of Eustachi an tube, bilatera l; Note: Date Diagnose d: 09/15/2023 1:04 PM (H69.83) Not Available [facility] 4 02:19:51 Sensorin eural hearing loss of bilatera l ears 031921130 Active 2023 Sensorin eural hearing loss, bilatera l; Note: Date Diagnose d: 4 2:36 PM (H90.3) Not Available [facility] 02:19:58 Acute maxillar y sinusiti s 41764206 Active 2023 Acute maxillar y sinusiti s, unspecif ied; Note: Date Diagnose d: 2:07 PM (J01.00) Not Available [facility] 02:19:59 Chronic rhinitis 72060584 Active 2023 DIOGENES HERRERA MD [address], [address] , [place] - [facility] 13:51:09 Problem Notes None recorded. Procedures Surgical History Date Name Laterality Status Provider Name and Address Organization Details Recorded Time 01/03/2024 Comp Audio with Tymps (07644 & 61212) completed JOHN PAUL LITTLE [address], [address], [place] - [facility] 01/03/2024 13:57:56 Imaging Results Imaging Date Name Status LastModified by [facility] Details LastModified Time 07/05/2023 imaging/diagno stic result completed Information not available 12/28/2023 04:28:21 08/04/2023 audiogram completed [email or web address] Information no t available 01/03/2024 13:46:14 08/04/2023 [...] Name and Address Organization Details Recorded Time 523994 Substance with sulfonami de structure and antibacte rial mechanism of action (substanc e) medicatio n other Not available Not available 12/09/2023 24851 8003 SNOMED React ion: Unkno wn; Not Available [facility] 00:25:00 Medications Name Sig Start Date Stop [...] Updated DateTime 01/03/2024 158.75 cm 24.3 kg/m2 22895.97 g Melony Pathak [place] - [facility] 01/03/2024 13:39:17 Social History None recorded. Functional Status None recorded. Mental Status None recorded. Family History Nothing Reported. Medical History No medical history recorded. Gynecological HistoryNo gynecological history recorded. Obstetrics History GPAL:G 0 P 0 0 0 0 Past Encounters Encounter ID Performer Location Encounter Start Date Encounter Closed Date Diagnosis/Indication Diagnosis SNOMED-CT Code Diagnosis ICD10 Code Diagnosis Note [id number] DIOGENES HERRERA MD [facility] [address] [address] 01/03/2024 13:22:46 01/03/2024 14:39:42 Chronic rhinitis 02092217 J31.0 Patient continues to demonstrat e chronic rhinitis, turbinate hypertroph y and nasal obstructio n despite the daily use of budesonide and Astelin nasal spray. I recommende d she continue to use the nasal sprays as prescribed . No additional recommenda tions with regards to her turbinate hypertroph y. Sensorineu ral hearing loss of bilateral ears 559186451 H90.3 Audiologic al evaluation results: 01/03/2024 Right [...] hermetic seal}} Tinnitus o f vascular origin 613733216 H93.A2 Tinnitus of left ear 186 4503609 106 H93.12 [id number] JOHN PAUL LITTLE [facility] [address] [address] 01/03/2024 13:57:25 01/04/2024 07:28:05 Sensorineural hearing loss of bilateral ears 940732017 H90.3 Audiologic al evaluation results: 01/03/2024 Right [...] Cou ld not maintain a hermetic seal}} [id number] NAVJOT MARTINEZ, AUD [place] 100 [facility],[place] 100 [facility] [place] [address] 02/02/2024 14:55:38 02/06/2024 07:01:45 Sensorineural hearing loss of bilateral ears 988840276 H90.3 Audiologic al evaluation results: 01/03/2024 Right [...] Cou ld not maintain a hermetic seal}} [id number] NAVJOT MARTINEZ, AUD [place] 100 [facility],[place] 100 [facility] [place] [address] 03/22/2024 09:49:00 03/23/2024 07:27:03 Sensorineural hearing loss of bilateral ears 584742224 H90.3 Audiologic al evaluation results: 01/03/2024 Right [...] Cou ld not maintain a hermetic seal}} [id number] JOHN PAUL LITTLE [place] 100 [facility],[place] [address] [place] [address] 04/12/2024 09:48:06 04/16/2024 13:28:19 Sensorineural hearing loss of bilateral ears 568473261 H90.3 Audiologic al evaluation results: 01/03/2024 Right [...] Cou ld not maintain a hermetic seal}} [id number] JOHN PAUL LITTLE [place] 100 [facility],[place] [address] [place] [address] 04/26/2024 09:52:50 05/04/2024 11:56:17 Sensorineural hearing loss of bilateral ears 372771945 H90.3 Audiologic al evaluation results: 01/03/2024 Right [...] [employer] OPTIONS (MEDICARE SUPPLEMENT) Yuni Delatorre [id number] Yuni Delatorre 01/03/2024 1 MEDICARE B-[place]: [employer] Yuni Delatorre [id number] Yuni Delatorre 02/02/2024 2 [employer] OPTIONS (MEDICARE SUPPLEMENT) Yuni Delatorre [id number] Yuni Delatorre 02/02/2024 1 MEDICARE B-[place]: [facility] Yuni Delatorre [id number] Yuni Delatorre 03/22/2024 2 [employer] OPTIONS (MEDICARE SUPPLEMENT) Yuni Delatorre [id number] Yuni Delatorre 03/22/2024 1 MEDICARE [place]: [facility] Yuni Delatorre [id number] Yuni Delatorre 04/12/2024 2 [employer] OPTIONS (MEDICARE SUPPLEMENT) Yuni Delatorre [id number] Yuni Delatorre 04/12/2024 1 MEDICARE [place]: [facility] Yuni Delatorre [id number] Yuni Delatorre 04/26/2024 2 [employer] OPTIONS (MEDICARE SUPPLEMENT) Yuni Delatorre [id number] Yuni Delatorre 04/26/2024 1 MEDICARE [place]: [facility] Yuni Delatorre [id number] Yuni Delatorre Notes Date Note Type Note [...] accompanied by her daughter DIOGENES HERRERA MD [address] [place] [address], [address], [facility] - [facility] 01/03/2024 14:37:24 02/02/2024 text/html Patient has a kn own asymmetrical SNHL AD>. Was recently cleared for amplification by Dr Herrera. Patient has no hearing aid benefit. 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 Wants to remain as active as she can and would like to get back to performing. NAVJOT MARTINEZ, AUD 100 [facility],[address], [address], [facility] - [facility] 03/19/2024 12:46:40 03/22/2024 text/html Patient has [...] $4544. CAROLYN 03/22/2024. NAVJOT MARTINEZ, AUD 100 [facility],[address], [address], [facility] - [facility] 03/22/2024 11:03:24 04/12/2024 text/html Patient has [...] in dispensed 03/22/2024. NAVJOT MARTINEZ, AUD 100 [facility],[address], [address], [facility] 04/12/2024 10:25:26 04/26/2024 text/html Patient has [...] F/u 2 weeks. NAVJOT MARTINEZ, AUD 100 [facility],[place] [address], [place], [address], [facility] - [facility] 04/26/2024 10:16:26 OBGyn Episode No OBEpisode recorded.
== END 2024-08-01 11:25 | disposition home or self-care (01) ==
LOC: HO.HKA 10:59
PROVIDERS: PCP Internal Medicine; Visit Provider Internal Medicine Nephrology
DX: N18.31 Chronic kidney disease, stage 3a (principal); I10 Essential (primary) hypertension
CPT/HCPCS: 99214

== ENCOUNTER → 2024-08-01 10:59 | Outpatient (BNVA) | payer MEDICARE, SELFPAY | PROVIDERS: PCP Internal Medicine; Visit Provider Internal Medicine Nephrology | DX: I12.9 Hypertensive chronic kidney disease with stage 1 through stage 4 chronic kidney disease, or unspecified chronic kidney disease (principal); N18.31 Chronic kidney disease, stage 3a; R53.83 Other fatigue | CPT/HCPCS: 96127; 99202; 99212 ==

== ENCOUNTER 2024-08-01 13:02 | Outpatient (AMB) | payer MEDICARE, SELFPAY ==
[2024-08-01 13:07] VITALS: BP 136/70; PULSE 68; RESP 14; TEMP 36.4; O2SAT 98; BMI 25.8
--- NOTE | 2024-08-01 13:07 | MHC.PC.OV ---
Vital Signs 08/01/24 13:07 Height 5 ft 2 in Weight 141 lb BMI 25.8 BP 136/70 Respiration 14 Pulse 68 Pulse Source Pulse Oximeter Temp 97.6 F Temp Source Temporal Artery Scan Pulse Oximetry (%) 98 Oxygen Delivery Method Room Air Intake Visit Reasons: Routine Volunte[employer] Required: No Accompanied by: Self / Same As Patient Allergies cimetidine [From TAGAMET] Allergy (Unknown, Verified 08/01/24 13:08) GI UPSET ciprofloxacin [From CIPRO] Allergy (Unknown, Verified 08/01/24 13:08) GI UPSET diltiazem [From CARDIZEM] Allergy (Unknown, Verified 08/01/24 13:08) HIVES lisinopril [From ZESTRIL] Allergy (Unknown, Verified 08/01/24 13:08) LIGHTHESDEDNESS GI UPSET Sulfa (Sulfonamide Antibiotics) [SULFA (SULFONAMIDE ANTIBIOTICS)] Allergy (Unknown, Verified 08/01/24 13:08) HIVES timolol [From ISTALOL] Allergy (Unknown, Verified 08/01/24 13:08) STINGING does not handle GENERIC meds w Allergy (Unknown, Uncoded 08/01/24 13:08) unk Tobacco use date assessed: 08/01/24 Fall risk assessment: No Falls in past year Last assessed Fall Risk: 08/01/24 Dental Screening Dental Screen Date: 08/01/24 Did you have a dental visit in the last 12 months?: Yes Did you have a dental problem in the last 6 months where you did not have access to dental care?: No PFSH Medical History Carotid stenosis, bilateral Statin intolerance Other and unspecified hyperlipidemia Non-rheumatic aortic stenosis Labile hypertension Surgical History History of cholecystectomy (~01/28/21) History of appendectomy Family History Father No problems noted. Mother No problems noted. 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 1. Little interest or pleasure in doing things: not at all 2. Feeling down, depressed, or hopeless: not at all 3. Trouble falling or staying asleep, or sleeping too much: not at all 4. Feeling tired or having little energy: not at all 5. Poor appetite or overeating: not at all 6. Feeling bad about yourself - or that you are a failure or have let yourself or your family down: not at all 7. Trouble concentrating on things, such as reading the newspaper or watching television: not at all 8. Moving or speaking so slowly that other people could have noticed. Or the opposite - being so fidgety or restless that you have been moving around a lot more than usual: not at all 9. Thoughts that you would be better off or of hurting yourself in some way: not at all Total score: 0 Source: Developed by Drs. Nikhil Thayer, Yanely Ferrer, Orlando Chavez and colleagues, with an educational mukund from [employer] Thrive Questionnaire Date Thrive assessed: 08/01/24 I am a: Patient What is your living situation today?: I have a steady place to live Within the past 12 months, did the food you bought not last and you didn't have the money to get more?: Never true Within the past 12 months, did you worry whether your food would run out before you got money to buy more?: Never true Do you have trouble paying for medicines?: No Do you have trouble getting transportation to medical appointments?: No Do you have trouble paying your heating and electricity bill?: No Do you have trouble taking care of your child, family member or friend?: No Do you have trouble with day-to-day activities such as bathing, preparing meals, shopping, managing finances, etc.?: No Are you currently unemployed and looking for a job?: No Are you interested in more education?: No Please select the resources that you would like help with: None THRIVE Score: 0 AUDIT C Alcohol Use Questionnaire (AUDIT-C) 1. How often do you have a drink containing alcohol?: 2-3 times a week 2. How many drinks containing alcohol do you have on a typical day when you are drinking?: 1 or 2 3. How often do you have six or more drinks on one occasion?: Never Total Score: 3 RUPALI-7 AMB Questionnaire RUPALI-7 Date RUPALI - 7 assessed: 08/01/24 Feeling nervous, anxious, or on edge: 0 = Not at all Not being able to stop or control worryin = Not at all Worrying too much about different things: 0 = Not at all Trouble relaxin = Not at all Being so restless that it is hard to sit still: 0 = Not at all Becoming easily annoyed or irritable: 0 = Not at all Feeling afraid as if something awful might happen: 0 = Not at all Total RUPALI-7 score (0-4 normal; 5-9 mild; 10-14 moderate; 15-21 severe): 0 Source: Developed by Drs. Nikhil Thayer, Yanely Ferrer, Orlando Chavez and colleagues, with an educational mukund from [employer] Physical exam (Primary Care) Vital Signs: Last Vital Signs Temp 97.6 F 08/01/24 13:07 Pulse 68 08/01/24 13:07 Resp 14 08/01/24 13:07 BP 136/70 08/01/24 13:07 Pulse Ox 98 08/01/24 13:07 Oxygen Delivery Method Room Air 08/01/24 13:07 BMI result Body Mass Index 25.8 Tobacco/Smoking Status: Tobacco use Status Tobacco use date assessed 08/01/24 08/01/24 13:17 Patient Tobacco Use Status Never used Tobacco 08/01/24 13:17 PHQ-9: PHQ-9 Score PHQ-9: Total score 0 08/01/24 13:17 Thrive Assessment: Date of Thrive Assessment Date Thrive assessed 08/01/24 08/01/24 13:17 Coding Level of Care Code New Pt Level 4 (25121) Complex EM visit Add On G2211 Diagnoses Primary hypertension I10 Hypertension type: primary hypertension Fatigue R53.83 Assessment & Plan Assessment & Plan (1) Hypertension: Code(s): I10 - Essential (primary) hypertension Category: Medical Qualifiers: Hypertension type: primary hypertension Qualified Code(s): I10 - Essential (primary) hypertension Plan: BW in range. Continue current medications (2) Fatigue: Code(s): R53.83 - Other fatigue Plan: B12 injection provided Plan History of Present Illness The patient is an 84-year-old female presenting with a need for a Vitamin B12 injection. She has a longstanding diagnosis of severe hypertension, well-managed through a tailored medication regimen for over a decade. The regimen was established by Dr. Rosas to address prior medication interactions, maintaining her blood pressure within the target range with routine monitoring visits every three to four months. She also has a history of Vitamin B12 deficiency, requiring monthly injections due to dietary absorption issues. These injections have been pivotal in reducing fatigue and increasing her energy, supporting her robust social and recreational lifestyle. The patient reports general satisfaction with her current management and indicates considerable improvement in her subjective sense of vitality post-treatment. Recent laboratory tests confirm her stable health status. Her familial medical history outlines a potential predisposition to cardiac and renal conditions. Social History - Enjoys active participation in theater and quilting. - Maintains a social lifestyle with regular engagements and travel. - Reports a history of vitamin B12 deficiency that required dietary changes and monthly injections. Review of Systems - Fatigue: Reports chronic fatigue managed by monthly B12 injections. Physical Exam General: Cooperative and healthy appearing Nutritional Appearance: Well nourished Orientation/consciousness: Patient oriented x3 Limitations: No limitations Head: Normal to inspection General: Appearance normal, both eyes and all related structures Neck: Normal visual inspection Chest: Normal palpation of entire chest wall Respiratory: Normal respiratory effort Neurology: Patient oriented x3 Results - Labs: Recent blood work reported as normal. Plan The patient received her routine Vitamin injection to address her deficiency, which remains essential given her dietary absorption challenges. Her hypertension treatment continues unchanged, as current management by Dr. Rosas is maintaining optimal blood pressure levels. Regular visits for monitoring every three to four months will ensure continued efficacy of her treatment plan. Awareness of her familial predisposition to cardiac and renal issues informs ongoing vigilance, although no new interventions were deemed necessary at this time. Patient was informed and verbally consented to the use of an ambient scribe for clinic note documentation during this visit. Discussion Notes We discussed the continuation of her current management for Essential Hypertension and the necessity of monthly Vitamin B12 injections. I confirmed her recent blood work was normal, aligning with her stable condition. The importance of ongoing management to prevent complications from her hypertension and familial cardiac risks was highlighted, ensuring her understanding and compliance. As her Vitamin B12 injections significantly improve her energy, their continuation was reaffirmed. Regular follow-up intervals will remain crucial to monitor her blood pressure and general health. No additional diagnostic tests or interventions were justified, with all management aligning well to her current needs. Patient Instructions - Continue with monthly Vitamin B12 injections as scheduled. - Maintain current hypertension medication regimen. - Call or return for immediate evaluation if experiencing significant symptoms or health changes. - Continue attending follow-up appointments every three to four months for routine monitoring. - Monitor for any new symptoms given family history of cardiovascular and renal issues.
--- OUTSIDE RECORDS SUMMARY | 2024-08-01 15:29 | XMS_ITS | Clinical Summary ---
Author Organization [facility] Address [address] [place] [address] Phone Care Team Providers Care Manager Line Name Role Phone Manuel Herrera MD Primary Care Provider [phone] Allergies Active Allergy Reactions Criticality Noted Date [...] patient's age to complete this topic Insurance [facility] MEDICARE [facility] MEDICARE Care Teams Manager Line Relationship Specialty Start Date End Date Manuel Herrera MD [address] [place] PCP - General 05/19/20
== END 2024-08-01 13:28 | disposition home or self-care (01) ==
LOC: HO.HMCHD 13:03
PROVIDERS: PCP Internal Medicine; Visit Provider Internal Medicine
DX: I10 Essential (primary) hypertension (principal); R53.83 Other fatigue

== ENCOUNTER 2024-08-15 10:48 | Outpatient (AMB) | payer MEDICARE, SELFPAY ==
[2024-08-15 10:55] VITALS: BP 138/68; PULSE 68; O2SAT 96; BMI 25.1
--- NOTE | 2024-08-15 10:55 | MHC.OFFVIS ---
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: No Allergies cimetidine [From TAGAMET] Allergy (Unknown, Verified 08/15/24 10:56) GI UPSET ciprofloxacin [From CIPRO] Allergy (Unknown, Verified 08/15/24 10:56) GI UPSET diltiazem [From CARDIZEM] Allergy (Unknown, Verified 08/15/24 10:56) HIVES lisinopril [From ZESTRIL] Allergy (Unknown, Verified 08/15/24 10:56) LIGHTHESDEDNESS GI UPSET Sulfa (Sulfonamide Antibiotics) [SULFA (SULFONAMIDE ANTIBIOTICS)] Allergy (Unknown, Verified 08/15/24 10:56) HIVES timolol [From ISTALOL] Allergy (Unknown, Verified 08/15/24 10:56) STINGING does not handle GENERIC meds w Allergy (Unknown, Uncoded 08/15/24 10:56) unk Medication List - Last Reconciled 08/15/24 by Edna Landis, DEPARTMENT MANAGER amlodipine 5 mg PO BID brimonidine-timolol 0.2-0.5 % drps ophthalmic (eye) budesonide 32 mcg/actuation 2 sprays intranasal DAILY carvedilol 25 mg PO BID evolocumab (Repatha SureClick) 140 mg subcut Q2W fenofibrate 54 mg PO DAILY hydralazine 50 mg PO TID hydralazine 25 mg PO TID levothyroxine 100 mcg PO DAILY losartan 1 tablet in the morning, 1/2 tablet in the evening PO 90 days tobramycin 0.3% drps ophthalmic (eye) HPI Comments Details: Yuni Rivas) is back in my office after bilateral therapeutic sacroiliac joint injection which was done on 07/24/2024. She reports excellent pain relief after the procedure. Today she reports pain 3/10 all on the account of remaining stiffness in the lower back of the patient. However she reports excellent mobility and good activities of daily living. Treatment of this patient with continuous sacroiliac joint steroid injections were discussed. Possibility of changing the treatment modality for something different than steroid injections was discussed with the patient as well. We will wait until her pain will come back. She will give us a call and we will schedule an appointment with her. She reports that she continues to apply warming pad and take Tylenol when her pain is aggravated. Prior to that she had diagnose bilateral sacroiliac joint injections. Very good results of diagnostic bilateral sacroiliac joint injections. She reported absence of pain for the full 6 hours after the procedure. Prior:C/o on pain in lower back. She reported that this pain started many years ago. For a while she was handling this pain with oral medications and chiropractic manipulations. However now the pain became severe and she went to Dr. Hammond consult. Diagnosis of sacrococcygeal disorder was introduced. Patient was sent here for discussion of the further treatment. [facility] Medical History Carotid stenosis, bilateral Statin intolerance Other and unspecified hyperlipidemia Non-rheumatic aortic stenosis Labile hypertension Surgical History History of cholecystectomy (~01/28/21) History of appendectomy Family History Father No problems noted. Mother No problems noted. 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 Cognitive needs: Yes (cane) Hearing needs: No Vision needs: Yes (rx glasses) Review of Systems Const All systems reviewed & are unremarkable except as noted in HPI and below ENT Reports Normal hearing present Neuro Reports Normal hearing present, Denies Abnormal speech present, Denies confusion and Denies Sensory deficit (Neuro) Psych Denies confusion Physical Exam Vital Signs: Last Vital Signs Pulse 68 08/15/24 10:55 BP 138/68 08/15/24 10:55 Pulse Ox 96 08/15/24 10:55 Oxygen Delivery Method Room Air 08/15/24 10:55 BMI result Body Mass Index 25.1 Const General: no acute distress; No confusion Orientation/consciousness: patient oriented x3 and No confusion Eyes General: appearance normal, both eyes and all related structures Pupils: Equal, round and reactive pupils present EOM: EOMs intact bilaterally Neck Neck: Yes full ROM Chest Chest palpation & inspection: normal inspection of the chest Resp Effort & Inspection: normal respiratory effort, able to speak in complete sentences, normal respiratory pattern, no audible wheezes and no cough Cardio Jugular venous distension: no JVD GI Inspection: Yes normal to inspection Back/Spine/Pelvis Other: Able to stand on bilateral tiptoes with vigor. Able to stand on bilateral heels with small difficulty . Able to flex herself forward and backwards with great degree, she reports pain aggravation with flexing forward equal to pain aggravation with flexing backwards. SLR is negative bilaterally. Jefe test is positive bilaterally. Pelvic compression test is positive bilaterally. Pelvic distraction test is positive bilaterally. Loading test is positive bilaterally. Neuro General: patient oriented x3, gait normal and No confusion Cranial nerves: Yes CN's II-XII intact bilaterally, Yes Equal, round and reactive pupils present, Yes Normal hearing present and Yes Ability to bilaterally elevate shoulders present Speech: No Abnormal speech present Gait exam (Neuro): Normal gait present Motor exam (neuro): 5/5 motor strength present throughout Sensory Exam: No Sensory deficit (Neuro) Extrem General: No pedal edema Psych Speech and movement: Normal speech and movement present Affect: normal affect Attitude: cooperative Thought process: Normal thought process present Thought content: Normal thought content present Insight: Good insight present (Psych) Judgement: Good judgement present (Psych) Assessment & Plan Assessment & Plan (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 Therapeutic sacroiliac joint injection 07/24/2024 resulted in very good pain relief. Patient continues to use Tylenol p.r.n. very rarely. She applies warming pad because she likes the sensation. She reports minor stiffness across the most lower portion of her back. Discussion see as above. When pain will come back we will schedule appointment with the patient. Patient Instructions: I here by testify that I spent 30 minutes in conversation with this patient as well as planning her care organizing this note. Coding Level of Care Code Est Pt Level 4 (13382) Diagnoses Spondylosis of lumbar region without myelopathy or radiculopathy M47.816 Sacroiliac joint dysfunction of both sides M53.3 Sacroiliitis M46.1 Chronic pain syndrome G89.4
--- OUTSIDE RECORDS SUMMARY | 2024-08-15 12:34 | XMS_ITS | Data Portability ---
Author Organization DUSTIN Arriaga s, [address] Address [address] [place] [address] Care Team Providers Care Ash Collector Name Role Phone [facility] MANAG[facility] PRO[facility] Primary Care Provider Assessment No assessment recorded. Plan of Treatment Reminders Order Date Submit Date Provider Last Modified By Organization Details Last Modified Time Details Appointments None recorded. Lab urinalysis, dipstick 2022 023 [facility], [address] [place], [address], 17:59:00 Referral None recorded. Procedures None recorded. Surgeries None recorded. Imaging None recorded. Medication Orders lidocaine 5 % topical patch 2022 023 [id number], [address] [place], [address], 3 17:59:01 Flonase Allergy Relief 50 mcg/actuati on nasal spray,suspe nsion 2022 023 [facility], [address] [place], [address], 3 17:58:59 loratadine 10 mg tablet 2022 023 [facility], [address] [place], [address], 17:58:59 Patient TargetsNo targets recorded. Patient Instructions Encounter Date Encounter Id Patient Instructions Last Modified By Organization Details Last Modified Time 01/29/2023 [id number] getting back to normal after low back [...] care for yourself at home? Take an vhjf-gnk-vkubicg pain medicine. Avoid Ibuprofen, Aleve and Aspirin if . If the doctor prescribed antibiotics, take them as directed. Do not stop taking them just because you feel better. You need to take the full course of antibiotics. Be careful when taking wvbs-tdh-zqgjlnt cold or influenza (flu) medicines and Tylenol [...] = light yellow Not Available [facility] [address] [place] [address], [phone], 01/29/2023 17:24:05 01/30/2001/29/2023 urina lysis , dipst ick Unknown Analyte Yellow Not Available [facility] [address] [place] [address], [phone], 01/29/2023 17:24:05 01/30/2001/29/2023 urina lysis , dipst ick Unknown Analyte Normal = clear Not Available [facility] [address] [place] [address], [phone], 01/29/2023 17:24:05 01/30/2001/29/2023 urina lysis , dipst ick Unknown Analyte Clear Not Available [facility] [address] [place] [address], [phone], 01/29/2023 17:24:05 01/30/2001/29/2023 urina lysis , dipst ick Unknown Analyte Normal = negati ve Not Available [facility] [address] [place] [address], [phone], 01/29/2023 17:24:05 01/30/20 23 01/29/2023 urina lysis , dipst ick Unknown Analyte Negati ve Not Available [facility] [address] [place] [address], [phone], 01/29/2023 17:24:05 01/30/2001/29/2023 urina lysis , dipst ick Unknown Analyte Normal = Negati ve Not Available [facility] [address] [place] [address], [phone], 01/29/2023 17:24:05 01/30/2001/29/2023 urina lysis , dipst ick Unknown Analyte Negati ve Not Available [facility] [address] [place] [address], [phone], 01/29/2023 17:24:05 01/30/2001/29/2023 urina lysis , dipst ick Unknown Analyte Normal = Negati ve Not Available [facility] [address] [place] [address], [phone], 01/29/2023 17:24:05 01/30/2001/29/2023 urina lysis , dipst ick Unknown Analyte Negati ve Not Available [facility] [address] [place] [address], [phone], 01/29/2023 17:24:05 01/30/2001/29/2023 urina lysis , dipst ick Unknown Analyte Normal = 1.010, 1.015, 1.020 Not Available [facility] [address] [place] [address], [phone], 01/29/2023 17:24:05 01/30/20 23 01/29/2023 urina lysis , dipst ick Unknown Analyte 1.020 Not Available [facility] [address] [place] [address], [phone], 01/29/2023 17:24:05 01/30/20 23 01/29/2023 urina lysis , dipst ick Unknown Analyte Normal = Negati ve Not Available [facility] [address] [place] [address], [phone], 01/29/2023 17:24:05 01/30/2001/29/2023 urina lysis , dipst ick Unknown Analyte Negati ve Not Available [facility] [address] [place] [address], [phone], 01/29/2023 17:24:05 01/30/20 23 01/29/2023 urina lysis , dipst ick Unknown Analyte Normal = 6.5, 7.0, 7.5, 8.0 Not Available [facility] [address] [place] [address], [phone], 01/29/2023 17:24:05 01/30/20 23 01/29/2023 urina lysis , dipst ick Unknown Analyte 5.0 Not Available [facility] [address] [place] [address], [phone], 01/29/2023 17:24:05 01/30/20 23 01/29/2023 urina lysis , dipst ick Unknown Analyte Normal = Negati ve Not Available [facility] [address] [place] [address], [phone], 01/29/2023 17:24:05 01/30/20 23 01/29/2023 urina lysis , dipst ick Unknown Analyte Negati ve Not Available [facility] [address] [place] [address], [phone], 01/29/2023 17:24:05 01/30/2001/29/2023 urina lysis , dipst ick Unknown Analyte Normal = 0.2, 1.0 Not Available [facility] [address] [place] [address], [phone], 01/29/2023 17:24:05 01/30/2001/29/2023 urina lysis , dipst ick Unknown Analyte 1.0 E.U./d L Not Available [facility] [address] [place] [address], [phone], 01/29/2023 17:24:05 01/30/2001/29/2023 urina lysis , dipst ick Unknown Analyte Normal = Negati ve Not Available [facility] [address] [place] [address], [phone], 01/29/2023 17:24:05 01/30/2001/29/2023 urina lysis , dipst ick Unknown Analyte Negati ve Not Available [facility] [address] [place] [address], [phone], 01/29/2023 17:24:05 01/30/2001/29/2023 urina lysis , dipst ick Unknown Analyte Normal = Negati ve Not Available [facility] [address] [place] [address], [phone], 01/29/2023 17:24:05 01/30/2001/29/2023 urina lysis , dipst ick Unknown Analyte Negati ve Not Available [facility] [address] [place] [address], [phone], 01/29/2023 17:24:05 Result Notes None recorded. Problems Name Problem SNOMED Code Status Onset Date Resolution Date Notes Provider Name and Address Organization Details Recorded Time Hypertensive disorder 63413729 Active GEORGIA ZARAGOZA-RIVE RA null, [place] - [facility] 3 17:16:04 Disorder of thyroid gland 68067799 Active GEORGIA ZARAGOZA-RIVE RA null, [place] - [facility] 3 17:16:16 Hypercholestero lemia 55999645 Active GEORGIA ZARAGOZA-RIVE RA null, [place] - [facility] 3 17:16:30 Glaucoma 31636184 Active GEORGIA ZARAGOZA-RIVE RA null, PA - [...] Name and Address Organization Details Recorded Time 828933 Cipro medicatio n Not available Not available Not available 01/29/202339141 3 RxNorm GEORGIA ZARAGOZA-RIVE RA null, [place] - [facility] 17:11:52 257258 Substance with sulfonami de structure and antibacte rial mechanism of action (substanc e) medicatio n Not available Not available Not available 01/29/2023 58802 8003 SNOMED GEORGIA ZARAGOZA-RIVE RA null, [place] - [facility] 3 17:12:02 010140 Zestril medicatio n Not available Not available Not available 01/29/202319637 2 RxNorm GEORGIA ZARAGOZA-RIVE RA null, [place] - [facility] 3 17:12:38 355734 Cardizem medicatio n Not available Not available Not available 01/29/202361829 4 RxNorm GEORGIA ZARAGOZA-RIVE RA null, [place] - [facility] 3 17:12:48 234932 Tagamet medicatio n Not available Not available Not available 01/29/2023 66121 2 RxNorm GEORGIADUSTIN Govea RA [facility] 3 17:13:01 033942 Istalol medicatio n Not available Not available Not available 01/29/2023 43436 9 RxNorm DUSTIN Bell [facility] - [facility] [...] Relief 50 mcg/actuatio n nasal spray,suspen enrique Swengel 1 spray every day by intranasal route [...] Updated DateTime 3 157.48 cm 23.8 kg/m2 09719.0 1 g 8 17 /min 95 % [...] SNOMED-CT Code Diagnosis ICD10 Code Diagnosis Note [id number] [place] [address] [address] 01/29/2023 17:01:41 01/29/2023 17:59:55 Acute sinusitis 43226425 J01.90 Low back pain 731097433 M54.50 Health Concerns Section Related Observation LastModified by Organization Detai ls LastModified Time None Recorded Concern Status LastModified by Organization Details LastModified Time None Recorded Advance Directives Directive None Recorded Payers Encounter Date Sequence Insurance Name Policy Number Policy Arvizu Covered Member ID Arvizu Member ID Guarantor Name 01/29/2023 1 [place] [employer] Yuni Delatorre [id number] Yuni Delatorre Notes Date Note Type [...] Injections:none Previous PT:none Work Related:no Working:no Tristian MIEK Sanchez [address] [place], [address], [place] - [facility] 01/29/2023 17:59:19 OBGyn Episode No OBEpisode recorded.
--- OUTSIDE RECORDS SUMMARY | 2024-08-15 12:35 | XMS_ITS | Data Portability ---
Author Organization [place] - [facility], Allergy Address [address] [place] [address] Care Team Providers Care Cultural Centre Manager Name Role Phone RIKKI BALL Primary Care Provider Assessment Encounter Date Assessment Date Assessment LastModified [...] She is medically cleared for amplification bilaterally. [email or web address] Not available 01/03/2024 14:36:14 02/02/2024 02/02/2024 Discussed [...] trip. Will move up if cancellation occurs. [email or web address] Not available 02/02/2024 15:59:55 03/22/2024 03/22/2024 Excellent fit to real ear. Reduced to #2 adaptation for comfort. Reviewed daily care and maintenance. Downloaded serenity. Patient has android phone that may not be compatible w/ serenity. Gave daughter tech support number at [employer] to problem solve why serenity not showing up on phone display. F/U 2 weeks. [email or web address] Not available 03/22/2024 10:58:09 04/12/2024 04/12/2024 Increased to #4 adaptation for clarity. Hearing so much better. Loves new hearing aids - was able to download serenity. Reviewed daily care and maintenance. 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 F/u 2 weeks. [email or web address] Not available 04/12/2024 10:24:03 04/26/2024 04/26/2024 doing very well - finds a little sharp reduced HF gain 2 steps sounds better. 6 month appt made [email or web address] Not available 04/26/2024 10:16:05 Plan of Treatment [...] audio gram No observ ation record ed. 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 Pulsatil e tinnitus , left ear; Note: Date Diagnose d: 4 3:28 PM (H93.A2) Not Available [facility] 4 02:19:22 Dizzines s and giddines s 365479888 Completed 202301/03/2024 Dizzines s and giddines s; Note: Date Diagnose d: 4 2:07 PM (R42) DIOGENES HERRERA MD [address] [place] [address], [place], [address] , [facility] - [facility] 4 13:50:21 Tinnitus of left ear 03355382016 06 Active 2023 Tinnitus , left ear; Note: Date Diagnose d: 4 2:36 PM (H93.12) Not Available [facility] 4 02:19:51 Bilatera l disorder of Eustachi an tubes 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 16843 Active 2023 Other specifie d disorder s of Eustachi an tube, bilatera l; Note: Date Diagnose d: 09/15/2023 1:04 PM (H69.83) Not Available [facility] 4 02:19:51 Sensorin eural hearing loss of bilatera l ears 920853389 Active 2023 Sensorin eural hearing loss, bilatera l; Note: Date Diagnose d: 4 2:36 PM (H90.3) Not Available [facility] 02:19:58 Acute maxillar y sinusiti s 59376240 Active 2023 Acute maxillar y sinusiti s, unspecif ied; Note: Date Diagnose d: 2:07 PM (J01.00) Not Available [facility] 02:19:59 Chronic rhinitis 70054067 Active 2023 DIOGENES HERRERA MD [address], [address] , [place] - [facility] 13:51:09 Problem Notes None recorded. Procedures Surgical History Date Name Laterality Status Provider Name and Address Organization Details Recorded Time 01/03/2024 Comp Audio with Tymps (45449 & 87721) completed JOHN PAUL LITTLE [address], [address], [place] - [facility] 01/03/2024 13:57:56 Imaging Results Imaging Date Name Status LastModified by Organiz [facility] Details LastModified Time 07/05/2023 imaging/diagno stic result completed Information not available 12/28/2023 04:28:21 08/04/2023 audiogram completed [email or web address] Information no t available 01/03/2024 13:46:14 08/04/2023 [...] Name and Address Organization Details Recorded Time 645667 Substance with sulfonami de structure and antibacte rial mechanism of action (substanc e) medicatio n other Not available Not available 12/09/2023 85185 8003 SNOMED React ion: Unkno wn; Not Available [facility] 00:25:00 Medications Name Sig Start Date Stop [...] Updated DateTime 01/03/2024 158.75 cm 24.3 kg/m2 98970.97 g Melony Pathak [place] - [facility] 01/03/2024 13:39:17 Social History None recorded. Functional Status None recorded. Mental Status None recorded. Family History Nothing Reported. Medical History No medical history recorded. Gynecological HistoryNo gynecological history recorded. Obstetrics History GPAL:G 0 P 0 0 0 0 Past Encounters Encounter ID Performer Location Encounter Start Date Encounter Closed Date Diagnosis/Indication Diagnosis SNOMED-CT Code Diagnosis ICD10 Code Diagnosis Note [id number] DIOGENES HERRERA MD [facility] [address] [address] 01/03/2024 13:22:46 01/03/2024 14:39:42 Chronic rhinitis 31380328 J31.0 Patient continues to demonstrat e chronic rhinitis, turbinate hypertroph y and nasal obstructio n despite the daily use of budesonide and Astelin nasal spray. I recommende d she continue to use the nasal sprays as prescribed . No additional recommenda tions with regards to her turbinate hypertroph y. Sensorineu ral hearing loss of bilateral ears 378903737 H90.3 Audiologic al evaluation results: 01/03/2024 Right [...] hermetic seal}} Tinnitus o f vascular origin 708403412 H93.A2 Tinnitus of left ear 690 2205814 106 H93.12 [id number] JOHN PAUL LITTLE [facility] [address] [address] 01/03/2024 13:57:25 01/04/2024 07:28:05 Sensorineural hearing loss of bilateral ears 996296216 H90.3 Audiologic al evaluation results: 01/03/2024 Right [...] Cou ld not maintain a hermetic seal}} [id number] NAVJOT MARTINEZ, AUD [place] 100 [facility],[place] 100 [place] [place] [address] 02/02/2024 14:55:38 02/06/2024 07:01:45 Sensorineural hearing loss of bilateral ears 861058531 H90.3 Audiologic al evaluation results: 01/03/2024 Right [...] Cou ld not maintain a hermetic seal}} [id number] NAVJOT MARTINEZ, AUD [place] 100 [facility],[place] 100 [place] [place] [address] 03/22/2024 09:49:00 03/23/2024 07:27:03 Sensorineural hearing loss of bilateral ears 067763910 H90.3 Audiologic al evaluation results: 01/03/2024 Right [...] Cou ld not maintain a hermetic seal}} [id number] JOHN PAUL LITTLE [place] 100 [facility],[place] [address] [place] [address] 04/12/2024 09:48:06 04/16/2024 13:28:19 Sensorineural hearing loss of bilateral ears 522305214 H90.3 Audiologic al evaluation results: 01/03/2024 Right [...] Cou ld not maintain a hermetic seal}} [id number] JOHN PAUL LITTLE [place] 100 [facility],[place] [address] [place] [address] 04/26/2024 09:52:50 05/04/2024 11:56:17 Sensorineural hearing loss of bilateral ears 401683796 H90.3 Audiologic al evaluation results: 01/03/2024 Right [...] [employer]ARP HE[employer]CARE OPTIONS (MEDICARE SUPPLEMENT) Yuni Delatorre [id number] Yuni Delatorre 01/03/2024 1 MEDICARE [place]: [employer] SERVICES Yuni Delatorre [id number] Yuni Delatorre 02/02/2024 2 [employer] HE[employer] OPTIONS (MEDICARE SUPPLEMENT) Yuni Delatorre [id number] Yuni Delatorre 02/02/2024 1 [place]IC[place] [facility] Yuni Delatorre [id number] Yuni Delatorre 03/22/2024 2 [employer] HE[employer]CARE OPTIONS (MEDICARE SUPPLEMENT) Yuni Delatorre [id number] Yuni Delatorre 03/22/2024 1 [place] [facility] Yuni Delatorre [id number] Yuni Delatorre 04/12/2024 2 [employer] HE[employer]CARE OPTIONS (MEDICARE SUPPLEMENT) Yuni Delatorre [id number] Yuni Delatorre 04/12/2024 1 [place] [facility] Yuni Delatorre [id number] Yuni Delatorre 04/26/2024 2 [employer] HE[employer]CARE OPTIONS (MEDICARE SUPPLEMENT) Yuni Delatorre [id number] Yuni Delatorre 04/26/2024 1 [place] [facility] Yuni Delatorre [id number] Yuni Delatorre Notes Date Note Type Note [...] accompanied by her daughter DIOGENES HERRERA MD [address] [place] [address], [address], [facility] - [facility] 01/03/2024 14:37:24 02/02/2024 text/html Patient has a kn own asymmetrical SNHL AD>. Was recently cleared for amplification by Dr Herrera. Patient has no hearing aid benefit. 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 Wants to remain as active as she can and would like to get back to performing. NAVJOT MARTINEZ, AUD 100 [facility],[address], [address], [facility] - [facility] 03/19/2024 12:46:40 03/22/2024 text/html Patient has [...] $[id number]. CAROLYN 03/22/2024. NAVJOT MARTINEZ, AUD 100 [facility],[address], [address], [facility] - [facility] 03/22/2024 11:03:24 04/12/2024 text/html Patient has [...] in dispensed 03/22/2024. NAVJOT MARTINEZ, AUD 100 [facility],[address], [address], [facility] 04/12/2024 10:25:26 04/26/2024 text/html Patient has [...] F/u 2 weeks. NAVJOT MARTINEZ, AUD 100 [facility],[place] [address], [place], [address], [facility] - [facility] 04/26/2024 10:16:26 OBGyn Episode No OBEpisode recorded.
--- OUTSIDE RECORDS SUMMARY | 2024-08-15 12:35 | XMS_ITS | Clinical Summary ---
Author Organization [facility] Address [address] [place] [address] Phone Care Team Providers Care Plasma Table Operator Name Role Phone Manuel Herrera MD Primary Care Provider [phone] Allergies Active Allergy Reactions Criticality Noted Date [...] 2 - PCV) 08/07/2010 08/07/2009 Influenza Vaccine (Season Ended) 2025 01/20/20 17 Hepatitis B Vaccine Aged Out No longe r eligible based on patient's age to complete this topic Insurance [facility] MEDICARE [facility] MEDICARE Care Teams Plasma Table Operator Relationship Specialty Start Date End Date Manuel Herrera MD [id number] [facility] - General 05/19/20
== END 2024-08-15 11:07 | disposition home or self-care (01) ==
LOC: HO.PMC 10:49
PROVIDERS: PCP Internal Medicine; Visit Provider Anesthesiology
DX: M47.816 Spondylosis without myelopathy or radiculopathy, lumbar region (principal); M53.3 Sacrococcygeal disorders, not elsewhere classified; M46.1 Sacroiliitis, not elsewhere classified; G89.4 Chronic pain syndrome
CPT/HCPCS: 99214

== ENCOUNTER → 2024-08-15 10:48 | Outpatient (BNVA) | payer MEDICARE, SELFPAY | PROVIDERS: PCP Internal Medicine; Visit Provider Anesthesiology | DX: M47.816 Spondylosis without myelopathy or radiculopathy, lumbar region (principal); M53.3 Sacrococcygeal disorders, not elsewhere classified; M46.1 Sacroiliitis, not elsewhere classified; G89.4 Chronic pain syndrome | CPT/HCPCS: 99212 ==

== ENCOUNTER 2024-08-29 13:31 | Outpatient (AMB) | payer MEDICARE, SELFPAY ==
--- NOTE | 2024-08-29 13:41 | MHC.PC.OV ---
Intake Visit Reasons: B 12 Inj Allergies cimetidine [From TAGAMET] Allergy (Unknown, Verified 08/15/24 10:56) GI UPSET ciprofloxacin [From CIPRO] Allergy (Unknown, Verified 08/15/24 10:56) GI UPSET diltiazem [From CARDIZEM] Allergy (Unknown, Verified 08/15/24 10:56) HIVES lisinopril [From ZESTRIL] Allergy (Unknown, Verified 08/15/24 10:56) LIGHTHESDEDNESS GI UPSET Sulfa (Sulfonamide Antibiotics) [SULFA (SULFONAMIDE ANTIBIOTICS)] Allergy (Unknown, Verified 08/15/24 10:56) HIVES timolol [From ISTALOL] Allergy (Unknown, Verified 08/15/24 10:56) [facility] does not handle GENERIC meds w Allergy (Unknown, Uncoded 08/15/24 10:56) unk Tobacco use date assessed: 08/01/24 Dental Screening Dental Screen Date: 08/01/24 [facility] Medical History Carotid stenosis, bilateral Statin intolerance Other and unspecified hyperlipidemia Non-rheumatic aortic stenosis Labile hypertension Surgical History (Updated 08/28/24 @ 17:28 by Chelsey Agudelo) History of colonoscopy (~09/04/12) History of cholecystectomy (~01/28/21) History of appendectomy Family History Father No problems noted. Mother No problems noted. 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 Nikhil Thayer, Yanely Ferrer, Orlando Chavez and colleagues, with an educational mukund from [employer]. Physical exam (Primary Care) Tobacco/Smoking Status: Tobacco use Status Tobacco use date assessed 08/01/24 08/29/24 13:41 Patient Tobacco Use Status Never used Tobacco 08/29/24 13:41 Thrive Assessment: Date of Thrive Assessment Date Thrive assessed 08/01/24 08/29/24 13:41 Office Meds cyanocobalamin (vitamin B-12) 1,000 mcg/mL injection solution Performing Provider: Dale So MD [place] [facility] [place] [place] Administered by: Dale So MD on 08/29/24 13:51 Dose Route Admin Location Dispensed Lot Number Expiration Date NDC Radiology Supervisor 1,000 mcg IM 1 mL [id number] 02/06/26 6779-4771-56 [facility] Coding Level of Care Code Est Pt Level 1 (02001) Diagnoses Vitamin B 12 deficiency E53.8 Assessment & Plan Assessment & Plan (1) Vitamin B 12 deficiency: Code(s): E53.8 - Deficiency of other specified B group vitamins Plan: Injection B 12 given Orders: Orders AMB Vitamin B12 Injection Practice Supplied Today E53.8 - Deficiency of other specified B group vitamins Medications: New cyanocobalamin (vitamin B-12) 1,000 mcg IM ONCE 1 mL 0RF E53.8 - Deficiency of other specified B group vitamins
--- OUTSIDE RECORDS SUMMARY | 2024-08-29 16:02 | XMS_ITS | Clinical Summary ---
Author Organization [facility] Address [address] [place] [address] Phone Care Team Providers Care Fingerprint Expert Name Role Phone Manuel Herrera MD Primary Care Provider [phone] Allergies Active Allergy Reactions Criticality Noted Date [...] kidney disease 07/25/2020 Essential hypertension 07/25/2020 Immunizations Immunization Administration Dates Next Due Influenza Split High [...] Due Date Last Done Comments Pneumococcal Vaccine: 50+ Ye ars (2 of 2 - PCV) 08/07/2010 08/07/2009 Influenza Vaccine (Season Ended) 2025 01/20/20 17 Pneumococcal Vaccine: Peds ( 0 to 5 Years) and At-Risk Patients (6 to 49 Years) Discontinued 08/07/2009 Hepatitis B Vaccine Aged Out No longe r eligible based on patient's age to complete this topic Insurance [facility] Medicare [facility] Medicare Care Teams Fingerprint Expert Relationship Specialty Start Date End Date Manuel Herrera MD [address] [place] [address] [address] [place] PCP - General 05/19/20
== END 2024-08-29 14:08 | disposition home or self-care (01) ==
LOC: HO.HMCHD 13:31
PROVIDERS: PCP Internal Medicine; Visit Provider Internal Medicine
DX: E53.8 Deficiency of other specified B group vitamins (principal)

== ENCOUNTER → 2024-08-29 13:31 | Outpatient (BNVA) | payer MEDICARE, SELFPAY | PROVIDERS: PCP Internal Medicine; Visit Provider Internal Medicine | DX: E53.8 Deficiency of other specified B group vitamins (principal) | CPT/HCPCS: 96372; 99211; J3420 ==

== ENCOUNTER 2024-09-27 09:51 | Outpatient (AMB) | payer MEDICARE, SELFPAY ==
--- OUTSIDE RECORDS SUMMARY | 2024-09-27 10:12 | XMS_ITS | Data Portability ---
Author Organization [place] - [facility], Allergy Address [address] [place] [address] Care Team Providers Care Forensic Dna Analyst Name Role Phone RIKKI BALL Primary Care Provider Assessment Encounter Date Assessment Date Assessment LastModified by Organization Details LastModified Time 02/02/2024 02/02/2024 Discussed various types models and levels of technology. Patient is interested in a mid level technology in a rechargeable option. Recommended [employer]x Moment 330 Smart CHELITA R in luís color #2 R/L M receivers in small open domes $4544. CAROLYN 03/22/2024. Would like sooner appointment - going to [facility] in early March. for family trip. Will move up if cancellation occurs. [email or web address] Not available 02/02/2024 15:59:55 03/22/2024 03/22/2024 Excellent fit to real ear. Reduced to #2 adaptation for comfort. Reviewed daily care and maintenance. Downloaded serenity. Patient has android phone that may not be compatible w/ serenity. Gave daughter tech support number at wide to problem solve why serenity not showing up on phone display. F/U 2 weeks. [email or web address] Not available 03/22/2024 10:58:09 04/12/2024 04/12/2024 Increased to #4 adaptation for clarity. Hearing so much better. Loves new hearing aids - was able to download serenity. Reviewed daily care and maintenance. 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 F/u 2 weeks. [email or web address] Not available 04/12/2024 10:24:03 04/26/2024 04/26/2024 doing very well - finds a little sharp reduced HF gain 2 steps sounds better. 6 month appt made [email or web address] Not available 04/26/2024 10:16:05 09/06/2024 09/06/2024 CL & CK - both aids working fine. Left aid migrating - put on retention wires - better. annual appt made prior to my residential. Not available 09/06/2024 11:04:29 Plan of Treatment Reminders Order Date Submit Date Provider Last Modified By Organization Details Last Modified Time Details Appointments [place] Fitting Follow Up (30) 2024 11:00A M NAVJOT MARTINEZ, AUD Not available Not available Not available Lab None recorded . Referral None recorded . Procedures None recorded . Surgeries None recorded . Imaging None recorded . Medication Orders None recorded . Patient TargetsNo targets recorded. Patient InstructionsNo instructions recorded. Reason for Referral None Reported. Results Created Date Observation Date Name Description Value Unit Range Abnormal Flag Note LastModifiedBy Organization Detail LastModifiedTime 01/03/20 24 audio gram No observ ation record ed. BARCODE Not Available 2023 15:18:01 Result Notes None recorded. 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 Pulsatil e tinnitus , left ear; Note: Date Diagnose d: 4 3:28 PM (H93.A2) Not Available Pending sale to [facility] 4 02:19:22 Dizzines s and giddines s 802944363 Completed 202301/03/2024 Dizzines s and giddines s; Note: Date Diagnose d: 4 2:07 PM (R42) DIOGENES HERRERA MD [address] [address], [place], [address] , [place] - [facility] [place] 4 13:50:21 Tinnitus of left ear 00886750859 06 Active 2023 Tinnitus , left ear; Note: Date Diagnose d: 4 2:36 PM (H93.12) Not Available Pending sale to [facility] 4 02:19:51 Bilatera l disorder of Eustachi an tubes 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 33902 Active 2023 Other specifie d disorder s of Eustachi an tube, bilatera l; Note: Date Diagnose d: 09/15/2023 1:04 PM (H69.83) Not Available Pending sale to [facility] 4 02:19:51 Sensorin eural hearing loss of bilatera l ears 649780764 Active 2023 Sensorin eural hearing loss, bilatera l; Note: Date Diagnose d: 4 2:36 PM (H90.3) Not Available Pending sale to [facility] 4 02:19:58 Acute maxillar y sinusiti s 51707154 Active 2023 Acute maxillar y sinusiti s, unspecif ied; Note: Date Diagnose d: 4 2:07 PM (J01.00) Not Available Pending sale to [facility] 4 02:19:59 Chronic rhinitis 55390653 Active 2023 DIOGENES HERRERA MD [address] [place] [address], [place], [address] , [facility] - [facility] [place] 4 13:51:09 Sensorin eural hearing loss of bilatera l ears 750526501 Active 2024 JOHN PAUL LITTLE [address] [address], [place], [address] , [facility] - [facility] [place] 5 09:32:21 Problem Notes None recorded. Procedures Surgical History Date Name Laterality Status Provider Name and Address Organization Details Recorded Time 01/03/2024 Comp Audio with Tymps - 78846 & 32980 completed NAVJOT MARTINEZ, AUD [address] [facility],[address] [address], [place], [address], [facility] - [facility] 01/03/2024 13:57:56 Imaging Results Imaging Date Name Status LastModified by Organiz ation Details LastModified Time 01/03/2024 audiogram completed BARCODE Information no t available 01/03/2024 15:18:01 Procedure Notes None recorded. Medical Equipment None Reported. Allergies Allergen ID Allergen Name Allergen Category Reaction Reaction Severity Criticality Documentation Date Start Date Code Code System Note Provider Name and Address Organization Details Recorded Time 669769 Substance with sulfonami de structure and antibacte rial mechanism of action (substanc e) medicatio n other Not available Not available 12/09/2023 80544 8003 SNOMED React ion: Unkno wn; Not Available [facility] 00:25:00 Medications Name Sig Start Date Stop Date Status Note LastModified by Organization Details LastModified Time losartan 50 mg tablet TAKE ONE TABLET BY MOUTH EVERY DAY IN THE MORNING AND TAKE 1/2 TABLET BY MOUTH IN THE EVENING active Not Available Not Available Not Available budesonide 32 mcg/actuatio n nasal spray [...] Not Available Not Available Not Available Vitals None Recorded Social History None recorded. Functional Status None recorded. Mental Status None recorded. Family History Nothing Reported. Medical History No medical history recorded. Gynecological HistoryNo gynecological history recorded. Obstetrics History GPAL:G 0 P 0 0 0 0 Past Encounters Encounter ID Performer Location Encounter Start Date Encounter Closed Date Diagnosis/Indication Diagnosis SNOMED-CT Code Diagnosis ICD10 Code Diagnosis Note [id number] DIOGENES HERRERA MD [facility] [address] [address] 01/03/2024 13:22:46 01/03/2024 14:39:42 Chronic rhinitis 33939883 J31.0 Patient continues to demonstrat e chronic rhinitis, turbinate hypertroph y and nasal obstructio n despite the daily use of budesonide and Astelin nasal spray. I recommende d she continue to use the nasal sprays as prescribed . No additional recommenda tions with regards to her turbinate hypertroph y. Sensorineu ral hearing loss of bilateral ears 607095255 H90.3 Audiologic al evaluation results: 01/03/2024 Right [...] hermetic seal}} Tinnitus o f vascular origin 107645577 H93.A2 Tinnitus of left ear 415 1876677 106 H93.12 [id number] JOHN PAUL LITTLE [facility] [address] [address] 01/03/2024 13:57:25 01/04/2024 07:28:05 Sensorineural hearing loss of bilateral ears 276297930 H90.3 Audiologic al evaluation results: 01/03/2024 Right [...] Cou ld not maintain a hermetic seal}} [id number] NAVJOT MARTINEZ, AUD [place] [address] [facility],[place] [address] [place] [address] 02/02/2024 14:55:38 02/06/2024 07:01:45 Sensorineural hearing loss of bilateral ears 613993297 H90.3 Audiologic al evaluation results: 01/03/2024 Right [...] Cou ld not maintain a hermetic seal}} [id number] NAVJOT MARTINEZ, JOHN PAUL [place] [address] [facility],[place] [address] [place] [address] 03/22/2024 09:49:00 03/23/2024 07:27:03 Sensorineural hearing loss of bilateral ears 348134765 H90.3 Audiologic al evaluation results: 01/03/2024 Right [...] Cou ld not maintain a hermetic seal}} [id number] NAVJOT MOSQUEDAEVITTJOHN PAUL [place] [address] [facility],[place] [address] [place] [address] 04/12/2024 09:48:06 04/16/2024 13:28:19 Sensorineural hearing loss of bilateral ears 872436538 H90.3 Audiologic al evaluation results: 01/03/2024 Right [...] Cou ld not maintain a hermetic seal}} [id number] NAVJOT MARTINEZJOHN PAUL [place] [address] [facility],[place] [address] [place] [address] 04/26/2024 09:52:50 05/04/2024 11:56:17 Sensorineural hearing loss of bilateral ears 599352789 H90.3 Audiologic al evaluation results: 01/03/2024 Right [...] Cou ld not maintain a hermetic seal}} [id number] NAVJOT MARTINEZ, JOHN PAUL [place] [address] [place] [address] [address] [place] [address] 09/06/2024 10:31:23 09/06/2024 14:33:23 Sensorineural hearing loss of bilateral ears 103815231 H90.3 Audiologic al evaluation results: 01/03/2024 Right [...] Recorded Advance Directives Directive None Recorded Payers Insurance Date Sequence Insurance Name Policy Number Policy Arvizu Covered Member ID Arvizu Member ID Guarantor Name 09/14/2024 2 AARP (MEDICARE SUPPLEMENT) Yuni Juan Ramon [id number] Yuni Delatorre 09/06/2024 1 [place] [employer] Yuni Delatorre [id number] Yuni Juan Ramon Notes Date Note Type Note Provider Name and Address Organization Details Recorded Time 02/02/2024 text/html Patient has a kn own asymmetrical SNHL AD>. Was recently cleared for amplification by Dr Herrera. Patient has no hearing aid benefit. 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 Wants to remain as active as she can and would like to get back to performing. NAVJOT MARTINEZ, [address] [address], [place], [address], [facility] - [facility] 03/19/2024 12:46:40 03/22/2024 text/html Patient has a [...] $4544. CAROLYN 03/22/2024. NAVJOT MARTINEZ, AUD [address] [facility],[address] [address], [place], [address], [facility] - [facility] 03/22/2024 11:03:24 04/12/2024 text/html Patient has a [...] in dispensed 03/22/2024. NAVJOT MARTINEZ, AUD [address] [facility],[address] [address], [place], [address], [facility] 04/12/2024 10:25:26 04/26/2024 text/html Patient has a [...] shows and is thrilled. F/u 2 weeks. ANVJOT MARTINEZ, AUD [address] [facility],[address] [address], [place], [address], [facility] - [facility] 04/26/2024 10:16:26 09/06/2024 text/html Patient has a kn own asymmetrical SNHL AD>. Was recently cleared for amplification by Dr Herrera. Patient has no hearing aid benefit. 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 Wants to remain as active as she can and would like to get back to performing. Currently wearing [employer] Moment 330 Smart CHELITA R in dispensed 03/22/2024. Increased to #4 adaptation for clarity. Hearing so much better. Loves new hearing aids -doing very well - finds a little sharp reduced HF gain 2 steps sounds better. NAVJOT MARTINEZ, AUD [address] [facility],[address] [address], [place], [address], [place] - [facility] 09/11/2024 09:32:45 OBGyn Episode No OBEpisode recorded.
--- OUTSIDE RECORDS SUMMARY | 2024-09-27 10:12 | XMS_ITS | Data Portability ---
Author Organization [facility], [address] Address [address] [place] [address] Care Team Providers Care Dry Heat Cabinet Attendant Name Role Phone [facility] WEIGH T MANAGEMENT PROGRAM Primary Care Provider Assessment No assessment recorded. Plan of Treatment Reminders Order Date Submit Date Provider Last Modified By Organization Details Last Modified Time Details Appointments None recorded. Lab urinalysis, dipstick 2022 023 [facility], [address] [place], [address], 17:59:00 Referral None recorded. Procedures None recorded. Surgeries None recorded. Imaging None recorded. Medication Orders lidocaine 5 % topical patch 2022 023 [email or web address], [address] [place], [address], 3 17:59:01 Flonase Allergy Relief 50 mcg/actuati on nasal spray,suspe nsion 2022 023 [place] [email or web address], [address] [place], [address], 3 17:58:59 loratadine 10 mg tablet 2022 023 [place] [email or web address], [address] [place], [address], 17:58:59 Patient TargetsNo targets recorded. Patient Instructions Encounter Date Encounter Id Patient Instructions Last Modified By Organization Details Last Modified Time 01/29/2023 [id number] getting back to normal after low back [...] care for yourself at home? Take an wzgh-mju-rzexpxn pain medicine. Avoid Ibuprofen, Aleve and Aspirin if . If the doctor prescribed antibiotics, take them as directed. Do not stop taking them just because you feel better. You need to take the full course of antibiotics. Be careful when taking grib-eyw-mqnzlyt cold or influenza (flu) medicines and Tylenol [...] = light yellow Not Available [facility] [address] [place] [address], [address], 01/29/2023 17:24:05 01/30/2001/29/2023 urina lysis , dipst ick Unknown Analyte Yellow Not Available [facility] [address] [place] [address], [address], 01/29/2023 17:24:05 01/30/2001/29/2023 urina lysis , dipst ick Unknown Analyte Normal = clear Not Available [facility] [address] [place] [address], [address], 01/29/2023 17:24:05 01/30/2001/29/2023 urina lysis , dipst ick Unknown Analyte Clear Not Available [facility] [address] [place] [address], [address], 01/29/2023 17:24:05 01/30/2001/29/2023 urina lysis , dipst ick Unknown Analyte Normal = negati ve Not Available [facility] [address] [place] [address], [address], 01/29/2023 17:24:05 01/30/20 23 01/29/2023 urina lysis , dipst ick Unknown Analyte Negati ve Not Available [facility] [address] [place] [address], [address], 01/29/2023 17:24:05 01/30/2001/29/2023 urina lysis , dipst ick Unknown Analyte Normal = Negati ve Not Available [facility] [address] [place] [address], [address], 01/29/2023 17:24:05 01/30/2001/29/2023 urina lysis , dipst ick Unknown Analyte Negati ve Not Available [facility] [address] [place] [address], [address], 01/29/2023 17:24:05 01/30/2001/29/2023 urina lysis , dipst ick Unknown Analyte Normal = Negati ve Not Available [facility] [address] [place] [address], [address], 01/29/2023 17:24:05 01/30/2001/29/2023 urina lysis , dipst ick Unknown Analyte Negati ve Not Available [facility] [address] [place] [address], [address], 01/29/2023 17:24:05 01/30/2001/29/2023 urina lysis , dipst ick Unknown Analyte Normal = 1.010, 1.015, 1.020 Not Available [facility] [address] [place] [address], [address], 01/29/2023 17:24:05 01/30/20 23 01/29/2023 urina lysis , dipst ick Unknown Analyte 1.020 Not Available [facility] [address] [place] [address], [address], 01/29/2023 17:24:05 01/30/20 23 01/29/2023 urina lysis , dipst ick Unknown Analyte Normal = Negati ve Not Available [facility] [address] [place] [address], [address], 01/29/2023 17:24:05 01/30/2001/29/2023 urina lysis , dipst ick Unknown Analyte Negati ve Not Available [facility] [address] [place] [address], [address], 01/29/2023 17:24:05 01/30/20 23 01/29/2023 urina lysis , dipst ick Unknown Analyte Normal = 6.5, 7.0, 7.5, 8.0 Not Available [facility] [address] [place] [address], [address], 01/29/2023 17:24:05 01/30/20 23 01/29/2023 urina lysis , dipst ick Unknown Analyte 5.0 Not Available [facility] [address] [place] [address], [address], 01/29/2023 17:24:05 01/30/20 23 01/29/2023 urina lysis , dipst ick Unknown Analyte Normal = Negati ve Not Available [facility] [address] [place] [address], [address], 01/29/2023 17:24:05 01/30/20 23 01/29/2023 urina lysis , dipst ick Unknown Analyte Negati ve Not Available [facility] [address] [place] [address], [address], 01/29/2023 17:24:05 01/30/2001/29/2023 urina lysis , dipst ick Unknown Analyte Normal = 0.2, 1.0 Not Available [facility] [address] [place] [address], [address], 01/29/2023 17:24:05 01/30/2001/29/2023 urina lysis , dipst ick Unknown Analyte 1.0 E.U./d L Not Available [facility] [address] [place] [address], [address], 01/29/2023 17:24:05 01/30/2001/29/2023 urina lysis , dipst ick Unknown Analyte Normal = Negati ve Not Available [facility] [address] [place] [address], [address], 01/29/2023 17:24:05 01/30/2001/29/2023 urina lysis , dipst ick Unknown Analyte Negati ve Not Available [facility] [address] [place] [address], [address], 01/29/2023 17:24:05 01/30/2001/29/2023 urina lysis , dipst ick Unknown Analyte Normal = Negati ve Not Available [facility] [address] [place] [address], [address], 01/29/2023 17:24:05 01/30/2001/29/2023 urina lysis , dipst ick Unknown Analyte Negati ve Not Available [facility] [address] [place] [address], [address], 01/29/2023 17:24:05 Result Notes None recorded. Problems Name Problem SNOMED Code Status Onset Date Resolution Date Notes Provider Name and Address Organization Details Recorded Time Hypertensive disorder 71652484 Active GEORGIA ZARAGOZA-RIVE RA null, [place] - [facility] 3 17:16:04 Disorder of thyroid gland 71879566 Active GEORGIA ZARAGOZA-RIVE RA null, [place] - [facility] 3 17:16:16 Hypercholestero lemia 81683632 Active GEORGIA ZARAGOZA-RIVE RA null, [place] - [facility] 3 17:16:30 Glaucoma 97050093 Active GEORGIA ZARAGOZA-RIVE RA null, PA - [...] Name and Address Organization Details Recorded Time 361920 Cipro medicatio n Not available Not available Not available 01/29/202305914 3 RxNorm GEORGIA ZARAGOZA-RIVE RA null, [place] - [facility] 17:11:52 658207 Substance with sulfonami de structure and antibacte rial mechanism of action (substanc e) medicatio n Not available Not available Not available 01/29/2023 03947 8003 SNOMED GEORGIA ZARAGOZA-RIVE RA null, PA - [facility] 3 17:12:02 092199 Zestril medicatio n Not available Not available Not available 01/29/202319637 2 RxNorm GEORGIA ZARAGOZA-RIVE RA null, PA - [facility] 3 17:12:38 474631 Cardizem medicatio n Not available Not available Not available 01/29/202384260 4 RxNorm GEORGIA ZARAGOZA-RIVE RA null, [place] - [facility] 3 17:12:48 962506 Tagamet medicatio n Not available Not available Not available 01/29/2023 37272 2 RxNorm GEORGIA LEILAMiguel Angel RA howell, DUSTIN - [facility] 3 17:13:01 019433 Istalol medicatio n Not available Not available Not available 01/29/2023 33036 9 RxNorm GEORGIA VALENCIA howell, DUSTIN - [facility] 3 17:13:28 Medications Name [...] Relief 50 mcg/actuatio n nasal spray,suspen enrique [place] 1 spray every day by intranasal route as directed for 30 days. 2022 active Not Available Not Available Not Avai lable Repatha Syringe active Not Available Not Available Not Available Vitals Date Recorded Body height Body mass index (BMI) Body weight Respiratory rate Oxygen saturation Oxygen saturation in Arterial blood by Pulse oximetry Heart rate Body temperature Systolic blood pressure Diastolic blood pressure Provider Name and Address Organization Details Last Updated DateTime 3 157.48 cm 23.8 kg/m2 72895.0 1 g 17 /min 95 % 95 % 103 /min 98.5 [degF] 150 mm[Hg] 60 mm[Hg] GEORGIA LEILAMiguel Angel PA - [facility] 17:23:13 Social History Question Answer Notes LastModified by Organizat ion Details LastModified Time Tobacco Smoking Status Never Smoker GEORGIA ZARAGOZAXiomaraBOSTON dante [place] - [facility] 01/29/2023 17:18:19 Have You Had A Flu Shot This Season? No Information not available 01/29/2023 If No, Would You Like A Flu Shot Today? No Information not available 01/29/2023 Have You Recently Traveled Abroad? No Information not available 01/29/2023 Sex: Unknown Functional Status Question Answer Note LastModified by Organizat ion Details LastModified Time Do you use any illicit or recreational drugs? No Information not available 01/29/2023 Do you or have you ever used any other forms of tobacco or nicotine? No Information not available 01/29/2023 What is your level of alcohol consumption? Occasional Information not available 01/29/2023 Mental Status None recorded. Family History Relationship [...] SNOMED-CT Code Diagnosis ICD10 Code Diagnosis Note [id number] [place] [address] [address] 01/29/2023 17:01:41 01/29/2023 17:59:55 Acute sinusitis 50636258 J01.90 Low back pain 636770416 M54.50 Health Concerns Section Related Observation LastModified by Organization Detai ls LastModified Time None Recorded Concern Status LastModified by Organization Details LastModified Time None Recorded Advance Directives Directive None Recorded Payers Insurance Date Sequence Insurance Name Policy Number Policy Arvizu Covered Member ID Arvizu Member ID Guarantor Name 03/16/2023 1 [place]IC[place] [employer] Yuni Delatorre [id number] Yuni Delatorre 05/05/2023 2 AARP (MEDICARE SUPPLEMENT) Yuni Delatorre [id number] Yuni Delatorre Notes Date Note Type Note [...] Injections:none Previous PT:none Work Related:no Working:no Tristian Daniel, MIKE [address] [place], [address], [place] - [facility] 01/29/2023 17:59:19 OBGyn Episode No OBEpisode recorded.
--- OUTSIDE RECORDS SUMMARY | 2024-09-27 10:12 | XMS_ITS | Clinical Summary ---
Author Organization [facility] Address [address] [place] [address] Phone Care Team Providers Care Pharmaceutical Detailer Name Role Phone Manuel Herrera MD Primary [...] patient's age to complete this topic Insurance [facility] Medicare [facility] Medicare Care Teams Pharmaceutical Detailer Relationship Specialty Start Date End Date Manuel Herrera MD [address] [place] [address] [address] [place] PCP - General 05/19/20
--- NOTE | 2024-09-27 10:46 | AM.OFFVISNUR ---
Vital Signs 09/27/24 10:50 BMI Reason not done Patient refused/unable BP 134/68 Blood Pressure Location Rt brachial Position Sitting Intake Visit Reasons: B12 Allergies cimetidine [From TAGAMET] Allergy (Unknown, Verified 08/15/24 10:56) GI UPSET ciprofloxacin [From CIPRO] Allergy (Unknown, Verified 08/15/24 10:56) GI UPSET diltiazem [From CARDIZEM] Allergy (Unknown, Verified 08/15/24 10:56) HIVES lisinopril [From ZESTRIL] Allergy (Unknown, Verified 08/15/24 10:56) LIGHTHESDEDNESS GI UPSET Sulfa (Sulfonamide Antibiotics) [SULFA (SULFONAMIDE ANTIBIOTICS)] Allergy (Unknown, Verified 08/15/24 10:56) HIVES timolol [From ISTALOL] Allergy (Unknown, Verified 08/15/24 10:56) [facility] does not handle GENERIC meds w Allergy (Unknown, Uncoded 08/15/24 10:56) unk Nursing Note Pt to office for B12 injection, given per order. Verified pt name and , pt feels well today. Tolerated injection well. Office Meds cyanocobalamin (vitamin B-12) 1,000 mcg/mL injection solution Performing Provider: Yuni Moreno MD Performing Location: [facility] HD Administered by: Anu Jc RN on 09/27/24 10:51 Dose Route Admin Location Dispensed Lot Number Expiration Date [facility] [employer] 1,000 mcg IM left deltoid 1 mL [id number] 03/08/26 1130-7422-[address] [facility] Comments: Pt tolerated injection well Assessment & Plan Assessment & Plan Orders: Orders AMB Vitamin B12 Injection Practice Supplied Today E53.8 - Deficiency of other specified B group vitamins Medications: New cyanocobalamin (vitamin B-12) 1,000 mcg IM ONCE 1 mL 0RF E53.8 - Deficiency of other specified B group vitamins Coding Level of Care Code Procedure Only
[2024-09-27 10:50] VITALS: BP 134/68
== END 2024-09-27 10:51 | disposition home or self-care (01) ==
LOC: HO.HMCHD 09:52
PROVIDERS: PCP Internal Medicine
DX: E53.8 Deficiency of other specified B group vitamins (principal)

== ENCOUNTER → 2024-09-27 09:51 | Outpatient (BNVA) | payer MEDICARE, SELFPAY | PROVIDERS: PCP Internal Medicine | DX: E53.8 Deficiency of other specified B group vitamins (principal) | CPT/HCPCS: 96372; J3420 ==

== ENCOUNTER 2024-10-25 09:54 | Outpatient (AMB) | payer MEDICARE, SELFPAY ==
[2024-10-25 09:24] VITALS: BP 122/68; PULSE 60; TEMP 36.3; O2SAT 98; BMI 25.1
--- NOTE | 2024-10-25 09:24 | A.OFFPC_ITS ---
Vital Signs 10/25/24 09:24 Height 5 ft 2 in Weight 137 lb BMI 25.1 BP 122/68 Blood Pressure Location Rt brachial Position Sitting Pulse 60 Pulse Source Pulse Oximeter Temp 97.4 F Temp Source Axillary Pulse Oximetry (%) 98 Oxygen Delivery Method Room Air Intake Visit Reasons: B-12 Hand Alterations Tailor Required: No Accompanied by: Self / Same As Patient Allergies cimetidine (From TAGAMET) Allergy (Unknown, Verified 08/15/24 10:56) GI UPSET ciprofloxacin (From CIPRO) Allergy (Unknown, Verified 08/15/24 10:56) GI UPSET diltiazem (From CARDIZEM) Allergy (Unknown, Verified 08/15/24 10:56) HIVES lisinopril (From ZESTRIL) Allergy (Unknown, Verified 08/15/24 10:56) LIGHTHESDEDNESS GI UPSET Sulfa (Sulfonamide Antibiotics) (SULFA (SULFONAMIDE ANTIBIOTICS)) Allergy (Unknown, Verified 08/15/24 10:56) HIVES timolol (From ISTALOL) Allergy (Unknown, Verified 08/15/24 10:56) [facility] does not handle GENERIC meds w Allergy (Unknown, Uncoded 08/15/24 10:56) unk Tobacco use date assessed: 08/01/24 Dental Screening Dental Screen Date: 08/01/24 HPI HPI Comments History of Present Illness Details The patient is an 84-year-old female with a past medical history of hypertension, b12 deficiency presenting with a need for a Vitamin B12 injection. . [facility] Medical History (Updated 10/28/24 @ 12:51 by Yuni Moreno MD) Carotid stenosis, bilateral Statin intolerance Other and unspecified hyperlipidemia Non-rheumatic aortic stenosis Labile hypertension Surgical History (Updated 08/28/24 @ 17:28 by Chelsey Agudelo) History of colonoscopy (~09/04/12) History of cholecystectomy (~01/28/21) History of appendectomy Family History Father No problems noted. Mother No problems noted. 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 Nikhil Thayer, Yanely Ferrer, Orlando Chavez and colleagues, with an educational mukund from [employer]. Physical exam (Primary Care) Vital Signs: Last Vital Signs Temp 97.4 F 10/25/24 09:24 Pulse 60 10/25/24 09:24 BP 122/68 10/25/24 09:24 Pulse Ox 98 10/25/24 09:24 Oxygen Delivery Method Room Air 10/25/24 09:24 BMI result Body Mass Index 25.1 Tobacco/Smoking Status: Tobacco use Status Tobacco use date assessed 08/01/24 10/25/24 09:24 Patient Tobacco Use Status Never used Tobacco 10/25/24 09:24 Thrive Assessment: Date of Thrive Assessment Date Thrive assessed 08/01/24 10/25/24 09:24 Office Procedures OP Injections Administration Injection given: Yes with counseling Injection site: deltoid (Left deltoid-B12) Coding Level of Care Code Procedure Only Diagnoses B12 deficiency E53.8 CPT Codes Administration ([id number]) Assessment & Plan Assessment & Plan (1) B12 deficiency: Code(s): E53.8 - Deficiency of other specified B group vitamins Category: Medical Plan Left deltoid injection given Patient tolerated procedure without difficulty Orders: Orders AMB Vitamin B12 Injection Practice Supplied 10/25/24 E53.8 - Deficiency of other specified B group vitamins Medications: New cyanocobalamin (vitamin B-12) 1,000 mcg IM ONCE 1 mL 0RF E53.8 - Deficiency of other specified B group vitamins
--- OUTSIDE RECORDS SUMMARY | 2024-10-25 10:57 | XMS_ITS | Data Portability ---
Author Organization [facility], [address] Address [address] [place] [address] Care Team Providers Care Driver Courier Name Role Phone [facility] Primary Care Provider Assessment No assessment recorded. Plan of Treatment Reminders Order Date Submit Date Provider Last Modified By Organization Details Last Modified Time Details Appointments None recorded. Lab urinalysis, dipstick 2022 023 [facility], [address] [place], [address], 17:59:00 Referral None recorded. Procedures None recorded. Surgeries None recorded. Imaging None recorded. Medication Orders lidocaine 5 % topical patch 2022 023 [facility], [address] [place], [address], 3 17:59:01 Flonase Allergy Relief 50 mcg/actuati on nasal spray,suspe nsion 2022 023 [facility], [address] [place], [address], 3 17:58:59 loratadine 10 mg tablet 2022 023 [facility], [address] [place], [address], 17:58:59 Patient TargetsNo targets recorded. Patient Instructions Encounter Date Encounter Id Patient Instructions Last Modified By Organization Details Last Modified Time 01/29/2023 [id number] getting back to normal after low back [...] care for yourself at home? Take an ilpg-lzx-ooemrwh pain medicine. Avoid Ibuprofen, Aleve and Aspirin if . If the doctor prescribed antibiotics, take them as directed. Do not stop taking them just because you feel better. You need to take the full course of antibiotics. Be careful when taking zteh-zga-ekpccyz cold or influenza (flu) medicines and Tylenol [...] = light yellow Not Available [facility] [address] [place] [address], [phone], 01/29/2023 17:24:05 01/30/2001/29/2023 urina lysis , dipst ick Unknown Analyte Yellow Not Available [facility] [address] [place] [address], [phone], 01/29/2023 17:24:05 01/30/2001/29/2023 urina lysis , dipst ick Unknown Analyte Normal = clear Not Available [facility] [address] [place] [address], [phone], 01/29/2023 17:24:05 01/30/2001/29/2023 urina lysis , dipst ick Unknown Analyte Clear Not Available [facility] [address] [place] [address], [phone], 01/29/2023 17:24:05 01/30/2001/29/2023 urina lysis , dipst ick Unknown Analyte Normal = negati ve Not Available [facility] [address] [place] [address], [phone], 01/29/2023 17:24:05 01/30/20 23 01/29/2023 urina lysis , dipst ick Unknown Analyte Negati ve Not Available [facility] [address] [place] [address], [phone], 01/29/2023 17:24:05 01/30/2001/29/2023 urina lysis , dipst ick Unknown Analyte Normal = Negati ve Not Available [facility] [address] [place] [address], [phone], 01/29/2023 17:24:05 01/30/2001/29/2023 urina lysis , dipst ick Unknown Analyte Negati ve Not Available [facility] [address] [place] [address], [phone], 01/29/2023 17:24:05 01/30/2001/29/2023 urina lysis , dipst ick Unknown Analyte Normal = Negati ve Not Available [facility] [address] [place] [address], [phone], 01/29/2023 17:24:05 01/30/2001/29/2023 urina lysis , dipst ick Unknown Analyte Negati ve Not Available [facility] [address] [place] [address], [phone], 01/29/2023 17:24:05 01/30/2001/29/2023 urina lysis , dipst ick Unknown Analyte Normal = 1.010, 1.015, 1.020 Not Available [facility] [address] [place] [address], [phone], 01/29/2023 17:24:05 01/30/20 23 01/29/2023 urina lysis , dipst ick Unknown Analyte 1.020 [facility] Available [facility] [address] [place] [address], [phone], 01/29/2023 17:24:05 01/30/20 23 01/29/2023 urina lysis , dipst ick Unknown Analyte Normal = Negati ve Not Available [facility] [address] [place] [address], [phone], 01/29/2023 17:24:05 01/30/2001/29/2023 urina lysis , dipst ick Unknown Analyte Negati ve Not Available [facility] [address] [place] [address], [phone], 01/29/2023 17:24:05 01/30/20 23 01/29/2023 urina lysis , dipst ick Unknown Analyte Normal = 6.5, 7.0, 7.5, 8.0 Not Available [facility] [address] [place] [address], [phone], 01/29/2023 17:24:05 01/30/20 23 01/29/2023 urina lysis , dipst ick Unknown Analyte 5.0 Not Available [facility] [address] [place] [address], [phone], 01/29/2023 17:24:05 01/30/20 23 01/29/2023 urina lysis , dipst ick Unknown Analyte Normal = Negati ve Not Available [facility] [address] [place] [address], [phone], 01/29/2023 17:24:05 01/30/20 23 01/29/2023 urina lysis , dipst ick Unknown Analyte Negati ve Not Available [facility] [address] [place] [address], [phone], 01/29/2023 17:24:05 01/30/2001/29/2023 urina lysis , dipst ick Unknown Analyte Normal = 0.2, 1.0 Not Available [facility] [address] [place] [address], [phone], 01/29/2023 17:24:05 01/30/2001/29/2023 urina lysis , dipst ick Unknown Analyte 1.0 E.U./d L Not Available [facility] [address] [place] [address], [phone], 01/29/2023 17:24:05 01/30/2001/29/2023 urina lysis , dipst ick Unknown Analyte Normal = Negati ve Not Available [facility] [address] [place] [address], [phone], 01/29/2023 17:24:05 01/30/2001/29/2023 urina lysis , dipst ick Unknown Analyte Negati ve Not Available [facility] [address] [place] [address], [phone], 01/29/2023 17:24:05 01/30/2001/29/2023 urina lysis , dipst ick Unknown Analyte Normal = Negati ve Not Available [facility] [address] [place] [address], [phone], 01/29/2023 17:24:05 01/30/2001/29/2023 urina lysis , dipst ick Unknown Analyte Negati ve Not Available [facility] [address] [place] [address], [phone], 01/29/2023 17:24:05 Result Notes None recorded. Problems Name Problem SNOMED Code Status Onset Date Resolution Date Notes Provider Name and Address Organization Details Recorded Time Hypertensive disorder 24865517 Active GEORGIA ZARAGOZA-RIVE RA null, [place] - [facility] 3 17:16:04 Disorder of thyroid gland 70558613 Active GEORGIA ZARAGOZA-RIVE RA null, PA - [facility] 3 17:16:16 Hypercholestero lemia 69633786 Active GEORGIA ZARAGOZA-RIVE RA null, PA - [facility] 3 17:16:30 Glaucoma 21770566 Active GEORGIA ZARAGOZA-RIVE RA null, PA - [...] Name and Address Organization Details Recorded Time 003996 Cipro medicatio n Not available Not available Not available 01/29/202312624 3 RxNorm GEORGIA ZARAGOZA-RIVE RA null, [place] - [facility] 17:11:52 697407 Substance with sulfonami de structure and antibacte rial mechanism of action (substanc e) medicatio n Not available Not available Not available 01/29/2023 20312 8003 SNOMED GEORGIA ZARAGOZA-RIVE RA null, PA - [facility] 3 17:12:02 589993 Zestril medicatio n Not available Not available Not available 01/29/202319637 2 RxNorm GEORGIA ZARAGOZA-RIVE RA null, PA - [facility] 3 17:12:38 519342 Cardizem medicatio n Not available Not available Not available 01/29/202304960 4 RxNorm GEORGIA ZARAGOZA-RIVE RA null, PA - [facility] 3 17:12:48 657335 Tagamet medicatio n Not available Not available Not available 01/29/2023 28191 2 RxNorm GEORGIA LEILAMiguel Angel RA howell, DUSTIN - [facility] 3 17:13:01 169354 Istalol medicatio n Not available Not available Not available 01/29/2023 28108 9 RxNorm GEOR[place]IA VALENCIA howell, DUSTIN - [...] Relief 50 mcg/actuatio n nasal spray,suspen enrique [place] 1 spray every day by intranasal route [...] Updated DateTime 3 157.48 cm 23.8 kg/m2 95207.0 1 g 17 /min 95 % 95 [...] SNOMED-CT Code Diagnosis ICD10 Code Diagnosis Note [id number] [place] [address] [phone] 01/29/2023 17:01:41 01/29/2023 17:59:55 Acute sinusitis 74204467 J01.90 Low back pain 518586385 M54.50 Health Concerns Section Related Observation LastModified by Organization Detai ls LastModified Time None Recorded Concern Status LastModified by Organization Details LastModified Time None Recorded Advance Directives Directive None Recorded Payers Insurance Date Sequence Insurance Name Policy Number Policy Arvizu Covered Member ID Arvizu Member ID Guarantor Name 03/16/2023 1 MEDICARE B-[place]: [employer] Yuni Delatorre [id number] Yuni Delatorre 05/05/2023 2 [employer] (MEDICARE SUPPLEMENT) Yuni Delatorre [id number] Yuni Delatorre Notes Date Note Type Note [...] Tristian Daniel, MIKE [address] [place], [address], [place] - [facility] 01/29/2023 17:59:19 OBGyn Episode No OBEpisode recorded.
== END 2024-10-25 10:29 | disposition home or self-care (01) ==
LOC: HO.HMCHD 09:55
PROVIDERS: PCP Internal Medicine; Visit Provider Internal Medicine
DX: E53.8 Deficiency of other specified B group vitamins (principal)

== ENCOUNTER → 2024-10-25 09:54 | Outpatient (BNVA) | payer MEDICARE, SELFPAY | PROVIDERS: PCP Internal Medicine; Visit Provider Internal Medicine | DX: E53.8 Deficiency of other specified B group vitamins (principal) | CPT/HCPCS: 90471; J3420 ==

== ENCOUNTER 2024-11-01 14:39 | Outpatient (AMB) | payer MEDICARE, SELFPAY ==
[2024-11-01 15:06] VITALS: BP 149/72; PULSE 66; RESP 18; O2SAT 98
--- NOTE | 2024-11-01 15:06 | A.OFFVIS_ITS ---
Vital Signs 11/01/24 15:06 Weight 137 lb BP 149/72 H Blood Pressure Location Lt brachial Position Sitting Respiration 18 Pulse 66 Pulse Source Pulse Oximeter Pulse Oximetry (%) 98 Oxygen Delivery Method Room Air Intake Visit Reasons: Back pain/discuss patient options Rn Documentation Required: No Allergies cimetidine (From TAGAMET) Allergy (Unknown, Verified 11/01/24 15:05) GI UPSET ciprofloxacin (From CIPRO) Allergy (Unknown, Verified 11/01/24 15:05) GI UPSET diltiazem (From CARDIZEM) Allergy (Unknown, Verified 11/01/24 15:05) HIVES lisinopril (From ZESTRIL) Allergy (Unknown, Verified 11/01/24 15:05) LIGHTHESDEDNESS GI UPSET Sulfa (Sulfonamide Antibiotics) (SULFA (SULFONAMIDE ANTIBIOTICS)) Allergy (Unknown, Verified 11/01/24 15:05) HIVES timolol (From ISTALOL) Allergy (Unknown, Verified 11/01/24 15:05) [facility] does not handle GENERIC meds w Allergy (Unknown, Uncoded 08/15/24 10:56) unk HPI Comments Details: Yuni Rivas) is back in my office after bilateral therapeutic sacroiliac joint injection which was done on 07/24/2024. She reports now that her pain is coming back. She went to her chiropractor for many years and she received electrical cutaneous stimulation and heat application from chiropractor. She also is prescribed tramadol 50 mg b.i.d. and she takes OTC Tylenol 1000 mg. It has been 3 months after the injection. This patient is suffering from significant stage III renal failure and she has advanced osteoporosis. I do not believe continuation of the steroid injections is a good idea for this patient. I offered her Curonix PNS of sacroiliac joint innervation bilateral. Brochure was given to the patient. She will read the brochure and if needed she will contact [facility] on [facility] people to get further explanations about the device. If she wants to go for the procedure she would need to get into contact with [facility] psychological evaluation and schedule an appointment with them. Initially sacroiliac joint injection on 07/24/2024 resulted in excellent pain relief. She came to my office 1 month later with very good results. She reports excellent pain relief after the procedure. Today she reports pain 3/10 all on the account of remaining stiffness in the lower back of the patient. However she reports excellent mobility and good activities of daily living. Treatment of this patient with continuous sacroiliac joint steroid injections were discussed. Possibility of changing the treatment modality for something different than steroid injections was discussed with the patient as well. We will wait until her pain will come back. She will give us a call and we will schedule an appointment with her. She reports that she continues to apply warming pad and take Tylenol when her pain is aggravated. Prior to that she had diagnostic bilateral sacroiliac joint injections. Very good results of diagnostic bilateral sacroiliac joint injections. She reported absence of pain for the full 6 hours after the procedure. Prior:C/o on pain in lower back. She reported that this pain started many years ago. For a while she was handling this pain with oral medications and chiropractic manipulations. However now the pain became severe and she went to Dr. Hammond consult. Diagnosis of sacrococcygeal disorder was introduced. Patient was sent here for discussion of the further treatment. [facility] Medical History (Updated 10/28/24 @ 12:51 by Yuni Moreno MD) Carotid stenosis, bilateral Statin intolerance Other and unspecified hyperlipidemia Non-rheumatic aortic stenosis Labile hypertension Surgical History (Updated 08/28/24 @ 17:28 by Chelsey Agudelo) History of colonoscopy (~09/04/12) History of cholecystectomy (~01/28/21) History of appendectomy Family History Father No problems noted. Mother No problems noted. 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 Cognitive needs: Yes (cane) Hearing needs: No Vision needs: Yes (rx glasses) Review of Systems Const All systems reviewed & are unremarkable except as noted in HPI and below ENT Reports Normal hearing present Neuro Reports Normal hearing present, Denies Abnormal speech present, Denies confusion and Denies Sensory deficit (Neuro) Psych Denies confusion Physical Exam Vital Signs: Last Vital Signs Pulse 66 11/01/24 15:06 Resp 18 11/01/24 15:06 BP 149/72 H 11/01/24 15:06 Pulse Ox 98 11/01/24 15:06 Oxygen Delivery Method Room Air 11/01/24 15:06 Const General: no acute distress; No confusion Orientation/consciousness: patient oriented x3 and No confusion Eyes General: appearance normal, both eyes and all related structures Pupils: Equal, round and reactive pupils present EOM: EOMs intact bilaterally Neck Neck: Yes full ROM Chest Chest palpation & inspection: normal inspection of the chest Resp Effort & Inspection: normal respiratory effort, able to speak in complete sentences, normal respiratory pattern, no audible wheezes and no cough Cardio Jugular venous distension: no JVD GI Inspection: Yes normal to inspection Back/Spine/Pelvis Other: Able to stand on bilateral tiptoes with vigor. Able to stand on bilateral heels with small difficulty . Able to flex herself forward and backwards with great degree, she reports pain aggravation with flexing forward equal to pain aggravation with flexing backwards. SLR is negative bilaterally. Jefe test is positive bilaterally. Pelvic compression test is positive bilaterally. Pelvic distraction test is positive bilaterally. Loading test is positive bilaterally. Neuro General: patient oriented x3, gait normal and No confusion Cranial nerves: Yes CN's II-XII intact bilaterally, Yes Equal, round and reactive pupils present, Yes Normal hearing present and Yes Ability to bilaterally elevate shoulders present Speech: No Abnormal speech present Gait exam (Neuro): Normal gait present Motor exam (neuro): 5/5 motor strength present throughout Sensory Exam: No Sensory deficit (Neuro) Extrem General: No pedal edema Psych Speech and movement: Normal speech and movement present Affect: normal affect Attitude: cooperative Thought process: Normal thought process present Thought content: Normal thought content present Insight: Good insight present (Psych) Judgement: Good judgement present (Psych) Assessment & Plan Assessment & Plan (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 She was offered Curonix PNS. If she would like to go for it needs to go through psychological evaluation. [facility] brochure as well as [facility] brochure page were given to the patient. I will see this patient next time as needed she decides to go for the cure on X procedure. Otherwise currently she may continue what she started with her chiropractor and primary care physician. Coding Level of Care Code Est Pt Level 3 (72112) Diagnoses Spondylosis of lumbar region without myelopathy or radiculopathy M47.816 Sacroiliac joint dysfunction of both sides M53.3 Sacroiliitis M46.1 Chronic pain syndrome G89.4
--- OUTSIDE RECORDS SUMMARY | 2024-11-01 17:48 | XMS_ITS | Data Portability ---
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 Plan of Treatment Reminders Order Date Submit Date Provider Last Modified By Organization Details Last Modified Time Details Appointments None recorded. Lab urinalysis, dipstick 2022 023 [facility], [address] [place], [address], 17:59:00 Referral None recorded. Procedures None recorded. Surgeries None recorded. Imaging None recorded. Medication Orders lidocaine 5 % topical patch 2022 023 [facility], [address] [place], [address], 17:59:01 Flonase Allergy Relief 50 mcg/actuati on nasal spray,suspe nsion 2022 023 [facility], [address] [place], [address], 17:58:59 loratadine 10 mg tablet 2022 023 [facility] [employer], [address] [place], [address], 17:58:59 Patient TargetsNo targets recorded. Patient Instructions Encounter Date Encounter Id Patient Instructions Last Modified By Organization Details Last Modified Time 01/29/2023 [id number] getting back to normal after low back [...] care for yourself at home? Take an fitz-wja-gparnrb pain medicine. Avoid Ibuprofen, Aleve and Aspirin if . If the doctor prescribed antibiotics, take them as directed. Do not stop taking them just because you feel better. You need to take the full course of antibiotics. Be careful when taking tggv-uhw-fyzcycm cold or influenza (flu) medicines and Tylenol [...] 911 or go to the Emergency Department. [email or web address] Not available 01/29/2023 17:57:56 Reason for Referral None Reported. Results Created Date Observation Date Name Description Value Unit Range Abnormal Flag Note LastModifiedBy Organization Detail LastModifiedTime 01/30/2001/29/2023 urina lysis , dipst ick Unknown Analyte Normal = light yellow Not Available [facility] [address] [place] [address], [phone], 01/29/2023 17:24:05 01/30/2001/29/2023 urina lysis , dipst ick Unknown Analyte Yellow Not Available [facility] [address] [place] [address], [phone], 01/29/2023 17:24:05 01/30/2001/29/2023 urina lysis , dipst ick Unknown Analyte Normal = clear Not Available [facility] [address] [place] [address], [phone], 01/29/2023 17:24:05 01/30/2001/29/2023 urina lysis , dipst ick Unknown Analyte Clear Not Available [facility] [address] [place] [address], [phone], 01/29/2023 17:24:05 01/30/2001/29/2023 urina lysis , dipst ick Unknown Analyte Normal = negati ve Not Available [facility] [address] [place] [address], [phone], 01/29/2023 17:24:05 01/30/2001/29/2023 urina lysis , dipst ick Unknown Analyte Negati ve Not Available [facility] [address] [place] [address], [phone], 01/29/2023 17:24:05 01/30/2001/29/2023 urina lysis , dipst ick Unknown Analyte Normal = Negati ve Not Available [facility] [address] [place] [address], [phone], 01/29/2023 17:24:05 01/30/2001/29/2023 urina lysis , dipst ick Unknown Analyte Negati ve Not Available [facility] [address] [place] [address], [phone], 01/29/2023 17:24:05 01/30/2001/29/2023 urina lysis , dipst ick Unknown Analyte Normal = Negati ve Not Available [facility] [address] [place] [address], [phone], 01/29/2023 17:24:05 01/30/2001/29/2023 urina lysis , dipst ick Unknown Analyte Negati ve Not Available [facility] [address] [place] [address], [phone], 01/29/2023 17:24:05 01/30/2001/29/2023 urina lysis , dipst ick Unknown Analyte Normal = 1.010, 1.015, 1.020 Not Available [facility] [address] [place] [address], [address], 01/29/2023 17:24:05 01/30/20 23 01/29/2023 urina lysis , dipst ick Unknown Analyte 1.020 Not Available [facility] [address] [place] [address], [phone], 01/29/2023 17:24:05 01/30/2001/29/2023 urina lysis , dipst ick Unknown Analyte Normal = Negati ve Not Available [facility] [address] [place] [address], [phone], 01/29/2023 17:24:05 01/30/2001/29/2023 urina lysis , dipst ick Unknown Analyte Negati ve Not Available [address], [phone], 01/29/2023 17:24:05 01/30/2001/29/2023 urina lysis , dipst ick Unknown Analyte Normal = 6.5, 7.0, 7.5, 8.0 Not Available [facility] [address] [place] [address], [address], 01/29/2023 17:24:05 01/30/2001/29/2023 urina lysis , dipst ick Unknown Analyte 5.0 Not Available [address], [address], 01/29/2023 17:24:05 01/30/20 23 01/29/2023 urina lysis , dipst ick Unknown Analyte Normal = Negati ve Not Available [facility] [address] [place] [address], [phone], 01/29/2023 17:24:05 01/30/20 23 01/29/2023 urina lysis , dipst ick Unknown Analyte Negati ve Not Available [facility] [address] [place] [address], [phone], 01/29/2023 17:24:05 01/30/2001/29/2023 urina lysis , dipst ick Unknown Analyte Normal = 0.2, 1.0 Not Available [facility] [address] [place] [address], [phone], 01/29/2023 17:24:05 01/30/2001/29/2023 urina lysis , dipst ick Unknown Analyte 1.0 E.U./d L Not Available [facility] [address] [place] [address], [phone], 01/29/2023 17:24:05 01/30/2001/29/2023 urina lysis , dipst ick Unknown Analyte Normal = Negati ve Not Available [facility] [address] [place] [address], [phone], 01/29/2023 17:24:05 01/30/2001/29/2023 urina lysis , dipst ick Unknown Analyte Negati ve Not Available [facility] [address] [place] [address], [address], 01/29/2023 17:24:05 01/30/2001/29/2023 urina lysis , dipst ick Unknown Analyte Normal = Negati ve Not Available [facility] [address] [place] [address], [phone], 01/29/2023 17:24:05 01/30/2001/29/2023 urina lysis , dipst ick Unknown Analyte Negati ve Not Available [facility] [address] [place] [address], [address], 01/29/2023 17:24:05 Result Notes None recorded. Problems Name Problem SNOMED Code Status Onset Date Resolution Date Notes Provider Name and Address Organization Details Recorded Time Hypertensive disorder 95160113 Active GEORGIA ZARAGOZA-MARITZAE RA null, PA - [facility] 3 17:16:04 Disorder of thyroid gland 78740116 Active GEORGIA ZARAGOZA-RIVE RA null, PA - [facility] 3 17:16:16 Hypercholestero lemia 91529118 Active GEORGIA ZARAGOZA-RIVE RA null, PA - [facility] 3 17:16:30 Glaucoma 21410086 Active GEORGIA ZARAGOZA-RIVE RA null, PA - [...] Name and Address Organization Details Recorded Time 594704 Cipro medicatio n Not available Not available Not available 01/29/202397109 3 RxNorm GEORGIA ZARAGOZA-RIVE RA null, PA - [facility] 3 17:11:52 153147 Substance with sulfonami de structure and antibacte rial mechanism of action (substanc e) medicatio n Not available Not available Not available 01/29/2023 19985 8003 SNOMED GEORGIA ZARAGOZA-RIVE RA null, PA - [facility] 3 17:12:02 765753 Zestril medicatio n Not available Not available Not available 01/29/202319637 2 RxNorm GEORGIA ZARAGOZA-RIVE RA null, PA - [facility] 3 17:12:38 336846 Cardizem medicatio n Not available Not available Not available 01/29/202344304 4 RxNorm GEORGIA ZARAGOZA-RIVE RA null, PA - [facility] 3 17:12:48 709067 Tagamet medicatio n Not available Not available Not available 01/29/2023 42541 2 RxNorm GEORGIA BIRMINGHAM RA null, PA - [facility] 3 17:13:01 676324 Istalol medicatio n Not available Not available Not available 01/29/2023 80125 9 RxNorm GEORGIA BIRMINGHAM RA null, PA - [facility] 3 17:13:28 Medications Name [...] Relief 50 mcg/actuatio n nasal spray,suspen enrique [place] 1 spray every day by intranasal route [...] Updated DateTime 3 157.48 cm 23.8 kg/m2 04598.0 1 g 17 /min 95 % 95 % 103 /min 98.5 [degF] 150 mm[Hg] 60 mm[Hg] GEORGIA VALENCIA DEMARCO PA - [facility] 17:23:13 Social History Question Answer Notes LastModified by Organizat ion Details LastModified Time Tobacco Smoking Status Never Smoker GEORGIA MONICA howell PA - [facility] 01/29/2023 17:18:19 Have [...] SNOMED-CT Code Diagnosis ICD10 Code Diagnosis Note [id number] [place] [address] [address] 01/29/2023 17:01:41 01/29/2023 17:59:55 Acute sinusitis 22385066 J01.90 Low back pain 481799901 M54.50 Health Concerns Section Related Observation LastModified by Organization Detai ls LastModified Time None Recorded Concern Status LastModified by Organization Details LastModified Time None Recorded Advance Directives Directive None Recorded Payers Insurance Date Sequence Insurance Name Policy Number Policy Arvizu Covered Member ID Arvizu Member ID Guarantor Name 03/16/2023 1 MEDICARE [place]: [employer] Yuni Delatorre [id number] Yuni Delatorre 05/05/2023 2 AARP (MEDICARE SUPPLEMENT) Yuni Delatorre [id number] Yuni Delatorre Notes Date Note Type Note [...] PT:none Work Related:no Working:no [place], [address], PA - [facility] 01/29/2023 17:59:19 OBGyn Episode No OBEpisode recorded.
== END 2024-11-01 15:35 | disposition home or self-care (01) ==
LOC: HO.PMC 14:39
PROVIDERS: PCP Internal Medicine; Visit Provider Anesthesiology
DX: M47.816 Spondylosis without myelopathy or radiculopathy, lumbar region (principal); M53.3 Sacrococcygeal disorders, not elsewhere classified; M46.1 Sacroiliitis, not elsewhere classified; G89.4 Chronic pain syndrome
CPT/HCPCS: 99213

== ENCOUNTER → 2024-11-01 14:39 | Outpatient (BNVA) | payer MEDICARE, SELFPAY | PROVIDERS: PCP Internal Medicine; Visit Provider Anesthesiology | DX: M47.816 Spondylosis without myelopathy or radiculopathy, lumbar region (principal); M53.3 Sacrococcygeal disorders, not elsewhere classified; M46.1 Sacroiliitis, not elsewhere classified; G89.4 Chronic pain syndrome | CPT/HCPCS: 99212 ==

== ENCOUNTER 2024-11-21 14:29 | Outpatient (AMB) | payer MEDICARE, SELFPAY ==
[2024-11-21 09:27] VITALS: BP 134/76; PULSE 66; TEMP 36.6; O2SAT 98; BMI 24.5
--- NOTE | 2024-11-21 09:27 | A.OFFPC_ITS ---
Vital Signs 11/21/24 09:27 Height 5 ft 2 in Weight 134 lb BMI 24.5 BP 134/76 Blood Pressure Location Rt brachial Position Sitting Pulse 66 Pulse Source Pulse Oximeter Temp 97.8 F Temp Source Axillary Pulse Oximetry (%) 98 Oxygen Delivery Method Room Air Intake Visit Reasons: ? cold, would like something to help her through Core Mounter Required: No Accompanied by: Self / Same As Patient Allergies cimetidine (From TAGAMET) Allergy (Unknown, Verified 11/21/24 09:28) GI UPSET ciprofloxacin (From CIPRO) Allergy (Unknown, Verified 11/21/24 09:28) GI UPSET diltiazem (From CARDIZEM) Allergy (Unknown, Verified 11/21/24 09:28) HIVES lisinopril (From ZESTRIL) Allergy (Unknown, Verified 11/21/24 09:28) LIGHTHESDEDNESS GI UPSET Sulfa (Sulfonamide Antibiotics) (SULFA (SULFONAMIDE ANTIBIOTICS)) Allergy (Unknown, Verified 11/21/24 09:28) HIVES timolol (From ISTALOL) Allergy (Unknown, Verified 11/21/24 09:28) STINGING does not handle GENERIC meds w Allergy (Unknown, Uncoded 08/15/24 10:56) unk Tobacco use date assessed: 11/21/24 Fall risk assessment: 1 Fall in past year Last assessed Fall Risk: 11/21/24 Dental Screening Dental Screen Date: 11/21/24 Did you have a dental visit in the last 12 months?: Yes Did you have a dental problem in the last 6 months where you did not have access to dental care?: No PFSH Medical History Carotid stenosis, bilateral Statin intolerance Other and unspecified hyperlipidemia Non-rheumatic aortic stenosis Labile hypertension Surgical History History of colonoscopy (~09/04/12) History of cholecystectomy (~01/28/21) History of appendectomy Family History Father No problems noted. Mother No problems noted. 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 1. Little interest or pleasure in doing things: not at all 2. Feeling down, depressed, or hopeless: not at all 3. Trouble falling or staying asleep, or sleeping too much: not at all 4. Feeling tired or having little energy: not at all 5. Poor appetite or overeating: not at all 6. Feeling bad about yourself - or that you are a failure or have let yourself or your family down: not at all 7. Trouble concentrating on things, such as reading the newspaper or watching television: not at all 8. Moving or speaking so slowly that other people could have noticed. Or the opposite - being so fidgety or restless that you have been moving around a lot more than usual: not at all 9. Thoughts that you would be better off or of hurting yourself in some way: not at all Total score: 0 Source: Developed by Drs. Nikhil Thayer, Yanely Ferrer, Orlando Chavez and colleagues, with an educational mukund from [employer]. Thrive Questionnaire Date Thrive assessed: 11/21/24 I am a: Patient Within the past 12 months, did the food you bought not last and you didn't have the money to get more?: Never true Within the past 12 months, did you worry whether your food would run out before you got money to buy more?: Never true Do you have trouble paying for medicines?: No Do you have trouble getting transportation to medical appointments?: No Do you have trouble paying your heating and electricity bill?: No Do you have trouble taking care of your child, family member or friend?: No Do you have trouble with day-to-day activities such as bathing, preparing meals, shopping, managing finances, etc.?: No Are you currently unemployed and looking for a job?: No Are you interested in more education?: No THRIVE Score: 0 AUDIT C Alcohol Use Questionnaire (AUDIT-C) 1. How often do you have a drink containing alcohol?: Monthly or less 2. How many drinks containing alcohol do you have on a typical day when you are drinking?: 1 or 2 3. How often do you have six or more drinks on one occasion?: Less than monthly Total Score: 2 RUPALI-7 AMB Questionnaire RUPALI-7 Date RUPALI - 7 assessed: 11/21/24 Feeling nervous, anxious, or on edge: 0 = Not at all Not being able to stop or control worryin = Not at all Worrying too much about different things: 0 = Not at all Trouble relaxin = Not at all Being so restless that it is hard to sit still: 0 = Not at all Becoming easily annoyed or irritable: 0 = Not at all Feeling afraid as if something awful might happen: 0 = Not at all Total RUPALI-7 score (0-4 normal; 5-9 mild; 10-14 moderate; 15-21 severe): 0 Source: Developed by Drs. Nikhil Thayer, Yanely Ferrer, Orlando Chavez and colleagues, with an educational mukund from [employer]. Physical exam (Primary Care) Vital Signs: Last Vital Signs Temp 97.8 F 11/21/24 09:27 Pulse 66 11/21/24 09:27 BP 134/76 11/21/24 09:27 Pulse Ox 98 11/21/24 09:27 Oxygen Delivery Method Room Air 11/21/24 09:27 BMI result Body Mass Index 24.5 Tobacco/Smoking Status: Tobacco use Status Tobacco use date assessed 11/21/24 11/21/24 09:29 Patient Tobacco Use Status Never used Tobacco 11/21/24 09:29 e-Cigarette/Vaping Use Never Used 11/21/24 09:29 PHQ-9: PHQ-9 Score PHQ-9: Total score 0 11/21/24 14:52 Thrive Assessment: Date of Thrive Assessment Date Thrive assessed 11/21/24 11/21/24 09:29 Coding Level of Care Code Est Pt Level 3 (62406) Complex EM visit Add On G2211 Diagnoses Upper respiratory infection J06.9 Assessment & Plan Assessment & Plan (1) Upper respiratory infection: Code(s): J06.9 - Acute upper respiratory infection, unspecified Plan: History of Present Illness - The patient is an 84-year-old female presenting with symptoms of fatigue, headache, and respiratory issues. - Reports a two-week history of fatigue and a sensation of fullness in the head, with symptoms recurring after initial improvement. - Experiences balance issues, mild headache, decreased appetite, and cough. - History of allergic rhinitis, using allergy medications including Coricidin and Claritin, and inhalers prescribed by an ENT specialist. - Takes tramadol at night for sleep, following a recommendation from pain management for sciatica, treated with cortisone injections in June. - Reports chills and sweating at night, with a recent bug bite noted under her watch. - Experiences dyspnea and fatigue, impacting her usual activity level. Social History Review of Systems - General: Reports fatigue and decreased appetite. - Respiratory: Reports dyspnea and cough. - Neurological: Reports balance issues and mild headache. - Dermatological: Reports a recent bug bite under her watch. - Constitutional: Reports chills and sweating at night. Physical Exam General: Cooperative and healthy appearing Nutritional Appearance: Well nourished Orientation/consciousness: Patient oriented x3 Limitations: No limitations Head: Normal to inspection General: Appearance normal, both eyes and all related structures Neck: Normal visual inspection Chest: Normal palpation of entire chest wall Respiratory: Patient reports difficulty breathing, shortness of breath, and coughing. Chest x-ray recommended. ormal respiratory effort Neurology: Patient oriented x3, reports balance issues and mild headache. Results Plan 1. Possible Bronchitis - Plan includes obtaining a chest x-ray to evaluate shortness of breath. - Prescribed Zithromax (azithromycin) for five days, starting with two pills on the first day followed by one pill daily. - Prescribed prednisone to help with energy levels. - Blood work to check for infection. 2. Allergic Rhinitis - Continue current allergy medications including Coricidin and Claritin. - Use inhalers as prescribed by ENT specialist. 3. 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 - Previous cortisone injections in June for sciatica pain. Discussion Notes I discussed with the patient the likelihood of a summer cold or bronchitis causing her symptoms and the plan to obtain a chest x-ray to evaluate her shortness of breath. I explained the prescription of Zithromax and prednisone to address her symptoms and improve energy levels. We also discussed continuing her current allergy medications and the use of inhalers as prescribed by her ENT specialist. Patient Instructions - Take Zithromax as prescribed: two pills today, then one pill daily for the next four days. - Take prednisone as directed to help with energy levels. - Continue using allergy medications and inhalers as prescribed. - Follow up with chest x-ray and blood work as discussed. Orders: Orders Basic Metabolic Panel 11/21/24 J06.9 - Acute upper respiratory infection, unspecified Liver Panel 11/21/24 J06.9 - Acute upper respiratory infection, unspecified UA and rflx microscopic 11/21/24 J06.9 - Acute upper respiratory infection, unspecified Thyroid Stimulating Hormone 11/21/24 J06.9 - Acute upper respiratory infection, unspecified XR chest 2V 11/21/24 R05.9 - Cough, unspecified Complete Blood Count no Diff 11/21/24 J06.9 - Acute upper respiratory infection, unspecified Lipid Panel 11/21/24 J06.9 - Acute upper respiratory infection, unspecified Medications: New azithromycin take 500 mg today (day 1), then 250 mg for 4 days (days 2-5) PO 6 tabs 0RF prednisone 60 mg (3 x 20 mg) PO DAILY 9 tabs 0RF albuterol sulfate 90 mcg/actuation 1 inh inhalation QID PRN 6.7 grams 1RF shortness of breath or wheezing
--- OUTSIDE RECORDS SUMMARY | 2024-11-21 15:10 | XMS_ITS | Data Portability ---
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 Plan of Treatment Reminders Order Date Submit Date Provider Last Modified By Organization Details Last Modified Time Details Appointments None recorded. Lab urinalysis, dipstick 2022 023 [facility], [address] [place], [address], 17:59:00 Referral None recorded. Procedures None recorded. Surgeries None recorded. Imaging None recorded. Medication Orders lidocaine 5 % topical patch 2022 023 [facility], [address] [place], [address], 17:59:01 Flonase Allergy Relief 50 mcg/actuati on nasal spray,suspe nsion 2022 023 [facility], [address] [place], [address], 17:58:59 loratadine 10 mg tablet 2022 023 [facility]ENS [facility], [address] [place], [address], 17:58:59 Patient TargetsNo targets recorded. Patient Instructions Encounter Date Encounter Id Patient Instructions Last Modified By Organization Details Last Modified Time 01/29/2023 [id number] getting back to normal after low back [...] care for yourself at home? Take an bptu-utj-lebhxzh pain medicine. Avoid Ibuprofen, Aleve and Aspirin if . If the doctor prescribed antibiotics, take them as directed. Do not stop taking them just because you feel better. You need to take the full course of antibiotics. Be careful when taking uznj-rcm-iltthrr cold or influenza (flu) medicines and Tylenol [...] = light yellow Not Available [facility] [address] [place] [address], [phone], 01/29/2023 17:24:05 01/30/2001/29/2023 urina lysis , dipst ick Unknown Analyte Yellow Not Available [facility] [address] [place] [address], [phone], 01/29/2023 17:24:05 01/30/2001/29/2023 urina lysis , dipst ick Unknown Analyte Normal = clear Not Available [facility] [address] [place] [address], [phone], 01/29/2023 17:24:05 01/30/2001/29/2023 urina lysis , dipst ick Unknown Analyte Clear Not Available [facility] [address] [place] [address], [address], 01/29/2023 17:24:05 01/30/2001/29/2023 urina lysis , dipst ick Unknown Analyte Normal = negati ve Not Available [facility] [address] [place] [address], [phone], 01/29/2023 17:24:05 01/30/2001/29/2023 urina lysis , dipst ick Unknown Analyte Negati ve Not Available [facility] [address] [place] [address], [address], 01/29/2023 17:24:05 01/30/2001/29/2023 urina lysis , dipst ick Unknown Analyte Normal = Negati ve Not Available [facility] [address] [place] [address], [phone], 01/29/2023 17:24:05 01/30/2001/29/2023 urina lysis , dipst ick Unknown Analyte Negati ve Not Available [facility] [address] [place] [address], [address], 01/29/2023 17:24:05 01/30/2001/29/2023 urina lysis , dipst ick Unknown Analyte Normal = Negati ve Not Available [facility] [address] [place] [address], [phone], 01/29/2023 17:24:05 01/30/2001/29/2023 urina lysis , dipst ick Unknown Analyte Negati ve Not Available [facility] [address] [place] [address], [address], 01/29/2023 17:24:05 01/30/2001/29/2023 urina lysis , dipst ick Unknown Analyte Normal = 1.010, 1.015, 1.020 Not Available [facility] [address] [place] [address], [phone], 01/29/2023 17:24:05 01/30/20 23 01/29/2023 urina lysis , dipst ick Unknown Analyte 1.020 Not Available [facility] [address] [place] [address], [phone], 01/29/2023 17:24:05 01/30/2001/29/2023 urina lysis , dipst ick Unknown Analyte Normal = Negati ve Not Available [facility] [address] [place] [address], [phone], 01/29/2023 17:24:05 01/30/2001/29/2023 urina lysis , dipst ick Unknown Analyte Negati ve Not Available [address], [address], 01/29/2023 17:24:05 01/30/2001/29/2023 urina lysis , dipst ick Unknown Analyte Normal = 6.5, 7.0, 7.5, 8.0 Not Available [facility] [address] [place] [address], [phone], 01/29/2023 17:24:05 01/30/2001/29/2023 urina lysis , dipst ick Unknown Analyte 5.0 Not Available [address], [phone], 01/29/2023 17:24:05 01/30/20 23 01/29/2023 urina lysis , dipst ick Unknown Analyte Normal = Negati ve Not Available [facility] [address] [place] [address], [phone], 01/29/2023 17:24:05 01/30/20 23 01/29/2023 urina lysis , dipst ick Unknown Analyte Negati ve Not Available [facility] ie [facility] [address] [place] [address], [phone], 01/29/2023 17:24:05 01/30/2001/29/2023 urina lysis , dipst ick Unknown Analyte Normal = 0.2, 1.0 Not Available [facility] [address] [place] [address], [phone], 01/29/2023 17:24:05 01/30/2001/29/2023 urina lysis , dipst ick Unknown Analyte 1.0 E.U./d L Not Available [facility] [address] [place] [address], [phone], 01/29/2023 17:24:05 01/30/2001/29/2023 urina lysis , dipst ick Unknown Analyte Normal = Negati ve Not Available [facility] [address] [place] [address], [phone], 01/29/2023 17:24:05 01/30/2001/29/2023 urina lysis , dipst ick Unknown Analyte Negati ve Not Available [facility] [address] [place] [address], [address], 01/29/2023 17:24:05 01/30/2001/29/2023 urina lysis , dipst ick Unknown Analyte Normal = Negati ve Not Available [facility] [address] [place] [address], [address], 01/29/2023 17:24:05 01/30/2001/29/2023 urina lysis , dipst ick Unknown Analyte Negati ve Not Available [facility] [address] [place] [address], [address], 01/29/2023 17:24:05 Result Notes None recorded. Problems Name Problem SNOMED Code Status Onset Date Resolution Date Notes Provider Name and Address Organization Details Recorded Time Hypertensive disorder 29185600 Active GEORGIA ZARAGOZA-MARITZAE RA null, PA - [facility] 3 17:16:04 Disorder of thyroid gland 52328590 Active GEORGIA ZARAGOZA-RIVE RA null, PA - [facility] 3 17:16:16 Hypercholestero lemia 84300470 Active GEORGIA ZARAGOZA-RIVE RA null, PA - [facility] 3 17:16:30 Glaucoma 32385727 Active GEORGIA ZARAGOZA-RIVE RA null, PA - [...] Name and Address Organization Details Recorded Time 112365 Cipro medicatio n Not available Not available Not available 01/29/202306206 3 RxNorm GEORGIA ZARAGOZA-RIVE RA null, PA - [facility] 17:11:52 991994 Substance with sulfonami de structure and antibacte rial mechanism of action (substanc e) medicatio n Not available Not available Not available 01/29/2023 42830 8003 SNOMED GEORGIA ZARAGOZA-RIVE RA null, PA - [facility] 3 17:12:02 993848 Zestril medicatio n Not available Not available Not available 01/29/202319637 2 RxNorm GEORGIA ZARAGOZA-RIVE RA null, PA - [facility] 3 17:12:38 395684 Cardizem medicatio n Not available Not available Not available 01/29/202333315 4 RxNorm GEORGIA ZARAGOZA-RIVE RA null, PA - [facility] 3 17:12:48 963550 Tagamet medicatio n Not available Not available Not available 01/29/2023 75137 2 RxNorm GEORGIA BIRMINGHAM RA null, PA - [facility] 3 17:13:01 422701 Istalol medicatio n Not available Not available Not available 01/29/2023 01167 9 RxNorm GEORGIA BIRMINGHAM RA null, PA [...] Relief 50 mcg/actuatio n nasal spray,suspen enrique [place] 1 spray every day by intranasal route as directed for 30 days. 2022 active Not Available Not Available Not Avai lable Repatha Syringe active Not Available Not Available Not Available Vitals Date Recorded Body height Body mass index (BMI) Body weight Respiratory rate Oxygen saturation Oxygen saturation in Arterial blood by Pulse oximetry Heart rate Body temperature Systolic And Diastolic Provider Name and Address Organization Details Last Updated DateTime 3 157.48 cm 23.8 kg/m2 75647.0 1 g 17 /min 95 % 95 % 103 /min 98.5 [degF] 150/60 mm[Hg] GEORGIA LEILAMiguel Angel PA - [facility] 17:23:13 Social History Question Answer Notes LastModified by Organizat ion Details LastModified Time Tobacco Smoking Status Never Smoker GEORGIA ZARAGOZAXiomaraBOSTON dante, PA - [facility] 01/29/2023 17:18:19 Have [...] SNOMED-CT Code Diagnosis ICD10 Code Diagnosis Note [id number] [place] [address] [address] 01/29/2023 17:01:41 01/29/2023 17:59:55 Acute sinusitis 31533733 J01.90 Low back pain 617303191 M54.50 Health Concerns Section Related Observation LastModified by Organization Detai ls LastModified Time None Recorded Concern Status LastModified by Organization Details LastModified Time None Recorded Advance Directives Directive None Recorded Payers Insurance Date Sequence Insurance Name Policy Number Policy Arvizu Covered Member ID Arvizu Member ID Guarantor Name 03/16/2023 1 [place]ICARE [place]: [employer] Yuni Delatorre [id number] Yuni Delatorre 05/05/2023 2 AARP (MEDICARE SUPPLEMENT) Yuni Delatorre [id number] Yuni Delatorre Notes Date Note Type Note [...] Tristian Daniel, MIKE [address] [place], [address], PA - [facility] 01/29/2023 17:59:19 OBGyn Episode No OBEpisode recorded.
--- OUTSIDE RECORDS SUMMARY | 2024-11-21 15:10 | XMS_ITS | Clinical Summary ---
Author Organization [facility] Address [address] [place] [address] Phone Care Team Providers Care Yard Foreman Name Role Phone Manuel Herrera MD Primary Care Provider [phone] Allergies Active Allergy Reactions Criticality Noted Date [...] - PCV) 08/07/2010 08/07/2009 Influenza Vaccine (#1) 2025 01/19/2017 Pneumococcal Vaccine: Peds ( 0 to 5 Years) and At-Risk Patients (6 to 49 Years) Discontinued 08/07/2009 Hepatitis B Vaccine Aged Out No longe r eligible based on patient's age to complete this topic Insurance [facility] Medicare [facility] Medicare Care Teams Yard Foreman Relationship Specialty Start Date End Date Manuel Herrera MD [address] [place] [address] [address] [place] PCP - General 05/19/20
== END 2024-11-21 14:58 | disposition home or self-care (01) ==
LOC: HO.HMCHD 14:29
PROVIDERS: PCP Internal Medicine; Visit Provider Internal Medicine
DX: J06.9 Acute upper respiratory infection, unspecified (principal)

== ENCOUNTER → 2024-11-21 14:29 | Outpatient (BNVA) | payer MEDICARE, SELFPAY | PROVIDERS: PCP Internal Medicine; Visit Provider Internal Medicine | DX: J06.9 Acute upper respiratory infection, unspecified (principal) | CPT/HCPCS: 99212 ==

== ENCOUNTER 2024-11-21 15:08 | Outpatient (REF) | payer MEDICARE, SELFPAY ==
--- NOTE | ~2024-11-21 | XR_ITS ---
EXAMINATION: XR CHEST 2 VIEWS HISTORY: R05.9 - Cough, unspecified COMPARISON: Comparison is made with the prior examination dated 05/22/2019. FINDINGS: PA and lateral views of the chest are submitted. The lungs are expanded and clear. There is no pleural effusion, pneumothorax, or pulmonary vascular congestion. The heart is normal in size. There is an old fracture deformity of the right humeral neck. XR/XR chest 2V IMPRESSION: No acute cardiopulmonary abnormality. Electronically signed by: Nikhil Ocampo MD 11/21/2024 03:43 PM EDT
--- OUTSIDE RECORDS SUMMARY | 2024-11-21 15:31 | XMS_ITS | Patient Health Record ---
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 Name Role Phone Javier (RETIRED) Manuel STEPHENSON Primary Care Provide r Nikhil Zamorano Unavailable [phone] Allergies Allergen (clinical drug ingredient) Drug/Non Drug Allergy documented on EMR Reaction Allergy Type Onset Date Status timolol Istalol Unknown Drug Allergy Active ciprofloxacin Cipro Unknown Drug Allergy Act hermilo diltiazem Cardizem Unknown Drug Allergy Active generic meds dont agree (uncoded) Unknown Allergy Active Sulfa Unknown Drug Allergy Active lisinopril Zestril Unknown Drug Allergy Active cimetidine Tagamet HB Unknown Drug Allergy Activ e Reason For Referral No Information Medications Medication SIG (Take, Route, Frequency, Duration) Notes Start Date End Date Status Combigan 05/09/2024 05/09/2024 Active Travatan Z qd qam 05/09/2024 05/09/2024 Active cloNIDine HCl 0.1MG 05/09/2024 1 Active Aspir-81 81MG 05/09/2024 05/09/2024 Acti ve Lipitor 20MG 05/09/2024 05/09/2024 Activ e Diovan 160MG 05/09/2024 05/09/2024 Activ e Levothyroxine Sodium 0.075MG 05/09/2024 05/09/2024 Active MoviPrep 100 GM as directed Orally o nce for 1 dose 07/19/2012 Active Amlodipine & Diet Manage Prod 5MG 05/09/2024 05/09/2024 Active Bystolic 20MG 05/09/2024 05/09/2024 Acti ve Problems Problem Type SNOMED Code ICD Code Onset Dates Problem Status W/U Status Risk Notes Problem Irritable bowel syndrome (62396054) Irritable bowel syndrome (564.1) Active confirmed Problem Diarrhea (06757766) Diarrhea (787.91) Active confirmed Problem Screening for colon cancer (342270898) Screening for colon cancer (V76.51) Active confirmed Plan Of Treatment Pending Test Test Name Order Date CELIAC PANEL #10 07/18/2012 ENDOMYSIAL IGA 07/18/2012 TRANSGLUTAMINASE AB IGA 07/18/2012 TRANSGLUTAMINASE AB IGG 07/18/2012 Future Test Test Name Order Date COLONOSCOPY 07/18/2012 Insurance Providers Payer Name Payer Address Payer Phone Subscriber Number Group Number Insured Name Patient Relationship to Insured Coverage Start Date Coverage End Date MEDICARE OF [place] [address] [place] [address] [phone] [id number] [employer]LET [place]) Self - patient is the insured [facility] SUPPLEMENTAL PLAN [address] [place] [address] [phone] [id number] [employer]LET [employer]) Self - patient is the insured Medical (General) History Medical History History ICD Code HTN Denies [place],DM,CVA,Lung disease,renal dise ase Negative colonoscopy, by her report, serenity jennie 20 yrs ago Hypothyroidism Hyperlipidemia Diverticulitis 15-20 yrs ago Surgical History Surgery Date(Month/Year) appendectomy 1958
[2024-11-21 15:39] LABS: Hematocrit 32.9 % (37.0-47.0); Hemoglobin 10.5 g/dl (12.0-16.0); Mean Corpuscular HGB Conc 31.9 g/dl (31.0-35.0); Mean Corpuscular Hemoglobin 31.1 pg (27.0-33.0); Mean Corpuscular Volume 97.3 fL (80.0-98.0); NRBC Abs Auto 0.000 X10*3/uL (0.0-0.012); NRBC Pct Auto 0.0 /100WBC (0.0-0.2); Platelet Count 215 X10*3/uL (160-400); Red Blood Count 3.38 X10*6/uL (4.20-5.50); White Blood Count 5.6 X10*3/uL (4.8-10.8)
[2024-11-21 16:07] LABS: Alanine Aminotransferase 14 U/L (0-31); Albumin Level 3.8 g/dL (3.5-5.0); Alkaline Phosphatase 74 U/L (39-117); Anion Gap 10 (12-20); Aspartate Amino Transferase 30 U/L (5-31); Blood Urea Nitrogen 26 mg/dL (9-16); Calcium 9.0 mg/dL (8.4-10.2); Carbon Dioxide 21 mmol/L (22-29); Chloride 117 mmol/L (96-108); Cholesterol 62 mg/dL (<200); Estimated Glomerular Filt Rate 37; HDL Cholesterol 25 mg/dL (>40); Potassium 4.5 mmol/L (3.3-5.1); Sodium 143 mmol/L (135-145); Total Protein 5.9 g/dL (6.5-8.0); Triglycerides 95 mg/dL (<150)
[2024-11-21 16:19] LABS: Appearance Urine Clear; Glucose Urine UA Negative (Negative); PH 5.5 (5.0-9.0); Specific Gravity - Urine 1.015 (1.005-1.025); UMIC TRIGGER UA YES
[2024-11-21 16:22] LABS: Thyroid Stimulating Hormone 1.69 uIU/mL (0.32-4.0)
== END 2024-11-21 15:09 | disposition home or self-care (01) ==
LOC: HO.XRAY 15:08
PROVIDERS: PCP Internal Medicine; Visit Provider Internal Medicine
DX: J06.9 Acute upper respiratory infection, unspecified (principal); R05.9 Cough, unspecified
CPT/HCPCS: 36415; 71046; 80048; 80061; 80076; 81001; 81003; 84443; 85027

== ENCOUNTER → 2024-11-21 15:28 | Outpatient (BNV) | payer MEDICARE, SELFPAY | PROVIDERS: PCP Internal Medicine; Visit Provider Radiology Diagnostic Radiology | DX: R05.9 Cough, unspecified (principal) | CPT/HCPCS: 71046 ==

== ENCOUNTER 2024-11-28 12:54 | Outpatient (AMB) | payer MEDICARE, SELFPAY ==
[2024-11-28 13:03] VITALS: BP 124/70; PULSE 63; TEMP 36.6; O2SAT 98; BMI 25.8
--- NOTE | 2024-11-28 13:03 | MHC.PC.OV ---
Vital Signs 11/28/24 13:03 Height 5 ft 2 in Weight 141 lb BMI 25.8 BP 124/70 Blood Pressure Location Rt brachial Position Sitting Pulse 63 Pulse Source Pulse Oximeter Temp 97.8 F Temp Source Axillary Pulse Oximetry (%) 98 Oxygen Delivery Method Room Air Intake Visit Reasons: Routine Survey Interviewer Required: No Accompanied by: Self / Same As Patient Allergies cimetidine (From TAGAMET) Allergy (Unknown, Verified 11/28/24 13:04) GI UPSET ciprofloxacin (From CIPRO) Allergy (Unknown, Verified 11/28/24 13:04) GI UPSET diltiazem (From CARDIZEM) Allergy (Unknown, Verified 11/28/24 13:04) HIVES lisinopril (From ZESTRIL) Allergy (Unknown, Verified 11/28/24 13:04) LIGHTHESDEDNESS GI UPSET Sulfa (Sulfonamide Antibiotics) (SULFA (SULFONAMIDE ANTIBIOTICS)) Allergy (Unknown, Verified 11/28/24 13:04) HIVES timolol (From ISTALOL) Allergy (Unknown, Verified 11/28/24 13:04) STINGING does not handle GENERIC meds w Allergy (Unknown, Uncoded 08/15/24 10:56) unk Tobacco use date assessed: 11/28/24 Fall risk assessment: No Falls in past year Last assessed Fall Risk: 11/28/24 Dental Screening Dental Screen Date: 11/28/24 Did you have a dental visit in the last 12 months?: Yes Did you have a dental problem in the last 6 months where you did not have access to dental care?: No PFSH Medical History Carotid stenosis, bilateral Statin intolerance Other and unspecified hyperlipidemia Non-rheumatic aortic stenosis Labile hypertension Surgical History History of colonoscopy (~09/04/12) History of cholecystectomy (~01/28/21) History of appendectomy Family History Father No problems noted. Mother No problems noted. 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 1. Little interest or pleasure in doing things: not at all 2. Feeling down, depressed, or hopeless: not at all 3. Trouble falling or staying asleep, or sleeping too much: not at all 4. Feeling tired or having little energy: not at all 5. Poor appetite or overeating: not at all 6. Feeling bad about yourself - or that you are a failure or have let yourself or your family down: not at all 7. Trouble concentrating on things, such as reading the newspaper or watching television: not at all 8. Moving or speaking so slowly that other people could have noticed. Or the opposite - being so fidgety or restless that you have been moving around a lot more than usual: not at all 9. Thoughts that you would be better off or of hurting yourself in some way: not at all Total score: 0 Source: Developed by Drs. Nikhil Thayer, Yanely Ferrer, Orlando Chavez and colleagues, with an educational mukund from [employer]. Thrive Questionnaire Date Thrive assessed: 11/28/24 I am a: Patient Within the past 12 months, did the food you bought not last and you didn't have the money to get more?: Never true Within the past 12 months, did you worry whether your food would run out before you got money to buy more?: Never true Do you have trouble paying for medicines?: No Do you have trouble getting transportation to medical appointments?: No Do you have trouble paying your heating and electricity bill?: No Do you have trouble taking care of your child, family member or friend?: No Do you have trouble with day-to-day activities such as bathing, preparing meals, shopping, managing finances, etc.?: No Are you currently unemployed and looking for a job?: No Are you interested in more education?: No THRIVE Score: 0 AUDIT C Alcohol Use Questionnaire (AUDIT-C) 1. How often do you have a drink containing alcohol?: Monthly or less 2. How many drinks containing alcohol do you have on a typical day when you are drinking?: 1 or 2 3. How often do you have six or more drinks on one occasion?: Less than monthly Total Score: 2 RUPALI-7 AMB Questionnaire RUPALI-7 Date RUPALI - 7 assessed: 11/28/24 Feeling nervous, anxious, or on edge: 0 = Not at all Not being able to stop or control worryin = Not at all Worrying too much about different things: 0 = Not at all Trouble relaxin = Not at all Being so restless that it is hard to sit still: 0 = Not at all Becoming easily annoyed or irritable: 0 = Not at all Feeling afraid as if something awful might happen: 0 = Not at all Total RUPALI-7 score (0-4 normal; 5-9 mild; 10-14 moderate; 15-21 severe): 0 Source: Developed by Drs. Nikhil Thayer, Yanely Ferrer, Orlando Chavez and colleagues, with an educational mukund from [employer]. Physical exam (Primary Care) Vital Signs: Last Vital Signs Temp 97.8 F 11/28/24 13:03 Pulse 63 11/28/24 13:03 BP 124/70 11/28/24 13:03 Pulse Ox 98 11/28/24 13:03 Oxygen Delivery Method Room Air 11/28/24 13:03 BMI result Body Mass Index 25.8 Tobacco/Smoking Status: Tobacco use Status Tobacco use date assessed 11/28/24 11/28/24 13:05 Patient Tobacco Use Status Never used Tobacco 11/28/24 13:05 e-Cigarette/Vaping Use Never Used 11/28/24 13:05 PHQ-9: PHQ-9 Score PHQ-9: Total score 0 11/28/24 13:05 Thrive Assessment: Date of Thrive Assessment Date Thrive assessed 11/28/24 11/28/24 13:05 Coding Level of Care Code Est Pt Level 4 (86097) Complex EM visit Add On G2211 Diagnoses Primary hypertension I10 Hypertension type: primary hypertension Upper respiratory tract infection J06.9 Assessment & Plan Assessment & Plan (1) Hypertension: Code(s): I10 - Essential (primary) hypertension Category: Medical Qualifiers: Hypertension type: primary hypertension Qualified Code(s): I10 - Essential (primary) hypertension Plan: BP is stable. Continue current medications (2) Upper respiratory tract infection: Code(s): J06.9 - Acute upper respiratory infection, unspecified Plan: Condition has resolved. Stop abx, prednisone and use inhalers as needed. B12 injection given Plan History of Present Illness - The patient is an 84-year-old female presenting with back pain. - She has a history of allergic rhinitis and a sinus cyst, which is being monitored by an ENT specialist. - The patient suffers from sciatica and arthritis, causing severe back pain that occasionally leads to immobility. - Pain management includes tramadol and Tylenol, with tramadol being effective when taken at night. - Cortisone injections were previously attempted without success, and she prefers non-invasive treatments like campground caretaker. - She receives B12 injections for vitamin B12 deficiency. Social History - The patient lives alone and manages her health with the help of her primary care provider and chiropractor. Review of Systems - Respiratory: Reports dyspnea, which improved with the use of an inhaler. - Musculoskeletal: Reports back pain due to arthritis and sciatica. - Neurological: Denies pain from the sinus cyst. Physical Exam General: Cooperative and healthy appearing Nutritional Appearance: Well nourished Orientation/consciousness: Patient oriented x3 Limitations: No limitations Head: Normal to inspection General: Appearance normal, both eyes and all related structures Neck: Normal visual inspection Chest: Normal palpation of entire chest wall Respiratory: Patient reports significant improvement in breathing after using an inhaler, no pain noted during examination. ormal respiratory effort Neurology: Patient oriented x3 Results Plan 1. Back Pain - Continue tramadol 50 mg once daily at night for pain management. - Use Tylenol as needed for additional pain relief. - Continue campground caretaker for symptomatic relief. 2. Vitamin B12 Deficiency - Administer B12 injections as per schedule. Discussion Notes I discussed with the patient the management of her back pain, emphasizing the importance of continuing tramadol at night and using Tylenol as needed. We also reviewed the benefits of campground caretaker and the necessity of regular B12 injections. Patient Instructions - Take tramadol 50 mg once daily at night for pain management. - Use Tylenol as needed for additional pain relief. - Continue with campground caretaker for back pain relief. - Ensure regular B12 injections are administered as scheduled.
--- OUTSIDE RECORDS SUMMARY | 2024-11-28 13:18 | XMS_ITS | Data Portability ---
Author Organization [facility], [address] Address [address] [place] [address] Care Team Providers Care Sales Operations Assistant Name Role Phone [facility] Primary Care Provider Assessment No assessment recorded. Plan of Treatment Reminders Order Date Submit Date Provider Last Modified By Organization Details Last Modified Time Details Appointments None recorded. Lab urinalysis, dipstick 2022 023 [facility], [address] [place], [address], 17:59:00 Referral None recorded. Procedures None recorded. Surgeries None recorded. Imaging None recorded. Medication Orders lidocaine 5 % topical patch 2022 023 [place] [facility], [address] [place], [address], 17:59:01 Flonase Allergy Relief 50 mcg/actuati on nasal spray,suspe nsion 2022 023 [place], [address] [place], [address], 17:58:59 loratadine 10 mg tablet 2022 023 [place] [facility], [address] [place], [address], 17:58:59 Patient TargetsNo targets recorded. Patient Instructions Encounter Date Encounter Id Patient Instructions Last Modified By Organization Details Last Modified Time 01/29/2023 [id number] getting back to normal after low back [...] care for yourself at home? Take an booe-svy-mzbvvjt pain medicine. Avoid Ibuprofen, Aleve and Aspirin if . If the doctor prescribed antibiotics, take them as directed. Do not stop taking them just because you feel better. You need to take the full course of antibiotics. Be careful when taking ixgs-vwx-bnrcarj cold or influenza (flu) medicines and Tylenol [...] = light yellow Not Available [facility] [address] [place] [address], [phone], 01/29/2023 17:24:05 01/30/2001/29/2023 urina lysis , dipst ick Unknown Analyte Yellow Not Available [facility] [address] [place] [address], [address], 01/29/2023 17:24:05 01/30/2001/29/2023 urina lysis , dipst ick Unknown Analyte Normal = clear Not Available [facility] [address] [place] [address], [address], 01/29/2023 17:24:05 01/30/2001/29/2023 urina lysis , dipst ick Unknown Analyte Clear Not Available [facility] [address] [place] [address], [address], 01/29/2023 17:24:05 01/30/2001/29/2023 urina lysis , dipst ick Unknown Analyte Normal = negati ve Not Available [facility] [address] [place] [address], [address], 01/29/2023 17:24:05 01/30/2001/29/2023 urina lysis , dipst ick Unknown Analyte Negati ve Not Available [facility] [address] [place] [address], [address], 01/29/2023 17:24:05 01/30/2001/29/2023 urina lysis , dipst ick Unknown Analyte Normal = Negati ve Not Available [facility] [address] [place] [address], [address], 01/29/2023 17:24:05 01/30/2001/29/2023 urina lysis , dipst ick Unknown Analyte Negati ve Not Available [facility] [address] [place] [address], [address], 01/29/2023 17:24:05 01/30/2001/29/2023 urina lysis , dipst ick Unknown Analyte Normal = Negati ve Not Available [facility] [address] [place] [address], [address], 01/29/2023 17:24:05 01/30/2001/29/2023 urina lysis , dipst ick Unknown Analyte Negati ve Not Available [facility] [address] [place] [address], [address], 01/29/2023 17:24:05 01/30/2001/29/2023 urina lysis , dipst ick Unknown Analyte Normal = 1.010, 1.015, 1.020 Not Available [facility] [address] [place] [address], [address], 01/29/2023 17:24:05 01/30/20 23 01/29/2023 urina lysis , dipst ick Unknown Analyte 1.020 Not Available [facility] [address] [place] [address], [address], 01/29/2023 17:24:05 01/30/2001/29/2023 urina lysis , dipst ick Unknown Analyte Normal = Negati ve Not Available [facility] [address] [place] [address], [phone], 01/29/2023 17:24:05 01/30/2001/29/2023 urina lysis , dipst ick Unknown Analyte Negati ve Not Available [address], [address], 01/29/2023 17:24:05 01/30/2001/29/2023 urina lysis , dipst ick Unknown Analyte Normal = 6.5, 7.0, 7.5, 8.0 Not Available [facility] [address] [place] [address], [phone], 01/29/2023 17:24:05 01/30/2001/29/2023 urina lysis , dipst ick Unknown Analyte 5.0 Not Available [address], [address], 01/29/2023 17:24:05 01/30/20 23 01/29/2023 urina lysis , dipst ick Unknown Analyte Normal = Negati ve Not Available [facility] [address] [place] [address], [address], 01/29/2023 17:24:05 01/30/20 23 01/29/2023 urina lysis , dipst ick Unknown Analyte Negati ve Not Available [facility] [address] [place] [address], [address], 01/29/2023 17:24:05 01/30/2001/29/2023 urina lysis , dipst ick Unknown Analyte Normal = 0.2, 1.0 Not Available [facility] [address] [place] [address], [phone], 01/29/2023 17:24:05 01/30/2001/29/2023 urina lysis , dipst ick Unknown Analyte 1.0 E.U./d L Not Available [facility] [address] [place] [address], [address], 01/29/2023 17:24:05 01/30/2001/29/2023 urina lysis , dipst ick Unknown Analyte Normal = Negati ve Not Available [facility] [address] [place] [address], [address], 01/29/2023 17:24:05 01/30/2001/29/2023 urina lysis , dipst ick Unknown Analyte Negati ve Not Available [facility] [address] [place] [address], [address], 01/29/2023 17:24:05 01/30/2001/29/2023 urina lysis , dipst ick Unknown Analyte Normal = Negati ve Not Available [facility] [address] [place] [address], [address], 01/29/2023 17:24:05 01/30/2001/29/2023 urina lysis , dipst ick Unknown Analyte Negati ve Not Available [facility] [address] [place] [address], [address], 01/29/2023 17:24:05 Result Notes None recorded. Problems Name Problem SNOMED Code Status Onset Date Resolution Date Notes Provider Name and Address Organization Details Recorded Time Hypertensive disorder 14046631 Active GEORGIA ZARAGOZA-MARITZAE RA null, [place] - [facility] 3 17:16:04 Disorder of thyroid gland 61360381 Active GEORGIA ZARAGOZA-RIVE RA null, PA - [facility] 3 17:16:16 Hypercholestero lemia 78930445 Active GEORGIA ZARAGOZA-RIVE RA null, PA - [facility] 3 17:16:30 Glaucoma 09718337 Active GEORGIA ZARAGOZA-RIVE RA null, PA - [...] Name and Address Organization Details Recorded Time 289762 Cipro medicatio n Not available Not available Not available 01/29/202392074 3 RxNorm GEORGIA ZARAGOZA-RIVE RA null, [place] - [facility] 3 17:11:52 861265 Substance with sulfonami de structure and antibacte rial mechanism of action (substanc e) medicatio n Not available Not available Not available 01/29/2023 49112 8003 SNOMED GEORGIA ZARAGOZA-RIVE RA null, PA - [facility] 3 17:12:02 662958 Zestril medicatio n Not available Not available Not available 01/29/202319637 2 RxNorm GEORGIA ZARAGOZA-RIVE RA null, PA - [facility] 3 17:12:38 234483 Cardizem medicatio n Not available Not available Not available 01/29/202375959 4 RxNorm GEORGIA ZARAGOZA-RIVE RA null, [place] - [facility] 3 17:12:48 087827 Tagamet medicatio n Not available Not available Not available 01/29/2023 56066 2 RxNorm GEORGIA BIRMINGHAM RA null, PA - [facility] 3 17:13:01 368315 Istalol medicatio n Not available Not available Not available 01/29/2023 99796 9 RxNorm GEORGIA BIRMINGHAM RA null, PA [...] Relief 50 mcg/actuatio n nasal spray,suspen enrique [place] 1 spray every day by intranasal route [...] Updated DateTime 3 157.48 cm 23.8 kg/m2 03060.0 1 g 8 17 /min 95 % 95 % 103 /min 98.5 [degF] 150/60 mm[Hg] GEORGIA CHAN - [facility] 17:23:13 Social History Question Answer Notes LastModified by Organizat ion Details LastModified Time Tobacco Smoking Status Never Smoker DUSTIN Murillo [facility] 01/29/2023 17:18:19 Have You Had [...] SNOMED-CT Code Diagnosis ICD10 Code Diagnosis Note [id number] [place] [address] [address] 01/29/2023 17:01:41 01/29/2023 17:59:55 Acute sinusitis 10828338 J01.90 Low back pain 111574030 M54.50 Health Concerns Section Related Observation LastModified by Organization Detai ls LastModified Time None Recorded Concern Status LastModified by Organization Details LastModified Time None Recorded Advance Directives Directive None Recorded Payers Insurance Date Sequence Insurance Name Policy Number Policy Arvizu Covered Member ID Arvizu Member ID Guarantor Name 03/16/2023 1 MEDICARE B-[place]: [employer] Yuni Delatorre [id number] Yuni Delatorre 05/05/2023 2 A[employer] (MEDICARE SUPPLEMENT) Yuni Delatorre [id number] Yuni Delatorre Notes Date Note Type Note [...] Previous PT:none Work Related:no Working:no Tristian Daniel, MANAGER SIGN [address], [place], [address], [place] - [facility] 01/29/2023 17:59:19 OBGyn Episode No OBEpisode recorded.
--- OUTSIDE RECORDS SUMMARY | 2024-11-28 13:18 | XMS_ITS | Clinical Summary ---
Author Organization [facility] Address [address] [place] [address] Phone Care Team Providers Care Microsoft Application Developer Name Role Phone Manuel Herrera MD Primary Care Provider [phone] Allergies Active Allergy Reactions Criticality Noted Date [...] patient's age to complete this topic Insurance [facility] Medicare [facility] Medicare Care Teams Microsoft Application Developer Relationship Specialty Start Date End Date Manuel Herrera MD [address] [place] [address] [address] [place] PCP - General 05/19/20
== END 2024-11-28 13:45 | disposition home or self-care (01) ==
LOC: HO.HMCHD 12:55
PROVIDERS: PCP Internal Medicine; Visit Provider Internal Medicine
DX: I10 Essential (primary) hypertension (principal); J06.9 Acute upper respiratory infection, unspecified

== ENCOUNTER → 2024-11-28 12:54 | Outpatient (BNVA) | payer MEDICARE, SELFPAY | PROVIDERS: PCP Internal Medicine; Visit Provider Internal Medicine | DX: I10 Essential (primary) hypertension (principal); J06.9 Acute upper respiratory infection, unspecified | CPT/HCPCS: 99212 ==

== ENCOUNTER 2024-12-04 12:25 | Outpatient (AMB) | payer MEDICARE, SELFPAY ==
[2024-12-04 12:37] VITALS: BP 128/68; PULSE 64; BMI 24.6
--- NOTE | 2024-12-04 12:37 | A.OFFVIS_ITS ---
Vital Signs 12/04/24 12:37 Height 5 ft 2 in Weight 134 lb 7.712 oz BMI 24.6 BP 128/68 Blood Pressure Location Lt brachial Position Sitting Pulse 64 Pulse Source Pulse Oximeter Intake Visit Reasons: 6m follow up Allergies cimetidine (From TAGAMET) Allergy (Unknown, Verified 11/28/24 13:04) GI UPSET ciprofloxacin (From CIPRO) Allergy (Unknown, Verified 11/28/24 13:04) GI UPSET diltiazem (From CARDIZEM) Allergy (Unknown, Verified 11/28/24 13:04) HIVES lisinopril (From ZESTRIL) Allergy (Unknown, Verified 11/28/24 13:04) LIGHTHESDEDNESS GI UPSET Sulfa (Sulfonamide Antibiotics) (SULFA (SULFONAMIDE ANTIBIOTICS)) Allergy (Unknown, Verified 11/28/24 13:04) HIVES timolol (From ISTALOL) Allergy (Unknown, Verified 11/28/24 13:04) STING[facility] does not handle GENERIC meds w Allergy (Unknown, Uncoded 08/15/24 10:56) unk Medication List - Last Reconciled 12/04/24 by Kalen Muñoz MD albuterol sulfate 90 mcg/actuation 1 inh inhalation QID PRN amlodipine 5 mg PO BID brimonidine-timolol 0.2-0.5 % drps ophthalmic (eye) budesonide 32 mcg/actuation 2 sprays intranasal DAILY carvedilol 25 mg PO BID evolocumab (Anjali Chow) 140 mg subcut Q2W fenofibrate 54 mg PO DAILY hydralazine 50 mg PO TID hydralazine 25 mg PO TID levothyroxine 100 mcg PO DAILY losartan 1 tablet in the morning, 1/2 tablet in the evening PO 90 days tobramycin 0.3% drps ophthalmic (eye) tramadol 50 mg PO DAILY PRN HPI Comments Details: Yuni returns for follow-up. To recall, she has labile hypertension. In the past, several episodes a high as well as low blood pressures. She also gets syncope during times of low blood pressure. Many medication changes over time. These days, it seems that she is generally doing well. Denies any clear-cut symptoms like angina. No recent syncope episodes either. Blood pressure has been stable. Recently saw PCP for an respiratory issues and apparently tried steroids and inhalers and got better. [facility] Medical History Carotid stenosis, bilateral Statin intolerance Other and unspecified hyperlipidemia Non-rheumatic aortic stenosis Labile hypertension Surgical History History of colonoscopy (~09/04/12) History of cholecystectomy (~01/28/21) History of appendectomy Family History Father No problems noted. Mother No problems noted. 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 Cognitive needs: Yes (cane) Hearing needs: No Vision needs: Yes (rx glasses) Review of Systems Const Denies weakness ENT Denies dizziness Card Reports no additional complaints, Denies chest pain, Denies chest pain with activity, Denies syncope, Denies rapid heart rate, Denies pedal edema, Denies edema, Denies leg edema, Denies lightheadedness, Denies palpitations, Denies dyspnea, Denies dyspnea on exertion and Denies orthopnea Resp Denies cough, Denies dyspnea and Denies dyspnea on exertion GI Denies hematochezia and Denies change in stool character Musc Denies abnormal gait, Denies muscle cramps, Denies muscle weakness, Denies numbness, Denies radiating pain into limb and Denies tingling Neuro Denies abnormal gait, Denies dizziness, Denies syncope, Denies numbness, Denies tingling and Denies weakness Endo Denies palpitations Physical Exam Vital Signs: Last Vital Signs Pulse 64 12/04/24 12:37 BP 128/68 12/04/24 12:37 BMI result Body Mass Index 24.6 Const General: comfortable and no acute distress Orientation/consciousness: patient oriented x3 HEENT Other: Unremarkable Head: Yes normal to inspection Neck Neck: Yes normal visual inspection Chest Chest palpation & inspection: normal inspection of the chest Resp Auscultation: clear to auscultation bilaterally Cardio Palpation: normal PMI Heart sounds: S1 normal heart sound present, S2 normal heart sound present, no gallops, no murmurs and no rubs GI Palpation (GI): Soft to palpation Back/Spine/Pelvis Other: unremarkable Skin General skin exam: no rashes or lesions noted Neuro General: patient oriented x3 Extrem General: Yes normal to inspection Psych Mental Status: mental status grossly normal Assessment & Plan Assessment & Plan (1) Labile hypertension: Code(s): R09.89 - Other specified symptoms and signs involving the circulatory and respiratory systems Category: Medical Plan: On combination regimen including carvedilol, amlodipine, hydralazine, losartan. No changes necessary. No clear evidence of any renal artery stenosis in previous studies. (2) Non-rheumatic aortic stenosis: Code(s): I35.0 - Nonrheumatic aortic (valve) stenosis Category: Medical Plan: In the last echocardiogram, moderate aortic valve calcification with mild stenosis. We will follow periodically. (3) Other and unspecified hyperlipidemia: Code(s): E78.5 - Hyperlipidemia, unspecified Category: Medical Plan: Intolerant of statins. Currently on Repatha. Well-controlled lipids. (4) Statin intolerance: Code(s): Z78.9 - Other specified health status Category: Medical Plan: As above, on Repatha. (5) Carotid stenosis, bilateral: Code(s): I65.23 - Occlusion and stenosis of bilateral carotid arteries Category: Medical Plan: In the most recent carotid ultrasound, moderate stenosis 50-79% bilaterally. Concurrently being followed up by vascular surgery. Coding Level of Care Code Est Pt Level 4 (97961) Complex EM visit Add On G2211 Diagnoses Labile hypertension R09.89 Non-rheumatic aortic stenosis I35.0 Other and unspecified hyperlipidemia E78.5 Statin intolerance Z78.9 Carotid stenosis, bilateral I65.23
--- OUTSIDE RECORDS SUMMARY | 2024-12-04 13:14 | XMS_ITS | Clinical Summary ---
Author Organization [facility] Address [address] [place] [address] Phone Care Team Providers Care Maintenance Painter Name Role Phone Manuel Herrera MD Primary Care Provider [phone] Allergies Active Allergy Reactions Criticality Noted Date [...] patient's age to complete this topic Insurance [facility] Medicare [facility] Medicare Care Teams Maintenance Painter Relationship Specialty Start Date End Date Manuel Herrera MD [address] [place] [address] DR[address] [place] PCP - General 05/19/20
--- OUTSIDE RECORDS SUMMARY | 2024-12-04 13:14 | XMS_ITS | Data Portability ---
Author Organization [facility], [facility] Address [address] [place] [address] Care Team Providers Care Appeals Reviewer Veteran Name Role Phone [facility] [employer] T MANAGEMENT PRO[employer] Primary Care Provider Assessment No assessment recorded. Plan of Treatment Reminders Order Date Submit Date Provider Last Modified By Organization Details Last Modified Time Details Appointments None recorded. Lab urinalysis, dipstick 2022 023 [facility], [address] [place], [address], 17:59:00 Referral None recorded. Procedures None recorded. Surgeries None recorded. Imaging None recorded. Medication Orders lidocaine 5 % topical patch 2022 023 [facility], [address] [place], [address], 17:59:01 Flonase Allergy Relief 50 mcg/actuati on nasal spray,suspe nsion 2022 023 [facility], [address] [place], [address], 17:58:59 loratadine 10 mg tablet 2022 023 [facility], [address] [place], [address], 17:58:59 Patient TargetsNo targets recorded. Patient Instructions Encounter Date Encounter Id Patient Instructions Last Modified By Organization Details Last Modified Time 01/29/2023 [id number] getting back to normal after low back [...] care for yourself at home? Take an pwtj-mrd-fjifufq pain medicine. Avoid Ibuprofen, Aleve and Aspirin if . If the doctor prescribed antibiotics, take them as directed. Do not stop taking them just because you feel better. You need to take the full course of antibiotics. Be careful when taking kqgr-tto-mnbzylg cold or influenza (flu) medicines and Tylenol [...] = light yellow Not Available [facility] [address] [place] [address], [phone], 01/29/2023 17:24:05 01/30/2001/29/2023 urina lysis , dipst ick Unknown Analyte Yellow Not Available [facility] [address] [place] [address], [phone], 01/29/2023 17:24:05 01/30/2001/29/2023 urina lysis , dipst ick Unknown Analyte Normal = clear Not Available [facility] [address] [place] [address], [phone], 01/29/2023 17:24:05 01/30/2001/29/2023 urina lysis , dipst ick Unknown Analyte Clear Not Available [facility] [address] [place] [address], [phone], 01/29/2023 17:24:05 01/30/2001/29/2023 urina lysis , dipst ick Unknown Analyte Normal = negati ve Not Available [facility] [address] [place] [address], [phone], 01/29/2023 17:24:05 01/30/2001/29/2023 urina lysis , dipst ick Unknown Analyte Negati ve Not Available [facility] [address] [place] [address], [phone], 01/29/2023 17:24:05 01/30/2001/29/2023 urina lysis , dipst ick Unknown Analyte Normal = Negati ve Not Available [facility] [address] [place] [address], [phone], 01/29/2023 17:24:05 01/30/2001/29/2023 urina lysis , dipst ick Unknown Analyte Negati ve Not Available [facility] [address] [place] [address], [phone], 01/29/2023 17:24:05 01/30/2001/29/2023 urina lysis , dipst ick Unknown Analyte Normal = Negati ve Not Available [facility] [address] [place] [address], [phone], 01/29/2023 17:24:05 01/30/2001/29/2023 urina lysis , dipst ick Unknown Analyte Negati ve Not Available [facility] [address] [place] [address], [phone], 01/29/2023 17:24:05 01/30/2001/29/2023 urina lysis , dipst ick Unknown Analyte Normal = 1.010, 1.015, 1.020 Not Available [facility] [address] [place] [address], [phone], 01/29/2023 17:24:05 01/30/20 23 01/29/2023 urina lysis , dipst ick Unknown Analyte 1.020 Not Available [facility] [address] [place] [address], [address], 01/29/2023 17:24:05 01/30/2001/29/2023 urina lysis , dipst ick Unknown Analyte Normal = Negati ve Not Available [facility] [address] [place] [address], [address], 01/29/2023 17:24:05 01/30/2001/29/2023 urina lysis , dipst ick Unknown Analyte Negati ve Not Available [address], [address], 01/29/2023 17:24:05 01/30/2001/29/2023 urina lysis , dipst ick Unknown Analyte Normal = 6.5, 7.0, 7.5, 8.0 Not Available [facility] [address] [place] [address], [phone], 01/29/2023 17:24:05 01/30/2001/29/2023 urina lysis , dipst ick Unknown Analyte 5.0 Not Available [address], [phone], 01/29/2023 17:24:05 01/30/20 23 01/29/2023 urina lysis , dipst ick Unknown Analyte Normal = Negati ve Not Available [facility] [address] [place] [address], [phone], 01/29/2023 17:24:05 01/30/20 23 01/29/2023 urina lysis , dipst ick Unknown Analyte Negati ve Not Available [facility] [address] [place] [address], [phone], 01/29/2023 17:24:05 01/30/2001/29/2023 urina lysis , dipst ick Unknown Analyte Normal = 0.2, 1.0 Not Available [facility] [address] [place] [address], [phone], 01/29/2023 17:24:05 01/30/2001/29/2023 urina lysis , dipst ick Unknown Analyte 1.0 E.U./d L Not Available [facility] [address] [place] [address], [phone], 01/29/2023 17:24:05 01/30/2001/29/2023 urina lysis , dipst ick Unknown Analyte Normal = Negati ve Not Available [facility] [address] [place] [address], [address], 01/29/2023 17:24:05 01/30/2001/29/2023 urina lysis , dipst ick Unknown Analyte Negati ve Not Available [facility] [address] [place] [address], [address], 01/29/2023 17:24:05 01/30/2001/29/2023 urina lysis , dipst ick Unknown Analyte Normal = Negati ve Not Available [facility] [address] [place] [address], [phone], 01/29/2023 17:24:05 01/30/2001/29/2023 urina lysis , dipst ick Unknown Analyte Negati ve Not Available [facility] [address] [place] [address], [address], 01/29/2023 17:24:05 Result Notes None recorded. Problems Name Problem SNOMED Code Status Onset Date Resolution Date Notes Provider Name and Address Organization Details Recorded Time Hypertensive disorder 85478727 Active GEORGIA ZARAGOZA-MARITZAE RA null, [place] - [facility] 3 17:16:04 Disorder of thyroid gland 34194719 Active GEORGIA ZARAGOZA-RIVE RA null, [place] - [facility] 3 17:16:16 Hypercholestero lemia 26100578 Active GEORGIA ZARAGOZA-RIVE RA null, [place] - [facility] 3 17:16:30 Glaucoma 26590662 Active GEORGIA ZARAGOZA-RIVE RA null, PA - [...] Name and Address Organization Details Recorded Time 736928 Cipro medicatio n Not available Not available Not available 01/29/202322760 3 RxNorm GEORGIA ZARAGOZA-RIVE RA null, [place] - [facility] 3 17:11:52 359751 Substance with sulfonami de structure and antibacte rial mechanism of action (substanc e) medicatio n Not available Not available Not available 01/29/2023 89490 8003 SNOMED GEORGIA ZARAGOZA-RIVE RA null, [place] - [facility] 3 17:12:02 101032 Zestril medicatio n Not available Not available Not available 01/29/202319637 2 RxNorm GEORGIA ZARAGOZA-RIVE RA null, [place] - [facility] 3 17:12:38 033176 Cardizem medicatio n Not available Not available Not available 01/29/202315601 4 RxNorm GEORGIA ZARAGOZA-RIVE RA null, [place] - [facility] 3 17:12:48 260043 Tagamet medicatio n Not available Not available Not available 01/29/2023 65963 2 RxNorm GEORGIA BIRMINGHAM RA null, [place] - [facility] 3 17:13:01 005313 Istalol medicatio n Not available Not available Not available 01/29/2023 39736 9 RxNorm GEORGIA BIRMINGHAM RA null, PA [...] Relief 50 mcg/actuatio n nasal spray,suspen enrique [place] 1 spray every day by intranasal route [...] Updated DateTime 3 157.48 cm 23.8 kg/m2 02030.0 1 g 8 17 /min 95 % [...] SNOMED-CT Code Diagnosis ICD10 Code Diagnosis Note [id number] [place] [address] [phone] 01/29/2023 17:01:41 01/29/2023 17:59:55 Acute sinusitis 29519005 J01.90 Low back pain 433142306 M54.50 Health Concerns Section Related Observation LastModified by Organization Detai ls LastModified Time None Recorded Concern Status LastModified by Organization Details LastModified Time None Recorded Advance Directives Directive None Recorded Payers Insurance Date Sequence Insurance Name Policy Number Policy Arvizu Covered Member ID Arvizu Member ID Guarantor Name 03/16/2023 1 MEDICARE B-[place]: [employer] Yuni Delatorre [id number] Yuni Delatorre 05/05/2023 2 AARP (MEDICARE SUPPLEMENT) Yuni Delatorre [id number] Yuni Delatorre OBGyn Episode No OBEpisode recorded.
== END 2024-12-04 13:10 | disposition home or self-care (01) ==
LOC: HO.HCS 12:25
PROVIDERS: PCP Internal Medicine; Visit Provider Internal Medicine
DX: R09.89 Other specified symptoms and signs involving the circulatory and respiratory systems (principal); I35.0 Nonrheumatic aortic (valve) stenosis; E78.5 Hyperlipidemia, unspecified; Z78.9 Other specified health status; I65.23 Occlusion and stenosis of bilateral carotid arteries
CPT/HCPCS: 99214; G2211

== ENCOUNTER → 2024-12-04 12:25 | Outpatient (BNVA) | payer MEDICARE, SELFPAY | PROVIDERS: PCP Internal Medicine; Visit Provider Internal Medicine | DX: R09.89 Other specified symptoms and signs involving the circulatory and respiratory systems (principal); I35.0 Nonrheumatic aortic (valve) stenosis; E78.5 Hyperlipidemia, unspecified; Z78.9 Other specified health status; I65.23 Occlusion and stenosis of bilateral carotid arteries | CPT/HCPCS: 99212 ==

== ENCOUNTER 2024-12-13 13:07 | Outpatient (REF) | payer MEDICARE, SELFPAY ==
--- OUTSIDE RECORDS SUMMARY | 2024-12-13 13:10 | XMS_ITS | Clinical Summary ---
Author Organization [facility] Address [address] [place] [address] Phone Care Team Providers Care Floor Service Worker Spring Name Role Phone Manuel Herrera MD Primary Care Provider [phone] Allergies Active Allergy Reactions Criticality Noted Date [...] patient's age to complete this topic Insurance [facility] Medicare [facility] Medicare Care Teams Floor Service Worker Spring Relationship Specialty Start Date End Date Manuel Herrera MD [address] [place] [address] DRIVE [address] [place] PCP - General 05/19/20
--- OUTSIDE RECORDS SUMMARY | 2024-12-13 13:11 | XMS_ITS | Patient Health Record ---
Author Organization [facility] Address [address] [place] [address] Care Team Providers Care Driver License Reviewing Officer Name Role Phone Javier (RETIRED) Manuel STEPHENSON Primary Care Provide Nikhil Smith Unavailable [phone] Allergies Allergen (clinical drug ingredient) Drug/Non Drug Allergy documented on EMR Reaction Allergy Type Onset Date Status Sulfa Unknown Drug Allergy Active lisinopril Zestril Unknown Drug Allergy Active cimetidine Tagamet HB Unknown Drug Allergy Activ e timolol Istalol Unknown Drug Allergy Active ciprofloxacin Cipro Unknown Drug Allergy Act hermilo diltiazem Cardizem Unknown Drug Allergy Active generic meds dont agree (uncoded) Unknown Allergy Active Reason For Referral No Information Medications Medication [...] Status Risk Notes Problem Irritable bowel syndrome (57243493) Irritable bowel syndrome (564.1) Active confirmed Problem Diarrhea (11480193) Diarrhea (787.91) Active confirmed Problem Screening for colon cancer (V76.51) Active confirmed [...] OF [place] [address] [place] [address] [id number] ARLET HALE) Self - patient is the insured [facility] SUPPLEMENTAL PLAN [address] [place] [address] [id number] ARLET HALE) Self - patient is the insured Medical (General) History Medical History History ICD Code HTN Denies PR,DM,CVA,Lung disease,renal dise ase Negative colonoscopy, by her report, serenity jennie 20 yrs ago Hypothyroidism Hyperlipidemia Diverticulitis 15-20 yrs ago Surgical History Surgery Date(Month/Year) appendectomy 1958
[2024-12-13 18:07] LABS: Anion Gap 14 (12-20); Blood Urea Nitrogen 32 mg/dL (9-16); Calcium 9.3 mg/dL (8.4-10.2); Carbon Dioxide 22 mmol/L (22-29); Chloride 112 mmol/L (96-108); Estimated Glomerular Filt Rate 39; Potassium 4.5 mmol/L (3.3-5.1); Sodium 143 mmol/L (135-145)
[2024-12-13 18:12] LABS: Appearance Urine Clear; Glucose Urine UA Negative (Negative); PH 5.5 (5.0-9.0); Specific Gravity - Urine 1.015 (1.005-1.025); UMIC TRIGGER UA YES
== END 2024-12-13 13:08 | disposition home or self-care (01) ==
LOC: HO.WFDLDS 13:07
PROVIDERS: Referring Provider Nurse Practitioner Family; Visit Provider Internal Medicine
DX: N18.30 Chronic kidney disease, stage 3 unspecified (principal)
CPT/HCPCS: 36415; 80048; 81001

== ENCOUNTER 2024-12-14 09:55 | Outpatient (AMB) | payer MEDICARE, SELFPAY ==
--- OUTSIDE RECORDS SUMMARY | 2024-12-14 09:58 | XMS_ITS | Clinical Summary ---
Author Organization [facility] Address [address] [place] [address] Phone Care Team Providers Care Wedding Planner Name Role Phone Manuel Herrera MD Primary Care Provider [phone] Allergies Active Allergy Reactions Criticality Noted Date [...] patient's age to complete this topic Insurance [facility] Medicare [facility] Medicare Care Teams Wedding Planner Relationship Specialty Start Date End Date Manuel Herrera MD [address] [place] [address] DRIVE [address] [place] PCP - General 05/19/20
--- OUTSIDE RECORDS SUMMARY | 2024-12-14 09:58 | XMS_ITS | Patient Health Record ---
Author Organization [facility] Address [address] [place] [address] Care Team Providers Care Strategic Planning Director Name Role Phone Javier (RETIRED) Manuel STEPHENSON Primary Care Provide r Nikhil Zamorano Unavailable [phone] Allergies Allergen (clinical drug ingredient) Drug/Non Drug Allergy documented on EMR Reaction Allergy Type Onset Date Status cimetidine Tagamet HB Unknown Drug Allergy Activ e timolol Istalol Unknown Drug Allergy Active ciprofloxacin Cipro Unknown Drug Allergy Act hermilo diltiazem Cardizem Unknown Drug Allergy Active generic meds dont agree (uncoded) Unknown Allergy Active Sulfa Unknown Drug Allergy Active lisinopril Zestril Unknown Drug Allergy Active Reason For Referral No Information [...] Status Risk Notes Problem Irritable bowel syndrome (90840090) Irritable bowel syndrome (564.1) Active confirmed Problem Diarrhea (80058692) Diarrhea (787.91) Active confirmed Problem Screening for colon cancer (377870603) Screening for colon cancer (V76.51) Active confirmed [...] OF [place] [address] [place] [address] [id number] ARLET HALE) Self - patient is the insured [facility] SUPPLEMENTAL PLAN [address] [place] [address] [id number] ARLET HALE) Self - patient is the insured Medical (General) History Medical History History ICD Code HTN Denies OR,DM,CVA,Lung disease,renal dise ase Negative colonoscopy, by her report, serenity jennie 20 yrs ago Hypothyroidism Hyperlipidemia Diverticulitis 15-20 yrs ago Surgical History Surgery Date(Month/Year) appendectomy 1958
--- NOTE | 2024-12-14 10:12 | HO.NEPHOV_ITS ---
Vital Signs 12/14/24 10:13 Height 5 ft 2 in Weight 136 lb 2 oz BMI 24.9 BP 140/60 H Blood Pressure Location Rt brachial Position Sitting Pulse 66 Pulse Source Pulse Oximeter Pulse Oximetry (%) 97 Oxygen Delivery Method Room Air Intake Visit Reasons: [facility] HFU Yacht Rigger Required: No Accompanied by: Self / Same As Patient Allergies cimetidine (From TAGAMET) Allergy (Unknown, Verified 12/14/24 10:13) GI UPSET ciprofloxacin (From CIPRO) Allergy (Unknown, Verified 12/14/24 10:13) GI UPSET diltiazem (From CARDIZEM) Allergy (Unknown, Verified 12/14/24 10:13) HIVES lisinopril (From ZESTRIL) Allergy (Unknown, Verified 12/14/24 10:13) LIGHTHESDEDNESS GI UPSET Sulfa (Sulfonamide Antibiotics) (SULFA (SULFONAMIDE ANTIBIOTICS)) Allergy (U nknown, Verified 12/14/24 10:13) HIVES timolol (From ISTALOL) Allergy (Unknown, Verified 12/14/24 10:13) [facility] does not handle GENERIC meds w Allergy (Unknown, Uncoded 08/15/24 10:56) unk HPI Comments Details: Here for HFU. [facility] ER on 12/10 for generalized weakness and chills. Reportedly drank more water than usual because she thought she might be dehydrated when going to a concert at [facility] [employer]. Was diagnosed with a UTI at [facility] ED and prescribed a 5-day course of cephalexin. Her serum bicarb was 16, AG 13, she was given IVF and sodium bicarbonate 650mg PO BID to take 12/10 and 12/11 and was discharged home. she states she is feeling much better. States she still has some mild fatigue and not yet quite herself but getting there. States she had bronchitis 2 weeks prior that really set her back, still feels she is still recovering from this as well. reports some mild lower abdominal cramping since starting cephlex, no diarrhea, some mild fatigue, otherwise feeling herself. No other new symptoms/concerns. States she has one more day of cephlex. Patient states she is very active and has a hard time slowing down and not sure if she did not rest enough while recovering from her illnesses. [facility] Medical History Carotid stenosis, bilateral Statin intolerance Other and unspecified hyperlipidemia Non-rheumatic aortic stenosis Labile hypertension Surgical History History of colonoscopy (~09/04/12) History of cholecystectomy (~01/28/21) History of appendectomy Family History Father No problems noted. Mother No problems noted. 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 Cognitive needs: Yes (cane) Hearing needs: No Vision needs: Yes (rx glasses) Review of Systems Const All systems reviewed & are unremarkable except as noted in HPI and below Physical Exam Vital Signs: Last Vital Signs Pulse 66 12/14/24 10:13 BP 140/60 H 12/14/24 10:13 Pulse Ox 97 12/14/24 10:13 Oxygen Delivery Method Room Air 12/14/24 10:13 BMI result Body Mass Index 24.9 Const General: no acute distress, alert and awake Resp Effort & Inspection: normal respiratory effort and able to speak in complete sentences Auscultation: clear to auscultation bilaterally Cardio Rate: regular rate Rhythm: regular rhythm Heart sounds: S1 normal heart sound present and S2 normal heart sound present GI Palpation (GI): Soft to palpation and nontender General: Yes no CVA tenderness Back/Spine/Pelvis Back: no CVA tenderness Skin Rashes: no rashes Extrem General: No edema Results Reviewed Nephrology Results: Hgb, (12.0-16.0) 10.5 g/dl L 11/21/24 WBC, (4.8-10.8) 5.6 X10*3/uL 11/21/24 Plt Count, (160-400) 215 X10*3/uL 11/21/24 Sodium, (135-145) 143 mmol/L 12/13/24 Potassium, (3.3-5.1) 4.5 mmol/L 12/13/24 Chloride, (96-108) 112 mmol/L H 12/13/24 Carbon Dioxide, (22-29) 22 mmol/L 12/13/24 BUN, (9-16) 32 mg/dL H 12/13/24 Creatinine, (0.5-1.4) 1.30 mg/dL 12/13/24 Calcium, (8.4-10.2) 9.3 mg/dL 12/13/24 Urine Protein, (Neg-Trace) Negative mg/dL 12/13/24 Assessment & Plan Assessment & Plan (1) Metabolic acidosis: Code(s): E87.20 - Acidosis, unspecified Category: Medical Plan Patient with CKD follows Dr Roy here for emergency room follow up after incidental findingof metabolic acidosis. Was treated for UTI with cephalexin. Metabolic acidosis likely secondary to dehydration. Serum bicarb has normalized with labs yesterday. Advised to ensure hydration, and also encouraged to slow down and rest while recovering from bronchitis and UTI. Advised to ensure she gets blood work prior to her next visit wtih Dr Roy. Advised that if cramping worsens or does not resolve with completion of antibiotic course and adequate hydration (discussed both water and electrolytes are important, probiotic while taking antibiotic), she shoudl follow up with her PCP. She has a routine follow up booked with Dr Roy in January. She will call the office if any new concerns arise prior to her next appointment. Coding Level of Care Code Est Pt Level 3 (63665) Diagnoses Metabolic acidosis E87.20
[2024-12-14 10:13] VITALS: BP 140/60; PULSE 66; O2SAT 97; BMI 24.9
== END 2024-12-14 10:46 | disposition home or self-care (01) ==
LOC: HO.HKA 09:56
PROVIDERS: PCP Internal Medicine; Visit Provider Nurse Practitioner Family
DX: E87.20 Acidosis, unspecified (principal)
CPT/HCPCS: 99213

== ENCOUNTER → 2024-12-14 09:55 | Outpatient (BNVA) | payer MEDICARE, SELFPAY | PROVIDERS: PCP Internal Medicine; Visit Provider Nurse Practitioner Family | DX: E87.20 Acidosis, unspecified (principal); N18.9 Chronic kidney disease, unspecified | CPT/HCPCS: 99212 ==

== ENCOUNTER 2025-01-23 13:13 | Outpatient (REF) | payer MEDICARE, SELFPAY ==
--- NOTE | ~2025-01-23 | XR_ITS ---
EXAMINATION: XR ABDOMEN KUB CLINICAL INDICATION: R10.9 - Unspecified abdominal pain COMPARISON: None available. TECHNIQUE: AP view of the abdomen. FINDINGS: Bowel gas pattern is nonspecific. There is no pathologically dilated loop of bowel. Gas-filled loops of predominantly large bowel noted throughout the abdomen. No definite small bowel dilatation. No significant stool burden. No evidence of free intraperitoneal air. Cholecystectomy clips noted. No gross abnormal soft tissue calcification. No organomegaly. No large abdominal mass. Degenerative changes throughout the spine, involving the SI joints, and bilateral hip joints. There is a fixated healed intertrochanteric right hip fracture. No bone lesions. XR/XR abdomen 1V IMPRESSION: No acute findings. Mild gas distended loops of large bowel throughout the abdomen. Electronically signed by: Arun Ramos MD 01/23/2025 02:51 PM EDT
[2025-01-23 16:10] LABS: Anion Gap 11 (12-20); Blood Urea Nitrogen 39 mg/dL (9-16); Carbon Dioxide 24 mmol/L (22-29); Chloride 113 mmol/L (96-108); Estimated Glomerular Filt Rate 39; Potassium 5.1 mmol/L (3.3-5.1); Sodium 143 mmol/L (135-145)
--- OUTSIDE RECORDS SUMMARY | 2025-01-23 18:04 | XMS_ITS | Patient Health Record ---
Author Organization [facility] Address [address] [place] [address] Care Team Providers Care Wagon Driller Name Role Phone Javier (RETIRED) Manuel STEPHENSON Primary Care Provide Nikhil Smith Unavailable [phone] Allergies Allergen (clinical drug ingredient) Drug/Non Drug [...] Status Risk Notes Problem Irritable bowel syndrome (26854592) Irritable bowel syndrome (564.1) Active confirmed Problem Diarrhea (23253821) Diarrhea (787.91) Active confirmed Problem Screening for colon cancer (789249513) Screening for colon cancer (V76.51) Active confirmed [...] OF [place] [address] [place] [address] [id number] [employer]LET [place]) Self - patient is the insured [facility] SUPPLEMENTAL PLAN [address] [place] [address] [id number] [place]LET H[place]) Self - patient is the insured Medical (General) History Medical History History ICD Code HTN Denies [place],DM,CVA,Lung disease,renal dise ase Negative colonoscopy, by her report, serenity jennie 20 yrs ago Hypothyroidism Hyperlipidemia Diverticulitis 15-20 yrs ago Surgical History Surgery Date(Month/Year) appendectomy 1958
== END 2025-01-23 13:14 | disposition home or self-care (01) ==
LOC: HO.XRAY 13:13
PROVIDERS: Internal Medicine Nephrology; PCP Student in an Organized Health Care Education/Training Program; Visit Provider Student in an Organized Health Care Education/Training Program
DX: R63.4 Abnormal weight loss (principal); R10.9 Unspecified abdominal pain; I12.9 Hypertensive chronic kidney disease with stage 1 through stage 4 chronic kidney disease, or unspecified chronic kidney disease; N18.31 Chronic kidney disease, stage 3a; E03.9 Hypothyroidism, unspecified
CPT/HCPCS: 36415; 74018; 80051; 82565; 84520; 99212

== ENCOUNTER 2025-01-23 13:13 | Outpatient (AMB) | payer MEDICARE, SELFPAY ==
--- NOTE | 2025-01-23 13:17 | A.OFFPC_ITS ---
Vital Signs 01/23/25 13:23 Height 5 ft 2 in Weight 133 lb BMI 24.3 BP 150/68 H Blood Pressure Location Lt brachial Position Sitting Respiration 18 Pulse 64 Pulse Source Pulse Oximeter Temp 97.5 F Temp Source Temporal Artery Scan Pulse Oximetry (%) 96 Oxygen Delivery Method Room Air Intake Visit Reasons: Stomach Complaints Leno Sewer Required: No Accompanied by: Daughter Allergies cimetidine (From TAGAMET) Allergy (Unknown, Verified 01/23/25 13:17) GI UPSET ciprofloxacin (From CIPRO) Allergy (Unknown, Verified 01/23/25 13:17) GI UPSET diltiazem (From CARDIZEM) Allergy (Unknown, Verified 01/23/25 13:17) HIVES lisinopril (From ZESTRIL) Allergy (Unknown, Verified 01/23/25 13:17) LIGHTHESDEDNESS GI UPSET Sulfa (Sulfonamide Antibiotics) (SULFA (SULFONAMIDE ANTIBIOTICS)) Allergy (Unknown, Verified 01/23/25 13:17) HIVES timolol (From ISTALOL) Allergy (Unknown, Verified 01/23/25 13:17) STINGING does not handle GENERIC meds w Allergy (Unknown, Uncoded 08/15/24 10:56) unk Medication List - Last Reconciled 01/23/25 by Mario Espinosa MD albuterol sulfate 90 mcg/actuation 1 inh inhalation QID PRN amlodipine 5 mg PO BID azelastine (Astepro Allergy) 2 sprays intranasal BID brimonidine-timolol 0.2-0.5 % drps ophthalmic (eye) budesonide 32 mcg/actuation 2 sprays intranasal DAILY carvedilol 25 mg PO BID evolocumab (Reptracey SureDiego) 140 mg subcut Q2W fenofibrate 54 mg PO DAILY hydralazine 50 mg PO TID hydralazine 25 mg PO TID levothyroxine 100 mcg PO DAILY losartan 1 tablet in the morning, 1/2 tablet in the evening PO 90 days tobramycin 0.3% drps ophthalmic (eye) tramadol 50 mg PO DAILY PRN Tobacco use date assessed: 12/31/24 Fall risk assessment: No Falls in past year Last assessed Fall Risk: 01/23/25 Dental Screening Dental Screen Date: 01/23/25 Did you have a dental visit in the last 12 months?: Yes Did you have a dental problem in the last 6 months where you did not have access to dental care?: No Was dental information given to patient?: Patient has dentist HPI HPI Comments History of Present Illness Details The patient is an 84-year-old female presenting with stomach upset and symptoms of acid reflux and abdominal bloating. These symptoms have been ongoing for approximately two months. She reports a bitter, nasty-tasting acid regurgitation at night and frequent belching following meals. The discomfort is primarily located in the upper abdominal region and is associated with a sensation of bloating. No recent dietary changes had offered relief, and suspicion was raised that harrell tomatoes may have been contributing to her discomfort, though cessation did not ameliorate symptoms. Four years ago, the patient was diagnosed with a Helicobacter pylori infection and treated with a course of antibiotics. She was previously prescribed Pepcid for acid reflux without significant relief. Since her gallbladder removal, she has experienced episodes of diarrhea, managed with Metamucil. She's experienced a weight loss of about 5 pounds over the last month and reports no nausea or constipation. The patient has previously suffered from diverticulitis and stomach ulcers, which were suspected due to past H. pylori infection. She uses Metamucil daily to aid bowel movements. Medical History: - Gastroesophageal Reflux Disease (GERD) - Helicobacter pylori infection (treated 4 years ago) - Hypertension - Chronic Kidney Disease, Stage 3 - Sciatica - Osteoarthritis - Diverticulitis - History of gastric ulcers Surgical History: - Cholecystectomy (Gallbladder removal) Medications: - Metamucil, for bowel regulation - Hydralazine, for hypertension manageme nt - Amlodipine 5 mg twice daily, for blood pressure management - Coreg (Carvedilol) 25 mg, for hyperten enrique - Levothyroxine, for thyroid management - Losartan 50 mg in the morning, 25 mg i n the evening, for blood pressure - Repatha, twice monthly, for cholestero l management - Tramadol, for pain management related to sciatica and arthritis Family History: - Maternal grandmother had abdominal can cer - No history of cancer in the mother Social: - The patient mentions difficulties with certain foods post-cholecystectomy, including avoidance of fried foods and specific spices. [facility] Medical History (Updated 01/23/25 @ 14:06 by Mario Espinosa MD) Hypothyroidism Weight loss Abdominal pain Carotid stenosis, bilateral Statin intolerance Other and unspecified hyperlipidemia Non-rheumatic aortic stenosis Labile hypertension Surgical History History of colonoscopy (~09/04/12) History of cholecystectomy (~01/28/21) History of appendectomy Family History Father No problems noted. Mother No problems noted. 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 Nikhil Thayer, Yaneyl Ferrer, Orlando Chavez and colleagues, with an educational mukund from [employer]. Review of Systems Const Details: - Gastrointestinal: Reports bloating, stomach upset, acid reflux particularly at night, frequent belching, and episodes of diarrhea. - Constitutional: Reports weight loss of approximately 5 pounds. - Renal: Denies difficulty with urination. - Bowel: Reports normal bowel function with soft to putty-like stool consistency. - Musculoskeletal: Reports pain due to sciatica and arthritis. All systems reviewed & are unremarkable except as reviewed in HPI and above Physical exam (Primary Care) Vital Signs: Last Vital Signs Temp 97.5 F 01/23/25 13:23 Pulse 64 01/23/25 13:23 Resp 18 01/23/25 13:23 BP 150/68 H 01/23/25 13:23 Pulse Ox 96 01/23/25 13:23 Oxygen Delivery Method Room Air 01/23/25 13:23 BMI result Body Mass Index 24.3 Tobacco/Smoking Status: Tobacco use Status Tobacco use date assessed 12/31/24 01/23/25 13:26 Patient Tobacco Use Status Never used Tobacco 01/23/25 13:26 e-Cigarette/Vaping Use Never Used 01/23/25 13:26 Thrive Assessment: Date of Thrive Assessment Date Thrive assessed 12/31/24 01/23/25 13:26 Const Other: General: Alert and oriented, Well nourished, No acute distress. Eye: Pupils are equal, round and reactive to light, Intact accommodation, Extraocular movements are intact, Normal conjunctiva, Vision unchanged. HENT: Normocephalic, Atraumatic, Tympanic membranes are clear, Normal hearing, Oral mucosa is moist, No pharyngeal erythema, Ear canals patent. Respiratory: Lungs CTA bilaterally, No wheeze, Respirations are non-labored. Cardiovascular: Regular rate, Regular rhythm, S1 auscultated, S2 auscultated, No murmur, Good pulses equal in all extremities, Normal peripheral perfusion, No edema. Gastrointestinal: Soft, Non-tender,Distended, Normal bowel sounds, No organomegaly. Patient reports stomach upset, acid reflux at night, belching after meals, bloating, and occasional liquid bowel movements. No recent weight loss reported. Shifting Dullness + Fluid Thrill + Musculoskeletal: Normal range of motion, Normal strength, No tenderness, No swelling, No deformity, Normal gait. Integumentary: Warm, Dry, [place], Intact. Neurologic: Alert, Oriented, Normal sensory, Normal motor function, No focal defects, Cranial Nerves II-XII are grossly intact, Normal deep tendon reflexes. Psychiatric: Cooperative, Appropriate mood & affect, Normal judgment. Coding Level of Care Code Est Pt Level 4 (86425) Diagnoses Weight loss R63.4 Abdominal pain, unspecified abdominal location R10.9 Abdominal location: unspecified location Primary hypertension I10 Hypertension type: primary hypertension Stage 3a chronic kidney disease N18.31 Chronic kidney disease stage 3 subtype: stage 3a (GFR 45-59) Hypothyroidism, unspecified type E03.9 Hypothyroidism type: unspecified Time Spent (min) 45 Comment Assessment & Plan Assessment & Plan (1) Weight loss: Comment: Patient presenting with weight loss and abdominal pain over the past 2 months and has persistent, associated with diffuse pain, belching and increased frequency of heartburn at night. On exam does have positive fluid wave, shifting dullness and abdomen is distended with tenderness diffusely. Possible etiologies at this time include, GERD (unlikely given frequency only at night and minimal improvement with ovwn-rnu-omhcdqe PPIs), overflow diarrhea (endorses having liquid stools multiple times a day although this could be secondary to her bile acid diarrhea), underlying malignancy (weight loss in addition to fluid collection could be a possibility). We will obtain abdominal ultrasound given she has CKD 3 and further contrast may cause damage to the kidneys. Therefore we will start with the ultrasound to evaluate for intra-abdominal pathologies Start her on PPI q.a.m. (Protonix 40 mg daily) 30-40 minutes before meals Obtain an abdominal x-ray to rule out any fecal burden Code(s): R63.4 - Abnormal weight loss Category: Medical (2) Abdominal pain: Comment: - As above Code(s): R10.9 - Unspecified abdominal pain Category: Medical Qualifiers: Abdominal location: unspecified location Qualified Code(s): R10.9 - Unspecified abdominal pain (3) Hypertension: Comment: - No change in current regimen as patient prefers management by poultry service technician; consider discussion with poultry service technician to simplify regimen. Code(s): I10 - Essential (primary) hypertension Category: Medical Qualifiers: Hypertension type: primary hypertension Qualified Code(s): I10 - Essential (primary) hypertension (4) CKD (chronic kidney disease) stage 3, GFR 30-59 ml/min: Code(s): N18.30 - Chronic kidney disease, stage 3 unspecified Category: Medical Qualifiers: Chronic kidney disease stage 3 subtype: stage 3a (GFR 45-59) Qualified Code(s): N18.31 - Chronic kidney disease, stage 3a (5) Hypothyroidism: Comment: - Continue Levothyroxine - Obtain TSH at next visit Code(s): E03.9 - Hypothyroidism, unspecified Category: Medical Qualifiers: Hypothyroidism type: unspecified Qualified Code(s): E03.9 - Hypothyroidism, unspecified Plan: Health Maintenance: - Advise on dietary changes with emphasis on GERD management and blood pressure control. - Review and discuss appropriateness of ongoing Repatha use in context of current cholesterol management guidelines for age group. Plan During the visit, I outlined management options for the patient's persistent GERD and abdominal symptoms. We reviewed the importance of appropriate medication timing and discussed starting pantoprazole with careful attention to food intake and timing. The potential need for an abdominal ultrasound was discussed to ascertain the underlying cause of her abdominal distension and symptoms. I advised dietary modifications and the potential need for re- evaluation of prior H. pylori infection. We also explored simplifying her hypertension medication regimen with the assistance of her poultry service technician and highlighted the concerns with long-term tramadol use, privileging an approach focused on minimizing risks associated with polypharmacy. Orders: Orders XR abdomen 1V Today R10.9 - Unspecified abdominal pain US abdomen complete Today R10.9 - Unspecified abdominal pain, R63.4 - Abnormal weight loss H Pylori Breath Test Today R10.9 - Unspecified abdominal pain, R63.4 - Abnormal weight loss Medications: New pantoprazole 40 mg PO QAM 90 tabs 0RF Patient Instructions: - Begin taking pantoprazole each morning, 30-40 minutes before breakfast as instructed. - Maintain a food diary to identify foods triggering GERD symptoms. - Make dietary modifications as discussed, avoiding foods known to exacerbate acid reflux. - Follow up on scheduled abdominal ultrasound. - Discuss potential simplification of hypertension medications with poultry service technician. - Limit tramadol use if possible, and discuss alternative pain management options during follow-up. - Monitor symptoms and report any significant changes or concerns.
[2025-01-23 13:23] VITALS: BP 150/68; PULSE 64; RESP 18; TEMP 36.4; O2SAT 96; BMI 24.3
--- OUTSIDE RECORDS SUMMARY | 2025-01-23 16:53 | XMS_ITS | Clinical Summary ---
Author Organization [facility] Address [address] [place] [address] Phone Care Team Providers Care Category Development Manager Name Role Phone Manuel Herrera MD Primary Care Provider [phone] Allergies Active Allergy Reactions Criticality Noted Date [...] patient's age to complete this topic Insurance [facility] Medicare [facility] Medicare Care Teams Category Development Manager Relationship Specialty Start Date End Date Manuel Herrera MD [address] [place] [address] [phone] [place] PCP - General 05/19/20
== END 2025-01-23 14:03 | disposition home or self-care (01) ==
LOC: HO.HMCHD 13:13
PROVIDERS: PCP Student in an Organized Health Care Education/Training Program; Visit Provider Student in an Organized Health Care Education/Training Program
DX: I12.9 Hypertensive chronic kidney disease with stage 1 through stage 4 chronic kidney disease, or unspecified chronic kidney disease (principal); N18.31 Chronic kidney disease, stage 3a; R63.4 Abnormal weight loss; R10.9 Unspecified abdominal pain; E03.9 Hypothyroidism, unspecified

== ENCOUNTER → 2025-01-23 14:25 | Outpatient (BNV) | payer MEDICARE, SELFPAY | PROVIDERS: PCP Student in an Organized Health Care Education/Training Program; Visit Provider Radiology Diagnostic Radiology | DX: R10.9 Unspecified abdominal pain (principal) | CPT/HCPCS: 74018 ==

== ENCOUNTER 2025-01-24 07:18 | Outpatient (REF) | payer MEDICARE, SELFPAY ==
--- NOTE | ~2025-01-24 | US_ITS ---
EXAMINATION: US ABDOMEN COMPLETE CLINICAL INFORMATION: Unspecified abdominal pain. COMPARISON: November 03, 2020. TECHNIQUE: Real-time ultrasound of the abdomen using grayscale technique. FINDINGS: PANCREAS: No peripancreatic fluid collections. ABDOMINAL AORTA: The proximal, mid, and distal segments are normal in caliber. INFERIOR VENA CAVA: Visualized portions are normal. LIVER: Liver measures 16 cm. No nodular surface. Normal echotexture. No solid or cystic lesion detected. No intrahepatic biliary ductal dilatation. GALLBLADDER: Absent. COMMON BILE DUCT: 7 mm. RIGHT KIDNEY: 9 cm. Normal echotexture. Normal renal cortical thickness. No gross solid or cystic lesion. Extrarenal pelvis. No gross hydronephrosis. . LEFT KIDNEY: 10 cm. Normal echotexture. Normal renal cortical thickness. No solid or cystic lesion. Extrarenal pelvis. No hydronephrosis. . SPLEEN: 9 cm.. FREE FLUID: None. US/US abdomen complete IMPRESSION: Status post cholecystectomy and common bile duct measures 7 mm. No gross hydronephrosis. No ascites. Up to normal limits liver size. Normal-sized spleen.. Electronically signed by: Aba Ngo MD 01/24/2025 08:32 AM EDT
--- OUTSIDE RECORDS SUMMARY | 2025-01-24 07:21 | XMS_ITS | Clinical Summary ---
Author Organization [facility] Address [address] [place] [address] Phone Care Team Providers Care Take Down Inspector Name Role Phone Manuel Herrera MD Primary Care Provider [phone] Allergies Active Allergy Reactions Criticality Noted Date [...] patient's age to complete this topic Insurance [facility] Medicare [facility] Medicare Care Teams Take Down Inspector Relationship Specialty Start Date End Date Manuel Herrera MD [address] [place] [address] [phone] [place] PCP - General 05/19/20
--- OUTSIDE RECORDS SUMMARY | 2025-01-24 07:21 | XMS_ITS | Patient Health Record ---
Author Organization [facility] Address [address] [place] [address] Care Team Providers Care Instruments Sales Representative Name Role Phone Javier (RETIRED) Manuel STEPHENSON Primary Care Provide r Nikhil Zamorano Unavailable [phone] Allergies Allergen (clinical drug ingredient) Drug/Non Drug [...] Status Risk Notes Problem Irritable bowel syndrome (36980770) Irritable bowel syndrome (564.1) Active confirmed Problem Diarrhea (95833097) Diarrhea (787.91) Active confirmed Problem Screening for colon cancer (742400202) Screening for colon cancer (V76.51) Active confirmed [...] OF [place] [address] [place] [address] [phone] [id number] [employer] [place]) Self - patient is the insured [facility] SUPPLEMENTAL PLAN [address] [place] [address] [id number] ARLET HALE) Self - patient is the insured Medical (General) History Medical History History ICD Code HTN Denies [place],DM,CVA,Lung disease,renal dise ase Negative colonoscopy, by her report, serenity jennie 20 yrs ago Hypothyroidism Hyperlipidemia Diverticulitis 15-20 yrs ago Surgical History Surgery Date(Month/Year) appendectomy 1958
== END 2025-01-24 07:19 | disposition home or self-care (01) ==
LOC: HO.US 07:18
PROVIDERS: PCP Student in an Organized Health Care Education/Training Program; Visit Provider Student in an Organized Health Care Education/Training Program
DX: R10.9 Unspecified abdominal pain (principal); R63.4 Abnormal weight loss
CPT/HCPCS: 76700

== ENCOUNTER → 2025-01-24 07:21 | Outpatient (BNV) | payer MEDICARE, SELFPAY | PROVIDERS: PCP Student in an Organized Health Care Education/Training Program; Visit Provider Radiology Diagnostic Radiology | DX: R10.9 Unspecified abdominal pain (principal) | CPT/HCPCS: 76700 ==

== ENCOUNTER 2025-02-01 09:27 | Outpatient (AMB) | payer MEDICARE, SELFPAY ==
--- NOTE | 2025-02-01 09:43 | HO.NEPHOV ---
Vital Signs 02/01/25 09:47 Height 5 ft 2 in Weight 132 lb BMI 24.1 BP 138/60 Blood Pressure Location Rt brachial Position Sitting Pulse 67 Pulse Source Pulse Oximeter Pulse Oximetry (%) 96 Oxygen Delivery Method Room Air Intake Visit Reasons: FU-Conf w/ Leesa daughter Email Marketing Coordinator Required: No Accompanied by: Self / Same As Patient Allergies cimetidine (From TAGAMET) Allergy (Unknown, Verified 02/01/25 09:46) GI UPSET ciprofloxacin (From CIPRO) Allergy (Unknown, Verified 02/01/25 09:46) GI UPSET diltiazem (From CARDIZEM) Allergy (Unknown, Verified 02/01/25 09:46) HIVES lisinopril (From ZESTRIL) Allergy (Unknown, Verified 02/01/25 09:46) LIGHTHESDEDNESS GI UPSET Sulfa (Sulfonamide Antibiotics) (SULFA (SULFONAMIDE ANTIBIOTICS)) Allergy (Unknown, Verified 02/01/25 09:46) HIVES timolol (From ISTALOL) Allergy (Unknown, Verified 02/01/25 09:46) STINGING does not handle GENERIC meds w Allergy (Unknown, Uncoded 08/15/24 10:56) unk HPI Comments Details: I had the delight of seeing Kera in the office in follow-up of her CKD and hypertension. Her blood pressure has been at goal at home. She denies any active GI issues. She follows up with Dr. Darby and Dr. Muñoz. She does not have any chest pain, shortness of breath, proximal nocturnal dyspnea, orthopnea, nausea, vomiting, fever, urinary symptoms or pedal edema. She has no orthostatic symptoms. Her serum creatinine remains at baseline. She has been having bloating and had been having a lot of gas as well as some diarrhea. She has H/O small bowel over growth and was treated with Rifaxamin by GI ( Dr Boone in [facility]) [facility] Medical History (Updated 02/01/25 @ 10:13 by Darren Roy MD) Hypothyroidism Weight loss Abdominal pain Carotid stenosis, bilateral Statin intolerance Other and unspecified hyperlipidemia Non-rheumatic aortic stenosis Labile hypertension Surgical History History of colonoscopy (~09/04/12) History of cholecystectomy (~01/28/21) History of appendectomy Family History Father No problems noted. Mother No problems noted. 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 Cognitive needs: Yes (cane) Hearing needs: No Vision needs: Yes (rx glasses) Review of Systems Const All systems reviewed & are unremarkable except as noted in HPI and below Physical Exam Vital Signs: Last Vital Signs Pulse 67 02/01/25 09:47 BP 138/60 02/01/25 09:47 Pulse Ox 96 02/01/25 09:47 Oxygen Delivery Method Room Air 02/01/25 09:47 BMI result Body Mass Index 24.1 Const General: comfortable and no acute distress Orientation/consciousness: patient oriented x3 HEENT Head: Yes normocephalic Mouth: Normal oral and palatal mucosa present Eyes EOM: EOMs intact bilaterally Neck Neck: Yes supple Resp Auscultation: clear to auscultation bilaterally Cardio Jugular venous distension: no JVD Rate: regular rate GI Palpation (GI): Soft to palpation Auscultation: normal bowel sounds General: Yes no CVA tenderness Back/Spine/Pelvis Back: no CVA tenderness Skin General skin exam: no rashes or lesions noted Neuro General: patient oriented x3 and moves all extremities Extrem General: Yes no pedal edema Results Reviewed Nephrology Results: Sodium, (135-145) 143 mmol/L 01/23/25 Potassium, (3.3-5.1) 5.1 mmol/L 01/23/25 Chloride, (96-108) 113 mmol/L H 01/23/25 Carbon Dioxide, (22-29) 24 mmol/L 01/23/25 BUN, (9-16) 39 mg/dL H 01/23/25 Creatinine, (0.5-1.4) 1.29 mg/dL 01/23/25 Calcium, (8.4-10.2) 9.3 mg/dL 12/13/24 Urine Protein, (Neg-Trace) Negative mg/dL 12/13/24 Assessment & Plan Assessment & Plan (1) Hypertension: Code(s): I10 - Essential (primary) hypertension Category: Medical Qualifiers: Hypertension type: primary hypertension Qualified Code(s): I10 - Essential (primary) hypertension (2) CKD (chronic kidney disease) stage 3, GFR 30-59 ml/min: Code(s): N18.30 - Chronic kidney disease, stage 3 unspecified Category: Medical Qualifiers: Chronic kidney disease stage 3 subtype: stage 3a (GFR 45-59) Qualified Code(s): N18.31 - Chronic kidney disease, stage 3a Plan Kera has stage III CKD with hypertension. Her blood pressure is at goal at home . She has no orthostatic symptoms. She is tolerating her current antihypertensive medication regimen. She has vascular disease & follows Dr. Darby. She tries to keep herself well hydrated and stay away from nonsteroidal anti-inflammatory medications. She can switch her Amlodipine to once a day at night. If she is going to have IV contrast for CT scan, losartan should be held on the day and day after the dye test. I did not make any medication changes today. Her blood pressure goes up or serum creatinine rises, I will have a low threshold in doing Doppler of her renal arteries. She has H/O small bowel over growth and was treated with Rifaxamin by GI ( Dr Boone in [facility]). She can be tried a course of Rifaxamin by PCP or GI. Follow-up blood work was ordered. Answered all questions Orders: Orders Creatinine 6 Months I10 - Essential (primary) hypertension, N18.31 - Chronic kidney disease, stage 3a Blood Urea Nitrogen 6 Months I10 - Essential (primary) hypertension, N18.31 - Chronic kidney disease, stage 3a Electrolytes 6 Months I10 - Essential (primary) hypertension, N18.31 - Chronic kidney disease, stage 3a Calcium 6 Months I10 - Essential (primary) hypertension, N18.31 - Chronic kidney disease, stage 3a Coding Level of Care Code Est Pt Level 4 (95325) Diagnoses Primary hypertension I10 Hypertension type: primary hypertension Stage 3a chronic kidney disease N18.31 Chronic kidney disease stage 3 subtype: stage 3a (GFR 45-59)
[2025-02-01 09:47] VITALS: BP 138/60; PULSE 67; O2SAT 96; BMI 24.1
--- OUTSIDE RECORDS SUMMARY | 2025-02-01 10:24 | XMS_ITS | Patient Health Record ---
Author Organization [facility] Address [address] [place] [address] Care Team Providers Care New Grad Rn Name Role Phone Javier (RETIRED) Manuel STEPHENSON Primary Care Provide r Nikhil Zamorano Unavailable [phone] Allergies Allergen (clinical drug ingredient) Drug/Non Drug [...] Status Risk Notes Problem Irritable bowel syndrome (81101130) Irritable bowel syndrome (564.1) Active confirmed Problem Diarrhea (93066604) Diarrhea (787.91) Active confirmed Problem Screening for colon cancer (515342364) Screening for colon cancer (V76.51) Active confirmed [...] OF [place] [address] [place] [address] [id number] ARLET HALE) Self - patient is the insured [facility] [employer] [address] [place] [address] [id number] ARLET HALE) Self - patient is the insured Medical (General) History Medical History History ICD Code HTN Denies CO,DM,CVA,Lung disease,renal dise ase Negative colonoscopy, by her report, serenity jennie 20 yrs ago Hypothyroidism Hyperlipidemia Diverticulitis 15-20 yrs ago Surgical History Surgery Date(Month/Year) appendectomy 1958
--- OUTSIDE RECORDS SUMMARY | 2025-02-01 10:24 | XMS_ITS | Clinical Summary ---
Author Organization [facility] Address [address] [place] [address] Phone Care Team Providers Care Vulcanizing Press Operator Name Role Phone Manuel Herrera MD Primary Care Provider [phone] Allergies Active Allergy Reactions Criticality Noted Date [...] patient's age to complete this topic Insurance [facility] Medicare [facility] Medicare Care Teams Vulcanizing Press Operator Relationship Specialty Start Date End Date Manuel Herrera MD [address] [place] [address] DR[address] [place] PCP - General 05/19/20
--- OUTSIDE RECORDS SUMMARY | 2025-02-01 10:24 | XMS_ITS | Data Portability ---
Author Organization [place] [facility] Address [address] [address] Care Team Providers Care Jewelry Sales Name Role Phone RIKKI BALL Primary Care Provider [phone] Assessment Encounter Date Assessment Date Assessment LastModified by Organization Details LastModified Time 02/02/2024 02/02/2024 Discussed various types models and levels of technology. Patient is interested in a mid level technology in a rechargeable option. Recommended Kinetic 330 Smart CHELIAT R in luís color #2 R/L M receivers in small open domes $4544. CAROLYN 03/22/2024. Would like sooner appointment - going to [facility] in early March. for family trip. Will move up if cancellation occurs. [email or web address] Not available 02/02/2024 15:59:55 03/22/2024 03/22/2024 Excellent fit to real ear. Reduced to #2 adaptation for comfort. Reviewed daily care and maintenance. Downloaded serenity. Patient has android phone that may not be compatible w/ serenity. Gave daughter tech support number at [employer] to problem solve why serenity not showing up on phone display. F/U 2 weeks. [email or web address] Not available 03/22/2024 10:58:09 04/12/2024 04/12/2024 Increased to #4 adaptation for clarity. Hearing so much better. Loves new hearing aids - was able to download serenity. Reviewed daily care and maintenance. 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 F/u 2 weeks. [email or web address] Not available 04/12/2024 10:24:03 04/26/2024 04/26/2024 doing very well - finds a little sharp reduced HF gain 2 steps sounds better. 6 month appt made [email or web address] Not available 04/26/2024 10:16:05 09/06/2024 09/06/2024 CL & CK - both aids working fine. Left aid migrating - put on retention wires - better. annual appt made [facility]. 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 Pulsatil e tinnitus , left ear; Note: Date Diagnose d: 4 3:28 PM (H93.A2) Not Available [facility] 4 02:19:22 Dizzines s and giddines s 188781013 Completed 202301/03/2024 Dizzines s and giddines s; Note: Date Diagnose d: 4 2:07 PM (R42) DIOGENES HERRERA MD [address] [address], [place], [address] , [place] - [facility] 4 13:50:21 Tinnitus of left ear 12921283650 06 Active 2023 Tinnitus , left ear; Note: Date Diagnose d: 4 2:36 PM (H93.12) Not Available [facility] 4 02:19:51 Sensorin eural hearing loss of bilatera l ears 236079353 Active 2023 Sensorin eural hearing loss, bilatera l; Note: Date Diagnose d: 4 2:36 PM (H90.3) Not Available [facility] 4 02:19:58 Acute maxillar y sinusiti s 10153263 Active 2023 Acute maxillar y sinusiti s, unspecif ied; Note: Date Diagnose d: 4 2:07 PM (J01.00) Not Available [facility] 4 02:19:59 Bilatera l disorder of Eustachi an tubes 84269433010 56466 Active 2023 Other specifie d disorder s of Eustachi an tube, bilatera l; Note: Date Diagnose d: 09/15/2023 1:04 PM (H69.83) Not Available [facility] 4 02:19:51 Chronic rhinitis 38195989 Active 2023 DIOGENES HERRERA MD [address] [address], [place], [address] , [facility] - [facility] 4 13:51:09 Sensorin eural hearing loss of bilatera l ears 026030105 Active 2024 JOHN PAUL LITTLE [address] [address], [place], [address] , [place] - [facility] 5 09:32:21 Problem Notes None recorded. Procedures Surgical History Date Name Laterality Status Provider Name and Address Organization Details Recorded Time 01/03/2024 Comp Audio with Tymps - 87486 & 33631 completed NAVJOT MARTINEZ, AUD [address] [facility],[address] [address], [place], [address], [place] - [facility] 01/03/2024 13:57:56 Imaging Results None recorded. Procedure Notes None recorded. Medical Equipment None Reported. Allergies Allergen ID Allergen Name Allergen Category Reaction Reaction Severity Criticality Documentation Date Start Date Code Code System Note Provider Name and Address Organization Details Recorded Time 721651 Substance with sulfonami de structure and antibacte rial mechanism of action (substanc e) medicatio n other Not available Not available 12/09/2023 16972 8003 SNOMED React ion: Unkno wn; Not Available [facility] 4 00:25:00 Medications Name Sig Start Date Stop [...] Diagnosis SNOMED-CT Code Diagnosis ICD10 Code Diagnosis IMO Codes Diagnosis Note [id number] DIOGENES HERRERA MD [facility] [address] [address] 01/03/2024 13:22:46 01/03/2024 14:39:42 Chronic rhinitis 90639895 J31.0 Patient continues to demonstrat e chronic rhinitis, turbinate hypertroph y and nasal obstructio n despite the daily use of budesonide and Astelin nasal spray. I recommende d she continue to use the nasal sprays as prescribed . No additional recommenda tions with regards to her turbinate hypertroph y. Sensorineu ral hearing loss of bilateral ears 305387072 H90.3 Audiologic al evaluation results: 01/03/2024 Right ear: Mild sloping to moderately severe sensorineu ral hearing loss with excellent word recognitio n. Left ear: Normal sloping to moderately severe sensorineu ral hearing loss with excellent word recognitio n. Tympanomet ry: Right Ear:Type A Left Ear:Type A Tinnitus o f vascular origin 576926970 H93.A2 Tinnitus of left ear 279 1843592 106 H93.12 [id number] NAVJOT MARTINEZ, JOHN PAUL [facility] [address] [place] [address] 01/03/2024 13:57:25 01/04/2024 07:28:05 Sensorineural hearing loss of bilateral ears 248080002 H90.3 Audiologic al evaluation results: 01/03/2024 Right ear: Mild sloping to moderately severe sensorineu ral hearing loss with excellent word recognitio n. Left ear: Normal sloping to moderately severe sensorineu ral hearing loss with excellent word recognitio n. Tympanomet ry: Right Ear:Type A Left Ear:Type A [id number] JOHN PAUL LITTLE [place] [address] [place] [address],[address] [address] 02/02/2024 14:55:38 02/06/2024 07:01:45 Sensorineural hearing loss of bilateral ears 865654566 H90.3 Audiologic al evaluation results: 01/03/2024 Right ear: Mild sloping to moderately severe sensorineu ral hearing loss with excellent word recognitio n. Left ear: Normal sloping to moderately severe sensorineu ral hearing loss with excellent word recognitio n. Tympanomet ry: Right Ear:Type A Left Ear:Type A [id number] JOHN PAUL LITTLE [place] [address] [place] [address],[address] [address] 03/22/2024 09:49:00 03/23/2024 07:27:03 Sensorineural hearing loss of bilateral ears 376258804 H90.3 Audiologic al evaluation results: 01/03/2024 Right ear: Mild sloping to moderately severe sensorineu ral hearing loss with excellent word recognitio n. Left ear: Normal sloping to moderately severe sensorineu ral hearing loss with excellent word recognitio n. Tympanomet ry: Right Ear:Type A Left Ear:Type A [id number] JOHN PAUL LITTLE [place] [address] [place] [address],[facility] [address] [place] [address] 04/12/2024 09:48:06 04/16/2024 13:28:19 Sensorineural hearing loss of bilateral ears 115876228 H90.3 Audiologic al evaluation results: 01/03/2024 Right ear: Mild sloping to moderately severe sensorineu ral hearing loss with excellent word recognitio n. Left ear: Normal sloping to moderately severe sensorineu ral hearing loss with excellent word recognitio n. Tympanomet ry: Right Ear:Type A Left Ear:Type A [id number] NAVJOT MARTINEZ, AUD [place] [facility] [place] [address] [facility] [place] [address] 04/26/2024 09:52:50 05/04/2024 11:56:17 Sensorineural hearing loss of bilateral ears 596287746 H90.3 Audiologic al evaluation results: 01/03/2024 Right ear: Mild sloping to moderately severe sensorineu ral hearing loss with excellent word recognitio n. Left ear: Normal sloping to moderately severe sensorineu ral hearing loss with excellent word recognitio n. Tympanomet ry: Right Ear:Type A Left Ear:Type A [id number] NAVJOT MARTINEZ, AUD [place] [facility] [place] [address] [facility] [place] [address] 09/06/2024 10:31:23 09/06/2024 14:33:23 Sensorineural hearing loss of bilateral ears 528519636 H90.3 [id number] Audiologic al evaluation results: 01/03/2024 Right ear: Mild sloping to moderately severe sensorineu ral hearing loss with excellent word recognitio n. Left ear: Normal sloping to moderately severe sensorineu ral hearing loss with excellent word recognitio n. Tympanomet ry: Right Ear:Type A Left Ear:Type A Health Concerns Section Related Observation LastModified by Organization Detai ls LastModified Time None Recorded Concern Status LastModified by Organization Details LastModified Time None Recorded Advance Directives Directive None Recorded Payers Insurance Date Sequence Insurance Name Policy Number Policy Arvizu Covered Member ID Arvizu Member ID Guarantor Name 09/14/2024 2 AARP (MEDICARE SUPPLEMENT) Yuni Delatorre [id number] Yuni Delatorre 09/06/2024 1 [place] [employer] SERVICES Yuni Delatorre [id number] Yuni Delatorre Notes Date Note Type Note Provider Name and Address Organization Details Recorded Time 02/02/2024 text/html Patient has a known asymmetrical SNHL AD>. Was recently cleared for amplification by Dr Herrera. Patient has no hearing aid benefit. 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 Wants to remain as active as she can and would like to get back to performing. NAVJOT MARTINEZ, AUD [address] [facility],[address], [address], [facility] 03/19/2024 12:46:40 03/22/2024 text/html Patient has a known asymmetrical SNHL AD>. Was recently cleared for [...] in small open domes $4544. CAROLYN 03/22/2024. JOHN PAUL LITTLE [address] [facility],[address], [address], [facility] 03/22/2024 11:03:24 04/12/2024 text/html Patient has a known asymmetrical SNHL AD>. Was recently cleared for [...] CHELITA R in dispensed 03/22/2024. NAVJOT MARTINEZ, JOHN PAUL [address] [facility],[address], [address], [facility] 04/12/2024 10:25:26 04/26/2024 text/html Patient has a known asymmetrical SNHL AD>. Was recently cleared for [...] is thrilled. F/u 2 weeks. NAVJOT MARTINEZ, [facility] [address] [facility],[address], [address], [facility] 04/26/2024 10:16:26 09/06/2024 text/html Patient has a known asymmetrical SNHL AD>. Was recently cleared for amplification by Dr Herrera. Patient has no hearing aid benefit. 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 Wants to remain as active as she can and would like to get back to performing. Currently wearing [employer] Moment 330 Smart CHELITA R in dispensed 03/22/2024. Increased to #4 adaptation for clarity. Hearing so much better. Loves new hearing aids -doing very well - finds a little sharp reduced HF gain 2 steps sounds better. NAVJOT MARTINEZ, JOHN PAUL [address] [facility],[address] [address], [place], [address], [facility] 09/11/2024 09:32:45 OBGyn Episode No OBEpisode recorded.
== END 2025-02-01 10:27 | disposition home or self-care (01) ==
LOC: HO.HKA 09:28
PROVIDERS: PCP Internal Medicine; Visit Provider Internal Medicine Nephrology
DX: I10 Essential (primary) hypertension (principal); N18.31 Chronic kidney disease, stage 3a
CPT/HCPCS: 99214

== ENCOUNTER → 2025-02-01 09:27 | Outpatient (BNVA) | payer MEDICARE, SELFPAY | PROVIDERS: PCP Internal Medicine; Visit Provider Internal Medicine Nephrology | DX: N18.31 Chronic kidney disease, stage 3a (principal); I10 Essential (primary) hypertension | CPT/HCPCS: 99212 ==

== ENCOUNTER 2025-02-26 09:14 | Outpatient (REF) | payer MEDICARE, SELFPAY ==
--- OUTSIDE RECORDS SUMMARY | 2025-02-26 12:48 | XMS_ITS | Data Portability ---
Author Organization [place] - [facility], Allergy Address [address] [address] Care Team Providers Care Floor Coverings Salesperson Name Role Phone RIKKI BALL Primary Care Provider Assessment Encounter Date Assessment Date Assessment LastModified by Organization Details LastModified Time 02/02/2024 02/02/2024 Discussed various types models and levels of technology. Patient is interested in a mid level technology in a rechargeable option. Recommended [employer] 330 Smart CHELITA R in luís color #2 R/L M receivers in small open domes $4544. CAROLYN 03/22/2024. Would like sooner appointment - going to [facility] in early March. for family trip. Will move up if cancellation occurs. [email or web address] Not available 02/02/2024 15:59:55 03/22/2024 03/22/2024 Excellent fit to real ear. Reduced to #2 adaptation for comfort. Reviewed daily care and maintenance. Downloaded serenity. Patient has android phone that may not be compatible w/ serenity. Gave daughter tech support number at [employer] to problem solve why serenity not showing up on phone display. F/U 2 weeks. [email or web address] Not available 03/22/2024 10:58:09 04/12/2024 04/12/2024 Increased to #4 adaptation for clarity. Hearing so much better. Loves new hearing aids - was able to download serenity. Reviewed daily care and maintenance. 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 F/u 2 weeks. [email or web address] Not available 04/12/2024 10:24:03 04/26/2024 04/26/2024 doing very well - finds a little sharp reduced HF gain 2 steps sounds better. 6 month appt made Not available 04/26/2024 10:16:05 09/06/2024 09/06/2024 CL & CK - both aids working fine. Left aid migrating - put on retention wires - better. annual appt made prior to my usp. 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 Active 2023 Pulsatil e tinnitus , left ear; Note: Date Diagnose d: 4 3:28 PM (H93.A2) Not Available [facility] 4 02:19:22 Dizzines s and giddines s 994110777 Completed 202301/03/2024 Dizzines s and giddines s; Note: Date Diagnose d: 4 2:07 PM (R42) DIOGENES HERRERA MD [address] [address], [place], [address] , [place] - [facility] 4 13:50:21 Tinnitus of left ear 27555543863 06 Active 2023 Tinnitus , left ear; Note: Date Diagnose d: 4 2:36 PM (H93.12) Not Available [facility] 4 02:19:51 Sensorin eural hearing loss of bilatera l ears 827947928 Active 2023 Sensorin eural hearing loss, bilatera l; Note: Date Diagnose d: 4 2:36 PM (H90.3) Not Available [facility] 4 02:19:58 Acute maxillar y sinusiti s 69555502 Active 2023 Acute maxillar y sinusiti s, unspecif ied; Note: Date Diagnose d: 4 2:07 PM (J01.00) Not Available [facility] 4 02:19:59 Bilatera l disorder of Eustachi an tubes 91192374132 19308 Active 2023 Other specifie d disorder s of Eustachi an tube, bilatera l; Note: Date Diagnose d: 09/15/2023 1:04 PM (H69.83) Not Available [facility] 4 02:19:51 Chronic rhinitis 51373301 Active 2023 DIOGENES HERRERA MD [address] [address], [place], [address] , [facility] - [facility] 4 13:51:09 Sensorin eural hearing loss of bilatera l ears 678342591 Active 2024 JOHN PAUL LITTLE [address] [address], [place], [address] , [place] - [facility] 5 09:32:21 Problem Notes None recorded. Procedures Surgical History Date Name Laterality Status Provider Name and Address Organization Details Recorded Time 01/03/2024 Comp Audio with Tymps - 37048 & 21865 completed NAVJOT MARTINEZ, AUD 100 [facility],[address] [address], [place], [address], [place] - [facility] 01/03/2024 13:57:56 Imaging Results None recorded. Procedure Notes None recorded. Medical Equipment None Reported. Allergies Allergen ID Allergen Name Allergen Category Reaction Reaction Severity Criticality Documentation Date Start Date Code Code System Note Provider Name and Address Organization Details Recorded Time 285416 Substance with sulfonami de structure and antibacte rial mechanism of action (substanc e) medicatio n other Not available Not available 12/09/2023 75976 [id number] SNOMED React ion: Unkno wn; Not [...] ICD10 Code Diagnosis IMO Codes Diagnosis Note [id number] DIOGENES HERRERA MD [facility] [address] [address] 01/03/2024 13:22:46 01/03/2024 14:39:42 Chronic rhinitis 99033825 J31.0 Patient continues to demonstrat e chronic rhinitis, turbinate hypertroph y and nasal obstructio n despite the daily use of budesonide and Astelin nasal spray. I recommende d she continue to use the nasal sprays as prescribed . No additional recommenda tions with regards to her turbinate hypertroph y. Sensorineu ral hearing loss of bilateral ears 601501501 H90.3 Audiologic al evaluation results: 01/03/2024 Right ear: Mild sloping to moderately severe sensorineu ral hearing loss with excellent word recognitio n. Left ear: Normal sloping to moderately severe sensorineu ral hearing loss with excellent word recognitio n. Tympanomet ry: Right Ear:Type A Left Ear:Type A Tinnitus o f vascular origin 512150715 H93.A2 Tinnitus of left ear 431 2161970 106 H93.12 [id number] NAVJOT MARTINEZ, JOHN PAUL [facility] [address] [place] [address] 01/03/2024 13:57:25 01/04/2024 07:28:05 Sensorineural hearing loss of bilateral ears 768056525 H90.3 Audiologic al evaluation results: 01/03/2024 Right ear: Mild sloping to moderately severe sensorineu ral hearing loss with excellent word recognitio n. Left ear: Normal sloping to moderately severe sensorineu ral hearing loss with excellent word recognitio n. Tympanomet ry: Right Ear:Type A Left Ear:Type A [id number] JOHN PAUL LITTLE [place] [address] [place] [address],[address] [address] 02/02/2024 14:55:38 02/06/2024 07:01:45 Sensorineural hearing loss of bilateral ears 111222394 H90.3 Audiologic al evaluation results: 01/03/2024 Right ear: Mild sloping to moderately severe sensorineu ral hearing loss with excellent word recognitio n. Left ear: Normal sloping to moderately severe sensorineu ral hearing loss with excellent word recognitio n. Tympanomet ry: Right Ear:Type A Left Ear:Type A 20132 JOHN PAUL LITTLE [place] [address] [place] [address],[address] [address] 03/22/2024 09:49:00 03/23/2024 07:27:03 Sensorineural hearing loss of bilateral ears 382076090 H90.3 Audiologic al evaluation results: 01/03/2024 Right ear: Mild sloping to moderately severe sensorineu ral hearing loss with excellent word recognitio n. Left ear: Normal sloping to moderately severe sensorineu ral hearing loss with excellent word recognitio n. Tympanomet ry: Right Ear:Type A Left Ear:Type A 45972 JOHN PAUL LITTLE [place] [address] [place] [address],[facility] [address] [place] [address] 04/12/2024 09:48:06 04/16/2024 13:28:19 Sensorineural hearing loss of bilateral ears 885803142 H90.3 Audiologic al evaluation results: 01/03/2024 Right ear: Mild sloping to moderately severe sensorineu ral hearing loss with excellent word recognitio n. Left ear: Normal sloping to moderately severe sensorineu ral hearing loss with excellent word recognitio n. Tympanomet ry: Right Ear:Type A Left Ear:Type A 25046 NAVJOT MARTINEZ, AUD [place] 100 [facility],[place] [address] [place] [address] 04/26/2024 09:52:50 05/04/2024 11:56:17 Sensorineural hearing loss of bilateral ears 121793241 H90.3 Audiologic al evaluation results: 01/03/2024 Right ear: Mild sloping to moderately severe sensorineu ral hearing loss with excellent word recognitio n. Left ear: Normal sloping to moderately severe sensorineu ral hearing loss with excellent word recognitio n. Tympanomet ry: Right Ear:Type A Left Ear:Type A 82263 NAVJOT MARTINEZ, AUD [place] 100 [facility],[place] [place] [address] 09/06/2024 10:31:23 09/06/2024 14:33:23 Sensorineural hearing loss of bilateral ears 038238143 H90.3 [id number] Audiologic al evaluation results: 01/03/2024 Right ear: [...] 09/14/2024 2 [employer] (MEDICARE SUPPLEMENT) Yuni Delatorre [id number] Yuni Delatorre 09/06/2024 1 MEDICARE B-[place]: [employer] Yuni Deltaorre [id number] Yuni Delatorre Notes Date Note Type Note [...] back to performing. NAVJOT MARTINEZ, AUD 100 [facility],[address], [address], [facility] 03/19/2024 [...] $4544. CAROLYN 03/22/2024. JOHN PAUL LITTLE [address] [facility],[address], [address], [facility] 03/22/2024 [...] dispensed 03/22/2024. NAVJOT MARTINEZ, JOHN PAUL [address] [facility],[address], [address], [facility] 04/12/2024 [...] is thrilled. F/u 2 weeks. NAVJOT MARTINEZ, [facility] 100 [facility],[address], [address], [facility] 04/26/2024 10:16:26 09/06/2024 text/html Patient has [...] sounds better. NAVJOT MARTINEZ, JOHN PAUL [address] [facility],[address] [address], [place], [address], [facility] 09/11/2024 09:32:45 OBGyn Episode No OBEpisode recorded.
[2025-02-26 15:28] LABS: Folate 10.0 ng/mL (> or = 4.0); Vitamin B12 491 pg/mL (200-900)
[2025-02-26 16:54] LABS: Free T4 (Free Thyroxine) 0.92 ng/dL (0.71-1.85)
== END 2025-02-26 09:15 | disposition home or self-care (01) ==
LOC: HO.WFDLDS 09:14
PROVIDERS: Physician Assistant Medical; PCP Student in an Organized Health Care Education/Training Program; Visit Provider Student in an Organized Health Care Education/Training Program
DX: E53.8 Deficiency of other specified B group vitamins (principal); E03.9 Hypothyroidism, unspecified; J06.9 Acute upper respiratory infection, unspecified; I12.9 Hypertensive chronic kidney disease with stage 1 through stage 4 chronic kidney disease, or unspecified chronic kidney disease; N18.31 Chronic kidney disease, stage 3a; I65.23 Occlusion and stenosis of bilateral carotid arteries; E78.49 Other hyperlipidemia; K21.9 Gastro-esophageal reflux disease without esophagitis; Z79.891 Long term (current) use of opiate analgesic; Z79.890 Hormone replacement therapy; Z79.899 Other long term (current) drug therapy
CPT/HCPCS: 36415; 82607; 82746; 83036; 84439; 84443; 99212

== ENCOUNTER 2025-02-26 09:14 | Outpatient (AMB) | payer MEDICARE, SELFPAY ==
--- NOTE | 2025-02-26 09:16 | A.OFFPC_ITS ---
Vital Signs 02/26/25 09:25 Height 5 ft 0.51 in Weight 133 lb BMI 25.5 BP 156/48 H Blood Pressure Location Lt brachial Position Sitting Respiration 18 Pulse 73 Pulse Source Pulse Oximeter Temp 97.7 F Temp Source Temporal Artery Scan Pulse Oximetry (%) 96 Oxygen Delivery Method Room Air Intake Visit Reasons: f/u for GI issues Broadcast Correspondent Required: No Accompanied by: Self / Same As Patient Allergies cimetidine (From TAGAMET) Allergy (Unknown, Verified 02/26/25 09:16) GI UPSET ciprofloxacin (From CIPRO) Allergy (Unknown, Verified 02/26/25 09:16) GI UPSET diltiazem (From CARDIZEM) Allergy (Unknown, Verified 02/26/25 09:16) HIVES lisinopril (From ZESTRIL) Allergy (Unknown, Verified 02/26/25 09:16) LIGHTHESDEDNESS GI UPSET Sulfa (Sulfonamide Antibiotics) (SULFA (SULFONAMIDE ANTIBIOTICS)) Allergy (Unknown, Verified 02/26/25 09:16) HIVES timolol (From ISTALOL) Allergy (Unknown, Verified 02/26/25 09:16) STINGING does not handle GENERIC meds w Allergy (Unknown, Uncoded 08/15/24 10:56) unk Medication List - Last Reconciled 02/26/25 by Mario Espinosa MD albuterol sulfate 90 mcg/actuation 1 inh inhalation QID PRN amlodipine 5 mg PO BID azelastine (Astepro Allergy) 2 sprays intranasal BID brimonidine-timolol 0.2-0.5 % drps ophthalmic (eye) budesonide 32 mcg/actuation 2 sprays intranasal DAILY carvedilol 25 mg PO BID evolocumab (Repatha SureClick) 140 mg subcut Q2W fenofibrate 54 mg PO DAILY hydralazine 50 mg PO TID hydralazine 25 mg PO TID levothyroxine 100 mcg PO DAILY losartan 1 tablet in the morning, 1/2 tablet in the evening PO 90 days pantoprazole 40 mg PO QAM psyllium husk (Metamucil) 0.8 grams PO DAILY tobramycin 0.3% drps ophthalmic (eye) tramadol 50 mg PO DAILY PRN Tobacco use date assessed: 12/31/24 Dental Screening Dental Screen Date: 01/23/25 HPI HPI Comments History of Present Illness Details The patient is an 84-year-old female presenting with a recent history of falling. The fall occurred while the patient was exiting a meeting at the [facility], after tripping over the carpet with her shoe, resulting in an ankle roll and rug youssef on the elbow. This incident happened after the patient ceased using stairs post-hip fracture. The patient reported using a walker and cane for two days following the fall due to knee tenderness and subsequent mobility limitations. Additionally, the patient's chronic conditions include hypertension, stage 4 chronic kidney disease, SIBO, and acid reflux, which she manages with multiple medications. She reports chronic knee pain and intermittent abdominal tenderness associated with her past SIBO episodes. The patient is further concerned about acid reflux, requesting updates regarding dietary influences as it took a week for symptoms to subside after initially starting medication. She actively manages her conditions with medication and diet, retaining symptomatic control over her gastrointestinal and cardiovascular issues. Medical History: - Hypertension - Stage 4 Chronic Kidney Disease - Small Intestinal Bacterial Overgrowth (SIBO) - Acid Reflux - Hyperlipidemia - Elevated Triglycerides - History of Upper Intestinal Infection - Hypothyroidism - History of Hip Fracture - Anxiety - History of Sleepiness related to B12 d eficiency Surgical History: - Gallbladder removal Medications: - Amlodipine 5 mg, twice daily for hyper tension - Coreg (Carvedilol) 25 mg, twice daily for hypertension - Losartan for hypertension - Hydralazine 75 mg, three times a day f or hypertension - Tramadol for pain - Levothyroxine for hypothyroidism - Pantoprazole 40 mg, for acid reflux - Trilipix (Fenofibrate) for elevated tr iglycerides - Rupatadine for hyperlipidemia - Tylenol for pain management Social History: - Active involvement in [employer] activitie s, including the [employer] - Previously physically active; modifica tions made to activity levels post-hip fracture and recent fall - Considers her dietary preferences with caution due to dietary restrictions - Experiences feelings of sleepiness and fatigue - Previously engaged in quilting classes , indicates valuing structured social engagement - Active in managing her health; regular ly monitors blood pressure and symptoms [facility] Medical History (Updated 02/26/25 @ 09:56 by Mario Espinosa MD) GERD (gastroesophageal reflux disease) Hyperlipidemia Hypothyroidism Weight loss Abdominal pain Carotid stenosis, bilateral Statin intolerance Other and unspecified hyperlipidemia Non-rheumatic aortic stenosis Labile hypertension Surgical History History of colonoscopy (~09/04/12) History of cholecystectomy (~01/28/21) History of appendectomy Family History Father No problems noted. Mother No problems noted. 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 Nikhil Thayer, Yanely Ferrer, Orlando Chavez and colleagues, with an educational mukund from [employer]. Review of Systems Narrative - General: Reports fatigue and episodes of sleepiness - Cardiovascular: Denies significant issues but noted elevated heart rate post- fall - Musculoskeletal: Reports knee tenderness post-fall, states reduced physical activity level - Gastrointestinal: Reports improvements in acid reflux over time, denies diarrhea - Neurological: Denies loss of consciousness or focal neurological symptoms All systems reviewed & are unremarkable except as reviewed in HPI and above Physical exam (Primary Care) Vital Signs: Last Vital Signs Temp 97.7 F 02/26/25 09:25 Pulse 73 02/26/25 09:25 Resp 18 02/26/25 09:25 BP 156/48 H 02/26/25 09:25 Pulse Ox 96 02/26/25 09:25 Oxygen Delivery Method Room Air 02/26/25 09:25 BMI result Body Mass Index 25.5 Tobacco/Smoking Status: Tobacco use Status Tobacco use date assessed 12/31/24 02/26/25 09:18 Patient Tobacco Use Status Never used Tobacco 02/26/25 09:18 e-Cigarette/Vaping Use Never Used 02/26/25 09:18 Thrive Assessment: Date of Thrive Assessment Date Thrive assessed 12/31/24 02/26/25 09:18 Narrative General: Alert and oriented, Well nourished, No acute distress. Eye: Pupils are equal, round and reactive to light, Intact accommodation, Extraocular movements are intact, Normal conjunctiva, Vision unchanged. HENT: Normocephalic, Atraumatic, Tympanic membranes are clear, Normal hearing, Oral mucosa is moist, No pharyngeal erythema, Ear canals patent. Respiratory: Lungs CTA bilaterally, No wheeze, Respirations are non-labored. Cardiovascular: Regular rate, Regular rhythm, S1 auscultated, S2 auscultated, No murmur, Good pulses equal in all extremities, Normal peripheral perfusion, No edema. Gastrointestinal: Soft, Non-tender, Non-distended, Normal bowel sounds, No organomegaly. Musculoskeletal: Normal range of motion, Normal strength, No tenderness, No swelling, No deformity, Normal gait. Both knees are very tender. Integumentary: Warm, Dry, [place], Intact. Rug burn on left elbow. Neurologic: Alert, Oriented, Normal sensory, Normal motor function, No focal defects, Cranial Nerves II-XII are grossly intact, Normal deep tendon reflexes. Psychiatric: Cooperative, Appropriate mood & affect, Normal judgment. Coding Level of Care Code Est Pt Level 4 (21748) Complex EM visit Add On G2211 Diagnoses Primary hypertension I10 Hypertension type: primary hypertension Hypothyroidism, unspecified type E03.9 Hypothyroidism type: unspecified B12 deficiency E53.8 Stage 3a chronic kidney disease N18.31 Chronic kidney disease stage 3 subtype: stage 3a (GFR 45-59) History of fall Z91.81 Carotid stenosis, bilateral I65.23 Other hyperlipidemia E78.49 Hyperlipidemia type: other hyperlipidemia Gastroesophageal reflux disease without esophagitis K21.9 Esophagitis presence: without esophagitis Assessment & Plan Assessment & Plan (1) Hypertension: Comment: - Encouraged to continue current antihypertensive regimen, advised monitoring at home - Educated about effects of anxiety and other factors in causing transient hypertension spikes Code(s): I10 - Essential (primary) hypertension Category: Medical Qualifiers: Hypertension type: primary hypertension Qualified Code(s): I10 - Essential (primary) hypertension (2) Hypothyroidism: Comment: - Plan to check Thyroid function during this visit discussed - Continue Levothyroxine 100mcg Daily Code(s): E03.9 - Hypothyroidism, unspecified Category: Medical Qualifiers: Hypothyroidism type: unspecified Qualified Code(s): E03.9 - Hypothyroidism, unspecified (3) B12 deficiency: Comment: - Reevaluation of B12 levels discussed with current management effective - If low will consider injections or oral supplementation Code(s): E53.8 - Deficiency of other specified B group vitamins Category: Medical (4) CKD (chronic kidney disease) stage 3, GFR 30-59 ml/min: Comment: - Recommended ongoing surveillance of kidney function, advised to follow dietary adjustments - Continued follow up with nephrology Code(s): N18.30 - Chronic kidney disease, stage 3 unspecified Category: Medical Qualifiers: Chronic kidney disease stage 3 subtype: stage 3a (GFR 45-59) Qualified Code(s): N18.31 - Chronic kidney disease, stage 3a (5) History of fall: Code(s): Z91.81 - History of falling Plan: - Instructed to continue using assistive devices for mobility and ensure safe environments to prevent future falls - Discussed considerations to avoid any undue stress due to a knee-related injury (6) Carotid stenosis, bilateral: Comment: - Continued follow up with vascular surgery & pending Carotid ultrasounds in May Code(s): I65.23 - Occlusion and stenosis of bilateral carotid arteries Category: Medical (7) Hyperlipidemia: Comment: - Encouragement to sustain current medication and dietary management Code(s): E78.5 - Hyperlipidemia, unspecified Category: Medical Qualifiers: Hyperlipidemia type: other hyperlipidemia Qualified Code(s): E78.49 - Other hyperlipidemia (8) GERD (gastroesophageal reflux disease): Comment: - Advised continuation of Pantoprazole, dietary adjustments cautioned against trigger foods Code(s): K21.9 - Gastro-esophageal reflux disease without esophagitis Category: Medical Qualifiers: Esophagitis presence: without esophagitis Qualified Code(s): K21.9 - Gastro-esophageal reflux disease without esophagitis Plan: Health Maintenance: - Received flu vaccination on May 17 - Discussed consideration for COVID vaccination - Planning for carotid ultrasound for stroke risk assessment in May Patient was informed and verbally consented to the use of an ambient scribe for clinic note documentation during this visit. Plan I discussed with the patient the main concerns surrounding her recent fall and chronic health management. We reviewed the necessity of maintaining her medications, particularly for hypertension, chronic kidney disease, and gastrointestinal issues. Without signs of diarrhea or recurrent SIBO symptoms, restarting antibiotics was deemed unnecessary. We discussed her medication regimen, and I emphasized the need for continued care and self-monitoring, particularly given her cardiovascular conditions and history of falls. Additional discussion addressed the implications of anxiety and diet on her health, reaffirming safety measures, including the use of assistive devices. Orders: Orders TSH reflex Free T4 Today E03.9 - Hypothyroidism, unspecified Vitamin B12 and Folate Today E53.8 - Deficiency of other specified B group vitamins Hemoglobin A1c Today I10 - Essential (primary) hypertension Patient Instructions: - Use a walker and cane as needed for mobility support - Monitor blood pressure at home - Continue all current medications as prescribed - Maintain dietary adjustments to avoid reflux triggers - Undergo scheduled bloodwork and testing - Seek immediate medical attention if experiencing significant changes in symptoms or additional falls - Schedule COVID vaccination in harmony with the personal schedule to account for side effects
[2025-02-26 09:25] VITALS: BP 156/48; PULSE 73; RESP 18; TEMP 36.5; O2SAT 96; BMI 25.5
--- OUTSIDE RECORDS SUMMARY | 2025-02-26 10:09 | XMS_ITS | Patient Health Record ---
Author Organization [facility] Address [address] [place] [address] Care Team Providers Care Machine Bander And Cellophaner Name Role Phone Javier (RETIRED) Manuel STEPHENSON Primary Care Provide r Nikhil Zamorano Unavailable [phone] Allergies Allergen (clinical drug ingredient) Drug/Non Drug [...] Active MoviPrep 100 GM as directed Orally once; Duration: 1 dose 07/19/2012 Active Amlodipine & Diet Manage Prod 5MG 05/09/2024 05/09/2024 Active Bystolic 20MG 05/09/2024 05/09/2024 Acti ve Problems Problem Type SNOMED Code ICD Code Onset Dates Problem Status W/U Status Risk Notes Problem Irritable bowel syndrome (23933730) Irritable bowel syndrome (564.1) Active confirmed Problem Diarrhea (89422831) Diarrhea (787.91) Active confirmed Problem Screening for colon cancer (391498219) Screening for colon cancer (V76.51) Active confirmed [...] OF [place] [address] [place] [address] [phone] ARLET HALE) Self - patient is the insured [facility] [employer] [address] [place] [address] [phone] [id number] ARLET HALE) Self - patient is the insured Medical (General) History Medical History History ICD Code HTN Denies OK,DM,CVA,Lung disease,renal dise ase Negative colonoscopy, by her report, serenity jennie 20 yrs ago Hypothyroidism Hyperlipidemia Diverticulitis 15-20 yrs ago Surgical History Surgery Date(Month/Year) appendectomy 1958
--- OUTSIDE RECORDS SUMMARY | 2025-02-26 10:09 | XMS_ITS | Clinical Summary ---
Author Organization [facility] Address [address] [place] [address] Phone Care Team Providers Care Hydropulper Name Role Phone Manuel Herrera MD Primary Care Provider [phone] Allergies Active Allergy Reactions Criticality Noted Date [...] patient's age to complete this topic Insurance [facility] Medicare [facility] Medicare Care Teams Hydropulper Relationship Specialty Start Date End Date Manuel Herrera MD [address] [place] [address] [id number] [place] PCP - General 05/19/20
== END 2025-02-26 09:56 | disposition home or self-care (01) ==
LOC: HO.HMCHD 09:15
PROVIDERS: PCP Student in an Organized Health Care Education/Training Program; Visit Provider Student in an Organized Health Care Education/Training Program
DX: I10 Essential (primary) hypertension (principal); E03.9 Hypothyroidism, unspecified; E53.8 Deficiency of other specified B group vitamins; N18.31 Chronic kidney disease, stage 3a; Z91.81 History of falling; I65.23 Occlusion and stenosis of bilateral carotid arteries; E78.49 Other hyperlipidemia; K21.9 Gastro-esophageal reflux disease without esophagitis